=== PATIENT | male | born 1945 | race American Indian/Alaskan Native ===

== ENCOUNTER 2018-07-11 13:57 | Emergency (ER) | payer MEDICARE ==
--- NOTE | 2018-07-11 16:38 | Cat Scan Report ---
PROCEDURE: CT HEAD/BRAIN WO CON TECHNIQUE: Computerized tomography of the head was performed without contrast material. CT DOSE LENGTH PRODUCT: 805.4 mGycm HISTORY: s/p fall; hx of subarachnoid hemorrhage COMPARISONS: There are no old studies available FINDINGS: Visualized sinuses and mastoids well aerated No displaced fracture of the calvarium proper Atrophy Periventricular small vessel disease. Multiple small areas of decreased attenuation in the white matter, most likely representing old vascu lar insults; comparison to prior study or follow-up MRI may be helpful if clinically possible and if clinically warranted. There are symmetric assumed chronic frontal subdural hygromas present with plus minus minimal mass ef fect on the underlying frontal lobes recommend comparison to prior study to document stability No acute epidural bleed. No acute subdural bleed. No acute intracerebral bleed. No acute subarachnoid hemorrhage. No midline shift. No herniation. No intracerebral air. No hydrocephalus. If the patient has continued symptomatology followup MRI may be helpful if clinically possible and i f clinically warranted and/or follow-up exam to document stability of these assumed chronic subdural hygromas discussed above. IMPRESSION: No definite acute posttraumatic intracranial finding/no acute blood present There are small relatively symmetric assumed chronic frontal subdural hygromas as discussed above, roman ggest comparison to prior study document stability or if clinically warranted follow-up imaging as di tracyussed above This document is electronically signed by Esvin Hidalgo MD., Jul 11 2018 04:36:24 PM ET
--- NOTE | 2018-07-11 16:40 | Cat Scan Report ---
PROCEDURE: CT cervical spine without contrast. TECHNIQUE: Computerized tomography of the cervical spine was performed from the skull base to T1 wit hout contrast material. CT DOSE LENGTH PRODUCT: 319 mGycm HISTORY: s/p fall; hx of subarachnoid hemorrhage COMPARISONS: None. FINDINGS: The cervical vertebrae have normal height and alignment. There are no fractures. There is no subluxat ion. There is moderate disc space narrowing from C3-4 through C6-7. There are small vertebral body os teophytes in the mid and lower cervical spine. The spinal canal is widely patent. The facet joints ap pear satisfactory. The neural foramina are widely patent. The prevertebral soft tissues have normal t hickness. There is abnormal opacity in both lung apices. This may represent pleural parenchymal scarr ing. There could be pneumonia at the right lung apex. The exact etiology is uncertain. IMPRESSION: No evidence of acute cervical spine injury. Abnormal lung apices. This document is electronically signed by Jose Carlos Mayo MD., Jul 11 2018 04:38:41 PM ET
--- NOTE | 2018-07-11 16:45 | Emergency Department Report ---
ED General Adult HPI - General Chief complaint: Fall Stated complaint: HEAD INJURY Time Seen by Provider: 07/11/18 16:28 Source: patient, EMS (ems notes not available at time of chart dictation), RN notes reviewed, old records reviewed Mode of arrival: Wheelchair Limitations: Physical Limitation, Other (the patient is a poor historian) - History of Present Illness Initial comments: Primary care DrEvi: Lori Past medical history: Emphysema, glaucoma, cataracts, anemia, constipation, subarachnoid hemorrhage This is a pleasant 72-year-old gentleman. The patient presents from a local [facility] for evaluation of reported ground level fall. The patient reportedly hit the back of his head while walking. The patient denies pain at this time. He reports no preceding symptoms prior to the fall. He has no complaints at this time. He would like to go home. He would like to eat. The patient currently denies headache, neck pain, chest pain, abdominal pain, shortness of breath, urinary symptoms. He denies focal extremity weakness. Reportedly, the fall happened just prior to arrival. There are no friends or family members available at this point time for additional information or collateral information. -: Sudden Severity scale (0 -10): 0 Consistency: now resolved Improves with: none Worsens with: none - Related Data Allergies Allergy/AdvReac Type Severity Reaction Status Date / Time No Known Allergies Allergy Unverified 07/11/18 14:09 ED Review of Systems ROS: Stated complaint: HEAD INJURY Other details as noted in HPI Constitutional: denies: fever Eyes: denies: eye discharge ENT: denies: epistaxis Respiratory: denies: cough Cardiovascular: denies: chest pain Gastrointestinal: denies: abdominal pain Genitourinary: denies: dysuria Musculoskeletal: denies: arthralgia, myalgia Neurological: denies: headache ED Past Medical Hx - Past Medical History Hx COPD: Yes (emphazema) Additional medical history: Pneumonia, Glaucoma, Cataract, Erectile dysfuncion, Anemia, Constipation, Subarachnoid hemorrhage, spinal stenosis - Social History Smoking Status: Never Smoker ED Physical Exam - General Limitations: Other (the patient is a poor historian. The patient will answer some questions.) General appearance: alert, in no apparent distress - Head Head exam: Present: atraumatic, normocephalic - Eye Eye exam: Present: EOMI. Absent: normal appearance (cataract noted in the right eye. In the left eye, visual acuity intact to finger counting, color perception, reading at a close distance.) - ENT ENT exam: Present: normal exam, normal orophraynx, mucous membranes moist, normal external ear exam - Neck Neck exam: Present: normal inspection, full ROM. Absent: tenderness, meningismus - Respiratory Respiratory exam: Present: normal lung sounds bilaterally. Absent: respiratory distress - Cardiovascular Cardiovascular Exam: Present: regular rate, normal rhythm, normal heart sounds. Absent: bradycardia, tachycardia, irregular rhythm, systolic murmur, diastolic murmur, rubs, gallop - GI/Abdominal GI/Abdominal exam: Present: soft. Absent: distended, tenderness, guarding, rebound, rigid, pulsatile mass - Rectal Rectal exam: Present: deferred - Extremities Exam Extremities exam: Present: normal inspection, full ROM, other (2+ pulses noted in the bilateral upper, lower extremities. Compartments soft. No long bony tenderness. The pelvis is stable.). Absent: joint swelling, calf tenderness - Back Exam Back exam: Present: normal inspection, full ROM. Absent: tenderness, CVA tenderness (R), CVA tenderness (L), muscle spasm, paraspinal tenderness, vertebral tenderness - Neurological Exam Neurological exam: Present: alert (the patient is alert to name and location.), other (Extraocular movements intact. Tongue midline. No facial droop. Facial sensation intact to light touch in the V1, V2, V3 distribution bilaterally. 5 and 5 strength in 4 extremities.. Sensation is intact to light touch in 4 extremities.) - Psychiatric Psychiatric exam: Present: normal affect, normal mood - Skin Skin exam: Present: warm, dry, intact, normal color. Absent: rash ED Course Vital Signs 07/11/18 07/11/18 14:19 17:00 Temperature 98 F 98.1 F Pulse Rate 85 74 Respiratory 15 16 Rate Blood Pressure 130/82 120/70 [Left] O2 Sat by Pulse 98 99 Oximetry ED Medical Decision Making - Lab Data Vital Signs 07/11/18 14:19 Temperature 98 F Pulse Rate 85 Respiratory 15 Rate Blood Pressure 130/82 [Left] O2 Sat by Pulse 98 Oximetry - Radiology Data Radiology results: report reviewed, image reviewed Print Report Referring Physician: JOSE CARLOS OLIVIER Patient Name: DARLENE SERVIN Date of : 1945 Sex: Male Report Date: 2018-07-11 Report Status: Finalized Findings [facility] [address] [place] [address] Cat Scan Report Signed Patient: DARLENE SERVIN MR#: [id number] 6 : 1945 Acct:[id number] Age/Sex: 72 / M ADM Date: 07/11/18 Loc: ED Attending Dr: Ordering Physician: JOSE CARLOS OLIVIER MD Date of Service: 07/11/18 Procedure(s): CT head/brain wo con Accession Number(s): [id number] cc: JOSE CARLOS OLIVIER MD PROCEDURE: CT HEAD/BRAIN WO CON TECHNIQUE: Computerized tomography of the head was performed without contrast material. CT DOSE LENGTH PRODUCT: 805.4 mGycm HISTORY: s/p fall; hx of subarachnoid hemorrhage COMPARISONS: There are no old studies available FINDINGS: Visualized sinuses and mastoids well aerated No displaced fracture of the calvarium proper Atrophy Periventricular small vessel disease. Multiple small areas of decreased attenuation in the white matter, most likely representing old vascular insults; comparison to prior study or follow- up MRI may be helpful if clinically possible and if clinically warranted. There are symmetric assumed chronic frontal subdural hygromas present with plus minus minimal mass effect on the underlying frontal lobes recommend comparison to prior study to document stability No acute epidural bleed. No acute subdural bleed. No acute intracerebral bleed. No acute subarachnoid hemorrhage. No midline shift. No herniation. No intracerebral air. No hydrocephalus. If the patient has continued symptomatology followup MRI may be helpful if clinically possible and if clinically warranted and/or follow-up exam to document stability of these assumed chronic subdural hygromas discussed above. IMPRESSION: No definite acute posttraumatic intracranial finding/no acute blood present There are small relatively symmetric assumed chronic frontal subdural hygromas as discussed above, suggest comparison to prior study document stability or if clinically warranted follow-up imaging as discussed above This document is electronically signed by Parminder Horta MD., Jul 11 2018 04:36:24 PM ET Transcribed By: FAF Dictated By: PARMINDER HORTA MD Electronically Authenticated By: PARMINDER HORTA MD Signed Date/Time: 07/11/18 1638 Print Report Referring Physician: JOSE CARLOS OLIVIER Patient Name: DARLENE SERVIN Date of : 1945 Sex: Male Report Date: 2018-07-11 Report Status: Finalized Findings [facility] [address] [place] [address] Cat Scan Report Signed Patient: DARLENE SERVIN MR#: [id number] 6 : 1945 Acct:[id number] Age/Sex: 72 / M ADM Date: 07/11/18 Loc: ED Attending Dr: Ordering Physician: JOSE CARLOS OLIVIER MD Date of Service: 07/11/18 Procedure(s): CT cervical spine wo con Accession Number(s): [id number] cc: JOSE CARLOS OLIVIER MD PROCEDURE: CT cervical spine without contrast. TECHNIQUE: Computerized tomography of the cervical spine was performed from the skull base to T1 without contrast material. CT DOSE LENGTH PRODUCT: 319 mGycm HISTORY: s/p fall; hx of subarachnoid hemorrhage COMPARISONS: None. FINDINGS: The cervical vertebrae have normal height and alignment. There are no fractures. There is no subluxation. There is moderate disc space narrowing from C3-4 through C6-7. There are small vertebral body osteophytes in the mid and lower cervical spine. The spinal canal is widely patent. The facet joints appear satisfactory. The neural foramina are widely patent. The prevertebral soft tissues have normal thickness. There is abnormal opacity in both lung apices. This may represent pleural parenchymal scarring. There could be pneumonia at the right lung apex. The exact etiology is uncertain. IMPRESSION: No evidence of acute cervical spine injury. Abnormal lung apices. This document is electronically signed by Jose Carlos Carbajal MD., Jul 11 2018 04:38:41 PM ET Transcribed By: MRM Dictated By: JOSE CARLOS CARBAJAL MD Electronically Authenticated By: JOSE CARLOS CARBAJAL MD Signed Date/Time: 07/11/18 1640 - Medical Decision Making Differential diagnosis, including but not limited to: Intracranial injury, cervical spine injury, mechanical fall Assessment and plan: 72-year-old gentleman status post mechanical fall. The patient is afebrile with reassuring vital signs. His objective imaging studies do not demonstrate acute traumatic injury. Chronic findings noted on CT scan of the brain and cervical spine. Patient is observed in the emergency room for a few hours without clinical decompensation. He is noted to be eating food without difficulty. Urinalysis not suggestive of urinary tract infection or asymptomatic bacteriuria. The patient does not appear to have an emergent medical condition at this time. CT scan interpretation of the lung apex is reviewed and appreciated, this is likely sequela of chronic known documented COPD. He is not hypoxic and does not have focal pulmonary findings. Clinically did not suspect acute pneumonia at this time. Critical care attestation.: If time is entered above; I have spent that time in minutes in the direct care of this critically ill patient, excluding procedure time. ED Disposition Clinical Impression: History of fall Disposition: DC-01 TO HOME OR SELFCARE Is pt being admited?: No Does the pt Need Aspirin: No Condition: Good Additional Instructions: Follow-up with your primary care doctor within the next 10-14 days. Continue current outpatient medications. Return to the emergency room right away with new, worsening or different symptoms, or symptoms not present on the initial emergency room evaluation. Referrals: DORI ALLEN DO [Primary Care Provider] - 3-5 Days
[2018-07-11 17:10] LABS: Bilirubin,Urine NEG (Negative); Blood,Urine NEG (Negative); Color,Urine Yellow (Yellow); Mucus,Urine 1+ /HPF; RBC,Urine < 1.0 /HPF (0.0-6.0)
[2018-07-11 18:10] VITALS: BP 100/60
== END 2018-07-11 19:04 | disposition home or self-care (01) ==
LOC: ED 13:57
DX: S09.90XA Unspecified injury of head, initial encounter (principal); J44.9 Chronic obstructive pulmonary disease, unspecified; H26.9 Unspecified cataract; Z86.2 Personal history of diseases of the blood and blood-forming organs and certain disorders involving the immune mechanism; W18.30XA Fall on same level, unspecified, initial encounter; Y93.01 Activity, walking, marching and hiking; Y92.89 Other specified places as the place of occurrence of the external cause; Y99.8 Other external cause status
CPT/HCPCS: 70450; 72125; 81001

== ENCOUNTER 2018-07-26 18:25 | Inpatient (IN) | payer MEDICARE ==
[2018-07-26] MEDS ORDERED: NACL 0.9% 1000 ML IV ONE (18:50)
[2018-07-26] MEDS ORDERED: SUBLIMAZE IV PRN (18:54)
[2018-07-26] MEDS ORDERED: KEPPRA 500 MG in D5W 100 ML IV ONE (18:54)
[2018-07-26] MEDS ORDERED: VASELINE LIP THERAPY TP PRN (18:54)
[2018-07-26] MEDS ORDERED: ARTIFICIAL TEARS OPHTH OINT OU PRN (18:54)
[2018-07-26] MEDS ORDERED: PROVENTIL IH ONE (18:54)
[2018-07-26] MEDS ORDERED: VERSED IV PRN (18:54)
--- NOTE | 2018-07-26 18:57 | Emergency Department Report ---
ED General Adult HPI - General Chief complaint: Altered Mental Status Stated complaint: AMS Time Seen by Provider: 07/26/18 18:48 Source: EMS (verbal report received from EMS.ems notes not available at time of chart dictation), RN notes reviewed, old records reviewed Mode of arrival: Stretcher Limitations: Altered Mental Status, Physical Limitation - History of Present Illness Initial comments: This is a 72-year-old gentleman. I have evaluated him in the past. His primary care doctor is Dr. Sandoval His past medical history includes resolving pneumothorax, distant history of nontraumatic subdural hemorrhage, akinesia, dysphasia, reported left-sided weakness, emphysema, anemia, opioid abuse, erectile dysfunction, insomnia, question peripheral artery disease The patient is brought to the hospital by emergency medical services for altered mental status, and possible convulsive activity. The patient is altered in the emergency room and obtunded. The patient is not able to describe exacerbating or relieving factors. He had a normal fingerstick in the field. Upon arrival to the emergency room, the patient is altered, and is not able to protect his airway. Advanced directives are do not closed with his paperwork. Patient intubated for airway protection. He is placed on a nasal cannula, at 15 L/m, receives [id number] ventilation, is induced with 20 mg of etomidate, intubated using direct laryngoscopy, with a Boni 3 curved blade, and a 7.5 endotracheal tube, and tube was placed through the vocal cords via direct visu alization. Patient paralyzed with 100 mg of rocuronium. No additional history is available at this time. Patient altered and obtunded upon arrival, therefore, not able to describe qualitative nature of symptoms, onset, duration, exacerbating or relieving factors. -: unknown Quality: other Consistency: other Improves with: other Worsens with: other Associated Symptoms: other - Related Data Home Medications Medication Instructions Recorded Confirmed Last Taken Bisacodyl Oral Liq 5 mg PO DAILY 07/27/18 07/27/18 Unknown Polyethylene Glycol 3350 3,350 cap PO BID 07/27/18 07/27/18 Unknown Senna 8.6 mg PO DAILY 07/27/18 07/27/18 Unknown Allergies Allergy/AdvReac Type Severity Reaction Status Date / Time No Known Allergies Allergy Verified 07/27/18 07:35 ED Review of Systems ROS: Stated complaint: AMS Other details as noted in HPI Comment: Unobtainable due to pts medical conditions ED Past Medical Hx - Past Medical History Hx COPD: Yes (emphazema) Additional medical history: Pneumonia, Glaucoma, Cataract, Erectile dysfuncion, Anemia, Constipation, Subarachnoid hemorrhage, spinal stenosis - Social History Smoking Status: Unknown if ever smoked - Medications Home Medications: Home Medications Medication Instructions Recorded Confirmed Last Taken Type Bisacodyl Oral Liq 5 mg PO DAILY 07/27/18 07/27/18 Unknown History Polyethylene Glycol 3350 3,350 cap PO BID 07/27/18 07/27/18 Unknown History Senna 8.6 mg PO DAILY 07/27/18 07/27/18 Unknown History ED Physical Exam - General Limitations: Altered Mental Status, Physical Limitation General appearance: obtunded, in distress - Eye Eye exam: Present: normal appearance - ENT ENT exam: Present: mucous membranes dry - Neck Neck exam: Present: normal inspection, full ROM. Absent: tenderness, meningismus - Respiratory Respiratory exam: Present: respiratory distress. Absent: rales, rhonchi, stridor - Cardiovascular Cardiovascular Exam: Present: normal rhythm, tachycardia, normal heart sounds. Absent: bradycardia - GI/Abdominal GI/Abdominal exam: Present: soft. Absent: distended, tenderness, guarding, rebound, rigid, pulsatile mass - Rectal Rectal exam: Present: normal inspection - exam: Present: normal inspection External exam: Present: normal external exam - Extremities Exam Extremities exam: Present: normal inspection, other (2+ pulses noted in the bilateral upper, lower extremities. Compartments soft. No long bony tenderness. The pelvis is stable.). Absent: calf tenderness - Back Exam Back exam: Present: normal inspection. Absent: tenderness, CVA tenderness (R), CVA tenderness (L), paraspinal tenderness, vertebral tenderness - Neurological Exam Neurological exam: Present: altered, other (presents nonverbal. Eyes open spontaneously. Not moving extremities spontaneously. Nonverbal.) - Psychiatric Psychiatric exam: Present: other (patient is nonverbal) - Skin Skin exam: Present: dry ED Course Vital Signs 07/26/18 07/26/18 07/26/18 18:29 18:34 18:40 Temperature Pulse Rate 130 H 129 H Pulse Rate [ Anterior Bilateral Throughout] Respiratory 22 15 25 H Rate Respiratory Rate [Anterior Bilateral Throughout] Blood Pressure 146/88 Blood Pressure 169/100 [Right] O2 Sat by Pulse 100 Oximetry 07/26/18 07/26/18 07/26/18 18:45 18:51 18:52 Temperature 97.2 F L Pulse Rate 130 H 135 H 122 H Pulse Rate [ Anterior Bilateral Throughout] Respiratory 15 20 Rate Respiratory Rate [Anterior Bilateral Throughout] Blood Pressure 131/91 157/103 Blood Pressure 131/91 [Right] O2 Sat by Pulse 100 100 100 Oximetry 07/26/18 07/26/18 07/26/18 19:00 19:15 19:30 Temperature Pulse Rate 124 H 107 H 101 H Pulse Rate [ Anterior Bilateral Throughout] Respiratory 18 16 16 Rate Respiratory Rate [Anterior Bilateral Throughout] Blood Pressure 131/91 158/100 158/100 Blood Pressure [Right] O2 Sat by Pulse 100 100 Oximetry 07/26/18 07/26/18 07/26/18 19:39 19:45 20:00 Temperature Pulse Rate 102 H 94 H 99 H Pulse Rate [ Anterior Bilateral Throughout] Respiratory 14 16 17 Rate Respiratory Rate [Anterior Bilateral Throughout] Blood Pressure 146/88 158/93 160/98 Blood Pressure [Right] O2 Sat by Pulse 100 100 100 Oximetry 07/26/18 07/26/18 07/26/18 20:06 20:15 20:30 Temperature Pulse Rate 88 86 83 Pulse Rate [ 88 Anterior Bilateral Throughout] Respiratory 20 20 Rate Respiratory 16 Rate [Anterior Bilateral Throughout] Blood Pressure 149/92 144/92 158/91 Blood Pressure [Right] O2 Sat by Pulse 100 100 100 Oximetry 07/26/18 07/26/18 07/26/18 20:32 20:45 21:00 Temperature Pulse Rate 78 80 Pulse Rate [ 91 H Anterior Bilateral Throughout] Respiratory 20 20 Rate Respiratory 16 Rate [Anterior Bilateral Throughout] Blood Pressure 154/93 153/93 Blood Pressure [Right] O2 Sat by Pulse 100 100 Oximetry 07/26/18 07/26/18 07/26/18 21:26 21:30 21:45 Temperature Pulse Rate 80 72 71 Pulse Rate [ Anterior Bilateral Throughout] Respiratory 20 20 20 Rate Respiratory Rate [Anterior Bilateral Throughout] Blood Pressure 152/85 153/87 143/94 Blood Pressure [Right] O2 Sat by Pulse 100 100 100 Oximetry 07/26/18 07/26/18 07/26/18 22:00 22:15 22:31 Temperature Pulse Rate 68 76 82 Pulse Rate [ Anterior Bilateral Throughout] Respiratory 20 20 20 Rate Respiratory Rate [Anterior Bilateral Throughout] Blood Pressure 149/92 141/92 149/122 Blood Pressure [Right] O2 Sat by Pulse 100 100 94 Oximetry 07/26/18 07/26/18 07/26/18 22:45 23:01 23:15 Temperature Pulse Rate 82 87 90 Pulse Rate [ Anterior Bilateral Throughout] Respiratory 20 21 19 Rate Respiratory Rate [Anterior Bilateral Throughout] Blood Pressure 147/96 177/143 139/120 Blood Pressure [Right] O2 Sat by Pulse 100 99 100 Oximetry 07/26/18 07/26/18 07/27/18 23:31 23:45 00:00 Temperature Pulse Rate 101 H 101 H 116 H Pulse Rate [ Anterior Bilateral Throughout] Respiratory 20 20 20 Rate Respiratory Rate [Anterior Bilateral Throughout] Blood Pressure 136/76 135/84 120/81 Blood Pressure [Right] O2 Sat by Pulse 100 100 100 Oximetry 07/27/18 07/27/18 07/27/18 00:15 00:30 00:33 Temperature Pulse Rate 120 H 117 H 118 H Pulse Rate [ Anterior Bilateral Throughout] Respiratory 20 20 Rate Respiratory Rate [Anterior Bilateral Throughout] Blood Pressure 126/78 125/77 126/78 Blood Pressure [Right] O2 Sat by Pulse 100 100 100 Oximetry 07/27/18 07/27/18 07/27/18 00:45 01:00 01:15 Temperature Pulse Rate 117 H 107 H 104 H Pulse Rate [ Anterior Bilateral Throughout] Respiratory 20 20 20 Rate Respiratory Rate [Anterior Bilateral Throughout] Blood Pressure 113/84 94/65 99/63 Blood Pressure [Right] O2 Sat by Pulse 99 99 100 Oximetry 07/27/18 07/27/18 07/27/18 01:30 01:45 02:00 Temperature Pulse Rate 99 H 98 H 98 H Pulse Rate [ Anterior Bilateral Throughout] Respiratory 20 19 21 Rate Respiratory Rate [Anterior Bilateral Throughout] Blood Pressure 83/59 95/68 102/72 Blood Pressure [Right] O2 Sat by Pulse 100 100 Oximetry 07/27/18 07/27/18 07/27/18 02:15 02:30 02:45 Temperature Pulse Rate 104 H 95 H 106 H Pulse Rate [ Anterior Bilateral Throughout] Respiratory 20 20 20 Rate Respiratory Rate [Anterior Bilateral Throughout] Blood Pressure 107/75 99/68 106/70 Blood Pressure [Right] O2 Sat by Pulse 100 98 Oximetry 07/27/18 07/27/18 07/27/18 03:00 03:15 03:30 Temperature Pulse Rate 100 H 102 H 102 H Pulse Rate [ Anterior Bilateral Throughout] Respiratory 16 20 19 Rate Respiratory Rate [Anterior Bilateral Throughout] Blood Pressure 98/67 94/64 94/69 Blood Pressure [Right] O2 Sat by Pulse 100 100 100 Oximetry 07/27/18 07/27/18 07/27/18 03:45 04:00 04:15 Temperature Pulse Rate 103 H 102 H 104 H Pulse Rate [ Anterior Bilateral Throughout] Respiratory 22 20 20 Rate Respiratory Rate [Anterior Bilateral Throughout] Blood Pressure 101/69 100/64 101/67 Blood Pressure [Right] O2 Sat by Pulse 100 100 100 Oximetry 07/27/18 07/27/18 07/27/18 04:30 04:45 04:48 Temperature Pulse Rate 105 H 102 H 106 H Pulse Rate [ Anterior Bilateral Throughout] Respiratory 18 20 Rate Respiratory Rate [Anterior Bilateral Throughout] Blood Pressure 99/68 96/66 106/71 Blood Pressure [Right] O2 Sat by Pulse 99 100 100 Oximetry 07/27/18 07/27/18 07/27/18 05:00 05:15 05:30 Temperature Pulse Rate 101 H 99 H 99 H Pulse Rate [ Anterior Bilateral Throughout] Respiratory 20 20 20 Rate Respiratory Rate [Anterior Bilateral Throughout] Blood Pressure 98/68 97/69 97/67 Blood Pressure [Right] O2 Sat by Pulse 99 99 100 Oximetry 07/27/18 07/27/18 07/27/18 05:45 05:55 06:00 Temperature Pulse Rate 102 H 98 H Pulse Rate [ Anterior Bilateral Throughout] Respiratory 17 20 20 Rate Respiratory Rate [Anterior Bilateral Throughout] Blood Pressure 95/65 92/67 Blood Pressure [Right] O2 Sat by Pulse 100 100 Oximetry 07/27/18 07/27/18 07/27/18 06:15 06:30 06:45 Temperature Pulse Rate 101 H 98 H 95 H Pulse Rate [ Anterior Bilateral Throughout] Respiratory 18 19 20 Rate Respiratory Rate [Anterior Bilateral Throughout] Blood Pressure 102/69 99/65 103/64 Blood Pressure [Right] O2 Sat by Pulse 100 99 97 Oximetry 07/27/18 07/27/18 07/27/18 06:50 07:01 07:10 Temperature Pulse Rate 96 H 97 H 99 H Pulse Rate [ Anterior Bilateral Throughout] Respiratory 17 12 20 Rate Respiratory Rate [Anterior Bilateral Throughout] Blood Pressure 97/68 113/57 101/61 Blood Pressure [Right] O2 Sat by Pulse 100 Oximetry 07/27/18 07/27/18 07/27/18 07:20 07:30 07:37 Temperature Pulse Rate 95 H 95 H 96 H Pulse Rate [ Anterior Bilateral Throughout] Respiratory 20 17 Rate Respiratory Rate [Anterior Bilateral Throughout] Blood Pressure 96/65 97/64 93/61 Blood Pressure [Right] O2 Sat by Pulse 100 Oximetry 07/27/18 07/27/18 07/27/18 07:40 07:50 08:00 Temperature Pulse Rate 99 H 95 H 94 H Pulse Rate [ Anterior Bilateral Throughout] Respiratory 19 20 19 Rate Respiratory Rate [Anterior Bilateral Throughout] Blood Pressure 113/70 93/61 100/68 Blood Pressure [Right] O2 Sat by Pulse 100 Oximetry 07/27/18 07/27/18 07/27/18 08:10 08:21 08:30 Temperature Pulse Rate 94 H 96 H 94 H Pulse Rate [ Anterior Bilateral Throughout] Respiratory 20 18 20 Rate Respiratory Rate [Anterior Bilateral Throughout] Blood Pressure 103/65 103/65 90/64 Blood Pressure [Right] O2 Sat by Pulse 96 Oximetry 07/27/18 07/27/18 07/27/18 08:40 08:50 09:00 Temperature Pulse Rate 96 H 94 H 94 H Pulse Rate [ Anterior Bilateral Throughout] Respiratory 20 20 15 Rate Respiratory Rate [Anterior Bilateral Throughout] Blood Pressure 98/70 103/68 107/69 Blood Pressure [Right] O2 Sat by Pulse 99 Oximetry 07/27/18 07/27/18 07/27/18 09:07 09:10 09:20 Temperature Pulse Rate 90 93 H 93 H Pulse Rate [ Anterior Bilateral Throughout] Respiratory 20 20 20 Rate Respiratory Rate [Anterior Bilateral Throughout] Blood Pressure 99/71 97/67 Blood Pressure 100/75 [Right] O2 Sat by Pulse 95 Oximetry 07/27/18 07/27/18 07/27/18 09:30 09:40 10:00 Temperature 97.6 F Pulse Rate 94 H 95 H Pulse Rate [ Anterior Bilateral Throughout] Respiratory 20 16 Rate Respiratory Rate [Anterior Bilateral Throughout] Blood Pressure 100/68 106/68 Blood Pressure [Right] O2 Sat by Pulse 98 Oximetry - Reevaluation(s) Reevaluation #1: 07/26/18 19:21 Differential diagnosis, including not limited to: Intracranial lesion, intracranial injury, pneumonia, pulmonary embolus, urinary tract infection, dehydration, electrolyte derangement, thyroid derangement 07/26/18 19:22 Assessment and plan: 72-year-old gentleman with undifferentiated altered mental status and respiratory failure requiring intubation. He is tachycardic, normotensive, and does not appear to have significant work of breathing on the ventilator, and is not wheezing. We will obtain CT scan of the brain, CT scan of the chest, appropriate screening laboratory studies, provide supportive care, and reassess once initial diagnostics have resulted. Initial x-ray of the chest demonstrated a nasogastric tube is malpositioned in the throat, it was repositioned by nursing staff, and repeat x-ray the chest is pending at this time. We will adjust the patient's care as his diagnostics result. Contacted critical care physician on-call, Dr. Octavio Berger, who agrees with placement into the intensive care unit, assuming diagnostics do not demonstrate any condition that would require transfer to a higher level of care. Patient will be ventilated on a lung protective strategy. For questionable convulsive event, patient will be loaded with Keppra. Prior to intubation, he is awake but altered, not demonstrating any convulsive activity. Reevaluation #2: 07/27/18 01:03 CT scan of the brain demonstrates chronic findings. Do not clinically suspect meningitis at this point in time. CT scan of the chest shows no pulmonary embolus. Question pneumonia is suggested. The case was presented to the patient's private physician, Dr. Daryl Sandoval who accepted the patient to his service to the intensive care unit. At approximately 11:55 PM, patient experienced a run of wide complex tachycardia, 180 bpm, on the monitor, appear to be consistent with a right bundle branch block. Question SVT with aberrancy. He was also noted to have some focal twitching in his left upper extremity. He is given 2 mg of Ativan, and 2 mg of Versed. This terminated the event. Patient now back in a normal sinus rhythm, with motion artifact noted on his EKG. Sedation being titrated by nursing team. No additional convulsive events noted. Reevaluation #3: 07/27/18 01:05 Lactic acid trending down from 12-4. - EJ/Peripheral Line Neck L Time Out Performed: No (emergency situation. Aseptic technique was adhered to.) Indications: multiple IV sites needed Skin Cleansed in Sterile Fashion: Yes Size: 18 Dressing Placed: Tegaderm Patient Tolerated Procedure: well - Intubation Time Out Performed: No (emergency situation) Sedative: Etomidate Mg Given: 20 Paralytic: Rocuronium Mg Given: 10 Laryngoscope: Boni Size: 3 ET Tube Size: 7.5 Tube Secured Depth (cm): 23 Tube Secured Location: teeth Tube Placement Confirmation: visualized tube passing t, equal breath sounds bilat, no breath sounds over epi, confirmation by capnometr Patient Tolerated Procedure: well Intubation Complications: none ED Medical Decision Making - Lab Data Result diagrams: 07/27/18 07:08 07/27/18 07:08 Vital Signs 07/26/18 07/26/18 07/26/18 18:29 18:51 18:52 Temperature 97.2 F L Pulse Rate 130 H 135 H 122 H Respiratory 22 20 Rate Blood Pressure 157/103 Blood Pressure 169/100 131/91 [Right] O2 Sat by Pulse 100 100 Oximetry Lab Results 07/26/18 Range/Units 18:45 POC Glucose 235 H (70-105) - EKG Data -: EKG Interpreted by Me EKG shows normal: sinus rhythm Rate: tachycardia - EKG Data When compared to previous EKG there are: previous EKG unavailable 07/26/18 19:21 This is a sinus tachycardia, 120 bpm, borderline rightward axis, QTC within normal limits, left ventricular hypertrophy, atrial enlargement, this is an abnormal EKG, there is no prior for comparison, this EKG is not consistent with ST elevation myocardial infarction. - Radiology Data Radiology results: report reviewed, image reviewed interpreted by me: X-ray of the chest shows hyperinflated lungs and coiled nasogastric tube. Appropriate placement of endotracheal tube. Print Report Referring Physician: FANTA OLIVIER Patient Name: DARLENE SERVIN Date of : 1945 Sex: Male Report Date: 2018-07-26 Report Status: Finalized Findings [facility] [address] [place] [address] XRay Report Signed Patient: DARLENE SERVIN MR#: [id number] 6 : 1945 Acct:[id number] Age/Sex: 72 / M ADM Date: 07/26/18 Loc: ED Attending Dr: Ordering Physician: FANTA OLIVIER MD Date of Service: 07/26/18 Procedure(s): XR chest 1V ap Accession Number(s): [id number] cc: FANTA OLIVIER MD Fluoro Time In Minutes: PROCEDURE: XR CHEST 1V AP TECHNIQUE: Chest radiograph single view. HISTORY: resp failuire....ETT placement COMPARISONS: None . FINDINGS: Endotracheal tube in place. The tip lies approximately 2.5 cm above the juan c. Lungs appear mildly hyperinflated, there may be underlying COPD. There is apical pleural thickening bilaterally, this is greater on the right than the left. No effusions are seen. Heart size and pu lmonary vasculature appear normal. No acute bone abnormalities identified. IMPRESSION: Lungs appear hyperinflated suggesting underlying COPD. Endotracheal tube in place as described. Asymmetric apical pleural thickening bilaterally right side greater than left. This may represent scarring. Masses are not entirely excluded. This document is electronically signed by Mehran Hernandez MD., July 26 2018 07:40:17 PM ET Transcribed By: DFN Dictated By: MEHRAN HERNANDEZ MD Electronically Authenticated By: MEHRAN HERNANDEZ MD Signed Date/Time: 07/26/181941 Post repositioning x-ray of the chest shows appropriate positioning of nasogastric tube. Critical Care Time: Yes Critical care time in (mins) excluding proc time.: 60 Critical care attestation.: If time is entered above; I have spent that time in minutes in the direct care of this critically ill patient, excluding procedure time. ED Disposition Clinical Impression: Respiratory failure Qualifiers: Chronicity: acute Respiratory failure complication: unspecified whether with hypoxia or hypercapnia Qualified Code(s): J96.00 - Acute respiratory failure, unspecified whether with hypoxia or hypercapnia Disposition: DC-09 OP ADMIT IP TO THIS HOSP Is pt being admited?: Yes Condition: Critical
[2018-07-26] MEDS ORDERED: MIDAZOLAM 100 MG in NACL 0.9% 80 ML IV SCH (19:00)
[2018-07-26] MEDS ORDERED: fentaNYL DRIP Premix 2,000 MCG/100 ML BAG IV SCH (19:00)
[2018-07-26] MEDS ORDERED: ZEMURON IV ONE (19:00)
[2018-07-26] MEDS ORDERED: AMIDATE IV ONE (19:00)
--- NOTE | 2018-07-26 19:42 | XRay Report ---
PROCEDURE: XR CHEST 1V AP TECHNIQUE: Chest radiograph single view. HISTORY: resp failuire....ETT placement COMPARISONS: None . FINDINGS: Endotracheal tube in place. The tip lies approximately 2.5 cm above the juan c. Lungs appear mildly h yperinflated, there may be underlying COPD. There is apical pleural thickening bilaterally, this is g reater on the right than the left. No effusions are seen. Heart size and pulmonary vasculature appear normal. No acute bone abnormalities identified. IMPRESSION: Lungs appear hyperinflated suggesting underlying COPD. Endotracheal tube in place as described. Asymmetric apical pleural thickening bilaterally right side greater than left. This may represent sca rring. Masses are not entirely excluded. This document is electronically signed by Mehran Lacey MD., July 26 2018 07:40:17 PM ET
[2018-07-26 19:46] LABS: Hematocrit 32.7 % (35.5-45.6); Hemoglobin 10.3 gm/dl (11.8-15.2); Mean Corpuscular HGB Conc 32 % (32-34); Mean Corpuscular Volume 100 fl (84-94); Platelet Count 150 K/mm3 (140-440); Red Blood Count 3.27 M/mm3 (3.65-5.03); Red Cell Distribution Width 16.4 % (13.2-15.2)
[2018-07-26 19:54] LABS: INR 1.09 (0.87-1.13); Partial Thromboplastin Time 34.9 Sec. (24.2-36.6)
[2018-07-26] MEDS ORDERED: ROCEPHIN/NS 1 GM/50 ML 1 GM/50 ML BAG IV ONE ×2 (21:44→21:45)
--- NOTE | 2018-07-26 21:49 | XRay Report ---
PROCEDURE: XR CHEST 1V AP TECHNIQUE: Chest radiograph single view. HISTORY: ng tube reposition COMPARISONS: July 26, 2018 . FINDINGS: Heart: Normal. Mediastinum/Vessels: Normal. Lungs/Pleural space: Lungs are expanded. There are fibrotic changes and pleural thickening at the amelie ng apices. There are no acute infiltrates. There is no pleural effusion or pneumothorax.. Bony thorax: No acute osseous abnormality. Life support devices: Endotracheal tube is 4.67 m above the juan c. NG tube is in the stomach.. IMPRESSION: Heart size is normal. Lungs are expanded. There are fibrotic changes and pleural thickening at the lung apices. There are n o acute infiltrates. There is no pleural effusion or pneumothorax. Endotracheal tube is 4.67 m above the juan c. NG tube is in the stomach.. This document is electronically signed by Hever Hargrove MD., July 26 2018 08:14:24 PM ET
[2018-07-26] MEDS ORDERED: NACL 0.9% 1000 ML 1,000 ML ONE (22:24)
[2018-07-26] MEDS ORDERED: ATIVAN ONE (23:43)
[2018-07-27] MEDS ORDERED: LEVOPHED DRIP 4 MG/NS 250 ML 4 MG/250 ML BAG IV ONE (01:32)
[2018-07-27] MEDS ORDERED: LEVOPHED DRIP 4 MG/NS 250 ML 4 MG/250 ML BAG IV SCH (02:00)
[2018-07-27 04:16] LABS: Band Neutrophils # (Manual) 0.1 K/mm3; Basophils % (Manual) 0 % (0.0-1.8); Total Cells Counted 100
[2018-07-27 04:17] LABS: Anisocytosis 1+; Burr Cells Few; Ovalocytes Few; Platelet Estimate Consistent w Auto; Poikilocytosis 1+
[2018-07-27 04:22] LABS: Alanine Aminotransferase 18 units/L (7-56); Albumin 3.6 g/dL (3.9-5); BUN/Creatinine Ratio 21; Blood Urea Nitrogen 19 mg/dL (9-20); Calcium 8.8 mg/dL (8.4-10.2); Hemolysis Index 38
[2018-07-27 04:23] LABS: Bilirubin,Urine NEG (Negative); Blood,Urine SM (Negative); Color,Urine Yellow (Yellow); Mucus,Urine FEW /HPF; Urobilinogen,Urine < 2.0 mg/dL (<2.0)
--- NOTE | 2018-07-27 04:50 | XRay Report ---
PROCEDURE: XR CHEST 1V AP TECHNIQUE: Chest radiograph single view. HISTORY: follow up respiratory failure COMPARISONS: 07/26/[address] . FINDINGS: Satisfactory appearance of patient's endotracheal and enteric tubes. No mediastinal shift. Cardiac si lhouette is not enlarged. No pneumothorax or effusion. Right greater than left apical pleural thicken ing and scarring. Old right upper rib fracture deformities. IMPRESSION: Satisfactory appearance of the patient's support apparatus without significant change compared to 07/16 This document is electronically signed by Jose Carlos Lei MD., July 27 2018 04:48:29 AM ET
[2018-07-27] MEDS: HEPARIN SUB-Q SCH ×3 (06:57→22:36)
[2018-07-27 07:46] LABS: WBC,Urine < 1.0 /HPF (0.0-6.0)
[2018-07-27 08:12] LABS: Alanine Aminotransferase 18 units/L (7-56); Albumin 3.2 g/dL (3.9-5); BUN/Creatinine Ratio 15; Blood Urea Nitrogen 15 mg/dL (9-20); Calcium 8.3 mg/dL (8.4-10.2); Hemolysis Index 28
[2018-07-27 08:17] LABS: Mean Corpuscular HGB Conc 33 % (32-34); Mean Corpuscular Volume 95 fl (84-94); Mean Platelet Volume 9.2 fl (6-12); Red Blood Count 4.13 M/mm3 (3.65-5.03); Red Cell Distribution Width 16.1 % (13.2-15.2)
[2018-07-27 10:16] LABS: Basophils % (Manual) 0 % (0.0-1.8); Eosinophils % (Manual) 0 % (0.0-4.3); Total Cells Counted 100
[2018-07-27 10:20] LABS: Anisocytosis 1+; Burr Cells Few; Ovalocytes Few; Poikilocytosis 1+
[2018-07-27 10:21] LABS: Platelet Estimate Consistent w Auto
[2018-07-27] MEDS: NACL 0.9% 1000 ML 1,000 ML IV SCH ×2 (10:54→22:36)
[2018-07-27 11:18] LABS: Platelet Count 108 K/mm3 (140-440)
[2018-07-27] MEDS: PEPCID IV SCH ×2 (12:58→22:36)
--- NOTE | 2018-07-27 19:54 | History and Physical Report ---
History of Present Illness Date of examination: 07/27/18 Date of admission: 07/26/18 22:03 Chief complaint: Patient arrested in the ED. History of present illness: Patient presented fom the [place] , found lethargic, unresponsive, EMS called, patient transported to the Ed where he arrested, then intubated, and admitted to the ICU.The alf staff observed some shaking prior to his unresponsiveness.EEG will be ordered, pulm, and nutrition consult. CXy consisted with emphysema, and fibrotic changes, in the apex. Past History Past Medical History: COPD Social history: no significant social history, other ([place] residence.) Family history: no significant family history Medications and Allergies Allergies Allergy/AdvReac Type Severity Reaction Status Date / Time No Known Allergies Allergy Verified 07/27/18 07:35 Home Medications Medication Instructions Recorded Confirmed Last Taken Type Bisacodyl Oral Liq 5 mg PO DAILY 07/27/18 07/27/18 Unknown History Polyethylene Glycol 3350 3,350 cap PO BID 07/27/18 07/27/18 Unknown History Senna 8.6 mg PO DAILY 07/27/18 07/27/18 Unknown History Active Meds: Active Medications Famotidine (Pepcid) 20 mg IV BID SOLANGE Last Admin: 07/27/18 12:58 Dose: 20 mg Documented by: Fentanyl (Sublimaze) 50 mcg IV Q10MIN PRN PRN Reason: ANALGESIA Heparin Sodium (Porcine) (Heparin) 5,000 unit SUB-Q Q8HR SOLANGE Last Admin: 07/27/18 13:02 Dose: 5,000 unit Documented by: Hydrophilic Ointment (Vaseline Lip Therapy) 1 applic TP Q2HR PRN PRN Reason: Dry Lips Fentanyl Citrate (Fentanyl Drip Premix) 2,000 mcg in 100 mls @ 3.175 mls/hr IV TITR SOLANGE; Protocol Last Titration: 07/27/18 11:02 Dose: 0 mcg/kg/hr, 0 mls/hr Documented by: Midazolam HCl 100 mg/ Sodium (Chloride) 100 mls @ 2 mls/hr IV TITR SOLANGE; Rudolph col Last Titration: 07/27/18 11:00 Dose: 0 mg/hr, 0 mls/hr Documented by: Norepinephrine (Levophed Drip 4 Mg/Ns 250 Ml) 4 mg in 250 mls @ 7.5 mls/hr IV TITR SOLANGE; Protocol Last Titration: 07/27/18 11:01 Dose: 0 mcg/min, 0 mls/hr Documented by: Sodium Chloride (Nacl 0.9% 1000 Ml) 1,000 mls @ 85 mls/hr IV DIRECT SOLANGE Last Admin: 07/27/18 10:54 Dose: 85 mls/hr Documented by: Midazolam HCl (Versed) 2 mg IV Q10MIN PRN PRN Reason: Sedation Multi-Ingred Cream/Lotion/Oil/Oint (Artificial Tears Ophth Oint) 1 applic OU Q4HR PRN PRN Reason: Dry Eye(s) Review of Systems Constitutional: other (Difficult to determine at this time, due to patients condition.) Exam - Constitutional Vitals: Temp Pulse Resp BP Pulse Ox 100.1 F H 104 H 19 118/71 100 07/27/18 16:00 07/27/18 19:11 07/27/18 19:11 07/27/18 19:11 07/27/18 19:11 General appearance: Present: cachectic - EENT Eyes: Present: PERRL ENT: hearing intact, clear oral mucosa - Neck Neck: Present: supple - Respiratory Respiratory: bilateral: other (patient on full vent support.) - Cardiovascular Heart Sounds: Present: S1 & S2. Absent: rub, click - Extremities Extremities: pulses symmetrical, No edema Peripheral Pulses: within normal limits - Abdominal General gastrointestinal: Present: soft, non-tender, non-distended, normal bowel sounds Male genitourinary: Present: deferred - Rectal Rectal Exam: deferred - Integumentary Integumentary: Present: clear, warm, dry - Musculoskeletal Musculoskeletal: gait normal, strength equal bilaterally - Psychiatric Psychiatric: appropriate mood/affect Results - Labs CBC & Chem 7: 07/27/18 07:08 07/27/18 07:08 Labs: Abnormal lab results 07/26/18 07/26/18 07/26/18 Range/Units 19:04 19:04 19:04 WBC (4.5-11.0) K/mm3 RBC 3.27 L (3.65-5.03) M/mm3 Hgb 10.3 L (11.8-15.2) gm/dl Hct 32.7 L (35.5-45.6) % MCV 100 H (84-94) fl RDW 16.4 H (13.2-15.2) % Plt Count (140-440) K/mm3 Seg Neuts % (Manual) (40.0-70.0) % Monocytes % (Manual) 10.0 H (0.0-7.3) % Nucleated RBC % (0.0-0.9) % Seg Neutrophils # Man (1.8-7.7) K/mm3 Lymphocytes # (Manual) (1.2-5.4) K/mm3 Monocytes # (Manual) 0.9 H (0.0-0.8) K/mm3 POC ABG pH (7.35-7.45) POC ABG pCO2 (35-45) POC ABG pO2 (80-105) Sodium 134 L (137-145) mmol/L Chloride 95.3 L (98-107) mmol/L Carbon Dioxide 12 L (22-30) mmol/L Glucose 222 H (75-100) mg/dL Lactic Acid 12.80 H* (0.7-2.0) mmol/L Calcium (8.4-10.2) mg/dL AST (5-40) units/L Alkaline Phosphatase 139 H (35-129) units/L Albumin 3.6 L (3.9-5) g/dL TSH (0.270-4.200) mlU/mL Salicylates (2.8-20.0) mg/dL Acetaminophen (10.0-30.0) ug/mL 07/26/18 07/26/18 07/26/18 Range/Units 19:04 19:04 19:28 WBC (4.5-11.0) K/mm3 RBC (3.65-5.03) M/mm3 Hgb (11.8-15.2) gm/dl Hct (35.5-45.6) % MCV (84-94) fl RDW (13.2-15.2) % Plt Count (140-440) K/mm3 Seg Neuts % (Manual) (40.0-70.0) % Monocytes % (Manual) (0.0-7.3) % Nucleated RBC % (0.0-0.9) % Seg Neutrophils # Man (1.8-7.7) K/mm3 Lymphocytes # (Manual) (1.2-5.4) K/mm3 Monocytes # (Manual) (0.0-0.8) K/mm3 POC ABG pH (7.35-7.45) POC ABG pCO2 (35-45) POC ABG pO2 (80-105) Sodium (137-145) mmol/L Chloride (98-107) mmol/L Carbon Dioxide (22-30) mmol/L Glucose (75-100) mg/dL Lactic Acid (0.7-2.0) mmol/L Calcium (8.4-10.2) mg/dL AST (5-40) units/L Alkaline Phosphatase (35-129) units/L Albumin (3.9-5) g/dL TSH 9.370 H (0.270-4.200) mlU/mL Salicylates < 0.3 L (2.8-20.0) mg/dL Acetaminophen < 5.0 L (10.0-30.0) ug/mL 07/26/18 07/26/18 07/27/18 Range/Units 20:06 21:52 00:33 WBC (4.5-11.0) K/mm3 RBC (3.65-5.03) M/mm3 Hgb (11.8-15.2) gm/dl Hct (35.5-45.6) % MCV (84-94) fl RDW (13.2-15.2) % Plt Count (140-440) K/mm3 Seg Neuts % (Manual) (40.0-70.0) % Monocytes % (Manual) (0.0-7.3) % Nucleated RBC % (0.0-0.9) % Seg Neutrophils # Man (1.8-7.7) K/mm3 Lymphocytes # (Manual) (1.2-5.4) K/mm3 Monocytes # (Manual) (0.0-0.8) K/mm3 POC ABG pH 7.195 L 7.244 L (7.35-7.45) POC ABG pCO2 49.6 H 54.9 H (35-45) POC ABG pO2 157 H (80-105) Sodium (137-145) mmol/L Chloride (98-107) mmol/L Carbon Dioxide (22-30) mmol/L Glucose (75-100) mg/dL Lactic Acid 4.30 H* (0.7-2.0) mmol/L Calcium (8.4-10.2) mg/dL AST (5-40) units/L Alkaline Phosphatase (35-129) units/L Albumin (3.9-5) g/dL TSH (0.270-4.200) mlU/mL Salicylates (2.8-20.0) mg/dL Acetaminophen (10.0-30.0) ug/mL 07/27/18 07/27/18 07/27/18 Range/Units 01:26 02:48 04:48 WBC (4.5-11.0) K/mm3 RBC (3.65-5.03) M/mm3 Hgb (11.8-15.2) gm/dl Hct (35.5-45.6) % MCV (84-94) fl RDW (13.2-15.2) % Plt Count (140-440) K/mm3 Seg Neuts % (Manual) (40.0-70.0) % Monocytes % (Manual) (0.0-7.3) % Nucleated RBC % (0.0-0.9) % Seg Neutrophils # Man (1.8-7.7) K/mm3 Lymphocytes # (Manual) (1.2-5.4) K/mm3 Monocytes # (Manual) (0.0-0.8) K/mm3 POC ABG pH (7.35-7.45) POC ABG pCO2 34.6 L (35-45) POC ABG pO2 145 H (80-105) Sodium (137-145) mmol/L Chloride (98-107) mmol/L Carbon Dioxide (22-30) mmol/L Glucose (75-100) mg/dL Lactic Acid 2.90 H* 3.40 H* (0.7-2.0) mmol/L Calcium (8.4-10.2) mg/dL AST (5-40) units/L Alkaline Phosphatase (35-129) units/L Albumin (3.9-5) g/dL TSH (0.270-4.200) mlU/mL Salicylates (2.8-20.0) mg/dL Acetaminophen (10.0-30.0) ug/mL 07/27/18 07/27/18 07/27/18 Range/Units 07:08 07:08 11:17 WBC 12.0 H (4.5-11.0) K/mm3 RBC (3.65-5.03) M/mm3 Hgb (11.8-15.2) gm/dl Hct (35.5-45.6) % MCV 95 H (84-94) fl RDW 16.1 H (13.2-15.2) % Plt Count 108 L (140-440) K/mm3 Seg Neuts % (Manual) 72.0 H (40.0-70.0) % Monocytes % (Manual) 10.0 H (0.0-7.3) % Nucleated RBC % 1.0 H (0.0-0.9) % Seg Neutrophils # Man 0.0 L (1.8-7.7) K/mm3 Lymphocytes # (Manual) 0.0 L (1.2-5.4) K/mm3 Monocytes # (Manual) (0.0-0.8) K/mm3 POC ABG pH (7.35-7.45) POC ABG pCO2 (35-45) POC ABG pO2 (80-105) Sodium 136 L (137-145) mmol/L Chloride (98-107) mmol/L Carbon Dioxide 21 L D (22-30) mmol/L Glucose 101 H (75-100) mg/dL Lactic Acid 2.20 H* (0.7-2.0) mmol/L Calcium 8.3 L (8.4-10.2) mg/dL AST 47 H (5-40) units/L Alkaline Phosphatase (35-129) units/L Albumin 3.2 L (3.9-5) g/dL TSH (0.270-4.200) mlU/mL Salicylates (2.8-20.0) mg/dL Acetaminophen (10.0-30.0) ug/mL Assessment and Plan - Patient Problems (1) Respiratory failure Current Visit: Yes Status: Acute Qualifiers: Chronicity: acute Respiratory failure complication: unspecified whether with hypoxia or hypercapnia Qualified Code(s): J96.00 - Acute respiratory failure, unspecified whether with hypoxia or hypercapnia Plan to address problem: pulm consult. (2) Acute respiratory failure Current Visit: Yes Status: Acute Plan to address problem: vent support, pulm consult. (3) Thrombocytopenia Current Visit: Yes Status: Acute Plan to address problem: may be ITP, will monitor labs. (4) Seizure Current Visit: Yes Status: Acute Plan to address problem: EEG.
--- NOTE | 2018-07-28 04:20 | XRay Report ---
PROCEDURE: XR CHEST 1V AP TECHNIQUE: Chest radiograph single view. HISTORY: follow up respiratory failure COMPARISONS: July 27, 2018 . FINDINGS: Heart: Normal. Mediastinum/Vessels: Normal. Lungs/Pleural space: Lungs are expanded. There are chronic fibrotic changes with pleural thickening at the lung apices. There are no acute infiltrates.. Bony thorax: No acute osseous abnormality. Life support devices: The endotracheal tube is in the mid trachea. NG tube is in the stomach.. IMPRESSION: The heart size is normal.. Lungs are expanded. There are chronic fibrotic changes with pleural thickening at the lung apices. Th ere are no acute infiltrates.. The endotracheal tube is in the mid trachea. NG tube is in the stomach.. This document is electronically signed by Hever Hargrove MD., July 28 2018 04:18:53 AM ET
[2018-07-28 05:16] LABS: Hematocrit 26.1 % (35.5-45.6); Mean Corpuscular HGB Conc 34 % (32-34); Mean Corpuscular Volume 94 fl (84-94); Platelet Count 115 K/mm3 (140-440); Red Blood Count 2.77 M/mm3 (3.65-5.03); Red Cell Distribution Width 15.9 % (13.2-15.2)
[2018-07-28 05:37] LABS: BUN/Creatinine Ratio 18; Blood Urea Nitrogen 14 mg/dL (9-20); Calcium 8.8 mg/dL (8.4-10.2); Hemolysis Index 12
[2018-07-28] MEDS: HEPARIN SUB-Q SCH ×3 (06:51→21:10)
--- NOTE | 2018-07-28 06:59 | Consultation ---
History of Present Illness Consult date: 07/27/18 Requesting physician: FANTA OLIVIER Reason for consult: other (Acute encephalopathy, acute hypoxic resp failure) History of present illness: History unable to be obtained. Patient is obtunded, orally intubated on mechanical ventilatory support. This is the medical history per ER MD. I was consulted for critical care management. This is a 72-year-old gentleman. I have evaluated him in the past. His primary care doctor is Dr. Sandoval His past medical history includes resolving pneumothorax, distant history of nontraumatic subdural hemorrhage, akinesia, dysphasia, reported left-sided weakness, emphysema, anemia, opioid abuse, erectile dysfunction, insomnia, question peripheral artery disease The patient is brought to the hospital by emergency medical services for altered mental status, and possible convulsive activity. The patient is altered in the emergency room and obtunded. The patient is not able to describe exacerbating or relieving factors. He had a normal fingerstick in the field. Upon arrival to the emergency room, the patient is altered, and is not able to protect his airway. Advanced directives are do not closed with his paperwork. Patient intubated for airway protection. He is placed on a nasal cannula, at 15 L/m, receives [id number] ventilation, is induced with 20 mg of etomidate, intubated using direct laryngoscopy, with a Arnulfo 3 curved blade, and a 7.5 endotracheal tube, and tube was placed through the vocal cords via direct visualization. Patient paralyzed with 100 mg of rocuronium. No additional history is available at this time. Patient altered and obtunded upon arrival, therefore, not able to describe qualitative nature of symptoms, onset, duration, exacerbating or relieving factors. Patient was seen and examined. Vitals, labs, medications,, chart and imaging were reviewed. Discussed with Dr. Olivier. Discussed in ICU-IDT rounds. I Past History Past Medical History: COPD Social history: no significant social history, other ([place] residence.) Family history: no significant family history Medications and Allergies Allergies Allergy/AdvReac Type Severity Reaction Status Date / Time No Known Allergies Allergy Verified 07/27/18 07:35 Home Medications Medication Instructions Recorded Confirmed Last Taken Type Bisacodyl Oral Liq 5 mg PO DAILY 07/27/18 07/27/18 Unknown History Polyethylene Glycol 3350 3,350 cap PO BID 07/27/18 07/27/18 Unknown History Senna 8.6 mg PO DAILY 07/27/18 07/27/18 Unknown History Active Meds: Active Medications Famotidine (Pepcid) 20 mg IV BID SOLANGE Last Admin: 07/27/18 22:36 Dose: 20 mg Documented by: Fentanyl (Sublimaze) 50 mcg IV Q10MIN PRN PRN Reason: ANALGESIA Heparin Sodium (Porcine) (Heparin) 5,000 unit SUB-Q Q8HR SOLANGE Last Admin: 07/28/18 06:51 Dose: 5,000 unit Documented by: Hydrophilic Ointment (Vaseline Lip Therapy) 1 applic TP Q2HR PRN PRN Reason: Dry Lips Fentanyl Citrate (Fentanyl Drip Premix) 2,000 mcg in 100 mls @ 3.175 mls/hr IV TITR SOLANGE; Protocol Last Titration: 07/27/18 11:02 Dose: 0 mcg/kg/hr, 0 mls/hr Documented by: Midazolam HCl 100 mg/ Sodium (Chloride) 100 mls @ 2 mls/hr IV TITR SOLANGE; Protocol Last Titration: 07/27/18 11:00 Dose: 0 mg/hr, 0 mls/hr Documented by: Norepinephrine (Levophed Drip 4 Mg/Ns 250 Ml) 4 mg in 250 mls @ 7.5 mls/hr IV TITR SOLANGE; Protocol Last Titration: 07/27/18 11:01 Dose: 0 mcg/min, 0 mls/hr Documented by: Sodium Chloride (Nacl 0.9% 1000 Ml) 1,000 mls @ 85 mls/hr IV DIRECT SOLANGE Last Admin: 07/27/18 22:36 Dose: 85 mls/hr Documented by: Midazolam HCl (Versed) 2 mg IV Q10MIN PRN PRN Reason: Sedation Multi-Ingred Cream/Lotion/Oil/Oint (Artificial Tears Ophth Oint) 1 applic OU Q4HR PRN PRN Reason: Dry Eye(s) Review of Systems ROS unobtainable: due to endotracheal tube, due to mental status Physical Examination Vital signs: Vital Signs Pulse Resp BP 130 H 22 169/100 07/26/18 18:29 07/26/18 18:29 07/26/18 18:29 Limitations: Altered Mental Status, Physical Limitation General appearance: obtunded,orally intubated. ETT at 23cm at the lip Chronically ill looking - Eye Eye exam: Present: normal appearance - ENT ENT exam: Present: mucous membranes dry - Neck Neck exam: Present: normal inspection, full ROM. Absent: tenderness, meningismus - Respiratory Respiratory exam: Present: respiratory distress. Absent: rales, rhonchi, stridor - Cardiovascular Cardiovascular Exam: Present: normal rhythm, tachycardia, normal heart sounds. Absent: bradycardia - GI/Abdominal GI/Abdominal exam: Present: soft. Absent: distended, tenderness, guarding, rebound, rigid, pulsatile mass - Rectal Rectal exam: Present: normal inspection - exam: Present: normal inspection External exam: Present: normal external exam - Extremities Exam Extremities exam: Present: normal inspection, other (2+ pulses noted in the bilateral upper, lower extremities. Compartments soft. No long bony tenderness. The pelvis is stable.). Absent: calf tenderness - Back Exam Back exam: Present: normal inspection. Absent: tenderness, CVA tenderness (R), CVA tenderness (L), paraspinal tenderness, vertebral tenderness - Neurological Exam Neurological exam: Present: altered, other (presents nonverbal. Eyes open spontaneously. Not moving extremities spontaneously. Nonverbal.) - Psychiatric Psychiatric exam: Present: other (patient is nonverbal) - Skin Skin exam: Present: dry Results - Laboratory Findings CBC and BMP: 07/28/18 04:44 07/28/18 04:44 ABG POC ABG pH 7.379 (7.35-7.45) 07/28/18 04:11 POC ABG pCO2 35.1 (35-45) 07/28/18 04:11 POC ABG pO2 129 (80-105) H 07/28/18 04:11 POC ABG HCO3 20.7 (22-26 mml/L) 07/28/18 04:11 POC ABG Total CO2 22 (23-27mmol/L) 07/28/18 04:11 POC ABG O2 Sat 99 07/28/18 04:11 PT/INR, D-dimer PT 14.8 Sec. (12.2-14.9) 07/26/18 19:04 INR 1.09 (0.87-1.13) 07/26/18 19:04 Abnormal lab findings: Abnormal Labs 07/26/18 07/26/18 07/26/18 18:45 19:04 19:04 WBC RBC 3.27 L Hgb 10.3 L Hct 32.7 L MCV 100 H MCH RDW 16.4 H Plt Count Seg Neuts % (Manual) Monocytes % (Manual) 10.0 H Nucleated RBC % Seg Neutrophils # Man Lymphocytes # (Manual) Monocytes # (Manual) 0.9 H POC ABG pH POC ABG pCO2 POC ABG pO2 Sodium 134 L Chloride 95.3 L Carbon Dioxide 12 L Glucose 222 H POC Glucose 235 H Lactic Acid Calcium AST Alkaline Phosphatase 139 H Albumin 3.6 L TSH Salicylates Acetaminophen 07/26/18 07/26/18 07/26/18 19:04 19:04 19:04 WBC RBC Hgb Hct MCV MCH RDW Plt Count Seg Neuts % (Manual) Monocytes % (Manual) Nucleated RBC % Seg Neutrophils # Man Lymphocytes # (Manual) Monocytes # (Manual) POC ABG pH POC ABG pCO2 POC ABG pO2 Sodium Chloride Carbon Dioxide Glucose POC Glucose Lactic Acid 12.80 H* Calcium AST Alkaline Phosphatase Albumin TSH Salicylates < 0.3 L Acetaminophen < 5.0 L 07/26/18 07/26/18 07/26/18 19:28 20:06 21:52 WBC RBC Hgb Hct MCV MCH RDW Plt Count Seg Neuts % (Manual) Monocytes % (Manual) Nucleated RBC % Seg Neutrophils # Man Lymphocytes # (Manual) Monocytes # (Manual) POC ABG pH 7.195 L POC ABG pCO2 49.6 H POC ABG pO2 Sodium Chloride Carbon Dioxide Glucose POC Glucose Lactic Acid 4.30 H* Calcium AST Alkaline Phosphatase Albumin TSH 9.370 H Salicylates Acetaminophen 07/27/18 07/27/18 07/27/18 00:33 01:26 02:48 WBC RBC Hgb Hct MCV MCH RDW Plt Count Seg Neuts % (Manual) Monocytes % (Manual) Nucleated RBC % Seg Neutrophils # Man Lymphocytes # (Manual) Monocytes # (Manual) POC ABG pH 7.244 L POC ABG pCO2 54.9 H POC ABG pO2 157 H Sodium Chloride Carbon Dioxide Glucose POC Glucose Lactic Acid 2.90 H* 3.40 H* Calcium AST Alkaline Phosphatase Albumin TSH Salicylates Acetaminophen 07/27/18 07/27/18 07/27/18 04:48 07:08 07:08 WBC 12.0 H RBC Hgb Hct MCV 95 H MCH RDW 16.1 H Plt Count 108 L Seg Neuts % (Manual) 72.0 H Monocytes % (Manual) 10.0 H Nucleated RBC % 1.0 H Seg Neutrophils # Man 0.0 L Lymphocytes # (Manual) 0.0 L Monocytes # (Manual) POC ABG pH POC ABG pCO2 34.6 L POC ABG pO2 145 H Sodium 136 L Chloride Carbon Dioxide 21 L D Glucose 101 H POC Glucose Lactic Acid Calcium 8.3 L AST 47 H Alkaline Phosphatase Albumin 3.2 L TSH Salicylates Acetaminophen 07/27/18 07/28/18 07/28/18 11:17 04:11 04:44 WBC RBC 2.77 L Hgb 9.0 L D Hct 26.1 L D MCV MCH 33 H RDW 15.9 H Plt Count 115 L Seg Neuts % (Manual) Monocytes % (Manual) Nucleated RBC % Seg Neutrophils # Man Lymphocytes # (Manual) Monocytes # (Manual) POC ABG pH POC ABG pCO2 POC ABG pO2 129 H Sodium Chloride Carbon Dioxide Glucose POC Glucose Lactic Acid 2.20 H* Calcium AST Alkaline Phosphatase Albumin TSH Salicylates Acetaminophen 07/28/18 04:44 WBC RBC Hgb Hct MCV MCH RDW Plt Count Seg Neuts % (Manual) Monocytes % (Manual) Nucleated RBC % Seg Neutrophils # Man Lymphocytes # (Manual) Monocytes # (Manual) POC ABG pH POC ABG pCO2 POC ABG pO2 Sodium 135 L Chloride Carbon Dioxide 20 L Glucose POC Glucose Lactic Acid Calcium AST Alkaline Phosphatase Albumin TSH Salicylates Acetaminophen Assessment and Plan Acute hypercapnic respiratory failure, on mechanical ventilator support. Severe lactic acidosis, differentials include seizures, hypoperfusion. Acute encephalopathy , toxic metabolic. Thrombocytopenia Emphysema Moderate protein calorie malnutrition - VAP bundle addressed - Lung protective strategies - Daily evaluation for readiness for weaning, daily SAT's and SBT -Accuchecks with glycemic control. -goal blood glucose of 140-180 mg/dL - continue to wean supplemental oxygen to keep O2 sats > 90% - continue bronchodilators with pulmonary hygiene per RT - Maintenance of sleep -wake cycle - Mobility protocol for pressure ulcer prevention - Stress ulcer prophylaxis -VTE prophylaxis, heparin and monitor/trend platelet count - Influenza and pneumonia vaccination per protocol -Get EEG -Follow blood cultures, sputum and urine cultures, will hold off on antibiotics for now, as he clinically does not appear to have an acute infection -ABG in the morning, follow up CXR -Await radiology read of CTA, no PE on my evaluation -Initiate enteral nutrition -Aspiration precautions, keep HOB >40 -Analgesia and agitation management as indicated -Supportive transfusions as indicated PROGNOSIS: GUARDED CONDITION: CRITICAL CODE STATUS: FULL CODE The high probability of a clinically significant, sudden or life-threatening deterioration of the [respiratory, neurology] system(s) required my full and direct attention, intervention and personal management. The aggregate critical care time was [75] minutes without overlap. Time includes spent on; [x] Data Review and interpretation [x] Patient assessment and monitoring of vital signs [x] Documentation [x] Medication orders and management
--- NOTE | 2018-07-28 09:01 | Progress Note ---
Assessment and Plan Acute hypercapnic respiratory failure, on mechanical ventilator support. Severe lactic acidosis, differentials include seizures, hypoperfusion. Acute encephalopathy , toxic metabolic. Thrombocytopenia Emphysema Moderate protein calorie malnutrition -Daily evaluation for readiness for weaning, daily SAT's and SBT Decrease set rate to 14, start liberation trials today. I suspect his pulmonary mechanics will be acceptable for liberation from MVS, however his mental status may preclude liberation. -Get EEG, will be performed this morning -Initiate enteric nutrition, OGT in place on imaging. -Nutrition consult placed for tube feeding recommendations -Follow blood cultures, sputum and urine cultures, continue to hold off on antibiotics for now, as he clinically does not appear to have an acute infection -Discontinue chung catheter, not indicated at this time - VAP bundle addressed - Lung protective strategies -Accuchecks with glycemic control. -Goal blood glucose of 140-180 mg/dL - Continue to wean supplemental oxygen to keep O2 sats > 90% - Continue bronchodilators with pulmonary hygiene per RT - Maintenance of sleep -wake cycle - Mobility protocol for pressure ulcer prevention -Stress ulcer prophylaxis -VTE prophylaxis, heparin and monitor/trend platelet count - Influenza and pneumonia vaccination per protocol -ABG in the morning, follow up CXR -Aspiration precautions, keep HOB >40 -Analgesia and agitation management as indicated -Supportive transfusions as indicated Discussed in ICU-IDT rounds Will need to address goals of care if we are unable to liberate from MVS and also if mental status does not improve. PROGNOSIS: GUARDED-POOR CONDITION: CRITICAL CODE STATUS: FULL CODE The high probability of a clinically significant, sudden or life-threatening deterioration of the [respiratory, neurology] system(s) required my full and direct attention, intervention and personal management. The aggregate critical care time was [35] minutes without overlap. Time includes spent on; [x] Data Review and interpretation [x] Patient assessment and monitoring of vital signs [x] Documentation [x] Medication orders and management Subjective Date of service: 07/28/18 Interval history: Patient is seen today for: Acute hypercapnic Resp failure; Severe lactic acidosis (? seizures, hypoperfusion); Acute encephalopathy (toxic metabolic); Thrombocytopenia; Emphysema; Moderate protein calorie malnutrition Seen and examined at bedside; 24hour events reviewed; Vitals, labs, medications, chart and imaging reviewed; nursing and respiratory care staff consulted; no adverse overnight events reported to me; No fevers, remains encephaloapthic, EEG pending. Has been off norepinephrine, fentanyl and midazolam since yesterday. Remains on MVS, PRVC-AC 20/450/6/28% ABG 7.38/129/35/21/BE -4 Objective - Exam Narrative Exam: Limitations: Altered Mental Status, Physical Limitation General appearance: obtunded,orally intubated. ETT at 23cm at the lip Chronically ill looking - Eye Eye exam: Present: normal appearance - ENT ENT exam: Present: mucous membranes dry - Neck Neck exam: Present: normal inspection, full ROM. Absent: tenderness, meningismus - Respiratory Respiratory exam: Present: respiratory distress. Absent: rales, rhonchi, stridor - Cardiovascular Cardiovascular Exam: Present: normal rhythm, tachycardia, normal heart sounds. Absent: bradycardia - GI/Abdominal GI/Abdominal exam: Present: soft. Absent: distended, tenderness, guarding, rebound, rigid, pulsatile mass - Rectal Rectal exam: Present: normal inspection - exam: Present: normal inspection External exam: Present: normal external exam Chung catheter in place, draining clear urine - Extremities Exam Extremities exam: Present: normal inspection, other (2+ pulses noted in the b ilateral upper, lower extremities. Compartments soft. No long bony tenderness. The pelvis is stable.). Absent: calf tenderness - Back Exam Back exam: Present: normal inspection. Absent: tenderness, CVA tenderness (R), CVA tenderness (L), paraspinal tenderness, vertebral tenderness - Neurological Exam Neurological exam: Present: altered, other (presents nonverbal. Eyes open spontaneously. Not moving extremities spontaneously. Nonverbal.) - Psychiatric Psychiatric exam: Present: other (patient is nonverbal) - Skin Skin exam: Present: dry Vital Signs - 12hr 07/27/18 07/27/18 07/27/18 21:11 21:21 21:30 Temperature Pulse Rate 110 H 110 H 107 H Pulse Rate [ From Monitor] Respiratory 9 L 16 12 Rate Blood Pressure 114/75 114/75 117/67 O2 Sat by Pulse 100 100 100 Oximetry 07/27/18 07/27/18 07/27/18 21:41 21:51 22:00 Temperature Pulse Rate 108 H 108 H 107 H Pulse Rate [ From Monitor] Respiratory 9 L 13 11 L Rate Blood Pressure 117/67 114/75 119/73 O2 Sat by Pulse 100 100 100 Oximetry 07/27/18 07/27/18 07/27/18 22:11 22:21 22:30 Temperature Pulse Rate 102 H 107 H 110 H Pulse Rate [ From Monitor] Respiratory 20 18 16 Rate Blood Pressure 119/73 119/73 110/69 O2 Sat by Pulse 100 100 100 Oximetry 07/27/18 07/27/18 07/27/18 22:41 22:51 23:00 Temperature Pulse Rate 108 H 105 H 109 H Pulse Rate [ From Monitor] Respiratory 13 11 L 19 Rate Blood Pressure 110/69 110/69 116/69 O2 Sat by Pulse 100 100 100 Oximetry 07/27/18 07/27/18 07/27/18 23:11 23:21 23:23 Temperature Pulse Rate 107 H 111 H 113 H Pulse Rate [ From Monitor] Respiratory 21 14 20 Rate Blood Pressure 116/69 116/69 116/69 O2 Sat by Pulse 98 100 100 Oximetry 07/27/18 07/27/18 07/27/18 23:30 23:31 23:41 Temperature Pulse Rate 113 H 112 H 111 H Pulse Rate [ From Monitor] Respiratory 22 20 13 Rate Blood Pressure 116/69 116/69 116/69 O2 Sat by Pulse 97 99 99 Oximetry 07/27/18 07/28/18 07/28/18 23:51 00:00 00:11 Temperature 98.9 F Pulse Rate 100 H 101 H 112 H Pulse Rate [ 112 H From Monitor] Respiratory 13 16 17 Rate Blood Pressure 116/69 103/64 120/70 O2 Sat by Pulse 98 102 H 99 Oximetry 07/28/18 07/28/18 07/28/18 00:21 00:30 00:40 Temperature Pulse Rate 112 H 111 H 114 H Pulse Rate [ From Monitor] Respiratory 19 20 16 Rate Blood Pressure 120/70 103/64 120/70 O2 Sat by Pulse 99 98 100 Oximetry 07/28/18 07/28/18 07/28/18 00:51 01:00 01:11 Temperature Pulse Rate 109 H 107 H 109 H Pulse Rate [ From Monitor] Respiratory 20 19 19 Rate Blood Pressure 120/70 108/65 108/65 O2 Sat by Pulse 100 100 100 Oximetry 07/28/18 07/28/18 07/28/18 01:20 01:30 01:41 Temperature Pulse Rate 109 H 106 H 109 H Pulse Rate [ From Monitor] Respiratory 20 21 20 Rate Blood Pressure 108/65 104/65 104/65 O2 Sat by Pulse 100 100 100 Oximetry 07/28/18 07/28/18 07/28/18 01:51 02:00 02:11 Temperature Pulse Rate 109 H 110 H 111 H Pulse Rate [ From Monitor] Respiratory 18 14 16 Rate Blood Pressure 104/65 114/69 114/69 O2 Sat by Pulse 100 100 100 Oximetry 07/28/18 07/28/18 07/28/18 02:20 02:31 02:41 Temperature Pulse Rate 114 H 117 H 104 H Pulse Rate [ From Monitor] Respiratory 18 12 12 Rate Blood Pressure 114/69 140/86 140/86 O2 Sat by Pulse 100 100 Oximetry 07/28/18 07/28/18 07/28/18 02:51 03:00 03:11 Temperature Pulse Rate 104 H 113 H 115 H Pulse Rate [ From Monitor] Respiratory 20 21 20 Rate Blood Pressure 140/86 121/79 121/79 O2 Sat by Pulse 100 Oximetry 07/28/18 07/28/18 07/28/18 03:21 03:30 03:41 Temperature Pulse Rate 111 H 112 H 106 H Pulse Rate [ From Monitor] Respiratory 21 19 20 Rate Blood Pressure 121/79 129/78 129/78 O2 Sat by Pulse 100 Oximetry 07/28/18 07/28/18 07/28/18 03:51 03:53 03:58 Temperature 99.8 F H Pulse Rate 99 H 92 H Pulse Rate [ From Monitor] Respiratory 20 Rate Blood Pressure 129/78 129/78 O2 Sat by Pulse 100 99 Oximetry 07/28/18 07/28/18 07/28/18 04:00 04:11 04:20 Temperature Pulse Rate 104 H 112 H 111 H Pulse Rate [ 112 H From Monitor] Respiratory 20 20 16 Rate Blood Pressure 116/85 116/85 116/85 O2 Sat by Pulse 99 100 99 Oximetry 07/28/18 07/28/18 07/28/18 04:31 04:41 04:51 Temperature Pulse Rate 114 H 105 H 92 H Pulse Rate [ From Monitor] Respiratory 19 14 19 Rate Blood Pressure 130/77 130/77 130/77 O2 Sat by Pulse 100 100 Oximetry 07/28/18 07/28/18 07/28/18 05:01 05:11 05:21 Temperature Pulse Rate 109 H 106 H 108 H Pulse Rate [ From Monitor] Respiratory 18 18 22 Rate Blood Pressure 130/77 124/74 124/74 O2 Sat by Pulse 100 100 100 Oximetry 07/28/18 07/28/18 07/28/18 05:30 05:41 05:51 Temperature Pulse Rate 108 H 112 H 111 H Pulse Rate [ From Monitor] Respiratory 22 9 L 17 Rate Blood Pressure 129/79 129/79 129/79 O2 Sat by Pulse 100 100 100 Oximetry 07/28/18 07/28/18 07/28/18 06:00 06:11 06:21 Temperature Pulse Rate 110 H 97 H 109 H Pulse Rate [ From Monitor] Respiratory 18 20 17 Rate Blood Pressure 132/80 132/80 132/80 O2 Sat by Pulse 100 100 100 Oximetry 07/28/18 07/28/18 07/28/18 06:30 06:41 06:51 Temperature Pulse Rate 109 H 100 H 99 H Pulse Rate [ From Monitor] Respiratory 18 17 19 Rate Blood Pressure 124/75 124/75 124/75 O2 Sat by Pulse 100 100 100 Oximetry 07/28/18 07/28/18 07/28/18 07:00 07:30 08:00 Temperature 99.1 F Pulse Rate 107 H 91 H 83 Pulse Rate [ 100 H From Monitor] Respiratory 17 19 7 L Rate Blood Pressure 128/80 122/70 114/73 O2 Sat by Pulse 100 100 100 Oximetry 07/28/18 07/28/18 08:29 08:31 Temperature Pulse Rate 110 H 109 H Pulse Rate [ From Monitor] Respiratory 21 Rate Blood Pressure 123/77 O2 Sat by Pulse 100 Oximetry CBC and BMP: 07/28/18 04:44 07/28/18 04:44 ABG, PT/INR, D-dimer: ABG POC ABG pH 7.379 (7.35-7.45) 07/28/18 04:11 POC ABG pCO2 35.1 (35-45) 07/28/18 04:11 POC ABG pO2 129 (80-105) H 07/28/18 04:11 POC ABG HCO3 20.7 (22-26 mml/L) 07/28/18 04:11 POC ABG Total CO2 22 (23-27mmol/L) 07/28/18 04:11 POC ABG O2 Sat 99 07/28/18 04:11 PT/INR, D-dimer PT 14.8 Sec. (12.2-14.9) 07/26/18 19:04 INR 1.09 (0.87-1.13) 07/26/18 19:04 Abnormal lab findings: Abnormal Labs 07/26/18 07/26/18 07/26/18 18:45 19:04 19:04 WBC RBC 3.27 L Hgb 10.3 L Hct 32.7 L MCV 100 H MCH RDW 16.4 H Plt Count Seg Neuts % (Manual) Monocytes % (Manual) 10.0 H Nucleated RBC % Seg Neutrophils # Man Lymphocytes # (Manual) Monocytes # (Manual) 0.9 H POC ABG pH POC ABG pCO2 POC ABG pO2 Sodium 134 L Chloride 95.3 L Carbon Dioxide 12 L Glucose 222 H POC Glucose 235 H Lactic Acid Calcium AST Alkaline Phosphatase 139 H Albumin 3.6 L TSH Salicylates Acetaminophen 07/26/18 07/26/18 07/26/18 19:04 19:04 19:04 WBC RBC Hgb Hct MCV MCH RDW Plt Count Seg Neuts % (Manual) Monocytes % (Manual) Nucleated RBC % Seg Neutrophils # Man Lymphocytes # (Manual) Monocytes # (Manual) POC ABG pH POC ABG pCO2 POC ABG pO2 Sodium Chloride Carbon Dioxide Glucose POC Glucose Lactic Acid 12.80 H* Calcium AST Alkaline Phosphatase Albumin TSH Salicylates < 0.3 L Acetaminophen < 5.0 L 07/26/18 07/26/18 07/26/18 19:28 20:06 21:52 WBC RBC Hgb Hct MCV MCH RDW Plt Count Seg Neuts % (Manual) Monocytes % (Manual) Nucleated RBC % Seg Neutrophils # Man Lymphocytes # (Manual) Monocytes # (Manual) POC ABG pH 7.195 L POC ABG pCO2 49.6 H POC ABG pO2 Sodium Chloride Carbon Dioxide Glucose POC Glucose Lactic Acid 4.30 H* Calcium AST Alkaline Phosphatase Albumin TSH 9.370 H Salicylates Acetaminophen 07/27/18 07/27/18 07/27/18 00:33 01:26 02:48 WBC RBC Hgb Hct MCV MCH RDW Plt Count Seg Neuts % (Manual) Monocytes % (Manual) Nucleated RBC % Seg Neutrophils # Man Lymphocytes # (Manual) Monocytes # (Manual) POC ABG pH 7.244 L POC ABG pCO2 54.9 H POC ABG pO2 157 H Sodium Chloride Carbon Dioxide Glucose POC Glucose Lactic Acid 2.90 H* 3.40 H* Calcium AST Alkaline Phosphatase Albumin TSH Salicylates Acetaminophen 07/27/18 07/27/18 07/27/18 04:48 07:08 07:08 WBC 12.0 H RBC Hgb Hct MCV 95 H MCH RDW 16.1 H Plt Count 108 L Seg Neuts % (Manual) 72.0 H Monocytes % (Manual) 10.0 H Nucleated RBC % 1.0 H Seg Neutrophils # Man 0.0 L Lymphocytes # (Manual) 0.0 L Monocytes # (Manual) POC ABG pH POC ABG pCO2 34.6 L POC ABG pO2 145 H Sodium 136 L Chloride Carbon Dioxide 21 L D Glucose 101 H POC Glucose Lactic Acid Calcium 8.3 L AST 47 H Alkaline Phosphatase Albumin 3.2 L TSH Salicylates Acetaminophen 07/27/18 07/28/18 07/28/18 11:17 04:11 04:44 WBC RBC 2.77 L Hgb 9.0 L D Hct 26.1 L D MCV MCH 33 H RDW 15.9 H Plt Count 115 L Seg Neuts % (Manual) Monocytes % (Manual) Nucleated RBC % Seg Neutrophils # Man Lymphocytes # (Manual) Monocytes # (Manual) POC ABG pH POC ABG pCO2 POC ABG pO2 129 H Sodium Chloride Carbon Dioxide Glucose POC Glucose Lactic Acid 2.20 H* Calcium AST Alkaline Phosphatase Albumin TSH Salicylates Acetaminophen 07/28/18 04:44 WBC RBC Hgb Hct MCV MCH RDW Plt Count Seg Neuts % (Manual) Monocytes % (Manual) Nucleated RBC % Seg Neutrophils # Man Lymphocytes # (Manual) Monocytes # (Manual) POC ABG pH POC ABG pCO2 POC ABG pO2 Sodium 135 L Chloride Carbon Dioxide 20 L Glucose POC Glucose Lactic Acid Calcium AST Alkaline Phosphatase Albumin TSH Salicylates Acetaminophen Chest x-ray: image reviewed Allied health notes reviewed: RT
[2018-07-28] MEDS: PEPCID IV SCH ×2 (09:08→21:10)
[2018-07-28] MEDS: NACL 0.9% 1000 ML 1,000 ML IV SCH ×2 (09:09→21:10)
[2018-07-28 09:34] LABS: Total Cells Counted 100
[2018-07-28 09:35] LABS: Band Neutrophils # (Manual) 0.1 K/mm3; Basophils % (Manual) 0 % (0.0-1.8); Eosinophils % (Manual) 0 % (0.0-4.3)
[2018-07-28 09:36] LABS: Anisocytosis 1+; Burr Cells Few; Ovalocytes Few; Poikilocytosis 1+; Schistocytes Few
[2018-07-28 09:37] LABS: Platelet Estimate Consistent w Auto
[2018-07-28] MEDS: BROVANA NEBU IH SCH ×2 (09:50→20:08)
[2018-07-28] MEDS: PULMICORT IH SCH ×2 (09:50→20:08)
--- NOTE | 2018-07-28 09:52 | Progress Note ---
Assessment and Plan - Patient Problems (1) Respiratory failure Current Visit: Yes Status: Acute Qualifiers: Chronicity: acute Respiratory failure complication: unspecified whether with hypoxia or hypercapnia Qualified Code(s): J96.00 - Acute respiratory failure, unspecified whether with hypoxia or hypercapnia Plan to address problem: pulm consult. (2) Acute respiratory failure Current Visit: Yes Status: Acute Plan to address problem: vent support, pulm consult. (3) Thrombocytopenia Current Visit: Yes Status: Acute Plan to address problem: may be ITP, will monitor labs. (4) Seizure Current Visit: Yes Status: Acute Plan to address problem: EEG. Subjective Date of service: 07/28/18 Interval history: Patient seen, resting in bed, notes/labs reviewed.Will continue with current management. Dr Hirsch will cover my rounds for wednesday, wed, wednesday. Objective - Constitutional Vitals: Vital Signs - 12hr 07/27/18 07/27/18 07/27/18 21:51 22:00 22:11 Temperature Pulse Rate 108 H 107 H 102 H Pulse Rate [ From Monitor] Respiratory 13 11 L 20 Rate Blood Pressure 114/75 119/73 119/73 O2 Sat by Pulse 100 100 100 Oximetry 07/27/18 07/27/18 07/27/18 22:21 22:30 22:41 Temperature Pulse Rate 107 H 110 H 108 H Pulse Rate [ From Monitor] Respiratory 18 16 13 Rate Blood Pressure 119/73 110/69 110/69 O2 Sat by Pulse 100 100 100 Oximetry 07/27/18 07/27/18 07/27/18 22:51 23:00 23:11 Temperature Pulse Rate 105 H 109 H 107 H Pulse Rate [ From Monitor] Respiratory 11 L 19 21 Rate Blood Pressure 110/69 116/69 116/69 O2 Sat by Pulse 100 100 98 Oximetry 07/27/18 07/27/18 07/27/18 23:21 23:23 23:30 Temperature Pulse Rate 111 H 113 H 113 H Pulse Rate [ From Monitor] Respiratory 14 20 22 Rate Blood Pressure 116/69 116/69 116/69 O2 Sat by Pulse 100 100 97 Oximetry 07/27/18 07/27/18 07/27/18 23:31 23:41 23:51 Temperature Pulse Rate 112 H 111 H 100 H Pulse Rate [ From Monitor] Respiratory 20 13 13 Rate Blood Pressure 116/69 116/69 116/69 O2 Sat by Pulse 99 99 98 Oximetry 07/28/18 07/28/18 07/28/18 00:00 00:11 00:21 Temperature 98.9 F Pulse Rate 101 H 112 H 112 H Pulse Rate [ 112 H From Monitor] Respiratory 16 17 19 Rate Blood Pressure 103/64 120/70 120/70 O2 Sat by Pulse 102 H 99 99 Oximetry 07/28/18 07/28/18 07/28/18 00:30 00:40 00:51 Temperature Pulse Rate 111 H 114 H 109 H Pulse Rate [ From Monitor] Respiratory 20 16 20 Rate Blood Pressure 103/64 120/70 120/70 O2 Sat by Pulse 98 100 100 Oximetry 07/28/18 07/28/18 07/28/18 01:00 01:11 01:20 Temperature Pulse Rate 107 H 109 H 109 H Pulse Rate [ From Monitor] Respiratory 19 19 20 Rate Blood Pressure 108/65 108/65 108/65 O2 Sat by Pulse 100 100 100 Oximetry 07/28/18 07/28/18 07/28/18 01:30 01:41 01:51 Temperature Pulse Rate 106 H 109 H 109 H Pulse Rate [ From Monitor] Respiratory 21 20 18 Rate Blood Pressure 104/65 104/65 104/65 O2 Sat by Pulse 100 100 100 Oximetry 07/28/18 07/28/18 07/28/18 02:00 02:11 02:20 Temperature Pulse Rate 110 H 111 H 114 H Pulse Rate [ From Monitor] Respiratory 14 16 18 Rate Blood Pressure 114/69 114/69 114/69 O2 Sat by Pulse 100 100 100 Oximetry 07/28/18 07/28/18 07/28/18 02:31 02:41 02:51 Temperature Pulse Rate 117 H 104 H 104 H Pulse Rate [ From Monitor] Respiratory 12 12 20 Rate Blood Pressure 140/86 140/86 140/86 O2 Sat by Pulse 100 100 Oximetry 07/28/18 07/28/18 07/28/18 03:00 03:11 03:21 Temperature Pulse Rate 113 H 115 H 111 H Pulse Rate [ From Monitor] Respiratory 21 20 21 Rate Blood Pressure 121/79 121/79 121/79 O2 Sat by Pulse Oximetry 07/28/18 07/28/18 07/28/18 03:30 03:41 03:51 Temperature Pulse Rate 112 H 106 H 99 H Pulse Rate [ From Monitor] Respiratory 19 20 20 Rate Blood Pressure 129/78 129/78 129/78 O2 Sat by Pulse 100 100 Oximetry 07/28/18 07/28/18 07/28/18 03:53 03:58 04:00 Temperature 99.8 F H Pulse Rate 92 H 104 H Pulse Rate [ 112 H From Monitor] Respiratory 20 Rate Blood Pressure 129/78 116/85 O2 Sat by Pulse 99 99 Oximetry 07/28/18 07/28/18 07/28/18 04:11 04:20 04:31 Temperature Pulse Rate 112 H 111 H 114 H Pulse Rate [ From Monitor] Respiratory 20 16 19 Rate Blood Pressure 116/85 116/85 130/77 O2 Sat by Pulse 100 99 Oximetry 07/28/18 07/28/18 07/28/18 04:41 04:51 05:01 Temperature Pulse Rate 105 H 92 H 109 H Pulse Rate [ From Monitor] Respiratory 14 19 18 Rate Blood Pressure 130/77 130/77 130/77 O2 Sat by Pulse 100 100 100 Oximetry 07/28/18 07/28/18 07/28/18 05:11 05:21 05:30 Temperature Pulse Rate 106 H 108 H 108 H Pulse Rate [ From Monitor] Respiratory 18 22 22 Rate Blood Pressure 124/74 124/74 129/79 O2 Sat by Pulse 100 100 100 Oximetry 07/28/18 07/28/18 07/28/18 05:41 05:51 06:00 Temperature Pulse Rate 112 H 111 H 110 H Pulse Rate [ From Monitor] Respiratory 9 L 17 18 Rate Blood Pressure 129/79 129/79 132/80 O2 Sat by Pulse 100 100 100 Oximetry 07/28/18 07/28/18 07/28/18 06:11 06:21 06:30 Temperature Pulse Rate 97 H 109 H 109 H Pulse Rate [ From Monitor] Respiratory 20 17 18 Rate Blood Pressure 132/80 132/80 124/75 O2 Sat by Pulse 100 100 100 Oximetry 07/28/18 07/28/18 07/28/18 06:41 06:51 07:00 Temperature Pulse Rate 100 H 99 H 107 H Pulse Rate [ From Monitor] Respiratory 17 19 17 Rate Blood Pressure 124/75 124/75 128/80 O2 Sat by Pulse 100 100 100 Oximetry 07/28/18 07/28/18 07/28/18 07:30 08:00 08:29 Temperature 99.1 F Pulse Rate 91 H 83 110 H Pulse Rate [ 100 H From Monitor] Respiratory 19 7 L Rate Blood Pressure 122/70 114/73 O2 Sat by Pulse 100 100 Oximetry 07/28/18 08:31 Temperature Pulse Rate 109 H Pulse Rate [ From Monitor] Respiratory 21 Rate Blood Pressure 123/77 O2 Sat by Pulse 100 Oximetry - EENT Eyes: PERRL, EOM intact ENT: hearing intact, clear oral mucosa Ears: bilateral: normal - Neck Neck: supple, normal ROM - Respiratory Respiratory: bilateral: other (on the vent.) - Breasts Breasts: deferred - Cardiovascular Rhythm: regular Heart Sounds: Present: S1 & S2. Absent: gallop, rub Extremities: pulses intact, No edema, normal color, Full ROM - Gastrointestinal General gastrointestinal: Present: soft, non-tender, non-distended, normal bowel sounds Rectal Exam: deferred - Genitourinary Male genitourinary: deferred - Integumentary Integumentary: clear, warm, dry - Musculoskeletal Musculoskeletal: 1, strength equal bilaterally - Neurologic Neurologic: moves all extremities - Psychiatric Psychiatric: appropriate mood/affect - Labs CBC & Chem 7: 07/28/18 04:44 07/28/18 04:44 Labs: Abnormal lab results 07/26/18 07/27/18 07/27/18 Range/Units 21:52 07:08 11:17 WBC 12.0 H (4.5-11.0) K/mm3 RBC (3.65-5.03) M/mm3 Hgb (11.8-15.2) gm/dl Hct (35.5-45.6) % MCH (28-32) pg RDW (13.2-15.2) % Plt Count 108 L (140-440) K/mm3 Seg Neuts % (Manual) 72.0 H (40.0-70.0) % Monocytes % (Manual) 10.0 H (0.0-7.3) % Nucleated RBC % 1.0 H (0.0-0.9) % Seg Neutrophils # Man 0.0 L (1.8-7.7) K/mm3 Lymphocytes # (Manual) 0.0 L (1.2-5.4) K/mm3 POC ABG pO2 (80-105) Sodium (137-145) mmol/L Carbon Dioxide (22-30) mmol/L Lactic Acid 4.30 H* 2.20 H* (0.7-2.0) mmol/L 07/28/18 07/28/18 07/28/18 Range/Units 04:11 04:44 04:44 WBC (4.5-11.0) K/mm3 RBC 2.77 L (3.65-5.03) M/mm3 Hgb 9.0 L D (11.8-15.2) gm/dl Hct 26.1 L D (35.5-45.6) % MCH 33 H (28-32) pg RDW 15.9 H (13.2-15.2) % Plt Count 115 L (140-440) K/mm3 Seg Neuts % (Manual) 77.0 H (40.0-70.0) % Monocytes % (Manual) 8.0 H (0.0-7.3) % Nucleated RBC % (0.0-0.9) % Seg Neutrophils # Man (1.8-7.7) K/mm3 Lymphocytes # (Manual) 1.0 L (1.2-5.4) K/mm3 POC ABG pO2 129 H (80-105) Sodium 135 L (137-145) mmol/L Carbon Dioxide 20 L (22-30) mmol/L Lactic Acid (0.7-2.0) mmol/L Medications & Allergies - Medications Allergies/Adverse Reactions: Allergies No Known Allergies Allergy (Verified 07/27/18 07:35) Home Medications: Home Medications Medication Instructions Recorded Confirmed Last Taken Type Bisacodyl Oral Liq 5 mg PO DAILY 07/27/18 07/27/18 Unknown History Polyethylene Glycol 3350 3,350 cap PO BID 07/27/18 07/27/18 Unknown History Senna 8.6 mg PO DAILY 07/27/18 07/27/18 Unknown History Active Medications: Generic Name Dose Route Start Last Admin Trade Name Freq PRN Reason Stop Dose Admin Arformoterol Tartrate 15 mcg 07/28/18 09:00 Brovana Nebu IH Q12HRT SOLANGE Budesonide 0.5 mg 07/28/18 09:00 Pulmicort IH Q12HRT SOLANGE Famotidine 20 mg 07/27/18 12:00 07/28/18 09:08 Pepcid IV 20 mg BID SOLANGE Administration Fentanyl 50 mcg 07/26/18 18:54 Sublimaze IV Q10MIN PRN ANALGESIA Heparin Sodium (Porcine) 5,000 unit 07/27/18 06:45 07/28/18 06:51 Heparin SUB-Q 5,000 unit Q8HR SOLANGE Administration Hydrophilic Ointment 1 applic 07/26/18 18:54 Vaseline Lip Therapy TP Q2HR PRN Dry Lips Fentanyl Citrate 2,000 mcg in 100 mls @ 3.175 mls/hr 07/26/18 19:00 07/27/18 11:02 Fentanyl Drip Premix IV 0 mcg/kg/hr TITR SOLANGE 0 mls/hr Titration Protocol 1 MCG/KG/HR Midazolam HCl 100 mg/ Sodium 100 mls @ 2 mls/hr 07/26/18 19:00 07/27/18 11:00 Chloride IV 0 mg/hr TITR SOLANGE 0 mls/hr Titration Protocol 2 MG/HR Norepinephrine 4 mg in 250 mls @ 7.5 mls/hr 07/27/18 02:00 07/27/18 11:01 Levophed Drip 4 Mg/Ns 250 Ml IV 0 mcg/min TITR SOLANGE 0 mls/hr Titration Protocol 2 MCG/MIN Sodium Chloride 1,000 mls @ 85 mls/hr 07/26/18 22:03 07/28/18 09:09 Nacl 0.9% 1000 Ml IV 85 mls/hr DIRECT SOLANGE Administration Midazolam HCl 2 mg 07/26/18 18:54 Versed IV Q10MIN PRN Sedation Multi-Ingred Cream/Lotion/Oil/Oint 1 applic 07/26/18 18:54 Artificial Tears Ophth Oint OU Q4HR PRN Dry Eye(s)
[2018-07-28] MEDS ORDERED: PANCREAZE DR 10,500 UNIT FEEDTUBE PRN (16:11)
[2018-07-28] MEDS ORDERED: SIMPLE SYRUP FEEDTUBE PRN ×2 (16:11)
[2018-07-28] MEDS ORDERED: SODIUM BICARBONATE FEEDTUBE PRN (16:11)
--- NOTE | 2018-07-29 04:17 | XRay Report ---
PROCEDURE: XR CHEST 1V AP TECHNIQUE: Chest radiograph single view. HISTORY: follow up respiratory failure COMPARISONS: July 28, 2018 . FINDINGS: Heart: Normal. Mediastinum/Vessels: Normal. Lungs/Pleural space: Lungs are expanded. There are no active infiltrates. There is fibrosis and pleu ral thickening at the lung apices.. Bony thorax: No acute osseous abnormality. Life support devices: Endotracheal tube is in the mid trachea approximately 4.4 cm above the juan c. NG tube is in the stomach.. IMPRESSION: Heart size is normal.. Lungs are expanded. There are no active infiltrates. There is fibrosis and pleural thickening at the lung apices.. Endotracheal tube is in the mid trachea approximately 4.4 cm above the juan c. NG tube is in the stom ach.. This document is electronically signed by Hever Hargrove MD., July 29 2018 04:15:35 AM ET
[2018-07-29] MEDS: HEPARIN SUB-Q SCH ×3 (05:50→22:00)
[2018-07-29] MEDS: BROVANA NEBU IH SCH ×2 (08:11→20:25)
[2018-07-29] MEDS: PULMICORT IH SCH ×2 (08:12→20:26)
[2018-07-29] MEDS: PEPCID IV SCH ×2 (09:08→22:05)
--- NOTE | 2018-07-29 11:25 | Progress Note ---
Assessment and Plan Acute hypercapnic respiratory failure, on mechanical ventilator support. Severe lactic acidosis, differentials include seizures, hypoperfusion. Acute encephalopathy , toxic metabolic. Thrombocytopenia Emphysema Moderate protein calorie malnutrition - ashely SBT and assess extubation readiness - daily SAT's and SBT - VAP bundle addressed - Lung protective strategies - Accuchecks with glycemic control. - goal blood glucose of 140-180 mg/dL - continue to wean supplemental oxygen to keep O2 sats > 90% - continue bronchodilators with pulmonary hygiene per RT - Maintenance of sleep -wake cycle - Mobility protocol for pressure ulcer prevention - Stress ulcer prophylaxis -VTE prophylaxis, heparin and monitor/trend platelet count - Influenza and pneumonia vaccination per protocol - Follow blood cultures, sputum and urine cultures - empiric AB's started - CTA negative for P.E. - Initiate enteral nutrition - Aspiration precautions, keep HOB >40 - Analgesia and agitation management as indicated - Supportive transfusions as indicated .... case discussed at length during team rounds and care plan formulated PROGNOSIS: GUARDED CONDITION: CRITICAL CODE STATUS: FULL CODE The high probability of a clinically significant, sudden or life-threatening deterioration of the [respiratory, neurology] system(s) required my full and direct attention, intervention and personal management. The aggregate critical care time was [32] minutes without overlap. Time includes spent on; [x] Data Review and interpretation [x] Patient assessment and monitoring of vital signs [x] Documentation [x] Medication orders and management Subjective Date of service: 07/29/18 Principal diagnosis: Acute hypercapnic Resp failure; Ac encephalopathy; Throm bocytopenia Interval history: Patient is seen today for: Acute hypercapnic Resp failure; Severe lactic acidosis (? seizures, hypoperfusion); Acute encephalopathy (toxic metabolic); Thrombocytopenia; Emphysema; Moderate protein calorie malnutrition Seen and examined at bedside; 24hour events reviewed; nursing and respiratory care staff consulted; no adverse overnight events reported to me; resting peacefully in bed; remains on MVS; no N/V/F/C; no new issues otherwise Objective Vital Signs - 12hr 07/28/18 07/28/18 07/29/18 23:30 23:34 00:00 Temperature 98.4 F Pulse Rate 98 H 91 H 93 H Pulse Rate [ Anterior Bilateral Throughout] Pulse Rate [ 90 From Monitor] Respiratory 15 20 Rate Respiratory Rate [Anterior Bilateral Throughout] Blood Pressure 117/64 117/74 117/68 O2 Sat by Pulse 100 100 100 Oximetry 07/29/18 07/29/18 07/29/18 00:30 01:00 01:30 Temperature Pulse Rate 98 H 87 96 H Pulse Rate [ Anterior Bilateral Throughout] Pulse Rate [ From Monitor] Respiratory 20 20 16 Rate Respiratory Rate [Anterior Bilateral Throughout] Blood Pressure 120/74 116/64 122/66 O2 Sat by Pulse 100 100 100 Oximetry 07/29/18 07/29/18 07/29/18 02:00 02:30 03:00 Temperature Pulse Rate 73 89 92 H Pulse Rate [ Anterior Bilateral Throughout] Pulse Rate [ From Monitor] Respiratory 17 21 19 Rate Respiratory Rate [Anterior Bilateral Throughout] Blood Pressure 117/62 109/66 112/63 O2 Sat by Pulse 100 100 100 Oximetry 07/29/18 07/29/18 07/29/18 03:30 04:00 04:01 Temperature 98.8 F Pulse Rate 90 85 Pulse Rate [ Anterior Bilateral Throughout] Pulse Rate [ 87 From Monitor] Respiratory 17 16 22 Rate Respiratory Rate [Anterior Bilateral Throughout] Blood Pressure 132/79 126/72 O2 Sat by Pulse 100 100 100 Oximetry 07/29/18 07/29/18 07/29/18 04:30 05:00 05:30 Temperature Pulse Rate 89 92 H 99 H Pulse Rate [ Anterior Bilateral Throughout] Pulse Rate [ From Monitor] Respiratory 22 17 17 Rate Respiratory Rate [Anterior Bilateral Throughout] Blood Pressure 127/73 126/73 126/74 O2 Sat by Pulse 100 100 100 Oximetry 07/29/18 07/29/18 07/29/18 06:00 06:15 06:30 Temperature 98.3 F Pulse Rate 94 H 89 Pulse Rate [ Anterior Bilateral Throughout] Pulse Rate [ From Monitor] Respiratory 22 19 Rate Respiratory Rate [Anterior Bilateral Throughout] Blood Pressure 121/69 126/77 O2 Sat by Pulse 100 100 Oximetry 07/29/18 07/29/18 07/29/18 07:00 07:30 08:00 Temperature 98.8 F Pulse Rate 87 90 82 Pulse Rate [ Anterior Bilateral Throughout] Pulse Rate [ 82 From Monitor] Respiratory 20 20 20 Rate Respiratory Rate [Anterior Bilateral Throughout] Blood Pressure 120/69 119/67 122/67 O2 Sat by Pulse 100 100 100 Oximetry 07/29/18 07/29/18 07/29/18 08:06 08:09 08:12 Temperature Pulse Rate 85 Pulse Rate [ 84 Anterior Bilateral Throughout] Pulse Rate [ From Monitor] Respiratory Rate Respiratory 17 Rate [Anterior Bilateral Throughout] Blood Pressure 122/67 O2 Sat by Pulse 100 100 Oximetry 07/29/18 07/29/18 07/29/18 08:31 08:38 09:43 Temperature Pulse Rate 90 Pulse Rate [ 85 Anterior Bilateral Throughout] Pulse Rate [ From Monitor] Respiratory 14 Rate Respiratory 19 Rate [Anterior Bilateral Throughout] Blood Pressure 107/73 O2 Sat by Pulse 100 100 Oximetry 07/29/18 10:21 Temperature Pulse Rate 84 Pulse Rate [ Anterior Bilateral Throughout] Pulse Rate [ From Monitor] Respiratory 18 Rate Respiratory Rate [Anterior Bilateral Throughout] Blood Pressure 118/63 O2 Sat by Pulse 100 Oximetry Constitutional: appears uncomfortable, other (elderly looking male, normocephalic with no significant ventilator dyssynchrony) Eyes: non-icteric ENT: oropharynx moist, other (ETT 24 cm Brent) Neck: supple, no lymphadenopathy, other (no thyromegaly) Effort: mildly labored Ascultation: Bilateral: rhonchi Percussion: Bilateral: not dull Cardiovascular: regular rate and rhythm Gastrointestinal: normoactive bowel sounds, soft, non-tender, non-distended Integumentary: normal Extremities: no cyanosis, no edema, pulses normal, no ischemia or petechiae Neurologic: normal mental status, pupils equal and round, CN II-XII normal, motor strength normal and Psychiatric: anxious CBC and BMP: 08/01/18 11:14 08/02/18 14:05 ABG, PT/INR, D-dimer: ABG POC ABG pH 7.411 (7.35-7.45) 07/29/18 10:25 POC ABG pCO2 33.2 (35-45) L 07/29/18 10:25 POC ABG pO2 121 (80-105) H 07/29/18 10:25 POC ABG HCO3 21.1 (22-26 mml/L) 07/29/18 10:25 POC ABG Total CO2 22 (23-27mmol/L) 07/29/18 10:25 POC ABG O2 Sat 99 07/29/18 10:25 PT/INR, D-dimer PT 14.8 Sec. (12.2-14.9) 07/26/18 19:04 INR 1.09 (0.87-1.13) 07/26/18 19:04 Abnormal lab findings: Abnormal Labs 07/26/18 07/26/18 07/26/18 18:45 19:04 19:04 WBC RBC 3.27 L Hgb 10.3 L Hct 32.7 L MCV 100 H MCH RDW 16.4 H Plt Count Seg Neuts % (Manual) Monocytes % (Manual) 10.0 H Nucleated RBC % Seg Neutrophils # Man Lymphocytes # (Manual) Monocytes # (Manual) 0.9 H POC ABG pH POC ABG pCO2 POC ABG pO2 Sodium 134 L Chloride 95.3 L Carbon Dioxide 12 L Glucose 222 H POC Glucose 235 H Lactic Acid Calcium AST Alkaline Phosphatase 139 H Albumin 3.6 L TSH Salicylates Acetaminophen 07/26/18 07/26/18 07/26/18 19:04 19:04 19:04 WBC RBC Hgb Hct MCV MCH RDW Plt Count Seg Neuts % (Manual) Monocytes % (Manual) Nucleated RBC % Seg Neutrophils # Man Lymphocytes # (Manual) Monocytes # (Manual) POC ABG pH POC ABG pCO2 POC ABG pO2 Sodium Chloride Carbon Dioxide Glucose POC Glucose Lactic Acid 12.80 H* Calcium AST Alkaline Phosphatase Albumin TSH Salicylates < 0.3 L Acetaminophen < 5.0 L 07/26/18 07/26/18 07/26/18 19:28 20:06 21:52 WBC RBC Hgb Hct MCV MCH RDW Plt Count Seg Neuts % (Manual) Monocytes % (Manual) Nucleated RBC % Seg Neutrophils # Man Lymphocytes # (Manual) Monocytes # (Manual) POC ABG pH 7.195 L POC ABG pCO2 49.6 H POC ABG pO2 Sodium Chloride Carbon Dioxide Glucose POC Glucose Lactic Acid 4.30 H* Calcium AST Alkaline Phosphatase Albumin TSH 9.370 H Salicylates Acetaminophen 07/27/18 07/27/18 07/27/18 00:33 01:26 02:48 WBC RBC Hgb Hct MCV MCH RDW Plt Count Seg Neuts % (Manual) Monocytes % (Manual) Nucleated RBC % Seg Neutrophils # Man Lymphocytes # (Manual) Monocytes # (Manual) POC ABG pH 7.244 L POC ABG pCO2 54.9 H POC ABG pO2 157 H Sodium Chloride Carbon Dioxide Glucose POC Glucose Lactic Acid 2.90 H* 3.40 H* Calcium AST Alkaline Phosphatase Albumin TSH Salicylates Acetaminophen 07/27/18 07/27/1819 04:48 07:08 07:08 WBC 12.0 H RBC Hgb Hct MCV 95 H MCH RDW 16.1 H Plt Count 108 L Seg Neuts % (Manual) 72.0 H Monocytes % (Manual) 10.0 H Nucleated RBC % 1.0 H Seg Neutrophils # Man 0.0 L Lymphocytes # (Manual) 0.0 L Monocytes # (Manual) POC ABG pH POC ABG pCO2 34.6 L POC ABG pO2 145 H Sodium 136 L Chloride Carbon Dioxide 21 L D Glucose 101 H POC Glucose Lactic Acid Calcium 8.3 L AST 47 H Alkaline Phosphatase Albumin 3.2 L TSH Salicylates Acetaminophen 07/27/18 07/28/18 07/28/18 11:17 04:11 04:44 WBC RBC 2.77 L Hgb 9.0 L D Hct 26.1 L D MCV MCH 33 H RDW 15.9 H Plt Count 115 L Seg Neuts % (Manual) 77.0 H Monocytes % (Manual) 8.0 H Nucleated RBC % Seg Neutrophils # Man Lymphocytes # (Manual) 1.0 L Monocytes # (Manual) POC ABG pH POC ABG pCO2 POC ABG pO2 129 H Sodium Chloride Carbon Dioxide Glucose POC Glucose Lactic Acid 2.20 H* Calcium AST Alkaline Phosphatase Albumin TSH Salicylates Acetaminophen 07/28/18 07/29/18 07/29/18 04:44 05:35 10:25 WBC RBC Hgb Hct MCV MCH RDW Plt Count Seg Neuts % (Manual) Monocytes % (Manual) Nucleated RBC % Seg Neutrophils # Man Lymphocytes # (Manual) Monocytes # (Manual) POC ABG pH POC ABG pCO2 31.0 L 33.2 L POC ABG pO2 142 H 121 H Sodium 135 L Chloride Carbon Dioxide 20 L Glucose POC Glucose Lactic Acid Calcium AST Alkaline Phosphatase Albumin TSH Salicylates Acetaminophen Chest x-ray: image reviewed (ETT in good position) Allied health notes reviewed: nursing
[2018-07-29] MEDS: NACL 0.9% 1000 ML 1,000 ML IV SCH ×2 (13:17→23:32)
[2018-07-30] MEDS: HEPARIN SUB-Q SCH ×2 (06:00→22:10)
--- NOTE | 2018-07-30 07:29 | Progress Note ---
Assessment and Plan Acute hypercapnic respiratory failure, s/p mechanical ventilator support. Severe lactic acidosis, differentials include seizures, hypoperfusion. Acute encephalopathy , toxic metabolic. Thrombocytopenia Emphysema Moderate protein calorie malnutrition - Bedside swallow evaluation, if he fails get [employer] TECH to evaluate -PT/OT -Aspiration precautions -Bronchodilators - Wean supplemental oxygen fro O2 sats>90% -Accuchecks with glycemic control. -Goal blood glucose of 140-180 mg/dL - Continue to wean supplemental oxygen to keep O2 sats > 90% - Continue bronchodilators with pulmonary hygiene per RT - Maintenance of sleep -wake cycle - PT/OT -VTE prophylaxis, heparin and monitor/trend platelet count - Influenza and pneumonia vaccination per protocol -Analgesia and agitation management as indicated -Supportive transfusions as indicated OK to transfer out of ICU, can go to [facility] unit Subjective Date of service: 07/30/18 Principal diagnosis: Acute hypercapnic Resp failure; Ac encephalopathy; Thrombocytopenia Interval history: Patient is seen today for: Acute hypercapnic Resp failure; Severe lactic acidosis (? seizures, hypoperfusion); Acute encephalopathy (toxic metabolic); Thrombocytopenia; Emphysema; Moderate protein calorie malnutrition Seen and examined at bedside; 24hour events reviewed; Vitals, labs, medications, chart and imaging reviewed; nursing and respiratory care staff consulted; no adverse overnight events reported to me; No fevers, remains encep haloapthic,extubated and doing well Objective - Exam Narrative Exam: GENERAL:Chronically ill-looking but not in acute distress, HEENT: Normocephalic, moderately. No jaundice no cyanosis Mucous membrane is moist, pharynx is clear, no exudates or hemorrhage. Dentition is normal. NECK: Supple. Neck showed good range of motion. There is no adenopathy noted. No jugular venous distention and no thyromegaly. Neck auscultation showed no carotid bruit. CHEST/LUNGS: Decreased AE bilaterally, Occ rhonchi no wheezes no crackles HEART/CARDIOVASCULAR: Tachycardia S1-S2 only no S3 gallop no S4 ABDOMEN: Abdomen is soft, nontender. Patient has normal bowel sounds. There is no abdominal distention. Liver and spleen not palpably enlarged. SKIN: There is no rash. There is no edema. There is no diaphoresis. NEURO: The patient is awake, alert, and oriented x2 The patient is cooperative. The patient has no focal neurologic deficits. MUSCULOSKELETAL: There is no tenderness or deformity. EXTREMITIES: No edema, no cyanosis, no clubbing Vital Signs - 12hr 07/29/18 07/29/18 07/29/18 19:30 20:00 20:26 Temperature 98.4 F Pulse Rate 72 80 Pulse Rate [ 76 Anterior Bilateral Throughout] Pulse Rate [ 85 From Monitor] Pulse Rate [ 85 Right Dorsalis Pedis] Respiratory 22 16 Rate Respiratory 16 Rate [Anterior Bilateral Throughout] Blood Pressure 114/55 100/61 O2 Sat by Pulse 100 98 Oximetry 07/29/18 07/29/18 07/29/18 20:31 20:39 21:00 Temperature Pulse Rate 70 77 Pulse Rate [ 66 Anterior Bilateral Throughout] Pulse Rate [ From Monitor] Pulse Rate [ Right Dorsalis Pedis] Respiratory 21 22 Rate Respiratory 20 Rate [Anterior Bilateral Throughout] Blood Pressure 104/68 113/66 O2 Sat by Pulse 100 97 Oximetry 07/29/18 07/29/18 07/29/18 21:20 21:22 21:31 Temperature Pulse Rate 79 Pulse Rate [ Anterior Bilateral Throughout] Pulse Rate [ 81 76 From Monitor] Pulse Rate [ 81 81 Right Dorsalis Pedis] Respiratory 13 Rate Respiratory Rate [Anterior Bilateral Throughout] Blood Pressure 114/36 O2 Sat by Pulse 100 Oximetry 07/29/18 07/29/18 07/29/18 22:01 22:30 23:00 Temperature Pulse Rate 87 61 87 Pulse Rate [ Anterior Bilateral Throughout] Pulse Rate [ From Monitor] Pulse Rate [ Right Dorsalis Pedis] Respiratory 24 19 15 Rate Respiratory Rate [Anterior Bilateral Throughout] Blood Pressure 116/47 118/61 117/67 O2 Sat by Pulse 98 96 100 Oximetry 07/29/18 07/29/18 07/29/18 23:30 23:34 23:40 Temperature Pulse Rate 59 L 89 Pulse Rate [ Anterior Bilateral Throughout] Pulse Rate [ 60 From Monitor] Pulse Rate [ 60 Right Dorsalis Pedis] Respiratory 21 19 16 Rate Respiratory Rate [Anterior Bilateral Throughout] Blood Pressure 121/51 113/66 O2 Sat by Pulse 100 100 100 Oximetry 07/30/18 07/30/18 07/30/18 00:00 00:31 01:01 Temperature 99.3 F Pulse Rate 84 72 73 Pulse Rate [ Anterior Bilateral Throughout] Pulse Rate [ From Monitor] Pulse Rate [ Right Dorsalis Pedis] Respiratory 26 H 15 18 Rate Respiratory Rate [Anterior Bilateral Throughout] Blood Pressure 121/56 113/56 113/59 O2 Sat by Pulse 99 98 98 Oximetry 07/30/18 07/30/18 07/30/18 01:30 02:01 02:30 Temperature Pulse Rate 75 58 L 85 Pulse Rate [ Anterior Bilateral Throughout] Pulse Rate [ From Monitor] Pulse Rate [ Right Dorsalis Pedis] Respiratory 22 22 12 Rate Respiratory Rate [Anterior Bilateral Throughout] Blood Pressure 113/58 125/53 116/56 O2 Sat by Pulse 99 96 99 Oximetry 07/30/18 07/30/18 07/30/18 03:00 03:31 04:00 Temperature 98.9 F Pulse Rate 71 77 Pulse Rate [ Anterior Bilateral Throughout] Pulse Rate [ 68 From Monitor] Pulse Rate [ 68 Right Dorsalis Pedis] Respiratory 10 L 21 16 Rate Respiratory Rate [Anterior Bilateral Throughout] Blood Pressure 122/56 114/51 O2 Sat by Pulse 100 99 100 Oximetry 07/30/18 07/30/18 07/30/18 04:01 04:31 05:00 Temperature Pulse Rate 79 88 81 Pulse Rate [ Anterior Bilateral Throughout] Pulse Rate [ From Monitor] Pulse Rate [ Right Dorsalis Pedis] Respiratory 16 20 15 Rate Respiratory Rate [Anterior Bilateral Throughout] Blood Pressure 110/54 134/120 125/60 O2 Sat by Pulse 98 97 100 Oximetry 07/30/18 07/30/18 05:31 06:00 Temperature Pulse Rate 98 H 61 Pulse Rate [ Anterior Bilateral Throughout] Pulse Rate [ From Monitor] Pulse Rate [ Right Dorsalis Pedis] Respiratory 11 L 19 Rate Respiratory Rate [Anterior Bilateral Throughout] Blood Pressure 134/120 125/66 O2 Sat by Pulse 97 100 Oximetry CBC and BMP: 07/28/18 04:44 07/28/18 04:44 ABG, PT/INR, D-dimer: ABG POC ABG pH 7.411 (7.35-7.45) 07/29/18 10:25 POC ABG pCO2 33.2 (35-45) L 07/29/18 10:25 POC ABG pO2 121 (80-105) H 07/29/18 10:25 POC ABG HCO3 21.1 (22-26 mml/L) 07/29/18 10:25 POC ABG Total CO2 22 (23-27mmol/L) 07/29/18 10:25 POC ABG O2 Sat 99 07/29/18 10:25 PT/INR, D-dimer PT 14.8 Sec. (12.2-14.9) 07/26/18 19:04 INR 1.09 (0.87-1.13) 07/26/18 19:04 Abnormal lab findings: Abnormal Labs 07/26/18 07/26/18 07/26/18 18:45 19:04 19:04 WBC RBC 3.27 L Hgb 10.3 L Hct 32.7 L MCV 100 H MCH RDW 16.4 H Plt Count Seg Neuts % (Manual) Monocytes % (Manual) 10.0 H Nucleated RBC % Seg Neutrophils # Man Lymphocytes # (Manual) Monocytes # (Manual) 0.9 H POC ABG pH POC ABG pCO2 POC ABG pO2 Sodium 134 L Chloride 95.3 L Carbon Dioxide 12 L Glucose 222 H POC Glucose 235 H Lactic Acid Calcium AST Alkaline Phosphatase 139 H Albumin 3.6 L TSH Salicylates Acetaminophen 07/26/18 07/26/18 07/26/18 19:04 19:04 19:04 WBC RBC Hgb Hct MCV MCH RDW Plt Count Seg Neuts % (Manual) Monocytes % (Manual) Nucleated RBC % Seg Neutrophils # Man Lymphocytes # (Manual) Monocytes # (Manual) POC ABG pH POC ABG pCO2 POC ABG pO2 Sodium Chloride Carbon Dioxide Glucose POC Glucose Lactic Acid 12.80 H* Calcium AST Alkaline Phosphatase Albumin TSH Salicylates < 0.3 L Acetaminophen < 5.0 L 07/26/18 07/26/18 07/26/18 19:28 20:06 21:52 WBC RBC Hgb Hct MCV MCH RDW Plt Count Seg Neuts % (Manual) Monocytes % (Manual) Nucleated RBC % Seg Neutrophils # Man Lymphocytes # (Manual) Monocytes # (Manual) POC ABG pH 7.195 L POC ABG pCO2 49.6 H POC ABG pO2 Sodium Chloride Carbon Dioxide Glucose POC Glucose Lactic Acid 4.30 H* Calcium AST Alkaline Phosphatase Albumin TSH 9.370 H Salicylates Acetaminophen 07/27/18 07/27/18 07/27/18 00:33 01:26 02:48 WBC RBC Hgb Hct MCV MCH RDW Plt Count Seg Neuts % (Manual) Monocytes % (Manual) Nucleated RBC % Seg Neutrophils # Man Lymphocytes # (Manual) Monocytes # (Manual) POC ABG pH 7.244 L POC ABG pCO2 54.9 H POC ABG pO2 157 H Sodium Chloride Carbon Dioxide Glucose POC Glucose Lactic Acid 2.90 H* 3.40 H* Calcium AST Alkaline Phosphatase Albumin TSH Salicylates Acetaminophen 07/27/18 07/27/18 07/27/18 04:48 07:08 07:08 WBC 12.0 H RBC Hgb Hct MCV 95 H MCH RDW 16.1 H Plt Count 108 L Seg Neuts % (Manual) 72.0 H Monocytes % (Manual) 10.0 H Nucleated RBC % 1.0 H Seg Neutrophils # Man 0.0 L Lymphocytes # (Manual) 0.0 L Monocytes # (Manual) POC ABG pH POC ABG pCO2 34.6 L POC ABG pO2 145 H Sodium 136 L Chloride Carbon Dioxide 21 L D Glucose 101 H POC Glucose Lactic Acid Calcium 8.3 L AST 47 H Alkaline Phosphatase Albumin 3.2 L TSH Salicylates Acetaminophen 07/27/18 07/28/18 07/28/18 11:17 04:11 04:44 WBC RBC 2.77 L Hgb 9.0 L D Hct 26.1 L D MCV MCH 33 H RDW 15.9 H Plt Count 115 L Seg Neuts % (Manual) 77.0 H Monocytes % (Manual) 8.0 H Nucleated RBC % Seg Neutrophils # Man Lymphocytes # (Manual) 1.0 L Monocytes # (Manual) POC ABG pH POC ABG pCO2 POC ABG pO2 129 H Sodium Chloride Carbon Dioxide Glucose POC Glucose Lactic Acid 2.20 H* Calcium AST Alkaline Phosphatase Albumin TSH Salicylates Acetaminophen 07/28/18 07/29/18 07/29/18 04:44 05:35 10:25 WBC RBC Hgb Hct MCV MCH RDW Plt Count Seg Neuts % (Manual) Monocytes % (Manual) Nucleated RBC % Seg Neutrophils # Man Lymphocytes # (Manual) Monocytes # (Manual) POC ABG pH POC ABG pCO2 31.0 L 33.2 L POC ABG pO2 142 H 121 H Sodium 135 L Chloride Carbon Dioxide 20 L Glucose POC Glucose Lactic Acid Calcium AST Alkaline Phosphatase Albumin TSH Salicylates Acetaminophen Allied health notes reviewed: RT
[2018-07-30] MEDS: BROVANA NEBU IH SCH ×2 (08:01→21:18)
[2018-07-30] MEDS: PULMICORT IH SCH ×2 (08:01→21:18)
--- NOTE | 2018-07-30 08:22 | Progress Note ---
Assessment and Plan - Patient Problems (1) Acute respiratory failure Current Visit: Yes Status: Acute Plan to address problem: Patient is status post extubation with stable respiratory status at this time, continue to wean oxygen as tolerated. We will arrange for swallowing evaluation and start on oral as tolerated (2) Seizure Current Visit: Yes Status: Acute Plan to address problem: No seizure activity reported on current medication will continue to monitor and follow (3) Thrombocytopenia Current Visit: Yes Status: Acute Plan to address problem: Continue to monitor platelet level no bleeding reported Subjective Date of service: 07/30/18 Principal diagnosis: Acute hypercapnic Resp failure; Ac encephalopathy; Thrombocytopenia Interval history: Covering Dr Sandoval. Patient seen and examined and chart reviewed patient denied any new complaints now extubated aerosol breathing treatment in progress. Patient denied any chest pain and shortness of breath is improving, no fever reported by nursing staff vital sign stable stable Objective - Exam Narrative Exam: GENERAL:Chronically ill-looking but not in acute distress, moderately pale but not jaundiced, not in respiratory distress HEENT: Normocephalic, moderately. No jaundice no cyanosis Mucous membrane is moist, pharynx is clear, no exudates or hemorrhage. Dentition is normal. NECK: Supple. Neck showed good range of motion. There is no adenopathy noted. No jugular venous distention and no thyromegaly. Neck auscultation showed no carotid bruit. CHEST/LUNGS: Reduced air exchange bibasilarly, no wheezes no crackles HEART/CARDIOVASCULAR: Tachycardia S1-S2 only no S3 gallop no S4 ABDOMEN: Abdomen is soft, nontender. Patient has normal bowel sounds. There is no abdominal distention. Liver and spleen not palpably enlarged. SKIN: There is no rash. There is no edema. There is no diaphoresis. NEURO: The patient is awake, alert, and oriented. The patient is cooperative. The patient has no focal neurologic deficits. Cranial nerves 2-12 grossly normal, power is 5/5 in all the extremities tested. The patient has normal speech and gait. MUSCULOSKELETAL: There is no tenderness or deformity. There is no limitation ra nge of motion. There is no evidence of acute injury. EXTREMITIES: No pedal edema, no varicose veins, good peripheral pulses symmetrical and bilaterally, no pretibial edema, no finger or toe clubbing. - Constitutional Vitals: Vital Signs - 12hr 07/29/18 07/29/18 07/29/18 20:26 20:31 20:39 Temperature Pulse Rate 70 Pulse Rate [ 76 66 Anterior Bilateral Throughout] Pulse Rate [ From Monitor] Pulse Rate [ Right Dorsalis Pedis] Respiratory 21 Rate Respiratory 16 20 Rate [Anterior Bilateral Throughout] Blood Pressure 104/68 O2 Sat by Pulse 100 Oximetry 07/29/18 07/29/18 07/29/18 21:00 21:20 21:22 Temperature Pulse Rate 77 Pulse Rate [ Anterior Bilateral Throughout] Pulse Rate [ 81 76 From Monitor] Pulse Rate [ 81 81 Right Dorsalis Pedis] Respiratory 22 Rate Respiratory Rate [Anterior Bilateral Throughout] Blood Pressure 113/66 O2 Sat by Pulse 97 Oximetry 07/29/18 07/29/18 07/29/18 21:31 22:01 22:30 Temperature Pulse Rate 79 87 61 Pulse Rate [ Anterior Bilateral Throughout] Pulse Rate [ From Monitor] Pulse Rate [ Right Dorsalis Pedis] Respiratory 13 24 19 Rate Respiratory Rate [Anterior Bilateral Throughout] Blood Pressure 114/36 116/47 118/61 O2 Sat by Pulse 100 98 96 Oximetry 07/29/18 07/29/18 07/29/18 23:00 23:30 23:34 Temperature Pulse Rate 87 59 L 89 Pulse Rate [ Anterior Bilateral Throughout] Pulse Rate [ From Monitor] Pulse Rate [ Right Dorsalis Pedis] Respiratory 15 21 19 Rate Respiratory Rate [Anterior Bilateral Throughout] Blood Pressure 117/67 121/51 113/66 O2 Sat by Pulse 100 100 100 Oximetry 07/29/18 07/30/18 07/30/18 23:40 00:00 00:31 Temperature 99.3 F Pulse Rate 84 72 Pulse Rate [ Anterior Bilateral Throughout] Pulse Rate [ 60 From Monitor] Pulse Rate [ 60 Right Dorsalis Pedis] Respiratory 16 26 H 15 Rate Respiratory Rate [Anterior Bilateral Throughout] Blood Pressure 121/56 113/56 O2 Sat by Pulse 100 99 98 Oximetry 07/30/18 07/30/18 07/30/18 01:01 01:30 02:01 Temperature Pulse Rate 73 75 58 L Pulse Rate [ Anterior Bilateral Throughout] Pulse Rate [ From Monitor] Pulse Rate [ Right Dorsalis Pedis] Respiratory 18 22 22 Rate Respiratory Rate [Anterior Bilateral Throughout] Blood Pressure 113/59 113/58 125/53 O2 Sat by Pulse 98 99 96 Oximetry 07/30/18 07/30/18 07/30/18 02:30 03:00 03:31 Temperature Pulse Rate 85 71 77 Pulse Rate [ Anterior Bilateral Throughout] Pulse Rate [ From Monitor] Pulse Rate [ Right Dorsalis Pedis] Respiratory 12 10 L 21 Rate Respiratory Rate [Anterior Bilateral Throughout] Blood Pressure 116/56 122/56 114/51 O2 Sat by Pulse 99 100 99 Oximetry 07/30/18 07/30/18 07/30/18 04:00 04:01 04:31 Temperature 98.9 F Pulse Rate 79 88 Pulse Rate [ Anterior Bilateral Throughout] Pulse Rate [ 68 From Monitor] Pulse Rate [ 68 Right Dorsalis Pedis] Respiratory 16 16 20 Rate Respiratory Rate [Anterior Bilateral Throughout] Blood Pressure 110/54 134/120 O2 Sat by Pulse 100 98 97 Oximetry 07/30/18 07/30/18 07/30/18 05:00 05:31 06:00 Temperature Pulse Rate 81 98 H 61 Pulse Rate [ Anterior Bilateral Throughout] Pulse Rate [ From Monitor] Pulse Rate [ Right Dorsalis Pedis] Respiratory 15 11 L 19 Rate Respiratory Rate [Anterior Bilateral Throughout] Blood Pressure 125/60 134/120 125/66 O2 Sat by Pulse 100 97 100 Oximetry 07/30/18 07/30/18 07:59 08:03 Temperature Pulse Rate Pulse Rate [ 73 Anterior Bilateral Throughout] Pulse Rate [ From Monitor] Pulse Rate [ Right Dorsalis Pedis] Respiratory Rate Respiratory 14 Rate [Anterior Bilateral Throughout] Blood Pressure O2 Sat by Pulse 100 Oximetry - Labs CBC & Chem 7: 07/28/18 04:44 07/28/18 04:44 Labs: Abnormal lab results 07/29/18 Range/Units 10:25 POC ABG pCO2 33.2 L (35-45) POC ABG pO2 121 H (80-105)
[2018-07-30] MEDS: PEPCID IV SCH ×2 (10:32→22:10)
[2018-07-30] MEDS ORDERED: D5/0.45NS 1,000 ML IV SCH (13:00)
--- NOTE | 2018-07-30 15:19 | XRay Report ---
PROCEDURE: XR CHEST 1V AP TECHNIQUE: Chest, portable upright HISTORY: follow up respiratory failure COMPARISON: 07/29/2018 FINDINGS: Interval removal of nasogastric tube and endotracheal tube. There is unchanged biapical pleural and parenchymal scarring/thickening. The heart size is normal. There is no pulmonary vascular congestion seen. Mediastinal contours are unchanged. There is no acute infiltrate seen. There is no pleural effusion seen. There is no pneumothorax seen. IMPRESSION: No acute abnormality identified. This document is electronically signed by Evonne Mann MD., July 30 2018 03:17:23 PM ET
--- NOTE | 2018-07-31 03:41 | Progress Note ---
Assessment and Plan Acute hypercapnic respiratory failure, s/p mechanical ventilator support. Severe lactic acidosis, differentials include seizures, hypoperfusion. Acute encephalopathy , toxic metabolic. Thrombocytopenia Emphysema Moderate protein calorie malnutrition - Bedside swallow evaluation, if he fails get ATMOSPHERIC SCIENTIST to evaluate -PT/OT -Aspiration precautions -Bronchodilators - Wean supplemental oxygen fro O2 sats>90% -Accuchecks with glycemic control. -Goal blood glucose of 140-180 mg/dL - Continue to wean supplemental oxygen to keep O2 sats > 90% - Continue bronchodilators with pulmonary hygiene per RT - Maintenance of sleep -wake cycle - PT/OT -VTE prophylaxis, heparin and monitor/trend platelet count - Influenza and pneumonia vaccination per protocol -Analgesia and agitation management as indicated -Supportive transfusions as indicated OK to transfer out of ICU, can go to [facility] unit Subjective Date of service: 07/31/18 Principal diagnosis: Acute hypercapnic Resp failure; Ac encephalopathy; Thrombocytopenia Interval history: Patient is seen today for: Acute hypercapnic Resp failure; Severe lactic acidosis (? seizures, hypoperfusion); Acute encephalopathy (toxic metabolic); Thrombocytopenia; Emphysema; Moderate protein calorie malnutrition Seen and examined at bedside; 24hour events reviewed; Vitals, labs, medications, chart and imaging reviewed; nursing and respiratory care staff consulted; no adverse overnight events reported to me; No fevers, remains encep haloapthic,extubated and doing well Objective - Exam Narrative Exam: GENERAL:Chronically ill-looking but not in acute distress, HEENT: Normocephalic, moderately. No jaundice no cyanosis Mucous membrane is moist, pharynx is clear, no exudates or hemorrhage. Dentition is normal. NECK: Supple. Neck showed good range of motion. There is no adenopathy noted. No jugular venous distention and no thyromegaly. Neck auscultation showed no carotid bruit. CHEST/LUNGS: Decreased AE bilaterally, Occ rhonchi no wheezes no crackles HEART/CARDIOVASCULAR: Tachycardia S1-S2 only no S3 gallop no S4 ABDOMEN: Abdomen is soft, nontender. Patient has normal bowel sounds. There is no abdominal distention. Liver and spleen not palpably enlarged. SKIN: There is no rash. There is no edema. There is no diaphoresis. NEURO: The patient is awake, alert, and oriented x2 The patient is cooperative. The patient has no focal neurologic deficits. MUSCULOSKELETAL: There is no tenderness or deformity. EXTREMITIES: No edema, no cyanosis, no clubbing Vital Signs - 12hr 07/30/18 07/30/18 07/30/18 16:00 16:30 17:00 Temperature 98.3 F Pulse Rate 63 67 69 Pulse Rate [ Anterior Bilateral Throughout] Pulse Rate [ From Monitor] Pulse Rate [ Right Dorsalis Pedis] Respiratory 16 26 H 18 Rate Respiratory Rate [Anterior Bilateral Throughout] Blood Pressure 128/70 137/71 137/66 O2 Sat by Pulse Oximetry 07/30/18 07/30/18 07/30/18 17:30 18:00 18:30 Temperature Pulse Rate 60 80 92 H Pulse Rate [ Anterior Bilateral Throughout] Pulse Rate [ From Monitor] Pulse Rate [ Right Dorsalis Pedis] Respiratory 18 13 13 Rate Respiratory Rate [Anterior Bilateral Throughout] Blood Pressure 128/62 120/51 128/62 O2 Sat by Pulse Oximetry 07/30/18 07/30/18 07/30/18 19:00 19:30 20:00 Temperature 98.8 F Pulse Rate 75 69 85 Pulse Rate [ Anterior Bilateral Throughout] Pulse Rate [ 68 From Monitor] Pulse Rate [ 68 Right Dorsalis Pedis] Respiratory 14 16 20 Rate Respiratory Rate [Anterior Bilateral Throughout] Blood Pressure 120/51 120/51 120/51 O2 Sat by Pulse 100 Oximetry 07/30/18 07/30/18 07/30/18 20:30 21:00 21:18 Temperature Pulse Rate 72 79 Pulse Rate [ Anterior Bilateral Throughout] Pulse Rate [ From Monitor] Pulse Rate [ Right Dorsalis Pedis] Respiratory 17 15 Rate Respiratory Rate [Anterior Bilateral Throughout] Blood Pressure 117/65 123/67 O2 Sat by Pulse 100 99 Oximetry 07/30/18 07/30/18 07/30/18 21:23 21:30 22:00 Temperature Pulse Rate 62 61 Pulse Rate [ 64 Anterior Bilateral Throughout] Pulse Rate [ From Monitor] Pulse Rate [ Right Dorsalis Pedis] Respiratory 10 L 17 Rate Respiratory 12 Rate [Anterior Bilateral Throughout] Blood Pressure 130/60 124/58 O2 Sat by Pulse 100 100 Oximetry 07/30/18 07/30/18 07/30/18 22:10 22:30 23:00 Temperature Pulse Rate 74 67 56 L Pulse Rate [ Anterior Bilateral Throughout] Pulse Rate [ From Monitor] Pulse Rate [ Right Dorsalis Pedis] Respiratory 13 18 19 Rate Respiratory Rate [Anterior Bilateral Throughout] Blood Pressure 124/58 134/54 137/75 O2 Sat by Pulse 100 100 100 Oximetry 07/30/18 07/31/18 07/31/18 23:30 00:00 00:30 Temperature 98.7 F Pulse Rate 78 73 82 Pulse Rate [ Anterior Bilateral Throughout] Pulse Rate [ From Monitor] Pulse Rate [ Right Dorsalis Pedis] Respiratory 17 11 L 16 Rate Respiratory Rate [Anterior Bilateral Throughout] Blood Pressure 139/74 129/62 136/69 O2 Sat by Pulse 98 99 97 Oximetry CBC and BMP: 08/01/18 11:14 08/02/18 14:05 ABG, PT/INR, D-dimer: ABG POC ABG pH 7.411 (7.35-7.45) 07/29/18 10:25 POC ABG pCO2 33.2 (35-45) L 07/29/18 10:25 POC ABG pO2 121 (80-105) H 07/29/18 10:25 POC ABG HCO3 21.1 (22-26 mml/L) 07/29/18 10:25 POC ABG Total CO2 22 (23-27mmol/L) 07/29/18 10:25 POC ABG O2 Sat 99 07/29/18 10:25 PT/INR, D-dimer PT 14.8 Sec. (12.2-14.9) 07/26/18 19:04 INR 1.09 (0.87-1.13) 07/26/18 19:04 Abnormal lab findings: Abnormal Labs 07/26/18 07/26/18 07/26/18 18:45 19:04 19:04 WBC RBC 3.27 L Hgb 10.3 L Hct 32.7 L MCV 100 H MCH RDW 16.4 H Plt Count Seg Neuts % (Manual) Monocytes % (Manual) 10.0 H Nucleated RBC % Seg Neutrophils # Man Lymphocytes # (Manual) Monocytes # (Manual) 0.9 H POC ABG pH POC ABG pCO2 POC ABG pO2 Sodium 134 L Chloride 95.3 L Carbon Dioxide 12 L Glucose 222 H POC Glucose 235 H Lactic Acid Calcium AST Alkaline Phosphatase 139 H Albumin 3.6 L TSH Salicylates Acetaminophen 07/26/18 07/26/18 07/26/18 19:04 19:04 19:04 WBC RBC Hgb Hct MCV MCH RDW Plt Count Seg Neuts % (Manual) Monocytes % (Manual) Nucleated RBC % Seg Neutrophils # Man Lymphocytes # (Manual) Monocytes # (Manual) POC ABG pH POC ABG pCO2 POC ABG pO2 Sodium Chloride Carbon Dioxide Glucose POC Glucose Lactic Acid 12.80 H* Calcium AST Alkaline Phosphatase Albumin TSH Salicylates < 0.3 L Acetaminophen < 5.0 L 07/26/18 07/26/18 07/26/18 19:28 20:06 21:52 WBC RBC Hgb Hct MCV MCH RDW Plt Count Seg Neuts % (Manual) Monocytes % (Manual) Nucleated RBC % Seg Neutrophils # Man Lymphocytes # (Manual) Monocytes # (Manual) POC ABG pH 7.195 L POC ABG pCO2 49.6 H POC ABG pO2 Sodium Chloride Carbon Dioxide Glucose POC Glucose Lactic Acid 4.30 H* Calcium AST Alkaline Phosphatase Albumin TSH 9.370 H Salicylates Acetaminophen 07/27/18 07/27/18 07/27/18 00:33 01:26 02:48 WBC RBC Hgb Hct MCV MCH RDW Plt Count Seg Neuts % (Manual) Monocytes % (Manual) Nucleated RBC % Seg Neutrophils # Man Lymphocytes # (Manual) Monocytes # (Manual) POC ABG pH 7.244 L POC ABG pCO2 54.9 H POC ABG pO2 157 H Sodium Chloride Carbon Dioxide Glucose POC Glucose Lactic Acid 2.90 H* 3.40 H* Calcium AST Alkaline Phosphatase Albumin TSH Salicylates Acetaminophen 07/27/18 07/27/18 07/27/18 04:48 07:08 07:08 WBC 12.0 H RBC Hgb Hct MCV 95 H MCH RDW 16.1 H Plt Count 108 L Seg Neuts % (Manual) 72.0 H Monocytes % (Manual) 10.0 H Nucleated RBC % 1.0 H Seg Neutrophils # Man 0.0 L Lymphocytes # (Manual) 0.0 L Monocytes # (Manual) POC ABG pH POC ABG pCO2 34.6 L POC ABG pO2 145 H Sodium 136 L Chloride Carbon Dioxide 21 L D Glucose 101 H POC Glucose Lactic Acid Calcium 8.3 L AST 47 H Alkaline Phosphatase Albumin 3.2 L TSH Salicylates Acetaminophen 07/27/18 07/28/18 07/28/18 11:17 04:11 04:44 WBC RBC 2.77 L Hgb 9.0 L D Hct 26.1 L D MCV MCH 33 H RDW 15.9 H Plt Count 115 L Seg Neuts % (Manual) 77.0 H Monocytes % (Manual) 8.0 H Nucleated RBC % Seg Neutrophils # Man Lymphocytes # (Manual) 1.0 L Monocytes # (Manual) POC ABG pH POC ABG pCO2 POC ABG pO2 129 H Sodium Chloride Carbon Dioxide Glucose POC Glucose Lactic Acid 2.20 H* Calcium AST Alkaline Phosphatase Albumin TSH Salicylates Acetaminophen 07/28/18 07/29/18 07/29/18 04:44 05:35 10:25 WBC RBC Hgb Hct MCV MCH RDW Plt Count Seg Neuts % (Manual) Monocytes % (Manual) Nucleated RBC % Seg Neutrophils # Man Lymphocytes # (Manual) Monocytes # (Manual) POC ABG pH POC ABG pCO2 31.0 L 33.2 L POC ABG pO2 142 H 121 H Sodium 135 L Chloride Carbon Dioxide 20 L Glucose POC Glucose Lactic Acid Calcium AST Alkaline Phosphatase Albumin TSH Salicylates Acetaminophen Allied health notes reviewed: RT
[2018-07-31] MEDS: HEPARIN SUB-Q SCH ×3 (06:53→23:03)
[2018-07-31] MEDS: BROVANA NEBU IH SCH ×2 (09:57→20:55)
[2018-07-31] MEDS: PULMICORT IH SCH ×2 (09:57→20:55)
[2018-07-31] MEDS: PEPCID IV SCH ×2 (10:06→23:03)
--- NOTE | 2018-07-31 10:06 | XRay Report ---
PROCEDURE: XR CHEST 1V AP TECHNIQUE: Chest radiograph single view. HISTORY: follow up respiratory failure COMPARISONS: None . FINDINGS: Single frontal view of the chest was acquired. Comparison is made to prior examination of J une 15. There is cardiomegaly. The lungs appear hyperinflated similar to prior exam. There is bilateral apica l pleural parenchymal scarring. IMPRESSION: Stable hyperinflation This document is electronically signed by Frank De Oliveira MD., July 31 2018 10:04:08 AM ET
--- NOTE | 2018-07-31 14:42 | Progress Note ---
Assessment and Plan - Patient Problems (1) Acute respiratory failure Current Visit: Yes Status: Acute Plan to address problem: Clinically improved and stable enough to be transferred to the medical floor (2) Seizure Current Visit: Yes Status: Acute Plan to address problem: No seizure activity reported on current medication will continue to monitor and follow (3) Thrombocytopenia Current Visit: Yes Status: Acute Plan to address problem: Continue to monitor platelet level no bleeding reported (4) Acute encephalopathy Current Visit: Yes Status: Acute Plan to address problem: Neurological status much Improved patient more alert and responding appropriately Subjective Date of service: 07/31/18 Principal diagnosis: Acute hypercapnic Resp failure; Ac encephalopathy; Thrombocytopenia Interval history: Patient seen and examined chart reviewed, patient states HE is doing better overall less short of breath and oxygen saturation good on nasal cannula oxygen Objective - Exam Narrative Exam: GENERAL:Chronically ill-looking but not in acute distress, moderately pale but not jaundiced, not in respiratory distress on nasal cannula oxygen HEENT: Normocephalic, moderately. No jaundice no cyanosis Mucous membrane is moist, pharynx is clear, no exudates or hemorrhage. Dentition is normal. NECK: Supple. Neck showed good range of motion. There is no adenopathy noted. No jugular venous distention and no thyromegaly. Neck auscultation showed no carotid bruit. CHEST/LUNGS: Reduced air exchange bibasilarly, no wheezes no crackles HEART/CARDIOVASCULAR: Tachycardia S1-S2 only no S3 gallop no S4 ABDOMEN: Abdomen is soft, nontender. Patient has normal bowel sounds. There is no abdominal distention. Liver and spleen not palpably enlarged. SKIN: There is no rash. There is no edema. There is no diaphoresis. NEURO: The patient is awake, alert, and oriented. The patient is cooperative. The patient has no focal neurologic deficits. Cranial nerves 2-12 grossly normal, power is 5/5 in all the extremities tested. The patient has normal speech and gait. MUSCULOSKELETAL: There is no tenderness or deformity. There is no limitation range of motion. There is no evidence of acute injury. EXTREMITIES: No pedal edema, no varicose veins, good peripheral pulses symmetrical and bilaterally, no pretibial edema, no finger or toe clubbing. - Constitutional Vitals: Vital Signs - 12hr 07/31/18 07/31/18 07/31/18 03:00 04:00 05:00 Temperature 98.3 F Pulse Rate 73 75 80 Pulse Rate [ Anterior Bilateral Throughout] Respiratory 19 25 H 10 L Rate Respiratory Rate [Anterior Bilateral Throughout] Blood Pressure 123/68 118/68 118/67 O2 Sat by Pulse 98 97 99 Oximetry 07/31/18 07/31/18 07/31/18 06:00 07:00 08:00 Temperature Pulse Rate 72 66 84 Pulse Rate [ Anterior Bilateral Throughout] Respiratory 18 19 19 Rate Respiratory Rate [Anterior Bilateral Throughout] Blood Pressure 133/64 125/69 117/69 O2 Sat by Pulse 100 100 99 Oximetry 07/31/18 07/31/18 09:57 10:07 Temperature Pulse Rate Pulse Rate [ 87 83 Anterior Bilateral Throughout] Respiratory Rate Respiratory 16 18 Rate [Anterior Bilateral Throughout] Blood Pressure O2 Sat by Pulse 98 Oximetry - Labs CBC & Chem 7: 07/28/18 04:44 07/28/18 04:44 Labs: Abnormal lab results 07/31/18 Range/Units 08:29 POC Glucose 128 H (70-105)
[2018-08-01] MEDS: D5/0.45NS 1,000 ML IV SCH ×3 (04:12→21:54)
[2018-08-01] MEDS: PULMICORT IH SCH ×2 (07:42→20:40)
[2018-08-01] MEDS: BROVANA NEBU IH SCH ×2 (07:42→20:40)
--- NOTE | 2018-08-01 10:21 | Progress Note ---
Assessment and Plan - Patient Problems (1) Respiratory failure Current Visit: Yes Status: Acute Qualifiers: Chronicity: acute Respiratory failure complication: unspecified whether with hypoxia or hypercapnia Qualified Code(s): J96.00 - Acute respiratory failure, unspecified whether with hypoxia or hypercapnia Plan to address problem: pulm consult. done, and appreciate their input. (2) Acute respiratory failure Current Visit: Yes Status: Acute Plan to address problem: vent support, pulm consult. off vent. (3) Thrombocytopenia Current Visit: Yes Status: Acute Plan to address problem: may be ITP, will monitor labs. will order new labs. (4) Seizure Current Visit: Yes Status: Acute Plan to address problem: EEG. non since admission see if EEG completed. Subjective Date of service: 08/01/18 Principal diagnosis: Acute hypercapnic Resp failure; Ac encephalopathy; Thrombocytopenia Interval history: Patient seen, resting in bed, notes/labs reviewed.Will continue with current management. Dr Hirsch will cover my rounds for wednesday, wed, wednesday. Patient seen/examined, resting in b ed, latest labs reviewed. New labs will be ordered for tomorrow.Once patient becomes stable, will start d/c plans. Objective - Constitutional Vitals: Vital Signs - 12hr 08/01/18 08/01/18 08/01/18 03:53 04:00 07:25 Temperature 97.8 F 97.8 F 98.2 F Pulse Rate 68 68 70 Pulse Rate [ Anterior Bilateral Throughout] Respiratory 18 18 18 Rate Respiratory Rate [Anterior Bilateral Throughout] Blood Pressure 127/72 Blood Pressure 133/68 [Right] O2 Sat by Pulse 98 98 100 Oximetry 08/01/18 08/01/18 08/01/18 07:35 07:50 08:02 Temperature Pulse Rate Pulse Rate [ 64 67 Anterior Bilateral Throughout] Respiratory Rate Respiratory 16 17 Rate [Anterior Bilateral Throughout] Blood Pressure Blood Pressure [Right] O2 Sat by Pulse 100 Oximetry General appearance: Present: no acute distress, cachectic - EENT Eyes: PERRL, EOM intact ENT: hearing intact, clear oral mucosa Ears: bilateral: normal - Neck Neck: supple, normal ROM - Respiratory Respiratory effort: normal Respiratory: bilateral: diminished - Breasts Breasts: deferred - Cardiovascular Rhythm: regular Heart Sounds: Present: S1 & S2. Absent: gallop, rub Extremities: pulses intact, No edema, normal color, Full ROM - Gastrointestinal General gastrointestinal: Present: soft, non-tender, non-distended, normal bowel sounds Rectal Exam: deferred - Genitourinary Male genitourinary: deferred - Integumentary Integumentary: clear, warm, dry - Musculoskeletal Musculoskeletal: 1, strength equal bilaterally - Neurologic Neurologic: moves all extremities - Psychiatric Psychiatric: memory intact, appropriate mood/affect, intact judgment & insight - Labs CBC & Chem 7: 07/28/18 04:44 07/28/18 04:44 Medications & Allergies - Medications Allergies/Adverse Reactions: Allergies No Known Allergies Allergy (Verified 07/27/18 07:35) Home Medications: Home Medications Medication Instructions Recorded Confirmed Last Taken Type Bisacodyl Oral Liq 5 mg PO DAILY 07/27/18 07/27/18 Unknown History Polyethylene Glycol 3350 3,350 cap PO BID 07/27/18 07/27/18 Unknown History Senna 8.6 mg PO DAILY 07/27/18 07/27/18 Unknown History Active Medications: Generic Name Dose Route Start Last Admin Trade Name Freq PRN Reason Stop Dose Admin Arformoterol Tartrate 15 mcg 07/28/18 09:00 08/01/18 07:42 Brovana Nebu IH 15 mcg Q12HRT SOLANGE Administration Budesonide 0.5 mg 07/28/18 09:00 08/01/18 07:42 Pulmicort IH 0.5 mg Q12HRT SOLANGE Administration Famotidine 20 mg 08/01/18 10:00 Pepcid PO BID SOLANGE Hydrophilic Ointment 1 applic 07/26/18 18:54 Vaseline Lip Therapy TP Q2HR PRN Dry Lips Sodium Chloride 1,000 mls @ 85 mls/hr 07/26/18 22:03 07/29/18 23:32 Nacl 0.9% 1000 Ml IV 85 mls/hr DIRECT SOLANGE Administration Dextrose/Sodium Chloride 1,000 mls @ 100 mls/hr 07/30/18 13:00 08/01/18 04:12 D5/0.45ns IV 100 mls/hr DIRECT SOLANGE Administration Multi-Ingred Cream/Lotion/Oil/Oint 1 applic 07/26/18 18:54 Artificial Tears Ophth Oint OU Q4HR PRN Dry Eye(s)
[2018-08-01] MEDS: PEPCID PO SCH ×2 (10:42→21:54)
[2018-08-01 11:55] LABS: BUN/Creatinine Ratio 14; Blood Urea Nitrogen 11 mg/dL (9-20); Calcium 8.1 mg/dL (8.4-10.2); Hemolysis Index 1
[2018-08-01 11:57] LABS: Hemoglobin 9.3 gm/dl (11.8-15.2); Mean Corpuscular HGB Conc 33 % (32-34); Mean Corpuscular Volume 94 fl (84-94); Platelet Count 125 K/mm3 (140-440); Red Blood Count 2.99 M/mm3 (3.65-5.03); Red Cell Distribution Width 15.9 % (13.2-15.2)
[2018-08-01 12:53] LABS: Basophils % (Manual) 0 % (0.0-1.8); Total Cells Counted 100
[2018-08-01 12:54] LABS: Anisocytosis 1+; Burr Cells 1+; Poikilocytosis 1+
[2018-08-01 12:55] LABS: Ovalocytes Few; Platelet Estimate Consistent w Auto; Schistocytes Few
--- NOTE | 2018-08-01 13:56 | Progress Note ---
Assessment and Plan Patient weak. Resting on 1L O2. O2 Sat 98%. No acute respiratory distress at rest. - Patient Problems (1) Acute respiratory failure Current Visit: Yes Status: Acute Plan to address problem: O2 1L via nasal canula. Brovana and Budexinise aerosol treatment q12h. Continue Famotidine. SCD. (2) Seizure Current Visit: Yes Status: Acute Plan to address problem: Management as per primary care and neurology. (3) Acute encephalopathy Current Visit: Yes Status: Acute Plan to address problem: Management as per primary care. (4) Thrombocytopenia Current Visit: Yes Status: Acute Plan to address problem: Stop the heparine. Subjective Date of service: 08/01/18 Principal diagnosis: Acute hypercapnic Resp failure; Ac encephalopathy; Thrombocytopenia Interval history: Patient weak. Resting on 1L O2. O2 Sat 98%. No acute respiratory distress at rest. Objective Vital Signs - 12hr 08/01/18 08/01/18 08/01/18 03:53 04:00 07:25 Temperature 97.8 F 97.8 F 98.2 F Pulse Rate 68 68 70 Pulse Rate [ Anterior Bilateral Throughout] Respiratory 18 18 18 Rate Respiratory Rate [Anterior Bilateral Throughout] Blood Pressure 127/72 Blood Pressure 133/68 [Right] O2 Sat by Pulse 98 98 100 Oximetry 08/01/18 08/01/18 08/01/18 07:35 07:50 08:02 Temperature Pulse Rate Pulse Rate [ 64 67 Anterior Bilateral Throughout] Respiratory Rate Respiratory 16 17 Rate [Anterior Bilateral Throughout] Blood Pressure Blood Pressure [Right] O2 Sat by Pulse 100 Oximetry Constitutional: no acute distress, alert, other (weak) Eyes: non-icteric ENT: oropharynx moist Neck: supple, no lymphadenopathy Ascultation: Bilateral: other (prolonged expiratory phase.) Cardiovascular: regular rate and rhythm Gastrointestinal: normoactive bowel sounds, soft Integumentary: normal Extremities: no cyanosis, no edema Neurologic: non-focal exam, pupils equal and round Psychiatric: depressed CBC and BMP: 08/01/18 11:14 08/01/18 11:14 ABG, PT/INR, D-dimer: ABG POC ABG pH 7.411 (7.35-7.45) 07/29/18 10:25 POC ABG pCO2 33.2 (35-45) L 07/29/18 10:25 POC ABG pO2 121 (80-105) H 07/29/18 10:25 POC ABG HCO3 21.1 (22-26 mml/L) 07/29/18 10:25 POC ABG Total CO2 22 (23-27mmol/L) 07/29/18 10:25 POC ABG O2 Sat 99 07/29/18 10:25 PT/INR, D-dimer PT 14.8 Sec. (12.2-14.9) 07/26/18 19:04 INR 1.09 (0.87-1.13) 07/26/18 19:04 Abnormal lab findings: Abnormal Labs 07/26/18 07/26/18 07/26/18 18:45 19:04 19:04 WBC RBC 3.27 L Hgb 10.3 L Hct 32.7 L MCV 100 H MCH RDW 16.4 H Plt Count Seg Neuts % (Manual) Monocytes % (Manual) 10.0 H Nucleated RBC % Seg Neutrophils # Man Lymphocytes # (Manual) Monocytes # (Manual) 0.9 H POC ABG pH POC ABG pCO2 POC ABG pO2 Sodium 134 L Potassium Chloride 95.3 L Carbon Dioxide 12 L Glucose 222 H POC Glucose 235 H Lactic Acid Calcium AST Alkaline Phosphatase 139 H Albumin 3.6 L TSH Salicylates Acetaminophen 07/26/18 07/26/18 07/26/18 19:04 19:04 19:04 WBC RBC Hgb Hct MCV MCH RDW Plt Count Seg Neuts % (Manual) Monocytes % (Manual) Nucleated RBC % Seg Neutrophils # Man Lymphocytes # (Manual) Monocytes # (Manual) POC ABG pH POC ABG pCO2 POC ABG pO2 Sodium Potassium Chloride Carbon Dioxide Glucose POC Glucose Lactic Acid 12.80 H* Calcium AST Alkaline Phosphatase Albumin TSH Salicylates < 0.3 L Acetaminophen < 5.0 L 07/26/18 07/26/18 07/26/18 19:28 20:06 21:52 WBC RBC Hgb Hct MCV MCH RDW Plt Count Seg Neuts % (Manual) Monocytes % (Manual) Nucleated RBC % Seg Neutrophils # Man Lymphocytes # (Manual) Monocytes # (Manual) POC ABG pH 7.195 L POC ABG pCO2 49.6 H POC ABG pO2 Sodium Potassium Chloride Carbon Dioxide Glucose POC Glucose Lactic Acid 4.30 H* Calcium AST Alkaline Phosphatase Albumin TSH 9.370 H Salicylates Acetaminophen 07/27/18 07/27/18 07/27/18 00:33 01:26 02:48 WBC RBC Hgb Hct MCV MCH RDW Plt Count Seg Neuts % (Manual) Monocytes % (Manual) Nucleated RBC % Seg Neutrophils # Man Lymphocytes # (Manual) Monocytes # (Manual) POC ABG pH 7.244 L POC ABG pCO2 54.9 H POC ABG pO2 157 H Sodium Potassium Chloride Carbon Dioxide Glucose POC Glucose Lactic Acid 2.90 H* 3.40 H* Calcium AST Alkaline Phosphatase Albumin TSH Salicylates Acetaminophen 07/27/18 07/27/18 07/27/18 04:48 07:08 07:08 WBC 12.0 H RBC Hgb Hct MCV 95 H MCH RDW 16.1 H Plt Count 108 L Seg Neuts % (Manual) 72.0 H Monocytes % (Manual) 10.0 H Nucleated RBC % 1.0 H Seg Neutrophils # Man 0.0 L Lymphocytes # (Manual) 0.0 L Monocytes # (Manual) POC ABG pH POC ABG pCO2 34.6 L POC ABG pO2 145 H Sodium 136 L Potassium Chloride Carbon Dioxide 21 L D Glucose 101 H POC Glucose Lactic Acid Calcium 8.3 L AST 47 H Alkaline Phosphatase Albumin 3.2 L TSH Salicylates Acetaminophen 07/27/18 07/28/18 07/28/18 11:17 04:11 04:44 WBC RBC 2.77 L Hgb 9.0 L D Hct 26.1 L D MCV MCH 33 H RDW 15.9 H Plt Count 115 L Seg Neuts % (Manual) 77.0 H Monocytes % (Manual) 8.0 H Nucleated RBC % Seg Neutrophils # Man Lymphocytes # (Manual) 1.0 L Monocytes # (Manual) POC ABG pH POC ABG pCO2 POC ABG pO2 129 H Sodium Potassium Chloride Carbon Dioxide Glucose POC Glucose Lactic Acid 2.20 H* Calcium AST Alkaline Phosphatase Albumin TSH Salicylates Acetaminophen 07/28/18 07/29/18 07/29/18 04:44 05:35 10:25 WBC RBC Hgb Hct MCV MCH RDW Plt Count Seg Neuts % (Manual) Monocytes % (Manual) Nucleated RBC % Seg Neutrophils # Man Lymphocytes # (Manual) Monocytes # (Manual) POC ABG pH POC ABG pCO2 31.0 L 33.2 L POC ABG pO2 142 H 121 H Sodium 135 L Potassium Chloride Carbon Dioxide 20 L Glucose POC Glucose Lactic Acid Calcium AST Alkaline Phosphatase Albumin TSH Salicylates Acetaminophen 07/31/18 08/01/18 08/01/18 08:29 11:14 11:14 WBC 4.3 L RBC 2.99 L Hgb 9.3 L Hct 28.0 L MCV MCH RDW 15.9 H Plt Count 125 L Seg Neuts % (Manual) Monocytes % (Manual) 16.0 H Nucleated RBC % 1.0 H Seg Neutrophils # Man Lymphocytes # (Manual) 1.1 L Monocytes # (Manual) POC ABG pH POC ABG pCO2 POC ABG pO2 Sodium Potassium 3.3 L D Chloride Carbon Dioxide Glucose POC Glucose 128 H Lactic Acid Calcium 8.1 L AST Alkaline Phosphatase Albumin TSH Salicylates Acetaminophen Chest x-ray: report reviewed, image reviewed Additional Studies: PROCEDURE: XR CHEST 1V AP 07/31/18 TECHNIQUE: Chest radiograph single view. HISTORY: follow up respiratory failure COMPARISONS: None . FINDINGS: Single frontal view of the chest was acquired. Comparison is made to prior examination of July 30. There is cardiomegaly. The lungs appear hyperinflated similar to prior exam. There is bilateral apical pleural parenchymal scarring. IMPRESSION: Stable hyperinflation Allied health notes reviewed: RT
[2018-08-02] MEDS: BROVANA NEBU IH SCH ×2 (07:33→19:15)
[2018-08-02] MEDS: PULMICORT IH SCH ×2 (07:33→19:15)
[2018-08-02] MEDS: PEPCID PO SCH ×2 (09:43→21:33)
[2018-08-02] MEDS: NACL 0.9% 1000 ML 1,000 ML IV SCH (09:47)
--- NOTE | 2018-08-02 09:53 | Progress Note ---
Assessment and Plan Patient weak. Resting on 5L O2. O2 Sat 95%. No complain of chest pain, shortness of breath or cough. - Patient Problems (1) Acute respiratory failure Current Visit: Yes Status: Acute Plan to address problem: O2 5L via nasal canula. Brovana and Budexinise aerosol treatment q12h. Continue Famotidine. SCD. (2) Seizure Current Visit: Yes Status: Acute Plan to address problem: Management as per primary care and neurology. (3) Acute encephalopathy Current Visit: Yes Status: Acute Plan to address problem: Management as per primary care. (4) Thrombocytopenia Current Visit: Yes Status: Acute Plan to address problem: Stop the heparine. Subjective Date of service: 08/02/18 Principal diagnosis: Acute hypercapnic Resp failure; Ac encephalopathy; Thrombocytopenia Interval history: Patient weak. Resting on 5L O2. O2 Sat 95%. No complain of chest pain, shortness of breath or cough. Objective Vital Signs - 12hr 08/01/18 08/02/18 08/02/18 22:00 04:06 07:33 Temperature 98.4 F Pulse Rate 88 76 Pulse Rate [ 73 Anterior Bilateral Throughout] Respiratory 18 Rate Respiratory 18 Rate [Anterior Bilateral Throughout] Blood Pressure 131/74 O2 Sat by Pulse 97 Oximetry 08/02/18 08/02/18 07:34 07:40 Temperature 98.0 F Pulse Rate 81 Pulse Rate [ 75 Anterior Bilateral Throughout] Respiratory 18 Rate Respiratory 19 Rate [Anterior Bilateral Throughout] Blood Pressure 139/85 O2 Sat by Pulse 100 98 Oximetry Constitutional: no acute distress, alert, other (weak) Eyes: non-icteric ENT: oropharynx moist Neck: supple, no lymphadenopathy Ascultation: Bilateral: other (prolonged expiratory phase.) Cardiovascular: regular rate and rhythm Gastrointestinal: normoactive bowel sounds, soft Integumentary: normal Extremities: no cyanosis, no edema Neurologic: non-focal exam, pupils equal and round Psychiatric: depressed CBC and BMP: 08/01/18 11:14 08/02/18 14:05 ABG, PT/INR, D-dimer: ABG POC ABG pH 7.411 (7.35-7.45) 07/29/18 10:25 POC ABG pCO2 33.2 (35-45) L 07/29/18 10:25 POC ABG pO2 121 (80-105) H 07/29/18 10:25 POC ABG HCO3 21.1 (22-26 mml/L) 07/29/18 10:25 POC ABG Total CO2 22 (23-27mmol/L) 07/29/18 10:25 POC ABG O2 Sat 99 07/29/18 10:25 PT/INR, D-dimer PT 14.8 Sec. (12.2-14.9) 07/26/18 19:04 INR 1.09 (0.87-1.13) 07/26/18 19:04 Abnormal lab findings: Abnormal Labs 07/26/18 07/26/18 07/26/18 18:45 19:04 19:04 WBC RBC 3.27 L Hgb 10.3 L Hct 32.7 L MCV 100 H MCH RDW 16.4 H Plt Count Seg Neuts % (Manual) Monocytes % (Manual) 10.0 H Nucleated RBC % Seg Neutrophils # Man Lymphocytes # (Manual) Monocytes # (Manual) 0.9 H POC ABG pH POC ABG pCO2 POC ABG pO2 Sodium 134 L Potassium Chloride 95.3 L Carbon Dioxide 12 L Glucose 222 H POC Glucose 235 H Lactic Acid Calcium AST Alkaline Phosphatase 139 H Albumin 3.6 L TSH Salicylates Acetaminophen 07/26/18 07/26/18 07/26/18 19:04 19:04 19:04 WBC RBC Hgb Hct MCV MCH RDW Plt Count Seg Neuts % (Manual) Monocytes % (Manual) Nucleated RBC % Seg Neutrophils # Man Lymphocytes # (Manual) Monocytes # (Manual) POC ABG pH POC ABG pCO2 POC ABG pO2 Sodium Potassium Chloride Carbon Dioxide Glucose POC Glucose Lactic Acid 12.80 H* Calcium AST Alkaline Phosphatase Albumin TSH Salicylates < 0.3 L Acetaminophen < 5.0 L 07/26/18 07/26/18 07/26/18 19:28 20:06 21:52 WBC RBC Hgb Hct MCV MCH RDW Plt Count Seg Neuts % (Manual) Monocytes % (Manual) Nucleated RBC % Seg Neutrophils # Man Lymphocytes # (Manual) Monocytes # (Manual) POC ABG pH 7.195 L POC ABG pCO2 49.6 H POC ABG pO2 Sodium Potassium Chloride Carbon Dioxide Glucose POC Glucose Lactic Acid 4.30 H* Calcium AST Alkaline Phosphatase Albumin TSH 9.370 H Salicylates Acetaminophen 07/27/18 07/27/18 07/27/18 00:33 01:26 02:48 WBC RBC Hgb Hct MCV MCH RDW Plt Count Seg Neuts % (Manual) Monocytes % (Manual) Nucleated RBC % Seg Neutrophils # Man Lymphocytes # (Manual) Monocytes # (Manual) POC ABG pH 7.244 L POC ABG pCO2 54.9 H POC ABG pO2 157 H Sodium Potassium Chloride Carbon Dioxide Glucose POC Glucose Lactic Acid 2.90 H* 3.40 H* Calcium AST Alkaline Phosphatase Albumin TSH Salicylates Acetaminophen 07/27/18 07/27/18 07/27/18 04:48 07:08 07:08 WBC 12.0 H RBC Hgb Hct MCV 95 H MCH RDW 16.1 H Plt Count 108 L Seg Neuts % (Manual) 72.0 H Monocytes % (Manual) 10.0 H Nucleated RBC % 1.0 H Seg Neutrophils # Man 0.0 L Lymphocytes # (Manual) 0.0 L Monocytes # (Manual) POC ABG pH POC ABG pCO2 34.6 L POC ABG pO2 145 H Sodium 136 L Potassium Chloride Carbon Dioxide 21 L D Glucose 101 H POC Glucose Lactic Acid Calcium 8.3 L AST 47 H Alkaline Phosphatase Albumin 3.2 L TSH Salicylates Acetaminophen 07/27/18 07/28/18 07/28/18 11:17 04:11 04:44 WBC RBC 2.77 L Hgb 9.0 L D Hct 26.1 L D MCV MCH 33 H RDW 15.9 H Plt Count 115 L Seg Neuts % (Manual) 77.0 H Monocytes % (Manual) 8.0 H Nucleated RBC % Seg Neutrophils # Man Lymphocytes # (Manual) 1.0 L Monocytes # (Manual) POC ABG pH POC ABG pCO2 POC ABG pO2 129 H Sodium Potassium Chloride Carbon Dioxide Glucose POC Glucose Lactic Acid 2.20 H* Calcium AST Alkaline Phosphatase Albumin TSH Salicylates Acetaminophen 07/28/18 07/29/18 07/29/18 04:44 05:35 10:25 WBC RBC Hgb Hct MCV MCH RDW Plt Count Seg Neuts % (Manual) Monocytes % (Manual) Nucleated RBC % Seg Neutrophils # Man Lymphocytes # (Manual) Monocytes # (Manual) POC ABG pH POC ABG pCO2 31.0 L 33.2 L POC ABG pO2 142 H 121 H Sodium 135 L Potassium Chloride Carbon Dioxide 20 L Glucose POC Glucose Lactic Acid Calcium AST Alkaline Phosphatase Albumin TSH Salicylates Acetaminophen 07/31/18 08/01/18 08/01/18 08:29 11:14 11:14 WBC 4.3 L RBC 2.99 L Hgb 9.3 L Hct 28.0 L MCV MCH RDW 15.9 H Plt Count 125 L Seg Neuts % (Manual) Monocytes % (Manual) 16.0 H Nucleated RBC % 1.0 H Seg Neutrophils # Man Lymphocytes # (Manual) 1.1 L Monocytes # (Manual) POC ABG pH POC ABG pCO2 POC ABG pO2 Sodium Potassium 3.3 L D Chloride Carbon Dioxide Glucose POC Glucose 128 H Lactic Acid Calcium 8.1 L AST Alkaline Phosphatase Albumin TSH Salicylates Acetaminophen Allied health notes reviewed: RT
[2018-08-02 14:43] LABS: BUN/Creatinine Ratio 17; Blood Urea Nitrogen 12 mg/dL (9-20); Calcium 8.2 mg/dL (8.4-10.2); Hemolysis Index 30
--- NOTE | 2018-08-02 20:05 | Progress Note ---
Assessment and Plan - Patient Problems (1) Respiratory failure Current Visit: Yes Status: Acute Qualifiers: Chronicity: acute Respiratory failure complication: unspecified whether with hypoxia or hypercapnia Qualified Code(s): J96.00 - Acute respiratory failure, unspecified whether with hypoxia or hypercapnia Plan to address problem: pulm consult. done, and appreciate their input. see notes. (2) Acute respiratory failure Current Visit: Yes Status: Acute Plan to address problem: vent support, pulm consult. off vent. continue to follow pulm. (3) Thrombocytopenia Current Visit: Yes Status: Acute Plan to address problem: may be ITP, will monitor labs. will order new labs. stable. (4) Seizure Current Visit: Yes Status: Acute Plan to address problem: EEG. non since admission see if EEG completed. None done , and no activity. Subjective Date of service: 08/02/18 Principal diagnosis: Acute hypercapnic Resp failure; Ac encephalopathy; Thrombocytopenia Interval history: Patient seen, resting in bed, notes/labs reviewed.Will continue with current management. Dr Hirsch will cover my rounds for wednesday, wed, wednesday. Patient seen/examined, resting in b ed, latest labs reviewed. New labs will be ordered for tomorrow.Once patient becomes stable, will start d/c plans. Patient seen/examined, resting in bed, NAD, denies any problems at this time.k replaced with oral supplement.. patient has remained slightly taran since he came. If he remains stable tomorrow , he will be d/c back to the MD. Objective - Constitutional Vitals: Vital Signs - 12hr 08/02/18 08/02/18 08/02/18 10:00 13:55 19:15 Temperature 98.3 F Pulse Rate 84 90 Pulse Rate [ 96 H Anterior Bilateral Throughout] Respiratory 20 Rate Respiratory 18 Rate [Anterior Bilateral Throughout] Blood Pressure 156/82 O2 Sat by Pulse 95 98 Oximetry 08/02/18 08/02/18 19:42 19:58 Temperature Pulse Rate 90 Pulse Rate [ Anterior Bilateral Throughout] Respiratory 18 Rate Respiratory Rate [Anterior Bilateral Throughout] Blood Pressure O2 Sat by Pulse Oximetry General appearance: Present: no acute distress, cachectic - EENT Eyes: PERRL, EOM intact ENT: hearing intact, clear oral mucosa Ears: bilateral: normal - Neck Neck: supple, normal ROM - Respiratory Respiratory effort: normal Respiratory: bilateral: CTA - Breasts Breasts: deferred - Cardiovascular Rhythm: regular Heart Sounds: Present: S1 & S2. Absent: gallop, rub Extremities: pulses intact, No edema, normal color, Full ROM - Gastrointestinal General gastrointestinal: Present: soft, non-tender, non-distended, normal bowel sounds Rectal Exam: deferred - Genitourinary Male genitourinary: deferred - Integumentary Integumentary: clear, warm, dry - Musculoskeletal Musculoskeletal: 1, strength equal bilaterally - Neurologic Neurologic: moves all extremities - Psychiatric Psychiatric: memory intact, appropriate mood/affect, intact judgment & insight - Labs CBC & Chem 7: 08/01/18 11:14 08/02/18 14:05 Labs: Abnormal lab results 08/02/18 Range/Units 14:05 Carbon Dioxide 21 L (22-30) mmol/L Creatinine 0.7 L (0.8-1.5) mg/dL Glucose 103 H (75-100) mg/dL Calcium 8.2 L (8.4-10.2) mg/dL Medications & Allergies - Medications Allergies/Adverse Reactions: Allergies No Known Allergies Allergy (Verified 07/27/18 07:35) Home Medications: Home Medications Medication Instructions Recorded Confirmed Last Taken Type Bisacodyl Oral Liq 5 mg PO DAILY 07/27/18 07/27/18 Unknown History Polyethylene Glycol 3350 3,350 cap PO BID 07/27/18 07/27/18 Unknown History Senna 8.6 mg PO DAILY 07/27/18 07/27/18 Unknown History Active Medications: Generic Name Dose Route Start Last Admin Trade Name Freq PRN Reason Stop Dose Admin Arformoterol Tartrate 15 mcg 07/28/18 09:00 08/02/18 19:15 Brovana Nebu IH 15 mcg Q12HRT SOLANGE Administration Budesonide 0.5 mg 07/28/18 09:00 08/02/18 19:15 Pulmicort IH 0.5 mg Q12HRT SOLANGE Administration Famotidine 20 mg 08/01/18 10:00 08/02/18 09:43 Pepcid PO 20 mg BID SOLANGE Administration Hydrophilic Ointment 1 applic 07/26/18 18:54 Vaseline Lip Therapy TP Q2HR PRN Dry Lips Sodium Chloride 1,000 mls @ 85 mls/hr 07/26/18 22:03 08/02/18 09:47 Nacl 0.9% 1000 Ml IV 85 mls/hr DIRECT SOLANGE Administration Dextrose/Sodium Chloride 1,000 mls @ 100 mls/hr 07/30/18 13:00 08/01/18 21:54 D5/0.45ns IV 100 mls/hr DIRECT SOLANGE Administration Multi-Ingred Cream/Lotion/Oil/Oint 1 applic 07/26/18 18:54 Artificial Tears Ophth Oint OU Q4HR PRN Dry Eye(s)
[2018-08-02] MEDS: D5/0.45NS 1,000 ML IV SCH (21:32)
[2018-08-03] MEDS: D5/0.45NS 1,000 ML IV SCH ×2 (05:18→18:28)
[2018-08-03] MEDS: BROVANA NEBU IH SCH ×2 (07:14→20:14)
[2018-08-03] MEDS: PULMICORT IH SCH ×2 (07:14→20:14)
[2018-08-03] MEDS: PEPCID PO SCH ×2 (09:52→21:52)
--- NOTE | 2018-08-03 18:14 | Progress Note ---
Assessment and Plan Patient weak. Resting on room air. O2 Sat 98%. No complain of chest pain, shortness of breath or cough.No acute respiratory distress. Patient can be discharged from pulmonary point of view. If any pulmonary help needed can come to my office as out patient. - Patient Problems (1) Acute respiratory failure Current Visit: Yes Status: Acute Plan to address problem: Brovana and Budexinise aerosol treatment q12h. Continue Famotidine. SCD. (2) Seizure Current Visit: Yes Status: Acute Plan to address problem: Management as per primary care and neurology. (3) Acute encephalopathy Current Visit: Yes Status: Acute Plan to address problem: Management as per primary care. (4) Thrombocytopenia Current Visit: Yes Status: Acute Plan to address problem: Stop the heparine. Subjective Date of service: 08/03/18 Principal diagnosis: Acute hypercapnic Resp failure; Ac encephalopathy; Thrombocytopenia Interval history: Patient weak. Resting on room air. O2 Sat 98%. No complain of chest pain, shortness of breath or cough.No acute respiratory distress. Patient can be discharged from pulmonary point of view. Objective Vital Signs - 12hr 08/03/18 08/03/18 08/03/18 07:07 07:14 07:15 Temperature 98.5 F Pulse Rate 81 Pulse Rate [ 88 Anterior Bilateral Throughout] Respiratory 18 Rate Respiratory 18 Rate [Anterior Bilateral Throughout] Blood Pressure 136/75 O2 Sat by Pulse 96 95 Oximetry 08/03/18 08/03/18 07:24 14:09 Temperature 99.7 F H Pulse Rate 93 H Pulse Rate [ 89 Anterior Bilateral Throughout] Respiratory 18 Rate Respiratory 18 Rate [Anterior Bilateral Throughout] Blood Pressure 126/71 O2 Sat by Pulse 97 Oximetry Constitutional: no acute distress, alert, other (weak) Eyes: non-icteric ENT: oropharynx moist Neck: supple, no lymphadenopathy Ascultation: Bilateral: other (prolonged expiratory phase.) Cardiovascular: regular rate and rhythm Gastrointestinal: normoactive bowel sounds, soft Integumentary: normal Extremities: no cyanosis, no edema Neurologic: non-focal exam, pupils equal and round Psychiatric: depressed CBC and BMP: 08/01/18 11:14 08/02/18 14:05 ABG, PT/INR, D-dimer: ABG POC ABG pH 7.411 (7.35-7.45) 07/29/18 10:25 POC ABG pCO2 33.2 (35-45) L 07/29/18 10:25 POC ABG pO2 121 (80-105) H 07/29/18 10:25 POC ABG HCO3 21.1 (22-26 mml/L) 07/29/18 10:25 POC ABG Total CO2 22 (23-27mmol/L) 07/29/18 10:25 POC ABG O2 Sat 99 07/29/18 10:25 PT/INR, D-dimer PT 14.8 Sec. (12.2-14.9) 07/26/18 19:04 INR 1.09 (0.87-1.13) 07/26/18 19:04 Abnormal lab findings: Abnormal Labs 07/26/18 07/26/18 07/26/18 18:45 19:04 19:04 WBC RBC 3.27 L Hgb 10.3 L Hct 32.7 L MCV 100 H MCH RDW 16.4 H Plt Count Seg Neuts % (Manual) Monocytes % (Manual) 10.0 H Nucleated RBC % Seg Neutrophils # Man Lymphocytes # (Manual) Monocytes # (Manual) 0.9 H POC ABG pH POC ABG pCO2 POC ABG pO2 Sodium 134 L Potassium Chloride 95.3 L Carbon Dioxide 12 L Creatinine Glucose 222 H POC Glucose 235 H Lactic Acid Calcium AST Alkaline Phosphatase 139 H Albumin 3.6 L TSH Salicylates Acetaminophen 07/26/18 07/26/18 07/26/18 19:04 19:04 19:04 WBC RBC Hgb Hct MCV MCH RDW Plt Count Seg Neuts % (Manual) Monocytes % (Manual) Nucleated RBC % Seg Neutrophils # Man Lymphocytes # (Manual) Monocytes # (Manual) POC ABG pH POC ABG pCO2 POC ABG pO2 Sodium Potassium Chloride Carbon Dioxide Creatinine Glucose POC Glucose Lactic Acid 12.80 H* Calcium AST Alkaline Phosphatase Albumin TSH Salicylates < 0.3 L Acetaminophen < 5.0 L 07/26/18 07/26/18 07/26/18 19:28 20:06 21:52 WBC RBC Hgb Hct MCV MCH RDW Plt Count Seg Neuts % (Manual) Monocytes % (Manual) Nucleated RBC % Seg Neutrophils # Man Lymphocytes # (Manual) Monocytes # (Manual) POC ABG pH 7.195 L POC ABG pCO2 49.6 H POC ABG pO2 Sodium Potassium Chloride Carbon Dioxide Creatinine Glucose POC Glucose Lactic Acid 4.30 H* Calcium AST Alkaline Phosphatase Albumin TSH 9.370 H Salicylates Acetaminophen 07/27/18 07/27/18 07/27/18 00:33 01:26 02:48 WBC RBC Hgb Hct MCV MCH RDW Plt Count Seg Neuts % (Manual) Monocytes % (Manual) Nucleated RBC % Seg Neutrophils # Man Lymphocytes # (Manual) Monocytes # (Manual) POC ABG pH 7.244 L POC ABG pCO2 54.9 H POC ABG pO2 157 H Sodium Potassium Chloride Carbon Dioxide Creatinine Glucose POC Glucose Lactic Acid 2.90 H* 3.40 H* Calcium AST Alkaline Phosphatase Albumin TSH Salicylates Acetaminophen 07/27/18 07/27/18 07/27/18 04:48 07:08 07:08 WBC 12.0 H RBC Hgb Hct MCV 95 H MCH RDW 16.1 H Plt Count 108 L Seg Neuts % (Manual) 72.0 H Monocytes % (Manual) 10.0 H Nucleated RBC % 1.0 H Seg Neutrophils # Man 0.0 L Lymphocytes # (Manual) 0.0 L Monocytes # (Manual) POC ABG pH POC ABG pCO2 34.6 L POC ABG pO2 145 H Sodium 136 L Potassium Chloride Carbon Dioxide 21 L D Creatinine Glucose 101 H POC Glucose Lactic Acid Calcium 8.3 L AST 47 H Alkaline Phosphatase Albumin 3.2 L TSH Salicylates Acetaminophen 07/27/18 07/28/18 07/28/18 11:17 04:11 04:44 WBC RBC 2.77 L Hgb 9.0 L D Hct 26.1 L D MCV MCH 33 H RDW 15.9 H Plt Count 115 L Seg Neuts % (Manual) 77.0 H Monocytes % (Manual) 8.0 H Nucleated RBC % Seg Neutrophils # Man Lymphocytes # (Manual) 1.0 L Monocytes # (Manual) POC ABG pH POC ABG pCO2 POC ABG pO2 129 H Sodium Potassium Chloride Carbon Dioxide Creatinine Glucose POC Glucose Lactic Acid 2.20 H* Calcium AST Alkaline Phosphatase Albumin TSH Salicylates Acetaminophen 07/28/18 07/29/18 07/29/18 04:44 05:35 10:25 WBC RBC Hgb Hct MCV MCH RDW Plt Count Seg Neuts % (Manual) Monocytes % (Manual) Nucleated RBC % Seg Neutrophils # Man Lymphocytes # (Manual) Monocytes # (Manual) POC ABG pH POC ABG pCO2 31.0 L 33.2 L POC ABG pO2 142 H 121 H Sodium 135 L Potassium Chloride Carbon Dioxide 20 L Creatinine Glucose POC Glucose Lactic Acid Calcium AST Alkaline Phosphatase Albumin TSH Salicylates Acetaminophen 07/31/18 08/01/18 08/01/18 08:29 11:14 11:14 WBC 4.3 L RBC 2.99 L Hgb 9.3 L Hct 28.0 L MCV MCH RDW 15.9 H Plt Count 125 L Seg Neuts % (Manual) Monocytes % (Manual) 16.0 H Nucleated RBC % 1.0 H Seg Neutrophils # Man Lymphocytes # (Manual) 1.1 L Monocytes # (Manual) POC ABG pH POC ABG pCO2 POC ABG pO2 Sodium Potassium 3.3 L D Chloride Carbon Dioxide Creatinine Glucose POC Glucose 128 H Lactic Acid Calcium 8.1 L AST Alkaline Phosphatase Albumin TSH Salicylates Acetaminophen 08/02/18 14:05 WBC RBC Hgb Hct MCV MCH RDW Plt Count Seg Neuts % (Manual) Monocytes % (Manual) Nucleated RBC % Seg Neutrophils # Man Lymphocytes # (Manual) Monocytes # (Manual) POC ABG pH POC ABG pCO2 POC ABG pO2 Sodium Potassium Chloride Carbon Dioxide 21 L Creatinine 0.7 L Glucose 103 H POC Glucose Lactic Acid Calcium 8.2 L AST Alkaline Phosphatase Albumin TSH Salicylates Acetaminophen Allied health notes reviewed: RT
--- NOTE | 2018-08-03 18:58 | Discharge Summary ---
Providers - Providers Date of Admission: 07/26/18 22:03 Date of discharge: 08/04/18 Attending physician: DORI ALLEN 07/26/18 18:51 Consult to Physician [CONS] Urgent Comment: Consulting Provider: TERRANCE RAMIRES Physician Instructions: Reason For Exam: resp failure 07/26/18 18:54 Consult to Dietitian/Nutrition [CONS] Routine Physician Instructions: Reason For Exam: Reason for Consult: Evaluate nutritional intake Consult to Physician [CONS] Urgent Comment: Consulting Provider: DORI ALLEN Physician Instructions: Reason For Exam: resp failure your patient 07/28/18 10:08 Consult to Dietitian/Nutrition [CONS] Routine Physician Instructions: Reason For Exam: Tube Feeding Reason for Consult: Write/Manage Tube Feeding 07/30/18 08:41 Speech Therapy Evaluation and Treat [CONS] Routine Reason For Exam: evaluate if patient is able to tolerate diet 08/02/18 10:06 Physical Therapy Evaluation and Treat [CONS] Routine Comment: Reason For Exam: Debility 08/02/18 10:07 Occupational Therapy Evaluate and Treat [CONS] Routine Comment: Reason For Exam: Debility [facility] Reason for admission: acute resp failure/encephalopathy. Condition: Stable Pertinent studies: Labs, CXR, EEG ordered. Hospital course: Patient presented to the ER from the [place], after noticed decline in condition, He had some supposed shake, was in resp distress. He was admitted, and treated with oxygen, labs adjustment, meds. patient was seen in consultation by pulmonary, and their rec was followed. Patient had some chronic taarn, and asymptomatic. He had some electrolyte abnormalities, that were corrected.He is seen today, examined, NAD, records reviewed, and case d/w pulm, who cleared him pulm nestor.I have called the [place], and notified the supervisor firearms on duty with update.Will D/c back in am tomorrow once the caser up completes any necessary arrangements. Disposition: DC/[place]-03 SNF [facility] CERT - Discharge Diagnoses (1) Respiratory failure Status: Resolved Qualifiers: Chronicity: acute Respiratory failure complication: unspecified whether with hypoxia or hypercapnia Qualified Code(s): J96.00 - Acute respiratory failure, unspecified whether with hypoxia or hypercapnia (2) Acute respiratory failure Status: Resolved (3) Thrombocytopenia Status: Chronic (4) Seizure Status: Resolved Core Measure Documentation - Palliative Care Palliative Care/ Comfort Measures: Not Applicable - Core Measures Any of the following diagnoses?: none Exam - Constitutional Vitals: Temp Pulse Resp BP Pulse Ox 99.7 F H 93 H 18 126/71 97 08/03/18 14:09 08/03/18 14:09 08/03/18 14:09 08/03/18 14:09 08/03/18 14:09 General appearance: Present: no acute distress, well-nourished - EENT Eyes: Present: PERRL ENT: hearing intact, clear oral mucosa - Neck Neck: Present: supple, normal ROM - Respiratory Respiratory effort: normal Respiratory: bilateral: CTA - Cardiovascular Heart Sounds: Present: S1 & S2. Absent: rub, click - Extremities Extremities: pulses symmetrical, No edema Peripheral Pulses: within normal limits - Abdominal General gastrointestinal: Present: soft, non-tender, non-distended, normal bowel sounds Male genitourinary: Present: deferred - Rectal Rectal Exam: deferred - Integumentary Integumentary: Present: clear, warm, dry - Musculoskeletal Musculoskeletal: gait normal, strength equal bilaterally - Psychiatric Psychiatric: appropriate mood/affect, intact judgment & insight - Neurologic Neurologic: CNII-XII intact, moves all extremities Plan Activity: up only with assistance, fall precautions Weight Bearing Status: Weight Bear as Tolerated Diet: regular Follow up with: DORI ALLEN DO [Staff Physician] - 7 Days
[2018-08-04 00:16] LABS: Bilirubin,Urine NEG (Negative); Blood,Urine NEG (Negative); Color,Urine Yellow (Yellow); Protein,Urine <15 mg/dL mg/dL (Negative); Urobilinogen,Urine < 2.0 mg/dL (<2.0)
[2018-08-04] MEDS: TYLENOL PO PRN ×2 (00:38→22:37)
[2018-08-04] MEDS: D5/0.45NS 1,000 ML IV SCH ×3 (04:25→22:51)
[2018-08-04] MEDS: PULMICORT IH SCH ×2 (08:01→20:08)
[2018-08-04] MEDS: BROVANA NEBU IH SCH ×2 (08:01→20:08)
--- NOTE | 2018-08-04 09:15 | Progress Note ---
Assessment and Plan - Patient Problems (1) Respiratory failure Current Visit: Yes Status: Resolved Qualifiers: Chronicity: acute Respiratory failure complication: unspecified whether with hypoxia or hypercapnia Qualified Code(s): J96.00 - Acute respiratory failure, unspecified whether with hypoxia or hypercapnia Plan to address problem: pulm consult. done, and appreciate their input. see notes. (2) Acute respiratory failure Current Visit: Yes Status: Resolved Plan to address problem: vent support, pulm consult. off vent. continue to follow pulm. (3) Thrombocytopenia Current Visit: Yes Status: Chronic Plan to address problem: may be ITP, will monitor labs. will order new labs. stable. (4) Seizure Current Visit: Yes Status: Resolved Plan to address problem: EEG. non since admission see if EEG completed. None done , and no activity. Subjective Date of service: 08/04/18 Principal diagnosis: Acute hypercapnic Resp failure; Ac encephalopathy; Thrombocytopenia Interval history: Patient seen, resting in bed, notes/labs reviewed.Will continue with current management. Dr Hirsch will cover my rounds for wednesday, wed, wednesday. Patient seen/examined, resting in b ed, latest labs reviewed. New labs will be ordered for tomorrow.Once patient becomes stable, will start d/c plans. Patient seen/examined, resting in bed, NAD, denies any problems at this time.k replaced with oral supplement.. patient has remained slightly taran since he came. If he remains stable tomorrow , he will be d/c back to the [place]. Patient seen/ examined, resting in bed, labs reviewed, had low grade temp last n ight, but quickly resolved. NAD at this time, d/c to proceed. Objective - Constitutional Vitals: Vital Signs - 12hr 08/03/18 08/04/18 08/04/18 22:00 00:38 01:19 Temperature 100.3 F H Pulse Rate 100 H 89 Pulse Rate [ Anterior Bilateral Throughout] Respiratory 20 18 18 Rate Respiratory Rate [Anterior Bilateral Throughout] Blood Pressure Blood Pressure 141/73 [Right] O2 Sat by Pulse 98 96 Oximetry 08/04/18 08/04/18 08/04/18 01:38 05:12 07:12 Temperature 98.6 F 98.5 F Pulse Rate 83 78 Pulse Rate [ Anterior Bilateral Throughout] Respiratory 18 18 18 Rate Respiratory Rate [Anterior Bilateral Throughout] Blood Pressure 128/71 128/64 Blood Pressure [Right] O2 Sat by Pulse 96 95 Oximetry 08/04/18 08/04/18 08/04/18 07:58 08:06 08:18 Temperature Pulse Rate Pulse Rate [ 80 88 Anterior Bilateral Throughout] Respiratory Rate Respiratory 18 18 Rate [Anterior Bilateral Throughout] Blood Pressure Blood Pressure [Right] O2 Sat by Pulse 96 Oximetry General appearance: Present: no acute distress, well-nourished - EENT Eyes: PERRL, EOM intact ENT: hearing intact, clear oral mucosa Ears: bilateral: normal - Neck Neck: supple, normal ROM - Respiratory Respiratory effort: normal Respiratory: bilateral: CTA - Breasts Breasts: deferred - Cardiovascular Rhythm: regular Heart Sounds: Present: S1 & S2. Absent: gallop, rub Extremities: pulses intact, No edema, normal color, Full ROM - Gastrointestinal General gastrointestinal: Present: soft, non-tender, non-distended, normal bowel sounds Rectal Exam: deferred - Genitourinary Male genitourinary: deferred - Integumentary Integumentary: clear, warm, dry - Musculoskeletal Musculoskeletal: 1, strength equal bilaterally - Neurologic Neurologic: moves all extremities - Psychiatric Psychiatric: memory intact, appropriate mood/affect, intact judgment & insight - Labs CBC & Chem 7: 08/01/18 11:14 08/02/18 14:05 Medications & Allergies - Medications Allergies/Adverse Reactions: Allergies No Known Allergies Allergy (Verified 07/27/18 07:35) Home Medications: Home Medications Medication Instructions Recorded Confirmed Last Taken Type Bisacodyl Oral Liq 5 mg PO DAILY 07/27/18 07/27/18 Unknown History Polyethylene Glycol 3350 3,350 cap PO BID 07/27/18 07/27/18 Unknown History Senna 8.6 mg PO DAILY 07/27/18 07/27/18 Unknown History Arformoterol Nebu [Brovana Nebu] 15 mcg IH Q12HRT ml 08/03/18 Unknown Rx Budesonide [Pulmicort Respules] 0.5 mg IH Q12HRT nebu 08/03/18 Unknown Rx Famotidine [Pepcid] 20 mg PO BID tablet 08/03/18 Unknown Rx Min Oil/Petrolatum [Artificial 1 applic OU Q4HR PRN tube 08/03/18 Unknown Rx Tears Ophth Oint] Petrolatum,White [Vaseline Lip 1 applic TP Q2HR PRN tube 08/03/18 Unknown Rx Therapy] Active Medications: Generic Name Dose Route Start Last Admin Trade Name Freq PRN Reason Stop Dose Admin Acetaminophen 650 mg 08/03/18 23:44 08/04/18 00:38 Tylenol PO 650 mg Q6H PRN Administration Pain, Mild (1-3) Arformoterol Tartrate 15 mcg 07/28/18 09:00 08/04/18 08:01 Brovana Nebu IH 15 mcg Q12HRT SOLANGE Administration Budesonide 0.5 mg 07/28/18 09:00 08/04/18 08:01 Pulmicort IH 0.5 mg Q12HRT SOLANGE Administration Famotidine 20 mg 08/01/18 10:00 08/03/18 21:52 Pepcid PO 20 mg BID SOLANGE Administration Hydrophilic Ointment 1 applic 07/26/18 18:54 Vaseline Lip Therapy TP Q2HR PRN Dry Lips Sodium Chloride 1,000 mls @ 85 mls/hr 07/26/18 22:03 08/02/18 09:47 Nacl 0.9% 1000 Ml IV 85 mls/hr DIRECT SOLANGE Administration Dextrose/Sodium Chloride 1,000 mls @ 100 mls/hr 07/30/18 13:00 08/04/18 04:25 D5/0.45ns IV 100 mls/hr DIRECT SOLANGE Administration Multi-Ingred Cream/Lotion/Oil/Oint 1 applic 07/26/18 18:54 Artificial Tears Ophth Oint OU Q4HR PRN Dry Eye(s)
[2018-08-04] MEDS: PEPCID PO SCH ×2 (09:52→22:29)
[2018-08-05 08:03] VITALS: BP 131/79
[2018-08-05] MEDS: BROVANA NEBU IH SCH (08:10)
[2018-08-05] MEDS: PULMICORT IH SCH (08:10)
[2018-08-05] MEDS: D5/0.45NS 1,000 ML IV SCH (08:39)
[2018-08-05] MEDS: PEPCID PO SCH (09:18)
== END 2018-08-05 11:45 | DRG 208 ==
LOC: ED 18:25 → CC1 22:03 → 2B-ACE 07-31 21:44
PROVIDERS: ADMIT Internal Medicine Hematology & Oncology; ATTEND Internal Medicine Hematology & Oncology
PROC: 5A1945Z Respiratory Ventilation, 24-96 Consecutive Hours (ICD-10-PCS; principal; 2018-07-26)
PROC: 0BH17EZ Insertion of Endotracheal Airway into Trachea, Via Natural or Artificial Opening (ICD-10-PCS; 2018-07-26)
PROC: 4A033R1 Measurement of Arterial Saturation, Peripheral, Percutaneous Approach (ICD-10-PCS; 2018-07-26)
DX: J96.02 Acute respiratory failure with hypercapnia (principal); G92 Toxic encephalopathy; E44.0 Moderate protein-calorie malnutrition; Z68.1 Body mass index [BMI] 19.9 or less, adult; H40.9 Unspecified glaucoma; D69.6 Thrombocytopenia, unspecified; R56.9 Unspecified convulsions; Z79.899 Other long term (current) drug therapy
CPT/HCPCS: 36415; 36600; 70450; 71045; 71275; 80048; 80053; 80320; 81001; 82140; 82550; 82803; 82962; 83735; 84439; 84443; 84484; 85007; 85025; 85610; 85730; 87040; 87070; 87086; 87205; 93005; 93010; 94002; 94003; 94640; 94760; 95819; 96374; 99291; G0378; G0480; J0696; J1644; J1953; J2060; J2250; J3010; J7030; Q9967

== ENCOUNTER 2018-09-06 19:41 | Inpatient (IN) | payer MEDICARE ==
[2018-09-06] MEDS ORDERED: AMIDATE IV ONE (19:50)
[2018-09-06] MEDS ORDERED: XYLOCAINE CARDIAC IV ONE (19:50)
[2018-09-06] MEDS ORDERED: QUELICIN ONE (19:50)
[2018-09-06] MEDS ORDERED: KEPPRA 1,000 MG/NS 0.75% 100ML 1,000 MG/100 ML BAG IV ONE (19:52)
[2018-09-06] MEDS ORDERED: ATIVAN ONE (19:52)
[2018-09-06] MEDS ORDERED: ATIVAN IV ONE (19:52)
--- NOTE | 2018-09-06 20:08 | Emergency Department Report ---
HPI - General Time Seen by Provider: 09/06/18 19:51 - HPI HPI: Room 19 The patient is a 72-year-old male presenting with chief complaint of status epilepticus. Per EMS the patient is a senior living patient and was reportedly seizing for approximately 20 minutes prior to their arrival. EMS states the patient has continued to seize despite intranasal Versed (5 mg). EMS states they were unable to obtain IV access. There is no known history of seizures Location: [See above] Duration: [See above] Quality: [See above] Severity: [See above] Modifying factors: [see above] Context: [see above] Mode of transportation: [not driving] ED Past Medical Hx - Past Medical History Hx CVA: Yes Hx COPD: Yes Additional medical history: Pneumonia, Glaucoma, Cataract, Erectile dysfuncion, Anemia, Constipation, Subarachnoid hemorrhage, spinal stenosis - Family History Family history: no significant - Social History Smoking Status: Unknown if ever smoked - Medications Home Medications: Home Medications Medication Instructions Recorded Confirmed Last Taken Type Bisacodyl Oral Liq 5 mg PO DAILY 07/27/18 07/27/18 Unknown History Polyethylene Glycol 3350 3,350 cap PO BID 07/27/18 07/27/18 Unknown History Senna 8.6 mg PO DAILY 07/27/18 07/27/18 Unknown History Arformoterol Nebu [Brovana Nebu] 15 mcg IH Q12HRT ml 08/03/18 Unknown Rx Budesonide [Pulmicort Respules] 0.5 mg IH Q12HRT nebu 08/03/18 Unknown Rx Famotidine [Pepcid] 20 mg PO BID tablet 08/03/18 Unknown Rx Min Oil/Petrolatum [Artificial 1 applic OU Q4HR PRN tube 08/03/18 Unknown Rx Tears Ophth Oint] Petrolatum,White [Vaseline Lip 1 applic TP Q2HR PRN tube 08/03/18 Unknown Rx Therapy] ED Review of Systems ROS: Stated complaint: SEIZURE Other details as noted in HPI Comment: Unobtainable due to pts medical conditions Physical Exam - Physical Exam Physical Exam: GENERAL: The patient is well-developed well-nourished male lying on stretcher twitching of the left face and left upper extremity and left lower extremity.. [] HEENT: Normocephalic. Atraumatic. Left pupil 3-2 mm. Right pupil 4 mm and nonreactive NECK: Supple. Trachea midline CHEST/LUNGS: Clear to auscultation. There is no respiratory distress noted. HEART/CARDIOVASCULAR: Regular. There is tachycardia. There is no gallop rub or murmur. ABDOMEN: Abdomen is soft, nontender. Patient has normal bowel sounds. There is no abdominal distention. SKIN: There is no rash. There is no edema. There is no diaphoresis. NEURO: The patient is currently seizing with twitching of the left face, left up per extremity and left lower extremity. MUSCULOSKELETAL: There is no evidence of acute injury. - Intubation Time Out Performed: No Sedative: Etomidate Mg Given: 20 Paralytic: Succinylcholine Mg Given: 100 Laryngoscope: Boni Size: 3 ET Tube Size: 8 Other Airway Intervention: patient also administered lidocaine 100 mg IV prior to intubation Tube Secured Depth (cm): 24 Tube Secured Location: lips Tube Placement Confirmation: visualized tube passing t, equal breath sounds bilat, no breath sounds over epi, confirmation by capnometr Patient Tolerated Procedure: no complications Intubation Complications: none ED Medical Decision Making - Lab Data Result diagrams: 09/06/18 19:47 09/06/18 19:47 - Radiology Data Radiology results: report reviewed (CT head), image reviewed (CT head, chest x- ray) interpreted by me: Chest x-ray-ET tube in appropriate position. No focal infiltrates, no pneumoth orax [facility] [address] [place] [address] Cat Scan Report Signed Patient: DARLENE SERVIN MR#: [id number] 6 : 1945 Acct:[id number] Age/Sex: 72 / M ADM Date: 09/06/18 Loc: ED Attending Dr: Ordering Physician: MERY HOFFMANN MD Date of Service: 09/06/18 Procedure(s): CT head/brain wo con Accession Number(s): [id number] cc: MERY HOFFMANN MD CT BRAIN: 09/06/2018 INDICATION / CLINICAL INFORMATION: status epilepticus. COMPARISON: 07/26/2018 FINDINGS: BRAIN/INTRACRANIAL STRUCTURES: Unenhanced CT images of the brain were obtained. Comparison is made to the previous exam from 07/26/2018. Again seen arethe bilateral frontal subdural hypodense collections, slightly larger on the left than on the right. These have decreased in size slightly when compared to the prior exam from 07/26/2018. There is no evidence of acute superimposed abnormality. Underlying diffuse cerebral atrophy white matter hypoattenuation is again noted. IMPRESSION: No acute abnormality. Persistent bilateral subdural collections, slightly smaller than 07/26/2018.. All CT scans at this location are performed using dose reduction to ALARA by means of automated exposure control. Signer Name: Angelito Kendall MD Signed: 09/06/2018 8:36 PM Workstation Name: [id number] Transcribed By: DANNY Dictated By: Angelito Kendall MD Electronically Authenticated By: Angelito Kendall MD Signed Date/Time: 09/06/182035 DD/ 30 TD/TT: - Differential Diagnosis status epilepticus, ICH Critical Care Time: Yes Critical care time in (mins) excluding proc time.: 30 Critical care attestation.: If time is entered above; I have spent that time in minutes in the direct care of this critically ill patient, excluding procedure time. ED Disposition Clinical Impression: Status epilepticus Disposition: DC-09 OP ADMIT IP TO THIS HOSP Is pt being admited?: Yes Does the pt Need Aspirin: No Condition: Serious Referrals: PRIMARY CARE, [Primary Care Provider] - 3-5 Days Time of Disposition: 21:13 (Dr. Sandoval paged)
[2018-09-06 20:12] LABS: Hematocrit 34.6 % (35.5-45.6); Mean Corpuscular HGB Conc 32 % (32-34); Mean Corpuscular Volume 100 fl (84-94); Platelet Count 121 K/mm3 (140-440); Red Blood Count 3.47 M/mm3 (3.65-5.03); Red Cell Distribution Width 16.6 % (13.2-15.2)
[2018-09-06 20:25] LABS: INR 1.05 (0.87-1.13)
[2018-09-06 20:27] LABS: Alanine Aminotransferase 17 units/L (7-56); Albumin 3.9 g/dL (3.9-5); BUN/Creatinine Ratio 20; Blood Urea Nitrogen 20 mg/dL (9-20); Calcium 9.5 mg/dL (8.4-10.2); Hemolysis Index 12
[2018-09-06 20:32] LABS: Free T4 (Free Thyroxine) 0.96 ng/dL (0.76-1.46)
--- NOTE | 2018-09-06 20:40 | Cat Scan Report ---
CT BRAIN: 09/06/2018 INDICATION / CLINICAL INFORMATION: status epilepticus. COMPARISON: 07/26/2018 FINDINGS: BRAIN/INTRACRANIAL STRUCTURES: Unenhanced CT images of the brain were obtained. Comparison is made to the previous exam from 07/26/2018. Again seen arethe bilateral frontal subdural hypodense collections, slightly larger on the left than on the right. These have decreased in size slightly when compared to the prior exam from 07/26/2018. There is no evidence of acute superimposed abnormality. Underlying diffuse cerebral atrophy white matter hypoattenuation is again noted. IMPRESSION: No acute abnormality. Persistent bilateral subdural collections, slightly smaller than 07/26/2018.. All CT scans at this location are performed using dose reduction to ALARA by means of automated expos ure control. Signer Name: Angelito Kendall MD Signed: 09/06/2018 8:36 PM Workstation Name: [id number]
[2018-09-06] MEDS ORDERED: VASELINE LIP THERAPY TP PRN (20:43)
[2018-09-06] MEDS ORDERED: ARTIFICIAL TEARS OPHTH OINT OU PRN (20:43)
[2018-09-06] MEDS ORDERED: VERSED IV PRN (20:43)
[2018-09-06 20:58] LABS: Basophils % (Manual) 0 % (0.0-1.8); Myelocytes # (Manual) 0.1 K/mm3; Total Cells Counted 100
[2018-09-06 20:59] LABS: Anisocytosis 1+; Ovalocytes Rare; Platelet Estimate Consistent w Auto; Poikilocytosis Few
[2018-09-06] MEDS ORDERED: MIDAZOLAM 100 MG in NACL 0.9% 80 ML IV SCH (21:00)
[2018-09-06 21:16] LABS: Amphetamine Screen,Urine PRESUMPTIVE NEGATIVE; Cannabinoid Screen,Urine PRESUMPTIVE NEGATIVE; Cocaine Screen,Urine PRESUMPTIVE NEGATIVE; Methadone Screen,Urine PRESUMPTIVE NEGATIVE; Opiate Screen,Urine PRESUMPTIVE NEGATIVE
[2018-09-06 21:33] LABS: Benzodiazepines Screen,Urine PRESUMPTIVE POSITIVE
--- NOTE | 2018-09-06 21:40 | XRay Report ---
CHEST 1 VIEW 09/06/2018 8:44 PM INDICATION / CLINICAL INFORMATION: status post intubation. Status epilepticus. COMPARISON: Chest x-ray on 07/31/2018. FINDINGS: SUPPORT DEVICES: The tip of ET tube is close to the level of the juan c. HEART / MEDIASTINUM: Normal heart size. Atherosclerosis in the thoracic aorta. LUNGS / PLEURA: No significant pulmonary or pleural abnormality. No pneumothorax. ADDITIONAL FINDINGS: No significant additional findings. IMPRESSION: 1. The ET tube tip is close to the level of the juan c. Retraction by 2 to 3 cm is recommended. Signer Name: Eligio Garza MD Signed: 09/06/2018 9:35 PM Workstation Name: [id number]
--- NOTE | 2018-09-07 02:58 | XRay Report ---
CHEST 1 VIEW 09/07/2018 2:07 AM INDICATION / CLINICAL INFORMATION: follow up respiratory failure. COMPARISON: One view of the chest from 09/06/2018. FINDINGS: SUPPORT DEVICES: Stable positioning of the ET tube with the tip located at the juan c. HEART / MEDIASTINUM: Normal cardiac size with stable aortic atherosclerosis. LUNGS / PLEURA: No acute pulmonary abnormality. There is stable biapical pleural thickening/scarring. No significant pleural effusion. No pneumothorax. ADDITIONAL FINDINGS: No significant additional findings. IMPRESSION: Stable appearance of the chest. No acute findings. Signer Name: Garfield Espinoza MD Signed: 09/07/2018 2:54 AM Workstation Name: [id number]
--- NOTE | 2018-09-07 08:28 | Progress Note ---
Subjective Date of service: 09/07/18 Interval history: noted the consult I reviewed over the images from the CT and there is very small deep white matter ischemic stroke- old ... nothing at all that apeaars acute there are the expected age related atrophic changes nothing seveere await testing reviewed over the notes will follow uo post furtrher tests Thanks for the consult Objective - Vital Sign Vital Signs - 12hr 09/06/18 09/06/18 09/06/18 20:30 20:45 21:00 Temperature Pulse Rate 128 H 124 H 122 H Respiratory 22 22 23 Rate Blood Pressure 111/87 114/77 126/89 O2 Sat by Pulse 100 100 100 Oximetry 09/06/18 09/06/18 09/06/18 21:30 21:45 22:00 Temperature Pulse Rate 121 H 124 H 124 H Respiratory 22 21 21 Rate Blood Pressure 127/80 127/80 132/82 O2 Sat by Pulse 100 100 100 Oximetry 09/06/18 09/06/18 09/06/18 22:30 22:59 23:00 Temperature Pulse Rate 124 H 115 H 116 H Respiratory 21 20 20 Rate Blood Pressure 139/84 O2 Sat by Pulse 100 100 100 Oximetry 09/06/18 09/06/18 09/06/18 23:10 23:20 23:30 Temperature Pulse Rate 110 H 110 H 110 H Respiratory 20 20 20 Rate Blood Pressure 130/85 125/82 132/87 O2 Sat by Pulse 100 100 100 Oximetry 09/06/18 09/06/18 09/07/18 23:40 23:50 00:00 Temperature 97.9 F Pulse Rate 111 H 113 H 116 H Respiratory 20 20 20 Rate Blood Pressure 132/87 128/86 140/87 O2 Sat by Pulse 100 100 99 Oximetry 09/07/18 09/07/18 09/07/18 00:02 00:10 00:14 Temperature Pulse Rate 118 H 119 H 120 H Respiratory 20 19 20 Rate Blood Pressure 140/87 140/87 O2 Sat by Pulse 100 100 100 Oximetry 09/07/18 09/07/18 09/07/18 00:20 00:30 00:40 Temperature Pulse Rate 120 H 108 H 121 H Respiratory 21 22 20 Rate Blood Pressure 147/87 146/88 147/87 O2 Sat by Pulse 100 100 100 Oximetry 09/07/18 09/07/18 09/07/18 00:50 00:53 01:00 Temperature Pulse Rate 121 H 121 H 121 H Respiratory 20 20 Rate Blood Pressure 157/90 157/90 139/90 O2 Sat by Pulse 100 100 100 Oximetry 09/07/18 09/07/18 09/07/18 01:10 01:20 01:30 Temperature Pulse Rate 120 H 118 H 119 H Respiratory 20 20 21 Rate Blood Pressure 146/88 146/89 141/89 O2 Sat by Pulse 100 100 Oximetry 09/07/18 09/07/18 09/07/18 01:40 01:50 02:00 Temperature Pulse Rate 119 H 116 H 119 H Respiratory 20 20 20 Rate Blood Pressure 141/89 144/91 135/92 O2 Sat by Pulse 100 100 Oximetry 09/07/18 09/07/18 09/07/18 02:10 02:30 02:45 Temperature Pulse Rate 118 H 117 H 114 H Respiratory 22 20 20 Rate Blood Pressure 141/89 141/89 128/86 O2 Sat by Pulse 100 Oximetry 09/07/18 09/07/18 09/07/18 03:00 03:15 03:20 Temperature Pulse Rate 113 H 114 H 116 H Respiratory 20 20 Rate Blood Pressure 136/93 149/89 149/89 O2 Sat by Pulse 99 100 Oximetry 09/07/18 09/07/18 09/07/18 03:30 03:45 04:00 Temperature 98.0 F Pulse Rate 118 H 118 H 118 H Respiratory 22 21 20 Rate Blood Pressure 136/89 126/86 126/90 O2 Sat by Pulse 100 98 99 Oximetry 09/07/18 09/07/18 09/07/18 04:15 04:30 04:45 Temperature Pulse Rate 121 H 122 H 123 H Respiratory 21 20 21 Rate Blood Pressure 142/87 141/87 142/90 O2 Sat by Pulse 98 98 98 Oximetry 09/07/18 09/07/18 09/07/18 05:00 05:15 05:30 Temperature Pulse Rate 122 H 122 H 121 H Respiratory 21 21 22 Rate Blood Pressure 134/87 137/90 138/88 O2 Sat by Pulse 99 97 99 Oximetry 09/07/18 09/07/18 09/07/18 05:45 06:00 06:15 Temperature Pulse Rate 122 H 119 H 119 H Respiratory 21 21 21 Rate Blood Pressure 138/87 132/87 128/87 O2 Sat by Pulse 100 98 Oximetry 09/07/18 09/07/18 06:30 08:22 Temperature Pulse Rate 116 H 116 H Respiratory 20 Rate Blood Pressure 135/89 135/89 O2 Sat by Pulse 100 100 Oximetry - Laboratory Findings CBC and BMP: 09/06/18 19:47 09/06/18 19:47 Abnormal Lab Findings: Abnormal Labs 09/06/18 09/06/18 09/06/18 19:47 19:47 19:47 RBC 3.47 L Hgb 11.0 L Hct 34.6 L MCV 100 H RDW 16.6 H Plt Count 121 L Lymphocytes % (Manual) 50.0 H POC ABG pO2 Chloride 97.0 L Carbon Dioxide 21 L Glucose 152 H POC Glucose Alkaline Phosphatase 138 H Total Creatine Kinase 45 L Total Protein 8.9 H TSH 7.610 H 09/06/18 09/06/18 09/07/18 21:05 23:16 03:41 RBC Hgb Hct MCV RDW Plt Count Lymphocytes % (Manual) POC ABG pO2 389 H 214 H Chloride Carbon Dioxide Glucose POC Glucose 147 H Alkaline Phosphatase Total Creatine Kinase Total Protein TSH
[2018-09-07] MEDS: PEPCID IV SCH ×2 (10:08→22:47)
--- NOTE | 2018-09-07 12:22 | Consultation ---
History of Present Illness Consult date: 09/07/18 Requesting physician: DORI ALLEN Reason for consult: other (Acute Respiratory Failure on MVS; Status Epilepticus) History of present illness: PULMONARY/CCM CONSULT NOTE (full dictation # [id number]) Please see dictated notes for full details Medications and Allergies Allergies Allergy/AdvReac Type Severity Reaction Status Date / Time No Known Allergies Allergy Verified 07/27/18 07:35 Home Medications Medication Instructions Recorded Confirmed Last Taken Type Bisacodyl Oral Liq 5 mg PO DAILY 07/27/18 07/27/18 Unknown History Polyethylene Glycol 3350 3,350 cap PO BID 07/27/18 07/27/18 Unknown History Senna 8.6 mg PO DAILY 07/27/18 07/27/18 Unknown History Arformoterol Nebu [Brovana Nebu] 15 mcg IH Q12HRT ml 08/03/18 Unknown Rx Budesonide [Pulmicort Respules] 0.5 mg IH Q12HRT nebu 08/03/18 Unknown Rx Famotidine [Pepcid] 20 mg PO BID tablet 08/03/18 Unknown Rx Min Oil/Petrolatum [Artificial 1 applic OU Q4HR PRN tube 08/03/18 Unknown Rx Tears Ophth Oint] Petrolatum,White [Vaseline Lip 1 applic TP Q2HR PRN tube 08/03/18 Unknown Rx Therapy] Active Meds: Active Medications Famotidine (Pepcid) 20 mg IV BID SOLANGE Last Admin: 09/07/18 10:08 Dose: 20 mg Documented by: Hydrophilic Ointment (Vaseline Lip Therapy) 1 applic TP Q2HR PRN PRN Reason: Dry Lips Midazolam HCl 100 mg/ Sodium (Chloride) 100 mls @ 2 mls/hr IV TITR SOLANGE; Protocol Last Titration: 09/07/18 10:10 Dose: 0 mg/hr, 0 mls/hr Documented by: Midazolam HCl (Versed) 2 mg IV Q10MIN PRN PRN Reason: Sedation Multi-Ingred Cream/Lotion/Oil/Oint (Artificial Tears Ophth Oint) 1 applic OU Q4HR PRN PRN Reason: Dry Eye(s) Physical Examination Vital signs: Vital Signs Resp Pulse Ox 32 H 97 09/06/18 19:48 09/06/18 19:48 Results - Laboratory Findings CBC and BMP: 09/06/18 19:47 09/06/18 19:47 ABG POC ABG pH 7.422 (7.35-7.45) 09/07/18 03:41 POC ABG pCO2 39.6 (35-45) 09/07/18 03:41 POC ABG pO2 214 (80-105) H 09/07/18 03:41 POC ABG HCO3 25.8 (22-26 mml/L) 09/07/18 03:41 POC ABG Total CO2 27 (23-27mmol/L) 09/07/18 03:41 POC ABG O2 Sat 100 09/07/18 03:41 PT/INR, D-dimer PT 13.4 Sec. (12.2-14.9) 09/06/18 19:47 INR 1.05 (0.87-1.13) 09/06/18 19:47 Abnormal lab findings: Abnormal Labs 09/06/18 09/06/18 09/06/18 19:47 19:47 19:47 RBC 3.47 L Hgb 11.0 L Hct 34.6 L MCV 100 H RDW 16.6 H Plt Count 121 L Lymphocytes % (Manual) 50.0 H POC ABG pO2 Chloride 97.0 L Carbon Dioxide 21 L Glucose 152 H POC Glucose Alkaline Phosphatase 138 H Total Creatine Kinase 45 L Total Protein 8.9 H TSH 7.610 H 09/06/18 09/06/18 09/07/18 21:05 23:16 03:41 RBC Hgb Hct MCV RDW Plt Count Lymphocytes % (Manual) POC ABG pO2 389 H 214 H Chloride Carbon Dioxide Glucose POC Glucose 147 H Alkaline Phosphatase Total Creatine Kinase Total Protein TSH
[2018-09-07] MEDS ORDERED: PROVENTIL IH PRN (12:38)
--- NOTE | 2018-09-07 13:49 | Progress Note ---
Subjective Date of service: 09/07/18 Interval history: in the process of getting portable CXr and reviewed the iamges off the machine patient is on vent appears comfortable and await the EEG seizure control is good at this point and no overt seizures will read EEG later neuro exam is unremarkable will need MRI at some point plan follow up Objective - Vital Sign Vital Signs - 12hr 09/07/18 09/07/18 09/07/18 01:50 02:00 02:10 Temperature Pulse Rate 116 H 119 H 118 H Pulse Rate [ From Monitor] Respiratory 20 20 22 Rate Blood Pressure 144/91 135/92 141/89 O2 Sat by Pulse 100 100 Oximetry 09/07/18 09/07/18 09/07/18 02:30 02:45 03:00 Temperature Pulse Rate 117 H 114 H 113 H Pulse Rate [ From Monitor] Respiratory 20 20 20 Rate Blood Pressure 141/89 128/86 136/93 O2 Sat by Pulse Oximetry 09/07/18 09/07/18 09/07/18 03:15 03:20 03:30 Temperature Pulse Rate 114 H 116 H 118 H Pulse Rate [ From Monitor] Respiratory 20 22 Rate Blood Pressure 149/89 149/89 136/89 O2 Sat by Pulse 99 100 100 Oximetry 09/07/18 09/07/18 09/07/18 03:45 04:00 04:15 Temperature 98.0 F Pulse Rate 118 H 118 H 121 H Pulse Rate [ From Monitor] Respiratory 21 20 21 Rate Blood Pressure 126/86 126/90 142/87 O2 Sat by Pulse 98 99 98 Oximetry 09/07/18 09/07/18 09/07/18 04:30 04:45 05:00 Temperature Pulse Rate 122 H 123 H 122 H Pulse Rate [ From Monitor] Respiratory 20 21 21 Rate Blood Pressure 141/87 142/90 134/87 O2 Sat by Pulse 98 98 99 Oximetry 09/07/18 09/07/18 09/07/18 05:15 05:30 05:45 Temperature Pulse Rate 122 H 121 H 122 H Pulse Rate [ From Monitor] Respiratory 21 22 21 Rate Blood Pressure 137/90 138/88 138/87 O2 Sat by Pulse 97 99 100 Oximetry 09/07/18 09/07/18 09/07/18 06:00 06:15 06:30 Temperature Pulse Rate 119 H 119 H 116 H Pulse Rate [ From Monitor] Respiratory 21 21 20 Rate Blood Pressure 132/87 128/87 135/89 O2 Sat by Pulse 98 100 Oximetry 09/07/18 09/07/18 09/07/18 06:45 07:00 07:15 Temperature Pulse Rate 116 H 119 H 123 H Pulse Rate [ From Monitor] Respiratory 21 20 20 Rate Blood Pressure 122/91 124/76 139/89 O2 Sat by Pulse 99 98 98 Oximetry 09/07/18 09/07/18 09/07/18 07:30 07:45 08:00 Temperature Pulse Rate 121 H 121 H 120 H Pulse Rate [ 120 H From Monitor] Respiratory 21 21 21 Rate Blood Pressure 139/89 140/87 136/88 O2 Sat by Pulse 99 99 99 Oximetry 09/07/18 09/07/18 09/07/18 08:15 08:22 08:30 Temperature Pulse Rate 116 H 116 H 121 H Pulse Rate [ From Monitor] Respiratory 20 19 Rate Blood Pressure 144/86 135/89 133/88 O2 Sat by Pulse 99 100 99 Oximetry 09/07/18 09/07/18 09/07/18 08:45 09:00 09:15 Temperature Pulse Rate 120 H 120 H 120 H Pulse Rate [ From Monitor] Respiratory 20 20 21 Rate Blood Pressure 120/87 136/88 142/93 O2 Sat by Pulse 97 98 99 Oximetry 09/07/18 09/07/18 09/07/18 09:30 09:45 10:00 Temperature Pulse Rate 120 H 120 H 120 H Pulse Rate [ From Monitor] Respiratory 21 21 19 Rate Blood Pressure 152/86 134/86 128/82 O2 Sat by Pulse 99 100 99 Oximetry 09/07/18 09/07/18 09/07/18 10:15 10:30 10:45 Temperature Pulse Rate 119 H 120 H 119 H Pulse Rate [ From Monitor] Respiratory 22 23 23 Rate Blood Pressure 135/93 142/89 141/91 O2 Sat by Pulse 99 100 100 Oximetry 09/07/18 09/07/18 09/07/18 10:48 11:00 11:15 Temperature Pulse Rate 120 H 121 H 122 H Pulse Rate [ From Monitor] Respiratory 20 20 Rate Blood Pressure 132/87 133/91 O2 Sat by Pulse 99 99 Oximetry 09/07/18 09/07/18 09/07/18 11:30 11:45 12:00 Temperature Pulse Rate 122 H 122 H 121 H Pulse Rate [ From Monitor] Respiratory 23 20 23 Rate Blood Pressure 134/92 144/89 148/92 O2 Sat by Pulse 100 100 100 Oximetry 09/07/18 09/07/18 09/07/18 12:15 12:30 12:46 Temperature Pulse Rate 123 H 124 H 127 H Pulse Rate [ From Monitor] Respiratory 22 25 H 22 Rate Blood Pressure 154/98 162/92 153/85 O2 Sat by Pulse 100 100 98 Oximetry 09/07/18 09/07/18 09/07/18 13:00 13:15 13:30 Temperature Pulse Rate 130 H 127 H 135 H Pulse Rate [ From Monitor] Respiratory 21 19 44 H Rate Blood Pressure 159/93 151/96 161/92 O2 Sat by Pulse 98 100 100 Oximetry - Laboratory Findings CBC and BMP: 09/06/18 19:47 09/06/18 19:47 Abnormal Lab Findings: Abnormal Labs 09/06/18 09/06/18 09/06/18 19:47 19:47 19:47 RBC 3.47 L Hgb 11.0 L Hct 34.6 L MCV 100 H RDW 16.6 H Plt Count 121 L Lymphocytes % (Manual) 50.0 H POC ABG pO2 Chloride 97.0 L Carbon Dioxide 21 L Glucose 152 H POC Glucose Alkaline Phosphatase 138 H Total Creatine Kinase 45 L Total Protein 8.9 H TSH 7.610 H 09/06/18 09/06/18 09/07/18 21:05 23:16 03:41 RBC Hgb Hct MCV RDW Plt Count Lymphocytes % (Manual) POC ABG pO2 389 H 214 H Chloride Carbon Dioxide Glucose POC Glucose 147 H Alkaline Phosphatase Total Creatine Kinase Total Protein TSH
[2018-09-07] MEDS ORDERED: SUBLIMAZE IV PRN (13:50)
[2018-09-07] MEDS: KEPPRA 500 MG in D5W 100 ML IV SCH ×2 (13:55→22:46)
[2018-09-07] MEDS: LOPRESSOR IV PRN (14:06)
--- NOTE | 2018-09-07 14:07 | XRay Report ---
CHEST 1 VIEW 1327 INDICATION / CLINICAL INFORMATION: Endotracheal tube placement. COMPARISON: 027 FINDINGS: SUPPORT DEVICES: Endotracheal tube now lies approximately 1.2 cm above the juan c. A nasogastric tube has been inserted into the proximal stomach. HEART / MEDIASTINUM: No significant abnormality. LUNGS / PLEURA: Chronic pulmonary changes are again seen. No significant changes noted from recent st udy. No pneumothorax. ADDITIONAL FINDINGS: No significant additional findings. IMPRESSION: Device positioning appears radiographically satisfactory. Abdomen AP supine portable 1331 INDICATION: Nasogastric tube placement Nasogastric tube extends well into the proximal stomach. Moderate amount of stool is seen in nondilated colon suggesting constipation. No evidence of bowel ob struction is seen. Small calcification is noted to the right of L3-4 measuring 3 mm which possibly co uld be in the area of the upper right ureter though this could be a vascular calcification. Signer Name: Spencer Ascencio MD Signed: 09/07/2018 2:03 PM Workstation Name: [id number]
[2018-09-07] MEDS: fentaNYL DRIP Premix 2,000 MCG/100 ML BAG IV SCH (14:20)
--- NOTE | 2018-09-07 14:35 | Event Note ---
Date: 09/07/18 RN reported fever 102 F - zamora culture - CRP & lactate levels - follow clinically off AB's - tylenol prn
[2018-09-07] MEDS: TYLENOL FEEDTUBE PRN (15:59)
[2018-09-07 16:07] LABS: Bilirubin,Urine NEG (Negative); Blood,Urine SM (Negative); Color,Urine Yellow (Yellow); Mucus,Urine FEW /HPF; Urobilinogen,Urine < 2.0 mg/dL (<2.0); WBC,Urine < 1.0 /HPF (0.0-6.0)
[2018-09-07] MEDS ORDERED: VANCOMYCIN/NS 1 GM/250 ML 1 GM/250 ML BAG IV ONE (16:18)
[2018-09-07] MEDS ORDERED: PANCREAZE DR 10,500 UNIT FEEDTUBE PRN (16:46)
[2018-09-07] MEDS ORDERED: SIMPLE SYRUP FEEDTUBE PRN ×2 (16:46)
[2018-09-07] MEDS ORDERED: SODIUM BICARBONATE FEEDTUBE PRN (16:46)
[2018-09-07] MEDS: PULMICORT IH SCH (19:07)
[2018-09-07] MEDS: BROVANA NEBU IH SCH (19:07)
--- NOTE | 2018-09-07 19:11 | History and Physical Report ---
History of Present Illness Date of examination: 09/07/18 Date of admission: 09/06/18 21:17 Chief complaint: Seizure disorder. History of present illness: patient is from [facility], where he was found to have some shaking movements, transported to the ER, and admitted, for reasons of possible seizure Since then, patient have been seen by Neurology, and PulmonaryHe was admitted here about 2m ago for similar. Past History Social history: other (lives in the [place]) Medications and Allergies Allergies Allergy/AdvReac Type Severity Reaction Status Date / Time No Known Allergies Allergy Verified 07/27/18 07:35 Home Medications Medication Instructions Recorded Confirmed Last Taken Type Bisacodyl Oral Liq 5 mg PO DAILY 07/27/18 07/27/18 Unknown History Polyethylene Glycol 3350 3,350 cap PO BID 07/27/18 07/27/18 Unknown History Senna 8.6 mg PO DAILY 07/27/18 07/27/18 Unknown History Arformoterol Nebu [Brovana Nebu] 15 mcg IH Q12HRT ml 08/03/18 Unknown Rx Budesonide [Pulmicort Respules] 0.5 mg IH Q12HRT nebu 08/03/18 Unknown Rx Famotidine [Pepcid] 20 mg PO BID tablet 08/03/18 Unknown Rx Min Oil/Petrolatum [Artificial 1 applic OU Q4HR PRN tube 08/03/18 Unknown Rx Tears Ophth Oint] Petrolatum,White [Vaseline Lip 1 applic TP Q2HR PRN tube 08/03/18 Unknown Rx Therapy] Active Meds: Active Medications Acetaminophen (Tylenol) 650 mg FEEDTUBE Q6H PRN PRN Reason: Pain, Mild (1-3) Last Admin: 09/07/18 15:59 Dose: 650 mg Documented by: Albuterol (Proventil) 2.5 mg IH Q4HRT PRN PRN Reason: Shortness Of Breath Lipase/Protease/Amylase (Roel Dc 10,500 Unit) 1 each FEEDTUBE PRN PRN PRN Reason: For Clogged Feeding Tube Arformoterol Tartrate (Brovana Nebu) 15 mcg IH Q12HRT SOLANGE Budesonide (Pulmicort) 0.5 mg IH Q12HRT SOLANGE Famotidine (Pepcid) 20 mg IV BID SOLANGE Last Admin: 09/07/18 10:08 Dose: 20 mg Documented by: Fentanyl (Sublimaze) 50 mcg IV Q10MIN PRN PRN Reason: ANALGESIA Last Admin: 09/07/18 14:07 Dose: 50 mcg Documented by: Hydrophilic Ointment (Vaseline Lip Therapy) 1 applic TP Q2HR PRN PRN Reason: Dry Lips Midazolam HCl 100 mg/ Sodium (Chloride) 100 mls @ 2 mls/hr IV TITR SOLANGE; Protocol Last Titration: 09/07/18 18:07 Dose: 0 mg/hr, 0 mls/hr Documented by: Levetiracetam 500 mg/ Dextrose 105 mls @ 400 mls/hr IV Q12HR SOLANGE Last Admin: 09/07/18 13:55 Dose: 400 mls/hr Documented by: Fentanyl Citrate (Fentanyl Drip Premix) 2,000 mcg in 100 mls @ 2.55 mls/hr IV TITR SOLANGE; Protocol Last Admin: 09/07/18 14:20 Dose: 1 mcg/kg/hr, 2.55 mls/hr Documented by: Metoprolol Tartrate (Lopressor) 5 mg IV Q6HR PRN PRN Reason: Tachyarrhythmias Last Admin: 09/07/18 14:06 Dose: 5 mg Documented by: Midazolam HCl (Versed) 2 mg IV Q10MIN PRN PRN Reason: Sedation Multi-Ingred Cream/Lotion/Oil/Oint (Artificial Tears Ophth Oint) 1 applic OU Q4HR PRN PRN Reason: Dry Eye(s) Simple Syrup (Simple Syrup) 15 ml FEEDTUBE PRN PRN PRN Reason: Hypoglycemia Simple Syrup (Simple Syrup) 30 ml FEEDTUBE PRN PRN PRN Reason: Hypoglycemia Sodium Bicarbonate (Sodium Bicarbonate) 325 mg FEEDTUBE PRN PRN PRN Reason: For Clogged Feeding Tube Review of Systems Constitutional: fatigue, weakness Neurological: other (Unable to asses due to patients condition on the vent.) Exam - Constitutional Vitals: Temp Pulse Resp BP Pulse Ox 102.9 F H 110 H 20 120/75 98 09/07/18 18:20 09/07/18 18:15 09/07/18 18:15 09/07/18 18:15 09/07/18 18:00 General appearance: Present: no acute distress, cachectic - EENT Eyes: Present: PERRL - Neck Neck: Present: supple, normal ROM - Respiratory Respiratory: bilateral: other (on the vent) - Cardiovascular Heart Sounds: Present: S1 & S2. Absent: rub, click - Extremities Extremities: pulses symmetrical, No edema Peripheral Pulses: within normal limits - Abdominal General gastrointestinal: Present: soft, non-tender, non-distended, normal bowel sounds Male genitourinary: Present: deferred - Rectal Rectal Exam: deferred - Integumentary Integumentary: Present: clear, warm, dry - Musculoskeletal Musculoskeletal: gait normal, strength equal bilaterally - Psychiatric Psychiatric: appropriate mood/affect, intact judgment & insight - Neurologic Neurologic: CNII-XII intact, moves all extremities Results - Labs CBC & Chem 7: 09/06/18 19:47 09/06/18 19:47 Labs: Abnormal lab results 09/06/18 09/06/18 09/06/18 Range/Units 19:47 19:47 19:47 RBC 3.47 L (3.65-5.03) M/mm3 Hgb 11.0 L (11.8-15.2) gm/dl Hct 34.6 L (35.5-45.6) % MCV 100 H (84-94) fl RDW 16.6 H (13.2-15.2) % Plt Count 121 L (140-440) K/mm3 Lymphocytes % (Manual) 50.0 H (13.4-35.0) % POC ABG pO2 (80-105) Chloride 97.0 L (98-107) mmol/L Carbon Dioxide 21 L (22-30) mmol/L Glucose 152 H (75-100) mg/dL POC Glucose (70-105) Lactic Acid (0.7-2.0) mmol/L Alkaline Phosphatase 138 H (35-129) units/L Total Creatine Kinase 45 L (55-170) units/L C-Reactive Protein (0.00-1.30) mg/dL Total Protein 8.9 H (6.3-8.2) g/dL TSH 7.610 H (0.270-4.200) mlU/mL 09/06/18 09/06/18 09/07/18 Range/Units 21:05 23:16 03:41 RBC (3.65-5.03) M/mm3 Hgb (11.8-15.2) gm/dl Hct (35.5-45.6) % MCV (84-94) fl RDW (13.2-15.2) % Plt Count (140-440) K/mm3 Lymphocytes % (Manual) (13.4-35.0) % POC ABG pO2 389 H 214 H (80-105) Chloride (98-107) mmol/L Carbon Dioxide (22-30) mmol/L Glucose (75-100) mg/dL POC Glucose 147 H (70-105) Lactic Acid (0.7-2.0) mmol/L Alkaline Phosphatase (35-129) units/L Total Creatine Kinase (55-170) units/L C-Reactive Protein (0.00-1.30) mg/dL Total Protein (6.3-8.2) g/dL TSH (0.270-4.200) mlU/mL 09/07/18 09/07/18 Range/Units 15:04 15:04 RBC (3.65-5.03) M/mm3 Hgb (11.8-15.2) gm/dl Hct (35.5-45.6) % MCV (84-94) fl RDW (13.2-15.2) % Plt Count (140-440) K/mm3 Lymphocytes % (Manual) (13.4-35.0) % POC ABG pO2 (80-105) Chloride (98-107) mmol/L Carbon Dioxide (22-30) mmol/L Glucose (75-100) mg/dL POC Glucose (70-105) Lactic Acid 2.90 H* (0.7-2.0) mmol/L Alkaline Phosphatase (35-129) units/L Total Creatine Kinase (55-170) units/L C-Reactive Protein 2.70 H (0.00-1.30) mg/dL Total Protein (6.3-8.2) g/dL TSH (0.270-4.200) mlU/mL Assessment and Plan - Patient Problems (1) Status epilepticus Current Visit: Yes Status: Acute (2) Acute encephalopathy Current Visit: No Status: Acute Plan to address problem: Supportive. (3) Thrombocytopenia Current Visit: No Status: Chronic Plan to address problem: will monitor accordingly (4) Acute respiratory failure Current Visit: No Status: Resolved Plan to address problem: Continue with vent
[2018-09-07] MEDS ORDERED: PEPCID PO SCH (22:00)
--- NOTE | 2018-09-08 00:38 | Consultation ---
PULMONARY/CRITICAL CARE CONSULT CONSULTING PHYSICIAN: Daryl Sandoval DO REASON FOR CONSULTATION: 1. Acute respiratory failure, on mechanical ventilatory support. 2. Status epilepticus. CHIEF COMPLAINT AND HISTORY OF PRESENT ILLNESS: As follows: The patient is a 72-year-old male with past medical history significant amongst other things for nontraumatic subdural hemorrhage with residual akinesia, dysphasia, and reported left-sided weakness, who presented to the Emergency Room yesterday after reportedly about 20 minutes of constant seizure activity. He was brought in, I believe from prison. They gave him about 5 mg of Versed intranasally. They were unable to obtain IV access, and he reportedly had no known history of seizures in the Emergency Room, he required intubation for airway protection and for ventilation, and was started on a Versed drip with resolution of the seizure activity, was admitted to the Intensive Care Unit where I stopped by to see him. When I stopped by to see him, he was on the mechanical ventilator, assist control, tidal volume 400 mL, rate of 12 and PEEP of 6. He was riding the set rate on the ventilator. He was nonresponsive. He was in the middle of a sedation vacation trial at that time. I do not have any history of trauma during these recent episodes. I do not have any history of vomiting or overt aspiration. The above is as much of the history of presentation as I have. Now with regards to the patient's tobacco use/abuse history, he is not a current smoker. Remote history is unknown. PAST MEDICAL HISTORY: Includes amongst other things a history of chronic obstructive lung disease, nontraumatic subdural hemorrhage, history of peripheral vascular disease, history of glaucoma, history of anemia and history of subarachnoid hemorrhage as well as spinal stenosis. PAST SURGICAL HISTORY: Unknown. MEDICATIONS: He was on at the time I stopped by to see him were reviewed. Pertinent medications included the following: Pepcid 20 mg IV b.i.d. scheduled, Versed 2 mg IV q. 10 minutes p.r.n. sedation and Versed drip at 2 mg per hour. ALLERGIES: No known drug allergies. DIET: Thin gentleman, acute weight loss or gain history is unknown. FAMILY AND SOCIAL HISTORY: [facility] resident. No current alcohol, tobacco, or illicit drug use or abuse. Remote history is unknown. REVIEW OF SYSTEMS: Unobtainable secondary to the patient's medical and mental condition. Since he has been here, no gross hematochezia or melena, no gross hematuria, no bloody tracheal secretions. Review of systems is otherwise unobtainable. PHYSICAL EXAMINATION: VITAL SIGNS: At presentation in the Emergency Room, review of the vital signs shows that he was afebrile, temperature 97.5 degrees Fahrenheit, pulse 125, respiratory rate 32, blood pressure 99/72, O2 sats were 100%, inspired oxygen concentration was not recorded at the time I saw him, O2 sats were 99% on 25% FiO2 on the above-mentioned ventilator settings. GENERAL: Elderly looking -[place] male. Normocephalic, atraumatic, on mechanical ventilator without significant patient's ventilator dyssynchrony. HEAD, EYES, EARS, NOSE AND THROAT: He is anicteric. No conjunctival erythema. Oropharynx is moist. Endotracheal tube is at the lips, around 24 cm. Grossly, no jugular venous distention, no palpable lymph nodes in the supraclavicular or submandibular lymph node chains. No thyromegaly. He has some mild temporal wasting. LUNGS: Auscultation of both lung weinstein unremarkable. Lungs are clear bilaterally. HEART: Heart sounds 1 and 2 are heard, regular rate and rhythm at the time of my evaluation. No rubs or murmurs. ABDOMEN: Soft and flat. Bowel sounds are positive, nontender, no palpable hepatosplenomegaly. EXTREMITIES: Without overt digital clubbing, no cyanosis, no pedal edema. NEUROLOGIC: The left pupil is about 3 mm and reactive to light. Right pupil is irregular post-surgical. Extraocular muscle movements could not be assessed. He had no spontaneous movements. He did not follow commands. There were no obvious contractions. SKIN: The skin was of normal turgor without overt cellulitis or rash. LABORATORY DATA: From my review are as follows: White cell count 6400, hemoglobin 11.0, hematocrit 34.6 and platelet count 121. No band forms reported. INR 1.05. Arterial blood gas showed a pH of 7.42, pCO2 of 41, pO2 of 389 that was on 70% FiO2 at that time. ABG on the current vent settings showed a pH of 7.42, pCO2 of 40, pO2 of 214 that was on 40% FiO2. Serum sodium 137, potassium 4.3, chloride 97, bicarbonate 21, BUN 20, creatinine 1.0, glucose 152. Liver function test within normal limits. Troponin within normal limits. TSH is elevated at 7.61. Urine drug screen is positive for benzodiazepines, otherwise negative. Tracheal aspirate, no growth to date. I have reviewed the radiographic studies including the CT of the head report, it mentions no acute abnormality; however, persistent bilateral subdural collections a little smaller than on 07/26/2018. A chest x-ray was done also at presentation. Chronic looking increased interstitial markings. Initial chest x-ray shows impending left mainstem intubation. Repeat chest x-ray shows that the tip is at the level of the juan c and probably needs to be retracted somewhat. ASSESSMENT: 1. Acute respiratory failure, on mechanical ventilatory support. 2. Status epilepticus. 3. Acute on chronic encephalopathy. 4. Thrombocytopenia that is chronic. 5. History of chronic obstructive lung disease. 6. Anemia that is microcytic. 7. Oropharyngeal dysphagia. 8. Adult failure to thrive. PLAN: I will be reviewing his home/prison medications. I believe that the neurologist has seen him. The plan will be to start him on Keppra in the short time while we wean him off the Versed. He will remain on mechanical ventilatory support in the short time. Ventilator-associated pneumonia bundle has been introduced. Bronchodilators will be ordered. I will go with long-acting bronchodilators as well as inhaled corticosteroids in light of his COPD history. No acute indication for empiric antibiotic therapies in my opinion. I will follow him clinically. I will get a CRP level and p.r.n. lactic acid levels to aid clinical decision making. Enteral nutrition will be the feeding modality of choice. Fall precautions, neuro checks will be at play. EEG has been ordered and will be followed. He is appropriately on GI prophylaxis. He will be placed on DVT prophylaxis. Flu and pneumonia vaccination will be addressed per protocol. Oxygen will be weaned to keep sats greater than or equal to about 90%. Sedation will be titrated to Wen agitation sedation scale of about 0 to -1. At this time, we spent about 35-40 minutes of critical care time without overlap excluding any procedural time that may be necessary. I will reach out to any family members that are present. He is critically ill at high risk of from cardiopulmonary and neurologic system deterioration. JOB# [id number] MAUREEN/SOLOMON BOWMAN
--- NOTE | 2018-09-08 02:44 | XRay Report ---
CHEST 1 VIEW 09/08/2018 2:05 AM INDICATION / CLINICAL INFORMATION: follow up respiratory failure. COMPARISON: One view of the chest from 09/07/2018. FINDINGS: SUPPORT DEVICES: Stable. HEART / MEDIASTINUM: Normal cardiac size with stable aortic atherosclerosis. LUNGS / PLEURA: Stable bilateral chronic parenchymal and pleural changes. No acute pulmonary abnormal ity. No significant pleural effusion. No pneumothorax. ADDITIONAL FINDINGS: No significant additional findings. IMPRESSION: No acute findings. Signer Name: Garfeild Espinoza MD Signed: 09/08/2018 2:40 AM Workstation Name: [id number]
[2018-09-08] MEDS: BROVANA NEBU IH SCH ×2 (08:35→19:25)
[2018-09-08] MEDS: PULMICORT IH SCH ×2 (08:35→19:25)
[2018-09-08] MEDS: PEPCID IV SCH ×2 (09:26→21:58)
[2018-09-08] MEDS: KEPPRA 500 MG in D5W 100 ML IV SCH ×2 (09:26→21:58)
[2018-09-08] MEDS ORDERED: LEVAQUIN 750MG/150ML 750 MG/150 ML BAG IV SCH (15:00)
--- NOTE | 2018-09-08 15:07 | Progress Note ---
Assessment and Plan Acute respiratory failure, on mechanical ventilatory support. Status epilepticus. Acute on chronic encephalopathy. Thrombocytopenia that is chronic. History of chronic obstructive lung disease. Anemia that is microcytic. Oropharyngeal dysphagia. Adult failure to thrive - resume daily SAT's and SBT assessment to begin as tolerated - if AMS continues to improve and passes SBT will consider trial of extubation - continue to avoid sedatives in short term - continue bronchodilators with pulmonary hygiene per RT - complete empiric AB's (de-escalate based on clinical and microbiologic data)[UC's growing GNR] - continue enteral nutrition as tolerated - continue supplemental oxygen as needed to keep O2 sat's > 90% - continue lung protective strategies - daily CXR and ABG in short term - VAP bundle addressed - continue accuchecks with glycemic control per SSI for target blood glucose <180mg/dL - Agitation management - Titrate sedation to RASS 0 to -1 (when started) - Prevention of delirium, maintenance of sleep-wake cycle - Azotemia per nephrology (tentatively for HD/UF) - Avoid nephrotoxic agents, adjust all antibiotics and medications for CrCL and GFR - VTE and Stress ulcer prophylaxis - continue other care per attending / other consultants ... re-evaluate in am & prn CONDITION: CRITICAL PROGNOSIS: GRAVE to GUARDED CODE STATUS: FULL CODE The high probability of a clinically significant, sudden or life-threatening deterioration of the [respiratory, cardiac and neurologic] system(s) required my full and direct attention, intervention and personal management. The aggregate critical care time was [32] minutes without overlap. Time includes spent on; [x] Data Review and interpretation [x] Patient assessment and monitoring of vital signs [x] Documentation [x] Medication orders and management Subjective Date of service: 09/08/18 Principal diagnosis: Ac resp failure; Status epilepticus; Ac on ch encephalopathy; COPD; Anemia Interval history: Patient is seen today for: Acute respiratory failure; Status epilepticus; Acute on chronic encephalopathy; COPD; Anemia; Oropharyngeal dysphagia; Adult failure to thrive Seen and examined at bedside; 24hour events reviewed; nursing and respiratory care staff consulted; no adverse overnight events reported to me; resting peacefully in bed; a little more active but overall lethargic; No emesis or overt aspiration; on full AC support Objective Vital Signs - 12hr 09/08/18 09/08/18 09/08/18 03:15 03:28 03:30 Temperature Pulse Rate 120 H 120 H 119 H Pulse Rate [ Anterior Bilateral Throughout] Pulse Rate [ From Monitor] Respiratory 20 20 Rate Respiratory Rate [Anterior Bilateral Throughout] Blood Pressure 132/78 132/78 126/75 O2 Sat by Pulse 98 100 Oximetry 09/08/18 09/08/18 09/08/18 03:45 04:00 04:15 Temperature 100.1 F H Pulse Rate 118 H 118 H 117 H Pulse Rate [ Anterior Bilateral Throughout] Pulse Rate [ 121 H From Monitor] Respiratory 20 20 20 Rate Respiratory Rate [Anterior Bilateral Throughout] Blood Pressure 123/77 125/73 121/74 O2 Sat by Pulse 99 98 Oximetry 09/08/18 09/08/18 09/08/18 04:30 04:45 05:00 Temperature Pulse Rate 122 H 120 H 121 H Pulse Rate [ Anterior Bilateral Throughout] Pulse Rate [ From Monitor] Respiratory 20 20 20 Rate Respiratory Rate [Anterior Bilateral Throughout] Blood Pressure 141/93 135/82 122/83 O2 Sat by Pulse 98 97 96 Oximetry 09/08/18 09/08/18 09/08/18 05:15 05:30 05:45 Temperature Pulse Rate 121 H 124 H 121 H Pulse Rate [ Anterior Bilateral Throughout] Pulse Rate [ From Monitor] Respiratory 18 19 20 Rate Respiratory Rate [Anterior Bilateral Throughout] Blood Pressure 120/86 131/92 133/82 O2 Sat by Pulse 98 97 97 Oximetry 09/08/18 09/08/18 09/08/18 06:00 06:15 06:30 Temperature Pulse Rate 120 H 116 H 118 H Pulse Rate [ Anterior Bilateral Throughout] Pulse Rate [ From Monitor] Respiratory 20 20 20 Rate Respiratory Rate [Anterior Bilateral Throughout] Blood Pressure 126/82 110/71 118/74 O2 Sat by Pulse 98 94 Oximetry 09/08/18 09/08/18 09/08/18 06:45 07:00 07:15 Temperature Pulse Rate 115 H 116 H 117 H Pulse Rate [ Anterior Bilateral Throughout] Pulse Rate [ From Monitor] Respiratory 20 20 20 Rate Respiratory Rate [Anterior Bilateral Throughout] Blood Pressure 122/80 121/79 112/74 O2 Sat by Pulse Oximetry 09/08/18 09/08/18 09/08/18 07:30 07:45 08:00 Temperature 98.4 F Pulse Rate 117 H 115 H 113 H Pulse Rate [ Anterior Bilateral Throughout] Pulse Rate [ 113 H From Monitor] Respiratory 20 20 20 Rate Respiratory Rate [Anterior Bilateral Throughout] Blood Pressure 108/78 124/75 112/73 O2 Sat by Pulse 96 97 97 Oximetry 09/08/18 09/08/18 09/08/18 08:15 08:30 08:35 Temperature Pulse Rate 113 H 113 H 114 H Pulse Rate [ 120 H Anterior Bilateral Throughout] Pulse Rate [ From Monitor] Respiratory 20 20 Rate Respiratory 20 Rate [Anterior Bilateral Throughout] Blood Pressure 112/75 117/77 117/77 O2 Sat by Pulse 96 Oximetry 09/08/18 09/08/18 09/08/18 08:45 09:00 09:15 Temperature Pulse Rate 119 H 116 H 119 H Pulse Rate [ Anterior Bilateral Throughout] Pulse Rate [ From Monitor] Respiratory 20 21 19 Rate Respiratory Rate [Anterior Bilateral Throughout] Blood Pressure 137/86 123/81 123/82 O2 Sat by Pulse 95 97 97 Oximetry 09/08/18 09/08/18 09/08/18 09:30 09:45 10:00 Temperature Pulse Rate 121 H 114 H 116 H Pulse Rate [ Anterior Bilateral Throughout] Pulse Rate [ From Monitor] Respiratory 20 20 20 Rate Respiratory Rate [Anterior Bilateral Throughout] Blood Pressure 130/82 117/73 115/73 O2 Sat by Pulse 97 97 Oximetry 09/08/18 09/08/18 09/08/18 10:15 10:30 10:45 Temperature Pulse Rate 115 H 113 H 112 H Pulse Rate [ Anterior Bilateral Throughout] Pulse Rate [ From Monitor] Respiratory 20 20 20 Rate Respiratory Rate [Anterior Bilateral Throughout] Blood Pressure 110/73 111/71 121/76 O2 Sat by Pulse 99 98 Oximetry 09/08/18 09/08/18 09/08/18 11:00 11:15 11:30 Temperature Pulse Rate 112 H 113 H 113 H Pulse Rate [ Anterior Bilateral Throughout] Pulse Rate [ From Monitor] Respiratory 20 20 20 Rate Respiratory Rate [Anterior Bilateral Throughout] Blood Pressure 117/77 124/73 115/76 O2 Sat by Pulse 96 96 Oximetry 09/08/18 09/08/18 09/08/18 11:45 12:00 12:15 Temperature 99.7 F H Pulse Rate 113 H 114 H 116 H Pulse Rate [ Anterior Bilateral Throughout] Pulse Rate [ From Monitor] Respiratory 20 20 20 Rate Respiratory Rate [Anterior Bilateral Throughout] Blood Pressure 113/73 107/75 108/78 O2 Sat by Pulse 97 98 Oximetry Constitutional: no acute distress, other (elderly looking AAM, normocephalic on MVS without dyssynchrony) Eyes: non-icteric ENT: oropharynx moist, other (ETT 2 cm JAYDEN) Neck: supple, no lymphadenopathy, no JVD Effort: mildly labored Ascultation: Bilateral: clear, diminished breath sounds Percussion: Bilateral: not dull Cardiovascular: regular rate and rhythm Gastrointestinal: normoactive bowel sounds, soft, non-tender, non-distended Integumentary: normal Extremities: no cyanosis, no edema, pulses normal, no ischemia or petechiae Neurologic: unable to assess Psychiatric: other (unable to assess re: AMS) CBC and BMP: 09/09/18 03:58 09/09/18 03:58 ABG, PT/INR, D-dimer: ABG POC ABG pH 7.443 (7.35-7.45) 09/08/18 04:50 POC ABG pCO2 36.1 (35-45) 09/08/18 04:50 POC ABG pO2 110 (80-105) H 09/08/18 04:50 POC ABG HCO3 24.6 (22-26 mml/L) 09/08/18 04:50 POC ABG Total CO2 26 (23-27mmol/L) 09/08/18 04:50 POC ABG O2 Sat 99 09/08/18 04:50 PT/INR, D-dimer PT 13.4 Sec. (12.2-14.9) 09/06/18 19:47 INR 1.05 (0.87-1.13) 09/06/18 19:47 Abnormal lab findings: Abnormal Labs 09/06/18 09/06/18 09/06/18 19:47 19:47 19:47 RBC 3.47 L Hgb 11.0 L Hct 34.6 L MCV 100 H RDW 16.6 H Plt Count 121 L Lymphocytes % (Manual) 50.0 H Fibrinogen POC ABG pO2 Chloride 97.0 L Carbon Dioxide 21 L Glucose 152 H POC Glucose Lactic Acid Alkaline Phosphatase 138 H Lactate Dehydrogenase Total Creatine Kinase 45 L C-Reactive Protein Total Protein 8.9 H TSH 7.610 H 09/06/18 09/06/18 09/07/18 21:05 23:16 03:41 RBC Hgb Hct MCV RDW Plt Count Lymphocytes % (Manual) Fibrinogen POC ABG pO2 389 H 214 H Chloride Carbon Dioxide Glucose POC Glucose 147 H Lactic Acid Alkaline Phosphatase Lactate Dehydrogenase Total Creatine Kinase C-Reactive Protein Total Protein TSH 09/07/18 09/07/18 09/07/18 15:04 15:04 21:55 RBC Hgb Hct MCV RDW Plt Count Lymphocytes % (Manual) Fibrinogen POC ABG pO2 Chloride Carbon Dioxide Glucose POC Glucose Lactic Acid 2.90 H* Alkaline Phosphatase Lactate Dehydrogenase 270 H Total Creatine Kinase C-Reactive Protein 2.70 H Total Protein TSH 09/07/18 09/07/18 09/08/18 21:55 23:41 04:50 RBC Hgb Hct MCV RDW Plt Count Lymphocytes % (Manual) Fibrinogen 616 H POC ABG pO2 110 H Chloride Carbon Dioxide Glucose POC Glucose 125 H Lactic Acid Alkaline Phosphatase Lactate Dehydrogenase Total Creatine Kinase C-Reactive Protein Total Protein TSH 09/08/18 09/08/18 06:08 12:19 RBC Hgb Hct MCV RDW Plt Count Lymphocytes % (Manual) Fibrinogen POC ABG pO2 Chloride Carbon Dioxide Glucose POC Glucose 118 H 112 H Lactic Acid Alkaline Phosphatase Lactate Dehydrogenase Total Creatine Kinase C-Reactive Protein Total Protein TSH Chest x-ray: image reviewed (no acute process; ETT in good position) Allied health notes reviewed: nursing
--- NOTE | 2018-09-08 17:05 | Progress Note ---
Subjective Date of service: 09/08/18 Principal diagnosis: Ac resp failure; Status epilepticus; Ac on ch encephalopathy; COPD; Anemia Interval history: lactic acide is high this is clue to what started the seizures as reflects metabolic stress- recommend stay on same epilepsy treatment Objective - Vital Sign Vital Signs - 12hr 09/08/18 09/08/18 09/08/18 05:15 05:30 05:45 Temperature Pulse Rate 121 H 124 H 121 H Pulse Rate [ Anterior Bilateral Throughout] Pulse Rate [ From Monitor] Respiratory 18 19 20 Rate Respiratory Rate [Anterior Bilateral Throughout] Blood Pressure 120/86 131/92 133/82 O2 Sat by Pulse 98 97 97 Oximetry 09/08/18 09/08/18 09/08/18 06:00 06:15 06:30 Temperature Pulse Rate 120 H 116 H 118 H Pulse Rate [ Anterior Bilateral Throughout] Pulse Rate [ From Monitor] Respiratory 20 20 20 Rate Respiratory Rate [Anterior Bilateral Throughout] Blood Pressure 126/82 110/71 118/74 O2 Sat by Pulse 98 94 Oximetry 09/08/18 09/08/18 09/08/18 06:45 07:00 07:15 Temperature Pulse Rate 115 H 116 H 117 H Pulse Rate [ Anterior Bilateral Throughout] Pulse Rate [ From Monitor] Respiratory 20 20 20 Rate Respiratory Rate [Anterior Bilateral Throughout] Blood Pressure 122/80 121/79 112/74 O2 Sat by Pulse Oximetry 09/08/18 09/08/18 09/08/18 07:30 07:45 08:00 Temperature 98.4 F Pulse Rate 117 H 115 H 113 H Pulse Rate [ Anterior Bilateral Throughout] Pulse Rate [ 113 H From Monitor] Respiratory 20 20 20 Rate Respiratory Rate [Anterior Bilateral Throughout] Blood Pressure 108/78 124/75 112/73 O2 Sat by Pulse 96 97 97 Oximetry 09/08/18 09/08/18 09/08/18 08:15 08:30 08:35 Temperature Pulse Rate 113 H 113 H 114 H Pulse Rate [ 120 H Anterior Bilateral Throughout] Pulse Rate [ From Monitor] Respiratory 20 20 Rate Respiratory 20 Rate [Anterior Bilateral Throughout] Blood Pressure 112/75 117/77 117/77 O2 Sat by Pulse 96 Oximetry 09/08/18 09/08/18 09/08/18 08:45 09:00 09:15 Temperature Pulse Rate 119 H 116 H 119 H Pulse Rate [ Anterior Bilateral Throughout] Pulse Rate [ From Monitor] Respiratory 20 21 19 Rate Respiratory Rate [Anterior Bilateral Throughout] Blood Pressure 137/86 123/81 123/82 O2 Sat by Pulse 95 97 97 Oximetry 09/08/18 09/08/18 09/08/18 09:30 09:45 10:00 Temperature Pulse Rate 121 H 114 H 116 H Pulse Rate [ Anterior Bilateral Throughout] Pulse Rate [ From Monitor] Respiratory 20 20 20 Rate Respiratory Rate [Anterior Bilateral Throughout] Blood Pressure 130/82 117/73 115/73 O2 Sat by Pulse 97 97 Oximetry 09/08/18 09/08/18 09/08/18 10:15 10:30 10:45 Temperature Pulse Rate 115 H 113 H 112 H Pulse Rate [ Anterior Bilateral Throughout] Pulse Rate [ From Monitor] Respiratory 20 20 20 Rate Respiratory Rate [Anterior Bilateral Throughout] Blood Pressure 110/73 111/71 121/76 O2 Sat by Pulse 99 98 Oximetry 09/08/18 09/08/18 09/08/18 11:00 11:15 11:30 Temperature Pulse Rate 112 H 113 H 113 H Pulse Rate [ Anterior Bilateral Throughout] Pulse Rate [ From Monitor] Respiratory 20 20 20 Rate Respiratory Rate [Anterior Bilateral Throughout] Blood Pressure 117/77 124/73 115/76 O2 Sat by Pulse 96 96 Oximetry 09/08/18 09/08/18 09/08/18 11:45 12:00 12:15 Temperature 99.7 F H Pulse Rate 113 H 114 H 116 H Pulse Rate [ Anterior Bilateral Throughout] Pulse Rate [ From Monitor] Respiratory 20 20 20 Rate Respiratory Rate [Anterior Bilateral Throughout] Blood Pressure 113/73 107/75 108/78 O2 Sat by Pulse 97 98 Oximetry - Laboratory Findings CBC and BMP: 09/06/18 19:47 09/06/18 19:47 Abnormal Lab Findings: Abnormal Labs 09/06/18 09/06/18 09/06/18 19:47 19:47 19:47 RBC 3.47 L Hgb 11.0 L Hct 34.6 L MCV 100 H RDW 16.6 H Plt Count 121 L Lymphocytes % (Manual) 50.0 H Fibrinogen POC ABG pO2 Chloride 97.0 L Carbon Dioxide 21 L Glucose 152 H POC Glucose Lactic Acid Alkaline Phosphatase 138 H Lactate Dehydrogenase Total Creatine Kinase 45 L C-Reactive Protein Total Protein 8.9 H TSH 7.610 H 09/06/18 09/06/18 09/07/18 21:05 23:16 03:41 RBC Hgb Hct MCV RDW Plt Count Lymphocytes % (Manual) Fibrinogen POC ABG pO2 389 H 214 H Chloride Carbon Dioxide Glucose POC Glucose 147 H Lactic Acid Alkaline Phosphatase Lactate Dehydrogenase Total Creatine Kinase C-Reactive Protein Total Protein TSH 09/07/18 09/07/18 09/07/18 15:04 15:04 21:55 RBC Hgb Hct MCV RDW Plt Count Lymphocytes % (Manual) Fibrinogen POC ABG pO2 Chloride Carbon Dioxide Glucose POC Glucose Lactic Acid 2.90 H* Alkaline Phosphatase Lactate Dehydrogenase 270 H Total Creatine Kinase C-Reactive Protein 2.70 H Total Protein TSH 09/07/18 09/07/18 09/08/18 21:55 23:41 04:50 RBC Hgb Hct MCV RDW Plt Count Lymphocytes % (Manual) Fibrinogen 616 H POC ABG pO2 110 H Chloride Carbon Dioxide Glucose POC Glucose 125 H Lactic Acid Alkaline Phosphatase Lactate Dehydrogenase Total Creatine Kinase C-Reactive Protein Total Protein TSH 09/08/18 09/08/18 06:08 12:19 RBC Hgb Hct MCV RDW Plt Count Lymphocytes % (Manual) Fibrinogen POC ABG pO2 Chloride Carbon Dioxide Glucose POC Glucose 118 H 112 H Lactic Acid Alkaline Phosphatase Lactate Dehydrogenase Total Creatine Kinase C-Reactive Protein Total Protein TSH
[2018-09-08] MEDS: LOPRESSOR IV PRN (18:12)
--- NOTE | 2018-09-08 19:49 | Progress Note ---
Assessment and Plan - Patient Problems (1) Status epilepticus Current Visit: Yes Status: Acute Plan to address problem: follow neurology. (2) Acute encephalopathy Current Visit: No Status: Acute Plan to address problem: Supportive. (3) Thrombocytopenia Current Visit: No Status: Chronic Plan to address problem: will monitor accordingly (4) Acute respiratory failure Current Visit: No Status: Resolved Plan to address problem: Continue with vent Subjective Date of service: 09/08/18 Principal diagnosis: Ac resp failure; Status epilepticus; Ac on ch encephalopathy; COPD; Anemia Interval history: Patient seen/examined, resting in bed, labs reviewed, will check new labs t omorrow. No sign of renal failure in recent labs.Patient not set for any renal replacement therapy. Objective - Constitutional Vitals: Vital Signs - 12hr 09/08/18 09/08/18 09/08/18 08:00 08:15 08:30 Temperature 98.4 F Pulse Rate 113 H 113 H 113 H Pulse Rate [ Anterior Bilateral Throughout] Pulse Rate [ 113 H From Monitor] Respiratory 20 20 20 Rate Respiratory Rate [Anterior Bilateral Throughout] Blood Pressure 112/73 112/75 117/77 O2 Sat by Pulse 97 Oximetry 09/08/18 09/08/18 09/08/18 08:35 08:45 09:00 Temperature Pulse Rate 114 H 119 H 116 H Pulse Rate [ 120 H Anterior Bilateral Throughout] Pulse Rate [ From Monitor] Respiratory 20 21 Rate Respiratory 20 Rate [Anterior Bilateral Throughout] Blood Pressure 117/77 137/86 123/81 O2 Sat by Pulse 96 95 97 Oximetry 09/08/18 09/08/18 09/08/18 09:15 09:30 09:45 Temperature Pulse Rate 119 H 121 H 114 H Pulse Rate [ Anterior Bilateral Throughout] Pulse Rate [ From Monitor] Respiratory 19 20 20 Rate Respiratory Rate [Anterior Bilateral Throughout] Blood Pressure 123/82 130/82 117/73 O2 Sat by Pulse 97 97 97 Oximetry 09/08/18 09/08/18 09/08/18 10:00 10:15 10:30 Temperature Pulse Rate 116 H 115 H 113 H Pulse Rate [ Anterior Bilateral Throughout] Pulse Rate [ From Monitor] Respiratory 20 20 20 Rate Respiratory Rate [Anterior Bilateral Throughout] Blood Pressure 115/73 110/73 111/71 O2 Sat by Pulse 99 Oximetry 09/08/18 09/08/18 09/08/18 10:45 11:00 11:15 Temperature Pulse Rate 112 H 112 H 113 H Pulse Rate [ Anterior Bilateral Throughout] Pulse Rate [ From Monitor] Respiratory 20 20 20 Rate Respiratory Rate [Anterior Bilateral Throughout] Blood Pressure 121/76 117/77 124/73 O2 Sat by Pulse 98 96 Oximetry 09/08/18 09/08/18 09/08/18 11:30 11:45 12:00 Temperature 99.7 F H Pulse Rate 113 H 113 H 110 H Pulse Rate [ Anterior Bilateral Throughout] Pulse Rate [ 114 H From Monitor] Respiratory 20 20 20 Rate Respiratory Rate [Anterior Bilateral Throughout] Blood Pressure 115/76 113/73 107/75 O2 Sat by Pulse 96 97 98 Oximetry 09/08/18 09/08/18 09/08/18 12:15 12:30 12:45 Temperature Pulse Rate 116 H 113 H 115 H Pulse Rate [ Anterior Bilateral Throughout] Pulse Rate [ From Monitor] Respiratory 20 20 20 Rate Respiratory Rate [Anterior Bilateral Throughout] Blood Pressure 108/78 111/72 118/69 O2 Sat by Pulse 98 Oximetry 09/08/18 09/08/18 09/08/18 13:00 13:15 13:30 Temperature Pulse Rate 106 H 113 H 113 H Pulse Rate [ Anterior Bilateral Throughout] Pulse Rate [ From Monitor] Respiratory 20 20 20 Rate Respiratory Rate [Anterior Bilateral Throughout] Blood Pressure 122/79 118/74 117/76 O2 Sat by Pulse 99 99 Oximetry 09/08/18 09/08/18 09/08/18 13:45 14:00 14:01 Temperature Pulse Rate 118 H 123 H 123 H Pulse Rate [ Anterior Bilateral Throughout] Pulse Rate [ From Monitor] Respiratory 17 4 L 13 Rate Respiratory Rate [Anterior Bilateral Throughout] Blood Pressure 112/76 112/76 135/81 O2 Sat by Pulse 100 100 98 Oximetry 09/08/18 09/08/18 09/08/18 14:15 14:30 14:45 Temperature Pulse Rate 115 H 114 H 115 H Pulse Rate [ Anterior Bilateral Throughout] Pulse Rate [ From Monitor] Respiratory 19 20 20 Rate Respiratory Rate [Anterior Bilateral Throughout] Blood Pressure 120/73 120/75 112/69 O2 Sat by Pulse 100 Oximetry 09/08/18 09/08/18 09/08/18 15:00 15:15 15:30 Temperature Pulse Rate 115 H 115 H 116 H Pulse Rate [ Anterior Bilateral Throughout] Pulse Rate [ From Monitor] Respiratory 20 21 14 Rate Respiratory Rate [Anterior Bilateral Throughout] Blood Pressure 112/74 113/75 122/77 O2 Sat by Pulse 100 85 99 Oximetry 09/08/18 09/08/18 09/08/18 15:35 15:45 16:00 Temperature 99.6 F Pulse Rate 120 H 116 H 113 H Pulse Rate [ Anterior Bilateral Throughout] Pulse Rate [ 113 H From Monitor] Respiratory 17 15 15 Rate Respiratory Rate [Anterior Bilateral Throughout] Blood Pressure 113/75 121/77 120/74 O2 Sat by Pulse 98 100 100 Oximetry 09/08/18 09/08/18 09/08/18 16:15 16:30 16:45 Temperature Pulse Rate 114 H 120 H 119 H Pulse Rate [ Anterior Bilateral Throughout] Pulse Rate [ From Monitor] Respiratory 15 14 15 Rate Respiratory Rate [Anterior Bilateral Throughout] Blood Pressure 120/72 128/84 115/70 O2 Sat by Pulse 99 99 99 Oximetry 09/08/18 09/08/18 09/08/18 17:00 17:15 17:30 Temperature Pulse Rate 118 H 116 H 123 H Pulse Rate [ Anterior Bilateral Throughout] Pulse Rate [ From Monitor] Respiratory 20 15 14 Rate Respiratory Rate [Anterior Bilateral Throughout] Blood Pressure 125/71 115/73 111/81 O2 Sat by Pulse 98 99 98 Oximetry 09/08/18 09/08/18 09/08/18 17:45 18:00 18:12 Temperature Pulse Rate 127 H 123 H 138 H Pulse Rate [ Anterior Bilateral Throughout] Pulse Rate [ From Monitor] Respiratory 18 18 Rate Respiratory Rate [Anterior Bilateral Throughout] Blood Pressure 129/87 130/78 130/78 O2 Sat by Pulse 98 96 Oximetry 09/08/18 09/08/18 09/08/18 18:15 18:30 18:45 Temperature Pulse Rate 121 H 104 H 107 H Pulse Rate [ Anterior Bilateral Throughout] Pulse Rate [ From Monitor] Respiratory 16 15 18 Rate Respiratory Rate [Anterior Bilateral Throughout] Blood Pressure 111/81 150/98 140/84 O2 Sat by Pulse 97 95 100 Oximetry General appearance: Present: no acute distress - EENT Eyes: PERRL, EOM intact ENT: hearing intact, clear oral mucosa Ears: bilateral: normal - Neck Neck: supple, normal ROM - Respiratory Respiratory effort: normal Respiratory: bilateral: CTA - Breasts Breasts: deferred - Cardiovascular Rhythm: regular Heart Sounds: Present: S1 & S2. Absent: gallop, rub Extremities: pulses intact, No edema, normal color, Full ROM - Gastrointestinal General gastrointestinal: Present: soft, non-tender, non-distended, normal bowel sounds Rectal Exam: deferred - Genitourinary Male genitourinary: deferred - Integumentary Integumentary: clear, warm, dry - Musculoskeletal Musculoskeletal: 1, strength equal bilaterally - Neurologic Neurologic: moves all extremities - Psychiatric Psychiatric: appropriate mood/affect - Labs CBC & Chem 7: 09/06/18 19:47 09/06/18 19:47 Labs: Abnormal lab results 09/07/18 09/07/18 09/07/18 Range/Units 21:55 21:55 23:41 Fibrinogen 616 H (211-480) mg/dl POC ABG pO2 (80-105) POC Glucose 125 H (70-105) Lactate Dehydrogenase 270 H (91-180) units/L 09/08/18 09/08/18 09/08/18 Range/Units 04:50 06:08 12:19 Fibrinogen (211-480) mg/dl POC ABG pO2 110 H (80-105) POC Glucose 118 H 112 H (70-105) Lactate Dehydrogenase (91-180) units/L
[2018-09-08] MEDS: fentaNYL DRIP Premix 2,000 MCG/100 ML BAG IV SCH (21:58)
[2018-09-08] MEDS: TYLENOL FEEDTUBE PRN (23:13)
--- NOTE | 2018-09-09 03:55 | XRay Report ---
CHEST 1 VIEW 09/09/2018 2:25 AM INDICATION / CLINICAL INFORMATION: follow up respiratory failure. COMPARISON: One view of the chest from 09/08/2018. FINDINGS: SUPPORT DEVICES: Stable. HEART / MEDIASTINUM: No significant abnormality. LUNGS / PLEURA: Chronic appearing pleural-parenchymal changes are noted bilaterally. No acute pulmona ry abnormality. No significant pleural effusion. No pneumothorax. ADDITIONAL FINDINGS: No significant additional findings. IMPRESSION: No acute findings. Signer Name: Garfield Espinoza MD Signed: 09/09/2018 3:50 AM Workstation Name: [id number]
[2018-09-09 05:31] LABS: Hematocrit 32.2 % (35.5-45.6); Hemoglobin 10.8 gm/dl (11.8-15.2); Mean Corpuscular HGB Conc 34 % (32-34); Mean Corpuscular Volume 96 fl (84-94); Platelet Count 104 K/mm3 (140-440); Red Blood Count 3.35 M/mm3 (3.65-5.03); Red Cell Distribution Width 15.8 % (13.2-15.2)
[2018-09-09 05:51] LABS: Hemolysis Index 15
[2018-09-09 06:15] LABS: BUN/Creatinine Ratio 24; Blood Urea Nitrogen 26 mg/dL (9-20)
[2018-09-09] MEDS: PULMICORT IH SCH ×2 (08:19→19:57)
[2018-09-09] MEDS: BROVANA NEBU IH SCH ×2 (08:19→19:57)
[2018-09-09] MEDS: KEPPRA 500 MG in D5W 100 ML IV SCH (09:13)
[2018-09-09] MEDS: PEPCID PO SCH ×2 (09:13→22:41)
[2018-09-09] MEDS: ROCEPHIN/NS 1 GM/50 ML 1 GM/50 ML BAG IV SCH (09:25)
--- NOTE | 2018-09-09 09:40 | Progress Note ---
Assessment and Plan Acute respiratory failure, on mechanical ventilatory support. Status epilepticus. Acute on chronic encephalopathy. Thrombocytopenia that is chronic. History of chronic obstructive lung disease. Anemia that is microcytic. Oropharyngeal dysphagia. Moderate protein calorie malnutrition Hyponatremia - daily SAT's and SBT assessment today, if he meets criteria based on ABGs, mental status and hemodynamics will plan to liberate from MVS - stop fentanyl - continue bronchodilators with pulmonary hygiene per RT - complete empiric AB's (de-escalate based on clinical and microbiologic data)[UC's growing GNR] - continue enteral nutrition as tolerated -increase Keppra to 750mg BID -monitor electrolytes and treat as indicated -Decrease free water flushes in view of hyponatremia - continue supplemental oxygen as needed to keep O2 sat's > 90% - continue lung protective strategies - daily CXR and ABG in short term - VAP bundle addressed - continue accuchecks with glycemic control per SSI for target blood glucose <180mg/dL - Agitation management - Titrate sedation to RASS 0 to -1 (when started) - Prevention of delirium, maintenance of sleep-wake cycle - Azotemia per nephrology (tentatively for HD/UF) - Avoid nephrotoxic agents, adjust all antibiotics and medications for CrCL and GFR - VTE and Stress ulcer prophylaxis - continue other care per attending / other consultants CONDITION: CRITICAL PROGNOSIS: GRAVE to GUARDED CODE STATUS: FULL CODE The high probability of a clinically significant, sudden or life-threatening deterioration of the [respiratory, cardiac and neurologic] system(s) required my full and direct attention, intervention and personal management. The aggregate critical care time was [35] minutes without overlap. Time includes spent on; [x] Data Review and interpretation [x] Patient assessment and monitoring of vital signs [x] Documentation [x] Medication orders and management Subjective Date of service: 09/09/18 Principal diagnosis: Ac resp failure; Status epilepticus; Ac on ch encephalopathy; COPD; Anemia Interval history: Patient is seen today for: Acute respiratory failure on MVS ; Status epilepticus; Acute on chronic encephalopathy; COPD; Anemia; Oropharyngeal dysphagia; Moderate to severe protein calorie malnutrition Seen and examined at bedside; 24hour events reviewed; nursing and respiratory care staff consulted; no adverse overnight events reported to me;vitals, labs, medications, chart and imaging reviewed. Apparently had seizure like activity yesterday per RN. High grade temp last night 102, not sustained fevers, responded well to Tylenol. Currently on Rocephin for GNR bacturia. Currently orally intubated, Vent settings AC-PRVC 20/400/6/31% ABG 7.42/37.5/115/24.5/ Objective Vital Signs - 12hr 09/08/18 09/08/18 09/08/18 21:45 22:00 22:15 Temperature Pulse Rate 121 H 122 H 116 H Pulse Rate [ 122 H From Monitor] Respiratory 15 17 16 Rate Blood Pressure 109/67 112/65 119/68 O2 Sat by Pulse 98 97 Oximetry 09/08/18 09/08/18 09/08/18 22:30 22:39 22:45 Temperature Pulse Rate 121 H 124 H 124 H Pulse Rate [ From Monitor] Respiratory 15 20 15 Rate Blood Pressure 117/70 117/70 121/73 O2 Sat by Pulse 97 98 97 Oximetry 09/08/18 09/08/18 09/08/18 23:00 23:13 23:15 Temperature 102.9 F H Pulse Rate 126 H 125 H Pulse Rate [ From Monitor] Respiratory 20 20 20 Rate Blood Pressure 127/79 116/74 O2 Sat by Pulse 97 96 Oximetry 09/08/18 09/08/18 09/09/18 23:30 23:45 00:00 Temperature Pulse Rate 125 H 127 H 127 H Pulse Rate [ 127 H From Monitor] Respiratory 20 20 20 Rate Blood Pressure 110/70 117/63 116/71 O2 Sat by Pulse 96 96 Oximetry 09/09/18 09/09/18 09/09/18 00:15 00:17 00:30 Temperature 100.3 F H Pulse Rate 127 H 126 H Pulse Rate [ From Monitor] Respiratory 20 20 Rate Blood Pressure 119/73 119/68 O2 Sat by Pulse 96 96 Oximetry 09/09/18 09/09/18 09/09/18 00:45 01:00 01:15 Temperature Pulse Rate 126 H 125 H 115 H Pulse Rate [ From Monitor] Respiratory 19 20 18 Rate Blood Pressure 114/68 118/71 118/70 O2 Sat by Pulse 97 97 98 Oximetry 09/09/18 09/09/18 09/09/18 01:30 01:45 02:00 Temperature Pulse Rate 121 H 121 H 120 H Pulse Rate [ 124 H From Monitor] Respiratory 20 20 20 Rate Blood Pressure 122/67 107/68 116/69 O2 Sat by Pulse 97 97 97 Oximetry 09/09/18 09/09/18 09/09/18 02:15 02:30 02:45 Temperature Pulse Rate 121 H 124 H 120 H Pulse Rate [ From Monitor] Respiratory 20 18 20 Rate Blood Pressure 113/67 118/76 114/74 O2 Sat by Pulse 98 98 Oximetry 09/09/18 09/09/18 09/09/18 03:00 03:15 03:16 Temperature 100.7 F H Pulse Rate 121 H 121 H Pulse Rate [ From Monitor] Respiratory 20 20 Rate Blood Pressure 120/73 115/72 O2 Sat by Pulse Oximetry 09/09/18 09/09/18 09/09/18 03:30 03:37 03:45 Temperature Pulse Rate 127 H 120 H 116 H Pulse Rate [ From Monitor] Respiratory 16 20 Rate Blood Pressure 128/91 128/91 98/60 O2 Sat by Pulse 100 98 97 Oximetry 09/09/18 09/09/18 09/09/18 04:00 04:15 04:30 Temperature Pulse Rate 117 H 116 H 115 H Pulse Rate [ From Monitor] Respiratory 20 20 20 Rate Blood Pressure 121/73 120/71 125/69 O2 Sat by Pulse 98 99 Oximetry 09/09/18 09/09/18 09/09/18 04:45 05:00 05:15 Temperature Pulse Rate 115 H 112 H 110 H Pulse Rate [ From Monitor] Respiratory 21 17 20 Rate Blood Pressure 122/73 129/82 100/64 O2 Sat by Pulse 99 97 Oximetry 09/09/18 09/09/18 09/09/18 05:30 05:45 06:00 Temperature Pulse Rate 110 H 118 H 126 H Pulse Rate [ From Monitor] Respiratory 20 14 17 Rate Blood Pressure 110/74 150/89 135/94 O2 Sat by Pulse 98 97 100 Oximetry 09/09/18 09/09/18 09/09/18 06:15 06:30 06:45 Temperature Pulse Rate 114 H 112 H 110 H Pulse Rate [ From Monitor] Respiratory 19 20 20 Rate Blood Pressure 104/71 105/71 113/66 O2 Sat by Pulse 99 99 99 Oximetry 09/09/18 09/09/18 09/09/18 07:00 07:15 07:30 Temperature Pulse Rate 109 H 108 H 101 H Pulse Rate [ From Monitor] Respiratory 20 20 18 Rate Blood Pressure 102/66 103/66 118/71 O2 Sat by Pulse 99 98 97 Oximetry 09/09/18 09/09/18 09/09/18 07:45 08:00 08:12 Temperature 99.3 F Pulse Rate 111 H 112 H 115 H Pulse Rate [ 112 H From Monitor] Respiratory 20 13 Rate Blood Pressure 108/69 110/77 148/84 O2 Sat by Pulse 97 97 99 Oximetry Constitutional: no acute distress, lethargic, other (atttempts to open eyes with painful stimuli,) Eyes: non-icteric ENT: other (ETT 8.0 at 23cm at the lip. No patient-ventilator dys-synchrony) Neck: supple, no lymphadenopathy Cardiovascular: regular rate and rhythm, other (S1, S2, no murmurs, gallops or rubs) Gastrointestinal: normoactive bowel sounds, soft, non-tender, non-distended, other (NGT ) Integumentary: normal Extremities: no cyanosis, no edema Neurologic: unable to assess Psychiatric: other (unable to assess ) CBC and BMP: 09/09/18 03:58 09/09/18 03:58 ABG, PT/INR, D-dimer: ABG POC ABG pH 7.423 (7.35-7.45) 09/09/18 03:43 POC ABG pCO2 37.5 (35-45) 09/09/18 03:43 POC ABG pO2 115 (80-105) H 09/09/18 03:43 POC ABG HCO3 24.5 (22-26 mml/L) 09/09/18 03:43 POC ABG Total CO2 26 (23-27mmol/L) 09/09/18 03:43 POC ABG O2 Sat 99 09/09/18 03:43 PT/INR, D-dimer PT 13.4 Sec. (12.2-14.9) 09/06/18 19:47 INR 1.05 (0.87-1.13) 09/06/18 19:47 Abnormal lab findings: Abnormal Labs 09/06/18 09/06/18 09/06/18 19:47 19:47 19:47 RBC 3.47 L Hgb 11.0 L Hct 34.6 L MCV 100 H RDW 16.6 H Plt Count 121 L Lymphocytes % (Manual) 50.0 H Fibrinogen POC ABG pO2 Sodium Chloride 97.0 L Carbon Dioxide 21 L BUN Glucose 152 H POC Glucose Lactic Acid Alkaline Phosphatase 138 H Lactate Dehydrogenase Total Creatine Kinase 45 L C-Reactive Protein Total Protein 8.9 H TSH 7.610 H 09/06/18 09/06/18 09/07/18 21:05 23:16 03:41 RBC Hgb Hct MCV RDW Plt Count Lymphocytes % (Manual) Fibrinogen POC ABG pO2 389 H 214 H Sodium Chloride Carbon Dioxide BUN Glucose POC Glucose 147 H Lactic Acid Alkaline Phosphatase Lactate Dehydrogenase Total Creatine Kinase C-Reactive Protein Total Protein TSH 09/07/18 09/07/18 09/07/18 15:04 15:04 21:55 RBC Hgb Hct MCV RDW Plt Count Lymphocytes % (Manual) Fibrinogen POC ABG pO2 Sodium Chloride Carbon Dioxide BUN Glucose POC Glucose Lactic Acid 2.90 H* Alkaline Phosphatase Lactate Dehydrogenase 270 H Total Creatine Kinase C-Reactive Protein 2.70 H Total Protein TSH 09/07/18 09/07/18 09/08/18 21:55 23:41 04:50 RBC Hgb Hct MCV RDW Plt Count Lymphocytes % (Manual) Fibrinogen 616 H POC ABG pO2 110 H Sodium Chloride Carbon Dioxide BUN Glucose POC Glucose 125 H Lactic Acid Alkaline Phosphatase Lactate Dehydrogenase Total Creatine Kinase C-Reactive Protein Total Protein TSH 09/08/18 09/08/18 09/08/18 06:08 12:19 23:38 RBC Hgb Hct MCV RDW Plt Count Lymphocytes % (Manual) Fibrinogen POC ABG pO2 Sodium Chloride Carbon Dioxide BUN Glucose POC Glucose 118 H 112 H 136 H Lactic Acid Alkaline Phosphatase Lactate Dehydrogenase Total Creatine Kinase C-Reactive Protein Total Protein TSH 09/09/18 09/09/18 09/09/18 03:43 03:58 03:58 RBC 3.35 L Hgb 10.8 L Hct 32.2 L MCV 96 H RDW 15.8 H Plt Count 104 L Lymphocytes % (Manual) Fibrinogen POC ABG pO2 115 H Sodium 132 L Chloride 95.6 L Carbon Dioxide BUN 26 H Glucose 126 H POC Glucose Lactic Acid Alkaline Phosphatase Lactate Dehydrogenase Total Creatine Kinase C-Reactive Protein Total Protein TSH Chest x-ray: image reviewed Allied health notes reviewed: RT
[2018-09-09 09:42] LABS: Anisocytosis 1+; Basophils % (Manual) 0 % (0.0-1.8); Eosinophils % (Manual) 0 % (0.0-4.3); Hypochromasia Few; Macrocytosis Few; Platelet Estimate Consistent w Auto; Total Cells Counted 100
[2018-09-09] MEDS: LOPRESSOR IV PRN (15:49)
--- NOTE | 2018-09-09 16:42 | Progress Note ---
Subjective Date of service: 09/09/18 Principal diagnosis: Ac resp failure; Status epilepticus; Ac on ch encephalopathy; COPD; Anemia Interval history: reviewed labs/ all notes / noted that cultures being obtained seozure control is good time for repeat CT of head doubt evidnce of meningitis/ [employer] infection but will assess as rule out since lactate elevated etc will follow up and make further comments Objective - Vital Sign Vital Signs - 12hr 09/09/18 09/09/18 09/09/18 04:45 05:00 05:15 Temperature Pulse Rate 115 H 112 H 110 H Pulse Rate [ Anterior Bilateral Throughout] Pulse Rate [ From Monitor] Respiratory 21 17 20 Rate Respiratory Rate [Anterior Bilateral Throughout] Blood Pressure 122/73 129/82 100/64 O2 Sat by Pulse 99 97 Oximetry 09/09/18 09/09/18 09/09/18 05:30 05:45 06:00 Temperature Pulse Rate 110 H 118 H 126 H Pulse Rate [ Anterior Bilateral Throughout] Pulse Rate [ From Monitor] Respiratory 20 14 17 Rate Respiratory Rate [Anterior Bilateral Throughout] Blood Pressure 110/74 150/89 135/94 O2 Sat by Pulse 98 97 100 Oximetry 09/09/18 09/09/18 09/09/18 06:15 06:30 06:45 Temperature Pulse Rate 114 H 112 H 110 H Pulse Rate [ Anterior Bilateral Throughout] Pulse Rate [ From Monitor] Respiratory 19 20 20 Rate Respiratory Rate [Anterior Bilateral Throughout] Blood Pressure 104/71 105/71 113/66 O2 Sat by Pulse 99 99 99 Oximetry 09/09/18 09/09/18 09/09/18 07:00 07:15 07:30 Temperature Pulse Rate 109 H 108 H 101 H Pulse Rate [ Anterior Bilateral Throughout] Pulse Rate [ From Monitor] Respiratory 20 20 18 Rate Respiratory Rate [Anterior Bilateral Throughout] Blood Pressure 102/66 103/66 118/71 O2 Sat by Pulse 99 98 97 Oximetry 09/09/18 09/09/18 09/09/18 07:45 08:00 08:12 Temperature 99.3 F Pulse Rate 111 H 112 H 115 H Pulse Rate [ Anterior Bilateral Throughout] Pulse Rate [ 112 H From Monitor] Respiratory 20 13 15 Rate Respiratory Rate [Anterior Bilateral Throughout] Blood Pressure 108/69 110/77 148/84 O2 Sat by Pulse 97 97 99 Oximetry 09/09/18 09/09/18 09/09/18 08:15 08:30 08:45 Temperature Pulse Rate 116 H 110 H 113 H Pulse Rate [ Anterior Bilateral Throughout] Pulse Rate [ From Monitor] Respiratory 14 12 11 L Rate Respiratory Rate [Anterior Bilateral Throughout] Blood Pressure 148/84 114/74 116/76 O2 Sat by Pulse 97 97 Oximetry 09/09/18 09/09/18 09/09/18 09:00 09:05 09:15 Temperature Pulse Rate 110 H 114 H Pulse Rate [ 115 H Anterior Bilateral Throughout] Pulse Rate [ From Monitor] Respiratory 13 12 Rate Respiratory 14 Rate [Anterior Bilateral Throughout] Blood Pressure 116/69 108/68 O2 Sat by Pulse 98 Oximetry 09/09/18 09/09/18 09/09/18 09:30 09:45 10:00 Temperature Pulse Rate 113 H 115 H 117 H Pulse Rate [ Anterior Bilateral Throughout] Pulse Rate [ From Monitor] Respiratory 14 14 14 Rate Respiratory Rate [Anterior Bilateral Throughout] Blood Pressure 116/69 116/69 112/73 O2 Sat by Pulse 99 99 Oximetry 09/09/18 09/09/18 09/09/18 10:15 10:30 10:45 Temperature Pulse Rate 118 H 118 H 117 H Pulse Rate [ Anterior Bilateral Throughout] Pulse Rate [ From Monitor] Respiratory 21 15 13 Rate Respiratory Rate [Anterior Bilateral Throughout] Blood Pressure 112/73 115/73 115/73 O2 Sat by Pulse 100 100 Oximetry 09/09/18 09/09/18 09/09/18 11:00 11:07 11:15 Temperature Pulse Rate 117 H 118 H 118 H Pulse Rate [ Anterior Bilateral Throughout] Pulse Rate [ From Monitor] Respiratory 16 14 15 Rate Respiratory Rate [Anterior Bilateral Throughout] Blood Pressure 113/64 113/64 115/73 O2 Sat by Pulse 99 100 100 Oximetry 09/09/18 09/09/18 09/09/18 11:30 11:45 12:00 Temperature 100.4 F H Pulse Rate 116 H 119 H 117 H Pulse Rate [ Anterior Bilateral Throughout] Pulse Rate [ 117 H From Monitor] Respiratory 15 13 18 Rate Respiratory Rate [Anterior Bilateral Throughout] Blood Pressure 102/60 102/60 110/65 O2 Sat by Pulse 98 99 98 Oximetry 09/09/18 09/09/18 09/09/18 12:15 12:30 12:45 Temperature Pulse Rate 116 H 116 H 118 H Pulse Rate [ Anterior Bilateral Throughout] Pulse Rate [ From Monitor] Respiratory 17 18 18 Rate Respiratory Rate [Anterior Bilateral Throughout] Blood Pressure 110/65 109/66 110/65 O2 Sat by Pulse 99 100 Oximetry 09/09/18 09/09/18 09/09/18 13:00 13:15 13:30 Temperature Pulse Rate 118 H 120 H 120 H Pulse Rate [ Anterior Bilateral Throughout] Pulse Rate [ From Monitor] Respiratory 17 18 15 Rate Respiratory Rate [Anterior Bilateral Throughout] Blood Pressure 126/70 126/70 130/75 O2 Sat by Pulse 99 99 Oximetry 09/09/18 09/09/18 09/09/18 13:45 14:00 14:15 Temperature Pulse Rate 117 H 121 H 124 H Pulse Rate [ Anterior Bilateral Throughout] Pulse Rate [ From Monitor] Respiratory 16 20 21 Rate Respiratory Rate [Anterior Bilateral Throughout] Blood Pressure 126/70 123/73 123/73 O2 Sat by Pulse 100 98 100 Oximetry 09/09/18 09/09/18 09/09/18 14:30 14:45 15:00 Temperature Pulse Rate 121 H 119 H 122 H Pulse Rate [ Anterior Bilateral Throughout] Pulse Rate [ From Monitor] Respiratory 20 20 26 H Rate Respiratory Rate [Anterior Bilateral Throughout] Blood Pressure 111/61 123/73 111/61 O2 Sat by Pulse 99 100 99 Oximetry 09/09/18 09/09/18 09/09/18 15:12 15:15 15:17 Temperature Pulse Rate 126 H 124 H Pulse Rate [ Anterior Bilateral Throughout] Pulse Rate [ From Monitor] Respiratory 26 H Rate Respiratory Rate [Anterior Bilateral Throughout] Blood Pressure 141/79 111/61 O2 Sat by Pulse 100 100 100 Oximetry 09/09/18 09/09/18 09/09/18 15:30 15:45 15:49 Temperature Pulse Rate 136 H 146 H 140 H Pulse Rate [ Anterior Bilateral Throughout] Pulse Rate [ From Monitor] Respiratory 25 H 15 26 H Rate Respiratory Rate [Anterior Bilateral Throughout] Blood Pressure 130/74 130/74 130/74 O2 Sat by Pulse 92 97 98 Oximetry 09/09/18 09/09/18 16:00 16:15 Temperature 98.8 F Pulse Rate 114 H 106 H Pulse Rate [ Anterior Bilateral Throughout] Pulse Rate [ 114 H From Monitor] Respiratory 16 11 L Rate Respiratory Rate [Anterior Bilateral Throughout] Blood Pressure 126/76 126/76 O2 Sat by Pulse 96 100 Oximetry - Laboratory Findings CBC and BMP: 09/09/18 03:58 09/09/18 03:58 Abnormal Lab Findings: Abnormal Labs 09/06/18 09/06/18 09/06/18 19:47 19:47 19:47 RBC 3.47 L Hgb 11.0 L Hct 34.6 L MCV 100 H RDW 16.6 H Plt Count 121 L Lymphocytes % (Manual) 50.0 H Monocytes % (Manual) Monocytes # (Manual) Fibrinogen POC ABG pH POC ABG pCO2 POC ABG pO2 Sodium Chloride 97.0 L Carbon Dioxide 21 L BUN Glucose 152 H POC Glucose Lactic Acid Alkaline Phosphatase 138 H Lactate Dehydrogenase Total Creatine Kinase 45 L C-Reactive Protein Total Protein 8.9 H TSH 7.610 H 09/06/18 09/06/18 09/07/18 21:05 23:16 03:41 RBC Hgb Hct MCV RDW Plt Count Lymphocytes % (Manual) Monocytes % (Manual) Monocytes # (Manual) Fibrinogen POC ABG pH POC ABG pCO2 POC ABG pO2 389 H 214 H Sodium Chloride Carbon Dioxide BUN Glucose POC Glucose 147 H Lactic Acid Alkaline Phosphatase Lactate Dehydrogenase Total Creatine Kinase C-Reactive Protein Total Protein TSH 09/07/18 09/07/18 09/07/18 15:04 15:04 21:55 RBC Hgb Hct MCV RDW Plt Count Lymphocytes % (Manual) Monocytes % (Manual) Monocytes # (Manual) Fibrinogen POC ABG pH POC ABG pCO2 POC ABG pO2 Sodium Chloride Carbon Dioxide BUN Glucose POC Glucose Lactic Acid 2.90 H* Alkaline Phosphatase Lactate Dehydrogenase 270 H Total Creatine Kinase C-Reactive Protein 2.70 H Total Protein TSH 09/07/18 09/07/18 09/08/18 21:55 23:41 04:50 RBC Hgb Hct MCV RDW Plt Count Lymphocytes % (Manual) Monocytes % (Manual) Monocytes # (Manual) Fibrinogen 616 H POC ABG pH POC ABG pCO2 POC ABG pO2 110 H Sodium Chloride Carbon Dioxide BUN Glucose POC Glucose 125 H Lactic Acid Alkaline Phosphatase Lactate Dehydrogenase Total Creatine Kinase C-Reactive Protein Total Protein TSH 09/08/18 09/08/18 09/08/18 06:08 12:19 23:38 RBC Hgb Hct MCV RDW Plt Count Lymphocytes % (Manual) Monocytes % (Manual) Monocytes # (Manual) Fibrinogen POC ABG pH POC ABG pCO2 POC ABG pO2 Sodium Chloride Carbon Dioxide BUN Glucose POC Glucose 118 H 112 H 136 H Lactic Acid Alkaline Phosphatase Lactate Dehydrogenase Total Creatine Kinase C-Reactive Protein Total Protein TSH 09/09/18 09/09/18 09/09/18 03:43 03:58 03:58 RBC 3.35 L Hgb 10.8 L Hct 32.2 L MCV 96 H RDW 15.8 H Plt Count 104 L Lymphocytes % (Manual) Monocytes % (Manual) 19.0 H Monocytes # (Manual) 1.1 H Fibrinogen POC ABG pH POC ABG pCO2 POC ABG pO2 115 H Sodium 132 L Chloride 95.6 L Carbon Dioxide BUN 26 H Glucose 126 H POC Glucose Lactic Acid Alkaline Phosphatase Lactate Dehydrogenase Total Creatine Kinase C-Reactive Protein Total Protein TSH 09/09/18 09/09/18 12:14 14:18 RBC Hgb Hct MCV RDW Plt Count Lymphocytes % (Manual) Monocytes % (Manual) Monocytes # (Manual) Fibrinogen POC ABG pH 7.467 H POC ABG pCO2 32.7 L POC ABG pO2 111 H Sodium Chloride Carbon Dioxide BUN Glucose POC Glucose 145 H Lactic Acid Alkaline Phosphatase Lactate Dehydrogenase Total Creatine Kinase C-Reactive Protein Total Protein TSH
[2018-09-09] MEDS: HumuLIN R SUB-Q SCH (18:22)
[2018-09-09] MEDS: KEPPRA 750 MG in D5W 100 ML IV SCH (22:42)
[2018-09-10] MEDS: HumuLIN R SUB-Q SCH ×4 (02:06→18:13)
[2018-09-10] MEDS: PULMICORT IH SCH ×2 (08:15→21:11)
[2018-09-10] MEDS: BROVANA NEBU IH SCH ×2 (08:15→21:11)
--- NOTE | 2018-09-10 09:11 | Cat Scan Report ---
CT HEAD WITHOUT CONTRAST INDICATION / CLINICAL INFORMATION: ams. TECHNIQUE: All CT scans at this location are performed using CT dose reduction for ALARA by means of automated e xposure control. COMPARISON: Exam is compared to 09/06/2018 FINDINGS: HEMORRHAGE: None. EXTRA-AXIAL SPACES: Again seen are the bilateral frontal subdural hypodense collections, slightly lar graciela on the left than on the right VENTRICULAR SYSTEM: Normal in size and morphology for the patient's age. CEREBRAL PARENCHYMA: No significant abnormality. No acute territorial infarct. MIDLINE SHIFT OR HERNIATION: None. CEREBELLUM / BRAINSTEM: No significant abnormality. ORBITS: Normal as visualized. SOFT TISSUES of HEAD: No significant abnormality. CALVARIUM: No significant abnormality. PARANASAL SINUSES / MASTOID AIR CELLS: Normal as visualized. ADDITIONAL FINDINGS: None. IMPRESSION: 1. Persistent bilateral subdural fluid collections unchanged as compared to previous exam Signer Name: Elliott Hogan MD Signed: 09/10/2018 9:07 AM Workstation Name: [id number]
--- NOTE | 2018-09-10 10:00 | Progress Note ---
Assessment and Plan Acute respiratory failure, on mechanical ventilatory support. Status epilepticus. Acute on chronic encephalopathy. Thrombocytopenia that is chronic. History of chronic obstructive lung disease. Anemia that is microcytic. Oropharyngeal dysphagia. Adult failure to thrive - observe in ICU overnight; if does not need BIPA support will downgrade in am - complete empiric AB's (de-escalate based on clinical and microbiologic data) - continue to avoid sedatives in short term - continue bronchodilators with pulmonary hygiene per RT - continue enteral nutrition as tolerated - ST evaluation will be ordered - wean supplemental oxygen as needed to keep O2 sat's > 90% - prn CXR and ABG at this point - continue accuchecks with glycemic control per SSI for target blood glucose <180mg/dL - Agitation management - Prevention of delirium, maintenance of sleep-wake cycle - Avoid nephrotoxic agents, adjust all antibiotics and medications for CrCL and GFR - VTE and Stress ulcer prophylaxis - continue other care per attending / other consultants ... re-evaluate in am & prn CONDITION: IMPROVED PROGNOSIS: GUARDED CODE STATUS: FULL CODE I have spent ( >35 ) minutes with the patient w/ >50% of the time spent counseling and/or coordinating care for this patient. Counseling topics and/or how time was spent coordinating patient's care is outlined in the impression and plan above. Subjective Date of service: 09/10/18 Principal diagnosis: Ac resp failure; Status epilepticus; Ac on ch encephalopathy; COPD; Anemia Interval history: Patient is seen today for: Acute respiratory failure; Status epilepticus; Acute on chronic encephalopathy; COPD; Anemia; Oropharyngeal dysphagia; Adult failure to thrive Seen and examined at bedside; 24hour events reviewed; nursing and respiratory care staff consulted; no adverse overnight events reported to me; resting peac efully in bed; required significant BIPAP support post extubation but tolerating nasal cannula today; more alert but still with significant dementia; No emesis or overt aspiration; afebrile Objective Vital Signs - 12hr 09/09/18 09/09/18 09/09/18 22:00 22:11 22:15 Temperature Pulse Rate 118 H 121 H 120 H Pulse Rate [ Anterior Bilateral Throughout] Pulse Rate [ From Monitor] Respiratory 26 H 24 24 Rate Respiratory Rate [Anterior Bilateral Throughout] Blood Pressure 121/61 121/61 121/61 O2 Sat by Pulse 98 100 100 Oximetry 09/09/18 09/09/18 09/09/18 22:30 22:45 23:00 Temperature Pulse Rate 115 H 108 H 119 H Pulse Rate [ Anterior Bilateral Throughout] Pulse Rate [ From Monitor] Respiratory 27 H 26 H 24 Rate Respiratory Rate [Anterior Bilateral Throughout] Blood Pressure 107/64 107/64 118/73 O2 Sat by Pulse 99 100 98 Oximetry 09/09/18 09/09/18 09/09/18 23:08 23:15 23:30 Temperature 100.1 F H Pulse Rate 110 H 112 H Pulse Rate [ Anterior Bilateral Throughout] Pulse Rate [ From Monitor] Respiratory 25 H 23 Rate Respiratory Rate [Anterior Bilateral Throughout] Blood Pressure 118/73 128/76 O2 Sat by Pulse 100 98 Oximetry 09/09/18 09/09/18 09/10/18 23:45 23:50 00:00 Temperature Pulse Rate 110 H 110 H 109 H Pulse Rate [ Anterior Bilateral Throughout] Pulse Rate [ 111 H From Monitor] Respiratory 26 H 24 22 Rate Respiratory Rate [Anterior Bilateral Throughout] Blood Pressure 128/76 118/73 134/78 O2 Sat by Pulse 100 100 100 Oximetry 09/10/18 09/10/18 09/10/18 00:15 00:30 00:45 Temperature Pulse Rate 112 H 112 H 110 H Pulse Rate [ Anterior Bilateral Throughout] Pulse Rate [ From Monitor] Respiratory 23 18 20 Rate Respiratory Rate [Anterior Bilateral Throughout] Blood Pressure 134/78 129/82 129/82 O2 Sat by Pulse 100 100 Oximetry 09/10/18 09/10/18 09/10/18 01:00 01:15 01:30 Temperature Pulse Rate 109 H 109 H 106 H Pulse Rate [ Anterior Bilateral Throughout] Pulse Rate [ From Monitor] Respiratory 21 21 18 Rate Respiratory Rate [Anterior Bilateral Throughout] Blood Pressure 128/77 128/77 118/70 O2 Sat by Pulse 100 Oximetry 09/10/18 09/10/18 09/10/18 01:45 02:00 02:15 Temperature Pulse Rate 108 H 108 H 108 H Pulse Rate [ Anterior Bilateral Throughout] Pulse Rate [ From Monitor] Respiratory 20 19 18 Rate Respiratory Rate [Anterior Bilateral Throughout] Blood Pressure 118/70 116/73 116/73 O2 Sat by Pulse 100 100 Oximetry 09/10/18 09/10/18 09/10/18 02:30 02:46 03:00 Temperature Pulse Rate 109 H 109 H 109 H Pulse Rate [ Anterior Bilateral Throughout] Pulse Rate [ From Monitor] Respiratory 20 18 18 Rate Respiratory Rate [Anterior Bilateral Throughout] Blood Pressure 121/72 116/73 127/75 O2 Sat by Pulse 100 Oximetry 09/10/18 09/10/18 09/10/18 03:16 03:18 03:30 Temperature 99.8 F H Pulse Rate 108 H 110 H Pulse Rate [ Anterior Bilateral Throughout] Pulse Rate [ From Monitor] Respiratory 18 19 Rate Respiratory Rate [Anterior Bilateral Throughout] Blood Pressure 127/75 119/76 O2 Sat by Pulse 100 Oximetry 09/10/18 09/10/18 09/10/18 03:46 04:00 04:16 Temperature Pulse Rate 110 H 113 H 114 H Pulse Rate [ Anterior Bilateral Throughout] Pulse Rate [ From Monitor] Respiratory 18 20 18 Rate Respiratory Rate [Anterior Bilateral Throughout] Blood Pressure 119/76 118/77 118/77 O2 Sat by Pulse 100 99 100 Oximetry 09/10/18 09/10/18 09/10/18 04:27 04:30 04:31 Temperature Pulse Rate 114 H 114 H Pulse Rate [ Anterior Bilateral Throughout] Pulse Rate [ 114 H From Monitor] Respiratory 20 20 Rate Respiratory Rate [Anterior Bilateral Throughout] Blood Pressure 124/77 O2 Sat by Pulse 100 100 Oximetry 09/10/18 09/10/18 09/10/18 04:46 05:00 05:16 Temperature Pulse Rate 112 H 114 H 116 H Pulse Rate [ Anterior Bilateral Throughout] Pulse Rate [ From Monitor] Respiratory 22 14 21 Rate Respiratory Rate [Anterior Bilateral Throughout] Blood Pressure 124/77 111/67 111/67 O2 Sat by Pulse 100 98 100 Oximetry 09/10/18 09/10/18 09/10/18 05:18 05:30 05:46 Temperature Pulse Rate 118 H 117 H Pulse Rate [ Anterior Bilateral Throughout] Pulse Rate [ From Monitor] Respiratory 26 H 24 Rate Respiratory Rate [Anterior Bilateral Throughout] Blood Pressure 111/67 118/78 118/78 O2 Sat by Pulse 100 100 100 Oximetry 09/10/18 09/10/18 09/10/18 06:00 06:16 06:30 Temperature Pulse Rate 118 H 115 H Pulse Rate [ Anterior Bilateral Throughout] Pulse Rate [ From Monitor] Respiratory 19 22 19 Rate Respiratory Rate [Anterior Bilateral Throughout] Blood Pressure 115/70 115/70 118/67 O2 Sat by Pulse 98 99 Oximetry 09/10/18 09/10/1819 06:46 07:00 07:16 Temperature Pulse Rate 116 H 115 H 114 H Pulse Rate [ Anterior Bilateral Throughout] Pulse Rate [ From Monitor] Respiratory 22 22 20 Rate Respiratory Rate [Anterior Bilateral Throughout] Blood Pressure 118/67 115/64 115/64 O2 Sat by Pulse 99 96 97 Oximetry 09/10/18 09/10/18 09/10/18 07:30 07:46 08:00 Temperature 99.7 F H Pulse Rate 119 H 117 H 117 H Pulse Rate [ Anterior Bilateral Throughout] Pulse Rate [ 118 H From Monitor] Respiratory 18 22 22 Rate Respiratory Rate [Anterior Bilateral Throughout] Blood Pressure 113/68 113/68 108/60 O2 Sat by Pulse 94 98 97 Oximetry 09/10/18 09/10/18 09/10/18 08:16 08:17 08:42 Temperature Pulse Rate 117 H 124 H Pulse Rate [ 120 H Anterior Bilateral Throughout] Pulse Rate [ From Monitor] Respiratory 21 17 Rate Respiratory 21 Rate [Anterior Bilateral Throughout] Blood Pressure 108/60 O2 Sat by Pulse 98 99 Oximetry 09/10/18 09/10/18 08:46 09:00 Temperature Pulse Rate 119 H 128 H Pulse Rate [ Anterior Bilateral Throughout] Pulse Rate [ From Monitor] Respiratory 23 27 H Rate Respiratory Rate [Anterior Bilateral Throughout] Blood Pressure O2 Sat by Pulse 99 96 Oximetry Constitutional: no acute distress, other (elderly looking AAM, normocephalic resting in bed with mildly increasec resp effort at rest) Eyes: non-icteric ENT: oropharynx moist, other (extubated) Neck: supple, no lymphadenopathy, no JVD Effort: mildly labored Ascultation: Bilateral: diminished breath sounds, rhonchi (scant), other (referred upper airway sounds) Percussion: Bilateral: not dull Cardiovascular: regular rate and rhythm Gastrointestinal: normoactive bowel sounds, soft, non-tender, non-distended Integumentary: normal Extremities: no cyanosis, no edema, pulses normal, no ischemia or petechiae Neurologic: unable to assess Psychiatric: other (flat affect) CBC and BMP: 09/11/18 08:25 09/11/18 08:25 ABG, PT/INR, D-dimer: ABG POC ABG pH 7.452 (7.35-7.45) H 09/10/18 05:25 POC ABG pCO2 35.5 (35-45) 09/10/18 05:25 POC ABG pO2 142 (80-105) H 09/10/18 05:25 POC ABG HCO3 24.8 (22-26 mml/L) 09/10/18 05:25 POC ABG Total CO2 26 (23-27mmol/L) 09/10/18 05:25 POC ABG O2 Sat 99 09/10/18 05:25 PT/INR, D-dimer PT 13.4 Sec. (12.2-14.9) 09/06/18 19:47 INR 1.05 (0.87-1.13) 09/06/18 19:47 Abnormal lab findings: Abnormal Labs 09/06/18 09/06/18 09/06/18 19:47 19:47 19:47 RBC 3.47 L Hgb 11.0 L Hct 34.6 L MCV 100 H RDW 16.6 H Plt Count 121 L Lymphocytes % (Manual) 50.0 H Monocytes % (Manual) Monocytes # (Manual) Fibrinogen POC ABG pH POC ABG pCO2 POC ABG pO2 Sodium Chloride 97.0 L Carbon Dioxide 21 L BUN Glucose 152 H POC Glucose Lactic Acid Alkaline Phosphatase 138 H Lactate Dehydrogenase Total Creatine Kinase 45 L C-Reactive Protein Total Protein 8.9 H TSH 7.610 H 09/06/18 09/06/18 09/07/18 21:05 23:16 03:41 RBC Hgb Hct MCV RDW Plt Count Lymphocytes % (Manual) Monocytes % (Manual) Monocytes # (Manual) Fibrinogen POC ABG pH POC ABG pCO2 POC ABG pO2 389 H 214 H Sodium Chloride Carbon Dioxide BUN Glucose POC Glucose 147 H Lactic Acid Alkaline Phosphatase Lactate Dehydrogenase Total Creatine Kinase C-Reactive Protein Total Protein TSH 09/07/18 09/07/18 09/07/18 15:04 15:04 21:55 RBC Hgb Hct MCV RDW Plt Count Lymphocytes % (Manual) Monocytes % (Manual) Monocytes # (Manual) Fibrinogen POC ABG pH POC ABG pCO2 POC ABG pO2 Sodium Chloride Carbon Dioxide BUN Glucose POC Glucose Lactic Acid 2.90 H* Alkaline Phosphatase Lactate Dehydrogenase 270 H Total Creatine Kinase C-Reactive Protein 2.70 H Total Protein TSH 09/07/18 09/07/18 09/08/18 21:55 23:41 04:50 RBC Hgb Hct MCV RDW Plt Count Lymphocytes % (Manual) Monocytes % (Manual) Monocytes # (Manual) Fibrinogen 616 H POC ABG pH POC ABG pCO2 POC ABG pO2 110 H Sodium Chloride Carbon Dioxide BUN Glucose POC Glucose 125 H Lactic Acid Alkaline Phosphatase Lactate Dehydrogenase Total Creatine Kinase C-Reactive Protein Total Protein TSH 09/08/18 09/08/18 09/08/18 06:08 12:19 23:38 RBC Hgb Hct MCV RDW Plt Count Lymphocytes % (Manual) Monocytes % (Manual) Monocytes # (Manual) Fibrinogen POC ABG pH POC ABG pCO2 POC ABG pO2 Sodium Chloride Carbon Dioxide BUN Glucose POC Glucose 118 H 112 H 136 H Lactic Acid Alkaline Phosphatase Lactate Dehydrogenase Total Creatine Kinase C-Reactive Protein Total Protein TSH 09/09/18 09/09/18 09/09/18 03:43 03:58 03:58 RBC 3.35 L Hgb 10.8 L Hct 32.2 L MCV 96 H RDW 15.8 H Plt Count 104 L Lymphocytes % (Manual) Monocytes % (Manual) 19.0 H Monocytes # (Manual) 1.1 H Fibrinogen POC ABG pH POC ABG pCO2 POC ABG pO2 115 H Sodium 132 L Chloride 95.6 L Carbon Dioxide BUN 26 H Glucose 126 H POC Glucose Lactic Acid Alkaline Phosphatase Lactate Dehydrogenase Total Creatine Kinase C-Reactive Protein Total Protein TSH 09/09/18 09/09/18 09/09/18 12:14 14:18 17:58 RBC Hgb Hct MCV RDW Plt Count Lymphocytes % (Manual) Monocytes % (Manual) Monocytes # (Manual) Fibrinogen POC ABG pH 7.467 H POC ABG pCO2 32.7 L POC ABG pO2 111 H Sodium Chloride Carbon Dioxide BUN Glucose POC Glucose 145 H 204 H Lactic Acid Alkaline Phosphatase Lactate Dehydrogenase Total Creatine Kinase C-Reactive Protein Total Protein TSH 09/09/18 09/10/18 09/10/18 23:36 05:16 05:25 RBC Hgb Hct MCV RDW Plt Count Lymphocytes % (Manual) Monocytes % (Manual) Monocytes # (Manual) Fibrinogen POC ABG pH 7.452 H POC ABG pCO2 POC ABG pO2 142 H Sodium Chloride Carbon Dioxide BUN Glucose POC Glucose 153 H 149 H Lactic Acid Alkaline Phosphatase Lactate Dehydrogenase Total Creatine Kinase C-Reactive Protein Total Protein TSH Chest x-ray: image reviewed (no focal infiltrate) Allied health notes reviewed: nursing
[2018-09-10] MEDS: PEPCID PO SCH ×2 (10:03→21:45)
[2018-09-10] MEDS: ROCEPHIN/NS 1 GM/50 ML 1 GM/50 ML BAG IV SCH (10:03)
[2018-09-10] MEDS: KEPPRA 750 MG in D5W 100 ML IV SCH (10:03)
[2018-09-10] MEDS: KEPPRA PO SCH (21:45)
[2018-09-11] MEDS: HumuLIN R SUB-Q SCH ×4 (02:56→18:45)
--- NOTE | 2018-09-11 07:19 | Progress Note ---
Subjective Date of service: 09/10/18 Principal diagnosis: Ac resp failure; Status epilepticus; Ac on ch encephalopathy; COPD; Anemia Interval history: Pt seen and examined. Lying quietly in bed. Extubated. No more seizures Objective - Exam Narrative Exam: (1) Status epilepticus resolved follow neurology. (2) Acute encephalopathy Continue control of seizure Supportive. (3) Thrombocytopenia Current Visit: No Status: Chronic Plan to address problem: will monitor accordingly (4) Acute respiratory failure Extubated continue wth supplemtnal oxygen - Constitutional Vitals: Vital Signs - 12hr 09/10/18 09/10/18 09/10/18 19:16 19:30 19:32 Temperature Pulse Rate 116 H 114 H 114 H Pulse Rate [ Anterior Bilateral Throughout] Pulse Rate [ From Monitor] Respiratory 24 16 21 Rate Respiratory Rate [Anterior Bilateral Throughout] Blood Pressure 123/73 121/66 121/66 O2 Sat by Pulse 97 97 Oximetry 09/10/18 09/10/18 09/10/18 19:46 20:00 20:16 Temperature 98.8 F Pulse Rate 117 H 118 H 116 H Pulse Rate [ Anterior Bilateral Throughout] Pulse Rate [ 118 H From Monitor] Respiratory 14 18 22 Rate Respiratory Rate [Anterior Bilateral Throughout] Blood Pressure 121/66 124/63 121/66 O2 Sat by Pulse 95 92 96 Oximetry 09/10/18 09/10/18 09/10/18 20:30 20:46 20:50 Temperature Pulse Rate 115 H 115 H Pulse Rate [ 117 H Anterior Bilateral Throughout] Pulse Rate [ From Monitor] Respiratory 23 25 H Rate Respiratory 16 Rate [Anterior Bilateral Throughout] Blood Pressure 123/69 123/69 O2 Sat by Pulse 95 97 Oximetry 09/10/18 09/10/18 09/10/18 21:00 21:16 21:30 Temperature Pulse Rate 116 H 116 H 117 H Pulse Rate [ Anterior Bilateral Throughout] Pulse Rate [ From Monitor] Respiratory 25 H 30 H 12 Rate Respiratory Rate [Anterior Bilateral Throughout] Blood Pressure 120/67 120/67 117/64 O2 Sat by Pulse 94 97 95 Oximetry 09/10/18 09/10/18 09/10/18 21:46 22:00 22:16 Temperature Pulse Rate 117 H 121 H 118 H Pulse Rate [ Anterior Bilateral Throughout] Pulse Rate [ From Monitor] Respiratory 20 32 H 25 H Rate Respiratory Rate [Anterior Bilateral Throughout] Blood Pressure 117/64 125/68 117/64 O2 Sat by Pulse 96 91 95 Oximetry 09/10/18 09/10/18 09/10/18 22:30 22:46 23:00 Temperature Pulse Rate 117 H 116 H 117 H Pulse Rate [ Anterior Bilateral Throughout] Pulse Rate [ From Monitor] Respiratory 27 H 26 H 18 Rate Respiratory Rate [Anterior Bilateral Throughout] Blood Pressure 117/66 125/68 119/66 O2 Sat by Pulse 94 97 Oximetry 09/10/18 09/10/18 09/10/18 23:16 23:30 23:46 Temperature Pulse Rate 116 H 115 H 115 H Pulse Rate [ Anterior Bilateral Throughout] Pulse Rate [ From Monitor] Respiratory 26 H 22 16 Rate Respiratory Rate [Anterior Bilateral Throughout] Blood Pressure 117/66 109/73 109/73 O2 Sat by Pulse 98 95 97 Oximetry 09/10/18 09/11/18 09/11/18 23:50 00:00 00:16 Temperature 99.6 F Pulse Rate 113 H 115 H Pulse Rate [ Anterior Bilateral Throughout] Pulse Rate [ 117 H From Monitor] Respiratory 24 20 Rate Respiratory Rate [Anterior Bilateral Throughout] Blood Pressure 111/66 111/66 O2 Sat by Pulse 95 96 Oximetry 09/11/18 09/11/18 09/11/18 00:30 00:46 01:00 Temperature Pulse Rate 114 H 108 H 113 H Pulse Rate [ Anterior Bilateral Throughout] Pulse Rate [ From Monitor] Respiratory 30 H 14 28 H Rate Respiratory Rate [Anterior Bilateral Throughout] Blood Pressure 110/69 110/69 117/72 O2 Sat by Pulse 95 99 94 Oximetry 09/11/18 09/11/18 09/11/18 01:16 01:30 01:46 Temperature Pulse Rate 113 H 112 H 111 H Pulse Rate [ Anterior Bilateral Throughout] Pulse Rate [ From Monitor] Respiratory 31 H 28 H 30 H Rate Respiratory Rate [Anterior Bilateral Throughout] Blood Pressure 117/72 116/71 116/71 O2 Sat by Pulse 95 95 96 Oximetry 09/11/18 09/11/18 09/11/18 02:00 02:16 02:30 Temperature Pulse Rate 113 H 110 H 112 H Pulse Rate [ Anterior Bilateral Throughout] Pulse Rate [ From Monitor] Respiratory 20 20 19 Rate Respiratory Rate [Anterior Bilateral Throughout] Blood Pressure 107/66 107/66 122/70 O2 Sat by Pulse 95 98 94 Oximetry 09/11/18 09/11/18 09/11/18 02:46 03:00 03:16 Temperature Pulse Rate 114 H 112 H 114 H Pulse Rate [ Anterior Bilateral Throughout] Pulse Rate [ From Monitor] Respiratory 22 32 H 29 H Rate Respiratory Rate [Anterior Bilateral Throughout] Blood Pressure 122/70 118/70 118/70 O2 Sat by Pulse 98 97 Oximetry 09/11/18 09/11/18 09/11/18 03:30 03:46 03:54 Temperature 100.5 F H Pulse Rate 114 H 115 H Pulse Rate [ Anterior Bilateral Throughout] Pulse Rate [ From Monitor] Respiratory 29 H 22 Rate Respiratory Rate [Anterior Bilateral Throughout] Blood Pressure 124/67 124/67 O2 Sat by Pulse 95 98 Oximetry 09/11/18 09/11/18 09/11/18 04:00 04:16 04:30 Temperature Pulse Rate 116 H 116 H 120 H Pulse Rate [ Anterior Bilateral Throughout] Pulse Rate [ 116 H From Monitor] Respiratory 27 H 19 27 H Rate Respiratory Rate [Anterior Bilateral Throughout] Blood Pressure 124/73 124/73 113/57 O2 Sat by Pulse 96 98 96 Oximetry 09/11/18 09/11/18 09/11/18 04:46 05:00 05:16 Temperature Pulse Rate 117 H 117 H 118 H Pulse Rate [ Anterior Bilateral Throughout] Pulse Rate [ From Monitor] Respiratory 26 H 26 H 27 H Rate Respiratory Rate [Anterior Bilateral Throughout] Blood Pressure 113/57 109/61 109/61 O2 Sat by Pulse 99 98 Oximetry 09/11/18 09/11/18 09/11/18 05:30 05:46 06:00 Temperature Pulse Rate 115 H 119 H 118 H Pulse Rate [ Anterior Bilateral Throughout] Pulse Rate [ From Monitor] Respiratory 26 H 29 H 26 H Rate Respiratory Rate [Anterior Bilateral Throughout] Blood Pressure 111/60 111/60 111/60 O2 Sat by Pulse 98 99 98 Oximetry 09/11/18 09/11/18 09/11/18 06:16 06:30 06:46 Temperature Pulse Rate 119 H 120 H 117 H Pulse Rate [ Anterior Bilateral Throughout] Pulse Rate [ From Monitor] Respiratory 28 H 27 H 29 H Rate Respiratory Rate [Anterior Bilateral Throughout] Blood Pressure 125/65 114/59 114/59 O2 Sat by Pulse 99 96 98 Oximetry 09/11/18 07:00 Temperature Pulse Rate 118 H Pulse Rate [ Anterior Bilateral Throughout] Pulse Rate [ From Monitor] Respiratory 27 H Rate Respiratory Rate [Anterior Bilateral Throughout] Blood Pressure 124/62 O2 Sat by Pulse 96 Oximetry General appearance: Present: no acute distress, other (extubated. Confused) - EENT Eyes: PERRL, EOM intact Ears: bilateral: normal - Neck Neck: supple, normal ROM - Respiratory Respiratory effort: normal Respiratory: bilateral: diminished - Cardiovascular Rhythm: regular Heart Sounds: Present: S1 & S2. Absent: gallop, rub Extremities: pulses intact, normal color, Full ROM - Gastrointestinal General gastrointestinal: Present: non-tender, non-distended, normal bowel sounds - Integumentary Integumentary: clear, warm, dry - Musculoskeletal Musculoskeletal: generalized weakness - Neurologic Neurologic: moves all extremities - Psychiatric Psychiatric: other (confused) - Labs CBC & Chem 7: 09/09/18 03:58 09/09/18 03:58 Labs: Abnormal lab results 09/10/18 09/10/18 09/10/18 Range/Units 12:01 18:18 23:37 POC Glucose 152 H 152 H 153 H (70-105) 09/11/18 Range/Units 05:14 POC Glucose 137 H (70-105)
--- NOTE | 2018-09-11 07:43 | Progress Note ---
Subjective Date of service: 09/11/18 Principal diagnosis: Ac resp failure; Status epilepticus; Ac on ch encephalopathy; COPD; Anemia Interval history: Pt seen and examined. Lying quietly in bed. Extubated. No more seizures. Afibrile Objective - Exam Narrative Exam: (1) Status epilepticus Resolved Continue with [facility] Neurology following. (2) Metabolic encephalopathy treating underlying condition likely status epilecticus Supportive. (3) Thrombocytopenia monitor (4) Acute respiratory failure Extubated Continue with bronchodilators and supplemental oxygen (5) Anemia Of chronic disease (6) Hyponatremia Continue with NS (7) DVT PPx Lovenox CCT 30 mins - Constitutional Vitals: Vital Signs - 12hr 09/10/18 09/10/18 09/10/18 19:30 19:32 19:46 Temperature Pulse Rate 114 H 114 H 117 H Pulse Rate [ Anterior Bilateral Throughout] Pulse Rate [ From Monitor] Respiratory 16 21 14 Rate Respiratory Rate [Anterior Bilateral Throughout] Blood Pressure 121/66 121/66 121/66 O2 Sat by Pulse 97 95 Oximetry 09/10/18 09/10/18 09/10/18 20:00 20:16 20:30 Temperature 98.8 F Pulse Rate 118 H 116 H 115 H Pulse Rate [ Anterior Bilateral Throughout] Pulse Rate [ 118 H From Monitor] Respiratory 18 22 23 Rate Respiratory Rate [Anterior Bilateral Throughout] Blood Pressure 124/63 121/66 123/69 O2 Sat by Pulse 92 96 Oximetry 09/10/18 09/10/18 09/10/18 20:46 20:50 21:00 Temperature Pulse Rate 115 H 116 H Pulse Rate [ 117 H Anterior Bilateral Throughout] Pulse Rate [ From Monitor] Respiratory 25 H 25 H Rate Respiratory 16 Rate [Anterior Bilateral Throughout] Blood Pressure 123/69 120/67 O2 Sat by Pulse 95 97 94 Oximetry 09/10/18 09/10/18 09/10/18 21:16 21:30 21:46 Temperature Pulse Rate 116 H 117 H 117 H Pulse Rate [ Anterior Bilateral Throughout] Pulse Rate [ From Monitor] Respiratory 30 H 12 20 Rate Respiratory Rate [Anterior Bilateral Throughout] Blood Pressure 120/67 117/64 117/64 O2 Sat by Pulse 97 95 96 Oximetry 09/10/18 09/10/18 09/10/18 22:00 22:16 22:30 Temperature Pulse Rate 121 H 118 H 117 H Pulse Rate [ Anterior Bilateral Throughout] Pulse Rate [ From Monitor] Respiratory 32 H 25 H 27 H Rate Respiratory Rate [Anterior Bilateral Throughout] Blood Pressure 125/68 117/64 117/66 O2 Sat by Pulse 91 95 94 Oximetry 09/10/18 09/10/18 09/10/18 22:46 23:00 23:16 Temperature Pulse Rate 116 H 117 H 116 H Pulse Rate [ Anterior Bilateral Throughout] Pulse Rate [ From Monitor] Respiratory 26 H 18 26 H Rate Respiratory Rate [Anterior Bilateral Throughout] Blood Pressure 125/68 119/66 117/66 O2 Sat by Pulse 97 98 Oximetry 09/10/18 09/10/18 09/10/18 23:30 23:46 23:50 Temperature 99.6 F Pulse Rate 115 H 115 H Pulse Rate [ Anterior Bilateral Throughout] Pulse Rate [ From Monitor] Respiratory 22 16 Rate Respiratory Rate [Anterior Bilateral Throughout] Blood Pressure 109/73 109/73 O2 Sat by Pulse 95 97 Oximetry 09/11/18 09/11/18 09/11/18 00:00 00:16 00:30 Temperature Pulse Rate 113 H 115 H 114 H Pulse Rate [ Anterior Bilateral Throughout] Pulse Rate [ 117 H From Monitor] Respiratory 24 20 30 H Rate Respiratory Rate [Anterior Bilateral Throughout] Blood Pressure 111/66 111/66 110/69 O2 Sat by Pulse 95 96 95 Oximetry 09/11/18 09/11/18 09/11/18 00:46 01:00 01:16 Temperature Pulse Rate 108 H 113 H 113 H Pulse Rate [ Anterior Bilateral Throughout] Pulse Rate [ From Monitor] Respiratory 14 28 H 31 H Rate Respiratory Rate [Anterior Bilateral Throughout] Blood Pressure 110/69 117/72 117/72 O2 Sat by Pulse 99 94 95 Oximetry 09/11/18 09/11/18 09/11/18 01:30 01:46 02:00 Temperature Pulse Rate 112 H 111 H 113 H Pulse Rate [ Anterior Bilateral Throughout] Pulse Rate [ From Monitor] Respiratory 28 H 30 H 20 Rate Respiratory Rate [Anterior Bilateral Throughout] Blood Pressure 116/71 116/71 107/66 O2 Sat by Pulse 95 96 95 Oximetry 09/11/18 09/11/18 09/11/18 02:16 02:30 02:46 Temperature Pulse Rate 110 H 112 H 114 H Pulse Rate [ Anterior Bilateral Throughout] Pulse Rate [ From Monitor] Respiratory 20 19 22 Rate Respiratory Rate [Anterior Bilateral Throughout] Blood Pressure 107/66 122/70 122/70 O2 Sat by Pulse 98 94 98 Oximetry 09/11/18 09/11/18 09/11/18 03:00 03:16 03:30 Temperature Pulse Rate 112 H 114 H 114 H Pulse Rate [ Anterior Bilateral Throughout] Pulse Rate [ From Monitor] Respiratory 32 H 29 H 29 H Rate Respiratory Rate [Anterior Bilateral Throughout] Blood Pressure 118/70 118/70 124/67 O2 Sat by Pulse 97 95 Oximetry 09/11/18 09/11/18 09/11/18 03:46 03:54 04:00 Temperature 100.5 F H Pulse Rate 115 H 116 H Pulse Rate [ Anterior Bilateral Throughout] Pulse Rate [ 116 H From Monitor] Respiratory 22 27 H Rate Respiratory Rate [Anterior Bilateral Throughout] Blood Pressure 124/67 124/73 O2 Sat by Pulse 98 96 Oximetry 09/11/18 09/11/18 09/11/18 04:16 04:30 04:46 Temperature Pulse Rate 116 H 120 H 117 H Pulse Rate [ Anterior Bilateral Throughout] Pulse Rate [ From Monitor] Respiratory 19 27 H 26 H Rate Respiratory Rate [Anterior Bilateral Throughout] Blood Pressure 124/73 113/57 113/57 O2 Sat by Pulse 98 96 99 Oximetry 09/11/18 09/11/18 09/11/18 05:00 05:16 05:30 Temperature Pulse Rate 117 H 118 H 115 H Pulse Rate [ Anterior Bilateral Throughout] Pulse Rate [ From Monitor] Respiratory 26 H 27 H 26 H Rate Respiratory Rate [Anterior Bilateral Throughout] Blood Pressure 109/61 109/61 111/60 O2 Sat by Pulse 98 98 Oximetry 09/11/18 09/11/18 09/11/18 05:46 06:00 06:16 Temperature Pulse Rate 119 H 118 H 119 H Pulse Rate [ Anterior Bilateral Throughout] Pulse Rate [ From Monitor] Respiratory 29 H 26 H 28 H Rate Respiratory Rate [Anterior Bilateral Throughout] Blood Pressure 111/60 111/60 125/65 O2 Sat by Pulse 99 98 99 Oximetry 09/11/18 09/11/18 09/11/18 06:30 06:46 07:00 Temperature Pulse Rate 120 H 117 H 118 H Pulse Rate [ Anterior Bilateral Throughout] Pulse Rate [ From Monitor] Respiratory 27 H 29 H 27 H Rate Respiratory Rate [Anterior Bilateral Throughout] Blood Pressure 114/59 114/59 124/62 O2 Sat by Pulse 96 98 96 Oximetry 09/11/18 07:20 Temperature Pulse Rate Pulse Rate [ Anterior Bilateral Throughout] Pulse Rate [ 128 H From Monitor] Respiratory 23 Rate Respiratory Rate [Anterior Bilateral Throughout] Blood Pressure O2 Sat by Pulse 96 Oximetry - Labs CBC & Chem 7: 09/09/18 03:58 09/09/18 03:58 Labs: Abnormal lab results 09/10/18 09/10/18 09/10/18 Range/Units 12:01 18:18 23:37 POC Glucose 152 H 152 H 153 H (70-105) 09/11/18 Range/Units 05:14 POC Glucose 137 H (70-105)
[2018-09-11 08:47] LABS: Hemoglobin 10.3 gm/dl (11.8-15.2); Mean Corpuscular HGB Conc 33 % (32-34); Mean Corpuscular Volume 96 fl (84-94); Platelet Count 113 K/mm3 (140-440); Red Blood Count 3.25 M/mm3 (3.65-5.03); Red Cell Distribution Width 15.6 % (13.2-15.2)
[2018-09-11 09:06] LABS: BUN/Creatinine Ratio 50; Blood Urea Nitrogen 35 mg/dL (9-20); Calcium 9.4 mg/dL (8.4-10.2); Hemolysis Index 7
[2018-09-11] MEDS: PULMICORT IH SCH (09:07)
[2018-09-11] MEDS: BROVANA NEBU IH SCH (09:07)
[2018-09-11 10:08] LABS: Anisocytosis 1+; Schistocytes Rare; Total Cells Counted 100
[2018-09-11 10:09] LABS: Ovalocytes Few; Platelet Estimate Consistent w Auto; Poikilocytosis 1+; Target Cells Few
[2018-09-11] MEDS: NACL 0.9% 1000 ML 1,000 ML IV SCH (10:31)
[2018-09-11] MEDS: PEPCID PO SCH ×2 (10:31→23:06)
[2018-09-11] MEDS: KEPPRA PO SCH ×2 (10:31→23:11)
[2018-09-11] MEDS: ROCEPHIN/NS 1 GM/50 ML 1 GM/50 ML BAG IV SCH (10:31)
[2018-09-11] MEDS ORDERED: LOPRESSOR IV PRN (12:00)
--- NOTE | 2018-09-11 15:48 | Progress Note ---
Assessment and Plan Acute respiratory failure, on mechanical ventilatory support. Status epilepticus. Acute on chronic encephalopathy. Thrombocytopenia that is chronic. History of chronic obstructive lung disease. Anemia that is microcytic. Oropharyngeal dysphagia. Adult failure to thrive - prn NT suction - complete empiric AB's (de-escalate based on clinical and microbiologic data)[cultures NGTD] - continue to avoid sedatives - continue bronchodilators with pulmonary hygiene per RT - continue enteral nutrition as tolerated - ST evaluation pending - prn supplemental oxygen as needed to keep O2 sat's > 90% - prn CXR and ABG at this point - continue accuchecks with glycemic control per SSI for target blood glucose <180mg/dL - Agitation management - Prevention of delirium, maintenance of sleep-wake cycle - Avoid nephrotoxic agents, adjust all antibiotics and medications for CrCL and GFR - VTE and Stress ulcer prophylaxis - continue other care per attending / other consultants ... re-evaluate in am & prn ..... transfer to [facility] unit on telemetry for 48 hours Subjective Date of service: 09/11/18 Principal diagnosis: Ac resp failure; Status epilepticus; Ac on ch encephalopathy; COPD; Anemia Interval history: Patient is seen today for: Acute respiratory failure; Status epilepticus; Acute on chronic encephalopathy; COPD; Anemia; Oropharyngeal dysphagia; Adult failure to thrive Seen and examined at bedside; 24hour events reviewed; nursing and respiratory care staff consulted; no adverse overnight events reported to me; resting peacefully in bed; now on room air; no emesis or overt aspiration; still with AMS but overall improved and attaempts to respond Objective Vital Signs - 12hr 09/11/18 09/11/18 09/11/18 03:54 04:00 04:16 Temperature 100.5 F H Pulse Rate 116 H 116 H Pulse Rate [ Anterior Bilateral Throughout] Pulse Rate [ 116 H From Monitor] Respiratory 27 H 19 Rate Respiratory Rate [Anterior Bilateral Throughout] Blood Pressure 124/73 124/73 O2 Sat by Pulse 96 98 Oximetry 09/11/18 09/11/18 09/11/18 04:30 04:46 05:00 Temperature Pulse Rate 120 H 117 H 117 H Pulse Rate [ Anterior Bilateral Throughout] Pulse Rate [ From Monitor] Respiratory 27 H 26 H 26 H Rate Respiratory Rate [Anterior Bilateral Throughout] Blood Pressure 113/57 113/57 109/61 O2 Sat by Pulse 96 99 Oximetry 09/11/18 09/11/18 09/11/18 05:16 05:30 05:46 Temperature Pulse Rate 118 H 115 H 119 H Pulse Rate [ Anterior Bilateral Throughout] Pulse Rate [ From Monitor] Respiratory 27 H 26 H 29 H Rate Respiratory Rate [Anterior Bilateral Throughout] Blood Pressure 109/61 111/60 111/60 O2 Sat by Pulse 98 98 99 Oximetry 09/11/18 09/11/18 09/11/18 06:00 06:16 06:30 Temperature Pulse Rate 118 H 119 H 120 H Pulse Rate [ Anterior Bilateral Throughout] Pulse Rate [ From Monitor] Respiratory 26 H 28 H 27 H Rate Respiratory Rate [Anterior Bilateral Throughout] Blood Pressure 111/60 125/65 114/59 O2 Sat by Pulse 98 99 96 Oximetry 09/11/18 09/11/18 09/11/18 06:46 07:00 07:16 Temperature Pulse Rate 117 H 118 H 120 H Pulse Rate [ Anterior Bilateral Throughout] Pulse Rate [ From Monitor] Respiratory 29 H 27 H 22 Rate Respiratory Rate [Anterior Bilateral Throughout] Blood Pressure 114/59 124/62 124/62 O2 Sat by Pulse 98 96 99 Oximetry 09/11/18 09/11/18 09/11/18 07:20 07:30 07:46 Temperature Pulse Rate 113 H 116 H Pulse Rate [ Anterior Bilateral Throughout] Pulse Rate [ 128 H From Monitor] Respiratory 23 24 25 H Rate Respiratory Rate [Anterior Bilateral Throughout] Blood Pressure 121/63 121/63 O2 Sat by Pulse 96 98 99 Oximetry 09/11/18 09/11/18 09/11/18 07:57 08:00 08:16 Temperature 98.6 F Pulse Rate 117 H 118 H Pulse Rate [ Anterior Bilateral Throughout] Pulse Rate [ From Monitor] Respiratory 26 H 22 Rate Respiratory Rate [Anterior Bilateral Throughout] Blood Pressure 113/68 113/68 O2 Sat by Pulse 99 Oximetry 09/11/18 09/11/18 09/11/18 08:30 08:46 09:00 Temperature Pulse Rate 112 H 111 H 108 H Pulse Rate [ Anterior Bilateral Throughout] Pulse Rate [ From Monitor] Respiratory 27 H 25 H 25 H Rate Respiratory Rate [Anterior Bilateral Throughout] Blood Pressure 120/71 120/71 116/70 O2 Sat by Pulse 98 Oximetry 09/11/18 09/11/18 09/11/18 09:07 09:09 09:16 Temperature Pulse Rate 108 H Pulse Rate [ 110 H Anterior Bilateral Throughout] Pulse Rate [ From Monitor] Respiratory 24 Rate Respiratory 21 Rate [Anterior Bilateral Throughout] Blood Pressure 116/70 O2 Sat by Pulse 98 98 Oximetry 09/11/18 09/11/18 09/11/18 09:30 09:46 10:00 Temperature Pulse Rate 110 H 107 H 109 H Pulse Rate [ Anterior Bilateral Throughout] Pulse Rate [ From Monitor] Respiratory 23 19 25 H Rate Respiratory Rate [Anterior Bilateral Throughout] Blood Pressure 111/70 111/70 122/68 O2 Sat by Pulse 98 96 Oximetry 09/11/18 09/11/18 09/11/18 10:16 10:30 10:46 Temperature Pulse Rate 108 H 109 H 110 H Pulse Rate [ Anterior Bilateral Throughout] Pulse Rate [ From Monitor] Respiratory 23 25 H 26 H Rate Respiratory Rate [Anterior Bilateral Throughout] Blood Pressure 122/68 119/67 119/67 O2 Sat by Pulse 98 97 98 Oximetry 09/11/18 09/11/18 09/11/18 11:00 11:16 11:30 Temperature Pulse Rate 107 H 107 H 106 H Pulse Rate [ Anterior Bilateral Throughout] Pulse Rate [ From Monitor] Respiratory 26 H 27 H 26 H Rate Respiratory Rate [Anterior Bilateral Throughout] Blood Pressure 114/71 114/71 117/65 O2 Sat by Pulse 98 95 Oximetry 09/11/18 09/11/18 09/11/18 11:46 12:00 12:16 Temperature 98.6 F Pulse Rate 102 H 106 H Pulse Rate [ Anterior Bilateral Throughout] Pulse Rate [ 120 H From Monitor] Respiratory 24 23 Rate Respiratory Rate [Anterior Bilateral Throughout] Blood Pressure 117/65 127/65 127/65 O2 Sat by Pulse 99 96 97 Oximetry 09/11/18 09/11/18 09/11/18 12:30 12:46 13:00 Temperature Pulse Rate 108 H 108 H 98 H Pulse Rate [ Anterior Bilateral Throughout] Pulse Rate [ From Monitor] Respiratory 17 21 22 Rate Respiratory Rate [Anterior Bilateral Throughout] Blood Pressure 105/60 127/65 105/62 O2 Sat by Pulse 98 100 Oximetry 09/11/18 09/11/18 09/11/18 13:16 13:30 13:46 Temperature Pulse Rate 104 H 107 H 110 H Pulse Rate [ Anterior Bilateral Throughout] Pulse Rate [ From Monitor] Respiratory 18 23 26 H Rate Respiratory Rate [Anterior Bilateral Throughout] Blood Pressure 105/60 116/62 105/62 O2 Sat by Pulse 97 99 Oximetry 09/11/18 09/11/18 09/11/18 14:02 14:15 14:30 Temperature Pulse Rate 111 H 108 H 108 H Pulse Rate [ Anterior Bilateral Throughout] Pulse Rate [ From Monitor] Respiratory 25 H 27 H 24 Rate Respiratory Rate [Anterior Bilateral Throughout] Blood Pressure 115/63 115/62 O2 Sat by Pulse 99 99 98 Oximetry 09/11/18 09/11/18 14:45 15:00 Temperature Pulse Rate 109 H 110 H Pulse Rate [ Anterior Bilateral Throughout] Pulse Rate [ From Monitor] Respiratory 25 H 26 H Rate Respiratory Rate [Anterior Bilateral Throughout] Blood Pressure 115/62 105/64 O2 Sat by Pulse 99 98 Oximetry Constitutional: no acute distress, other (elderly looking AAM, normocephalic resting in bed with mildly increasec resp effort at rest) Eyes: non-icteric ENT: oropharynx moist, other (extubated) Neck: supple, no lymphadenopathy, no JVD Effort: mildly labored Ascultation: Bilateral: diminished breath sounds, rhonchi (scant), other (referred upper airway sounds) Percussion: Bilateral: not dull Cardiovascular: regular rate and rhythm Gastrointestinal: normoactive bowel sounds, soft, non-tender, non-distended Integumentary: normal Extremities: no cyanosis, no edema, pulses normal, no ischemia or petechiae Neurologic: unable to assess Psychiatric: other (flat affect) CBC and BMP: 09/11/18 08:25 09/11/18 08:25 ABG, PT/INR, D-dimer: ABG POC ABG pH 7.452 (7.35-7.45) H 09/10/18 05:25 POC ABG pCO2 35.5 (35-45) 09/10/18 05:25 POC ABG pO2 142 (80-105) H 09/10/18 05:25 POC ABG HCO3 24.8 (22-26 mml/L) 09/10/18 05:25 POC ABG Total CO2 26 (23-27mmol/L) 09/10/18 05:25 POC ABG O2 Sat 99 09/10/18 05:25 PT/INR, D-dimer PT 13.4 Sec. (12.2-14.9) 09/06/18 19:47 INR 1.05 (0.87-1.13) 09/06/18 19:47 Abnormal lab findings: Abnormal Labs 09/06/18 09/06/18 09/06/18 19:47 19:47 19:47 RBC 3.47 L Hgb 11.0 L Hct 34.6 L MCV 100 H RDW 16.6 H Plt Count 121 L Lymphocytes % (Manual) 50.0 H Monocytes % (Manual) Basophils % (Manual) Lymphocytes # (Manual) Monocytes # (Manual) Fibrinogen POC ABG pH POC ABG pCO2 POC ABG pO2 Sodium Chloride 97.0 L Carbon Dioxide 21 L BUN Creatinine Glucose 152 H POC Glucose Lactic Acid Alkaline Phosphatase 138 H Lactate Dehydrogenase Total Creatine Kinase 45 L C-Reactive Protein Total Protein 8.9 H TSH 7.610 H 09/06/18 09/06/18 09/07/18 21:05 23:16 03:41 RBC Hgb Hct MCV RDW Plt Count Lymphocytes % (Manual) Monocytes % (Manual) Basophils % (Manual) Lymphocytes # (Manual) Monocytes # (Manual) Fibrinogen POC ABG pH POC ABG pCO2 POC ABG pO2 389 H 214 H Sodium Chloride Carbon Dioxide BUN Creatinine Glucose POC Glucose 147 H Lactic Acid Alkaline Phosphatase Lactate Dehydrogenase Total Creatine Kinase C-Reactive Protein Total Protein TSH 09/07/18 09/07/18 09/07/18 15:04 15:04 21:55 RBC Hgb Hct MCV RDW Plt Count Lymphocytes % (Manual) Monocytes % (Manual) Basophils % (Manual) Lymphocytes # (Manual) Monocytes # (Manual) Fibrinogen POC ABG pH POC ABG pCO2 POC ABG pO2 Sodium Chloride Carbon Dioxide BUN Creatinine Glucose POC Glucose Lactic Acid 2.90 H* Alkaline Phosphatase Lactate Dehydrogenase 270 H Total Creatine Kinase C-Reactive Protein 2.70 H Total Protein TSH 09/07/18 09/07/18 09/08/18 21:55 23:41 04:50 RBC Hgb Hct MCV RDW Plt Count Lymphocytes % (Manual) Monocytes % (Manual) Basophils % (Manual) Lymphocytes # (Manual) Monocytes # (Manual) Fibrinogen 616 H POC ABG pH POC ABG pCO2 POC ABG pO2 110 H Sodium Chloride Carbon Dioxide BUN Creatinine Glucose POC Glucose 125 H Lactic Acid Alkaline Phosphatase Lactate Dehydrogenase Total Creatine Kinase C-Reactive Protein Total Protein TSH 09/08/18 09/08/18 09/08/18 06:08 12:19 23:38 RBC Hgb Hct MCV RDW Plt Count Lymphocytes % (Manual) Monocytes % (Manual) Basophils % (Manual) Lymphocytes # (Manual) Monocytes # (Manual) Fibrinogen POC ABG pH POC ABG pCO2 POC ABG pO2 Sodium Chloride Carbon Dioxide BUN Creatinine Glucose POC Glucose 118 H 112 H 136 H Lactic Acid Alkaline Phosphatase Lactate Dehydrogenase Total Creatine Kinase C-Reactive Protein Total Protein LOCATED WITHIN [facility] 09/09/18 09/09/18 09/09/18 03:43 03:58 03:58 RBC 3.35 L Hgb 10.8 L Hct 32.2 L MCV 96 H RDW 15.8 H Plt Count 104 L Lymphocytes % (Manual) Monocytes % (Manual) 19.0 H Basophils % (Manual) Lymphocytes # (Manual) Monocytes # (Manual) 1.1 H Fibrinogen POC ABG pH POC ABG pCO2 POC ABG pO2 115 H Sodium 132 L Chloride 95.6 L Carbon Dioxide BUN 26 H Creatinine Glucose 126 H POC Glucose Lactic Acid Alkaline Phosphatase Lactate Dehydrogenase Total Creatine Kinase C-Reactive Protein Total Protein LOCATED WITHIN [facility] 09/09/18 09/09/18 09/09/18 12:14 14:18 17:58 RBC Hgb Hct MCV RDW Plt Count Lymphocytes % (Manual) Monocytes % (Manual) Basophils % (Manual) Lymphocytes # (Manual) Monocytes # (Manual) Fibrinogen POC ABG pH 7.467 H POC ABG pCO2 32.7 L POC ABG pO2 111 H Sodium Chloride Carbon Dioxide BUN Creatinine Glucose POC Glucose 145 H 204 H Lactic Acid Alkaline Phosphatase Lactate Dehydrogenase Total Creatine Kinase C-Reactive Protein Total Protein LOCATED WITHIN [facility] 09/09/18 09/10/18 09/10/18 23:36 05:16 05:25 RBC Hgb Hct MCV RDW Plt Count Lymphocytes % (Manual) Monocytes % (Manual) Basophils % (Manual) Lymphocytes # (Manual) Monocytes # (Manual) Fibrinogen POC ABG pH 7.452 H POC ABG pCO2 POC ABG pO2 142 H Sodium Chloride Carbon Dioxide BUN Creatinine Glucose POC Glucose 153 H 149 H Lactic Acid Alkaline Phosphatase Lactate Dehydrogenase Total Creatine Kinase C-Reactive Protein Total Protein LOCATED [facility] 09/10/18 09/10/18 09/10/18 12:01 18:18 23:37 RBC Hgb Hct MCV RDW Plt Count Lymphocytes % (Manual) Monocytes % (Manual) Basophils % (Manual) Lymphocytes # (Manual) Monocytes # (Manual) Fibrinogen POC ABG pH POC ABG pCO2 POC ABG pO2 Sodium Chloride Carbon Dioxide BUN Creatinine Glucose POC Glucose 152 H 152 H 153 H Lactic Acid Alkaline Phosphatase Lactate Dehydrogenase Total Creatine Kinase C-Reactive Protein Total Protein TSH 09/11/18 09/11/18 09/11/18 05:14 08:25 08:25 RBC 3.25 L Hgb 10.3 L Hct 31.0 L MCV 96 H RDW 15.6 H Plt Count 113 L Lymphocytes % (Manual) Monocytes % (Manual) 13.0 H Basophils % (Manual) 2.0 H Lymphocytes # (Manual) 0.9 L Monocytes # (Manual) Fibrinogen POC ABG pH POC ABG pCO2 POC ABG pO2 Sodium 134 L Chloride 95.8 L Carbon Dioxide BUN 35 H Creatinine 0.7 L Glucose 136 H POC Glucose 137 H Lactic Acid Alkaline Phosphatase Lactate Dehydrogenase Total Creatine Kinase C-Reactive Protein Total Protein TSH 09/11/18 12:03 RBC Hgb Hct MCV RDW Plt Count Lymphocytes % (Manual) Monocytes % (Manual) Basophils % (Manual) Lymphocytes # (Manual) Monocytes # (Manual) Fibrinogen POC ABG pH POC ABG pCO2 POC ABG pO2 Sodium Chloride Carbon Dioxide BUN Creatinine Glucose POC Glucose 127 H Lactic Acid Alkaline Phosphatase Lactate Dehydrogenase Total Creatine Kinase C-Reactive Protein Total Protein TSH Allied health notes reviewed: nursing
[2018-09-12] MEDS: HumuLIN R SUB-Q SCH ×3 (00:34→17:16)
[2018-09-12] MEDS: NACL 0.9% 1000 ML 1,000 ML IV SCH (03:11)
[2018-09-12] MEDS: PULMICORT IH SCH ×3 (04:07→20:52)
[2018-09-12] MEDS: BROVANA NEBU IH SCH ×3 (04:07→20:52)
[2018-09-12 06:26] LABS: Hematocrit 27.6 % (35.5-45.6); Hemoglobin 9.3 gm/dl (11.8-15.2); Mean Corpuscular HGB Conc 34 % (32-34); Mean Corpuscular Volume 95 fl (84-94); Platelet Count 120 K/mm3 (140-440); Red Blood Count 2.92 M/mm3 (3.65-5.03); Red Cell Distribution Width 15.7 % (13.2-15.2)
[2018-09-12 06:52] LABS: Alanine Aminotransferase 29 units/L (7-56); Albumin 2.9 g/dL (3.9-5); BUN/Creatinine Ratio 41; Blood Urea Nitrogen 29 mg/dL (9-20); Calcium 8.9 mg/dL (8.4-10.2); Hemolysis Index 0
[2018-09-12 06:57] LABS: INR 1.08 (0.87-1.13)
[2018-09-12 08:33] LABS: Anisocytosis 1+; Band Neutrophils # (Manual) 0.1 K/mm3; Basophils % (Manual) 0 % (0.0-1.8); Total Cells Counted 100
[2018-09-12 08:34] LABS: Platelet Estimate Consistent w Auto; Schistocytes Rare
--- NOTE | 2018-09-12 08:51 | XRay Report ---
CHEST 1 VIEW INDICATION / CLINICAL INFORMATION: follow up respiratory failure. COMPARISON: 09/09/2018 FINDINGS: SUPPORT DEVICES: The nasogastric tube is positioned in the stomach. HEART / MEDIASTINUM: No significant abnormality. LUNGS / PLEURA: Chronic scarring in both upper hemithoraces. No acute disease. No pneumothorax. ADDITIONAL FINDINGS: No significant additional findings. IMPRESSION: 1. No acute findings. Signer Name: Ang Logan MD Signed: 09/12/2018 8:47 AM Workstation Name: [id number]
[2018-09-12] MEDS: KEPPRA PO SCH ×2 (09:31→21:36)
[2018-09-12] MEDS: ROCEPHIN/NS 1 GM/50 ML 1 GM/50 ML BAG IV SCH (09:36)
[2018-09-12] MEDS: PEPCID PO SCH ×2 (09:41→21:36)
--- NOTE | 2018-09-12 13:27 | Progress Note ---
Assessment and Plan Patient weak, emaciated. Presently on room air. No acute respiratory distress at this time.Patient afebrile. No leukocytosis. - Patient Problems (1) Acute respiratory failure Current Visit: No Status: Resolved Plan to address problem: O2 2 litres via nasal canula as needed. Albuterol/atrovent aerosol treatments q 6 hours prn for shortness of breath. Brovanna/Budesonide aerosol treatments q 12 hours. Continue famotidine. Recommend DVT prophylaxis. SCDs. Patient is on ceftrioxone. (2) Status epilepticus Current Visit: Yes Status: Acute Plan to address problem: Management as per neurology. (3) Acute encephalopathy Current Visit: No Status: Acute Plan to address problem: Management as per primary care and neurology. (4) Thrombocytopenia Current Visit: No Status: Chronic Plan to address problem: Monitor platelets closely. Subjective Date of service: 09/12/18 Principal diagnosis: Ac resp failure; Status epilepticus; Ac on ch encephalopathy; COPD; Anemia Interval history: Patient weak, emaciated. Presently on room air. No acute respiratory distress at this time.Patient afebrile. No leukocytosis. Objective Vital Signs - 12hr 09/12/18 09/12/18 09/12/18 02:25 03:03 03:04 Temperature 98.8 F Pulse Rate 108 H 67 105 H Pulse Rate [ Anterior Bilateral Throughout] Pulse Rate [ From Monitor] Respiratory 18 Rate Respiratory Rate [Anterior Bilateral Throughout] Blood Pressure 122/68 O2 Sat by Pulse 97 Oximetry 09/12/18 09/12/18 09/12/18 07:31 07:40 07:41 Temperature Pulse Rate Pulse Rate [ 111 H Anterior Bilateral Throughout] Pulse Rate [ 114 H From Monitor] Respiratory 22 Rate Respiratory 18 Rate [Anterior Bilateral Throughout] Blood Pressure O2 Sat by Pulse 100 98 Oximetry 09/12/18 08:21 Temperature 98.6 F Pulse Rate 109 H Pulse Rate [ Anterior Bilateral Throughout] Pulse Rate [ From Monitor] Respiratory 20 Rate Respiratory Rate [Anterior Bilateral Throughout] Blood Pressure 119/64 O2 Sat by Pulse 94 Oximetry Constitutional: no acute distress, lethargic, other (elderly looking AAM, normocephalic resting in bed with mildly increasec resp effort at rest) Eyes: non-icteric ENT: oropharynx moist, other (extubated) Neck: supple, no lymphadenopathy, no JVD Effort: mildly labored Ascultation: Bilateral: diminished breath sounds, rhonchi (scant), other (referred upper airway sounds) Percussion: Bilateral: not dull Cardiovascular: regular rate and rhythm Gastrointestinal: normoactive bowel sounds, soft, non-tender, non-distended Integumentary: normal Extremities: no cyanosis, no edema, pulses normal, no ischemia or petechiae Neurologic: unable to assess Psychiatric: other (flat affect) CBC and BMP: 09/12/18 06:13 09/12/18 06:13 ABG, PT/INR, D-dimer: ABG POC ABG pH 7.452 (7.35-7.45) H 09/10/18 05:25 POC ABG pCO2 35.5 (35-45) 09/10/18 05:25 POC ABG pO2 142 (80-105) H 09/10/18 05:25 POC ABG HCO3 24.8 (22-26 mml/L) 09/10/18 05:25 POC ABG Total CO2 26 (23-27mmol/L) 09/10/18 05:25 POC ABG O2 Sat 99 09/10/18 05:25 PT/INR, D-dimer PT 13.7 Sec. (12.2-14.9) 09/12/18 06:13 INR 1.08 (0.87-1.13) 09/12/18 06:13 Abnormal lab findings: Abnormal Labs 09/06/18 09/06/18 09/06/18 19:47 19:47 19:47 RBC 3.47 L Hgb 11.0 L Hct 34.6 L MCV 100 H RDW 16.6 H Plt Count 121 L Lymphocytes % (Manual) 50.0 H Monocytes % (Manual) Basophils % (Manual) Lymphocytes # (Manual) Monocytes # (Manual) Fibrinogen POC ABG pH POC ABG pCO2 POC ABG pO2 Sodium Chloride 97.0 L Carbon Dioxide 21 L BUN Creatinine Glucose 152 H POC Glucose Lactic Acid AST Alkaline Phosphatase 138 H Lactate Dehydrogenase Total Creatine Kinase 45 L C-Reactive Protein Total Protein 8.9 H Albumin TSH 7.610 H 09/06/18 09/06/18 09/07/18 21:05 23:16 03:41 RBC Hgb Hct MCV RDW Plt Count Lymphocytes % (Manual) Monocytes % (Manual) Basophils % (Manual) Lymphocytes # (Manual) Monocytes # (Manual) Fibrinogen POC ABG pH POC ABG pCO2 POC ABG pO2 389 H 214 H Sodium Chloride Carbon Dioxide BUN Creatinine Glucose POC Glucose 147 H Lactic Acid AST Alkaline Phosphatase Lactate Dehydrogenase Total Creatine Kinase C-Reactive Protein Total Protein Albumin [facility] 09/07/18 09/07/18 09/07/18 15:04 15:04 21:55 RBC Hgb Hct MCV RDW Plt Count Lymphocytes % (Manual) Monocytes % (Manual) Basophils % (Manual) Lymphocytes # (Manual) Monocytes # (Manual) Fibrinogen POC ABG pH POC ABG pCO2 POC ABG pO2 Sodium Chloride Carbon Dioxide BUN Creatinine Glucose POC Glucose Lactic Acid 2.90 H* AST Alkaline Phosphatase Lactate Dehydrogenase 270 H Total Creatine Kinase C-Reactive Protein 2.70 H Total Protein Albumin [facility] 09/07/18 09/07/18 09/08/18 21:55 23:41 04:50 RBC Hgb Hct MCV RDW Plt Count Lymphocytes % (Manual) Monocytes % (Manual) Basophils % (Manual) Lymphocytes # (Manual) Monocytes # (Manual) Fibrinogen 616 H POC ABG pH POC ABG pCO2 POC ABG pO2 110 H Sodium Chloride Carbon Dioxide BUN Creatinine Glucose POC Glucose 125 H Lactic Acid AST Alkaline Phosphatase Lactate Dehydrogenase Total Creatine Kinase C-Reactive Protein Total Protein Albumin [facility] 09/08/18 09/08/18 09/08/18 06:08 12:19 23:38 RBC Hgb Hct MCV RDW Plt Count Lymphocytes % (Manual) Monocytes % (Manual) Basophils % (Manual) Lymphocytes # (Manual) Monocytes # (Manual) Fibrinogen POC ABG pH POC ABG pCO2 POC ABG pO2 Sodium Chloride Carbon Dioxide BUN Creatinine Glucose POC Glucose 118 H 112 H 136 H Lactic Acid AST Alkaline Phosphatase Lactate Dehydrogenase Total Creatine Kinase C-Reactive Protein Total Protein Albumin [facility] 09/09/18 09/09/18 09/09/18 03:43 03:58 03:58 RBC 3.35 L Hgb 10.8 L Hct 32.2 L MCV 96 H RDW 15.8 H Plt Count 104 L Lymphocytes % (Manual) Monocytes % (Manual) 19.0 H Basophils % (Manual) Lymphocytes # (Manual) Monocytes # (Manual) 1.1 H Fibrinogen POC ABG pH POC ABG pCO2 POC ABG pO2 115 H Sodium 132 L Chloride 95.6 L Carbon Dioxide BUN 26 H Creatinine Glucose 126 H POC Glucose Lactic Acid AST Alkaline Phosphatase Lactate Dehydrogenase Total Creatine Kinase C-Reactive Protein Total Protein Albumin [facility] 09/09/18 09/09/18 09/09/18 12:14 14:18 17:58 RBC Hgb Hct MCV RDW Plt Count Lymphocytes % (Manual) Monocytes % (Manual) Basophils % (Manual) Lymphocytes # (Manual) Monocytes # (Manual) Fibrinogen POC ABG pH 7.467 H POC ABG pCO2 32.7 L POC ABG pO2 111 H Sodium Chloride Carbon Dioxide BUN Creatinine Glucose POC Glucose 145 H 204 H Lactic Acid AST Alkaline Phosphatase Lactate Dehydrogenase Total Creatine Kinase C-Reactive Protein Total Protein Albumin [facility] 09/09/18 09/10/18 09/10/18 23:36 05:16 05:25 RBC Hgb Hct MCV RDW Plt Count Lymphocytes % (Manual) Monocytes % (Manual) Basophils % (Manual) Lymphocytes # (Manual) Monocytes # (Manual) Fibrinogen POC ABG pH 7.452 H POC ABG pCO2 POC ABG pO2 142 H Sodium Chloride Carbon Dioxide BUN Creatinine Glucose POC Glucose 153 H 149 H Lactic Acid AST Alkaline Phosphatase Lactate Dehydrogenase Total Creatine Kinase C-Reactive Protein Total Protein Albumin [facility] 09/10/18 09/10/18 09/10/18 12:01 18:18 23:37 RBC Hgb Hct MCV RDW Plt Count Lymphocytes % (Manual) Monocytes % (Manual) Basophils % (Manual) Lymphocytes # (Manual) Monocytes # (Manual) Fibrinogen POC ABG pH POC ABG pCO2 POC ABG pO2 Sodium Chloride Carbon Dioxide BUN Creatinine Glucose POC Glucose 152 H 152 H 153 H Lactic Acid AST Alkaline Phosphatase Lactate Dehydrogenase Total Creatine Kinase C-Reactive Protein Total Protein Albumin [facility] 09/11/18 09/11/18 09/11/18 05:14 08:25 08:25 RBC 3.25 L Hgb 10.3 L Hct 31.0 L MCV 96 H RDW 15.6 H Plt Count 113 L Lymphocytes % (Manual) Monocytes % (Manual) 13.0 H Basophils % (Manual) 2.0 H Lymphocytes # (Manual) 0.9 L Monocytes # (Manual) Fibrinogen POC ABG pH POC ABG pCO2 POC ABG pO2 Sodium 134 L Chloride 95.8 L Carbon Dioxide BUN 35 H Creatinine 0.7 L Glucose 136 H POC Glucose 137 H Lactic Acid AST Alkaline Phosphatase Lactate Dehydrogenase Total Creatine Kinase C-Reactive Protein Total Protein Albumin [facility] 09/11/18 09/11/18 09/12/18 12:03 17:58 00:38 RBC Hgb Hct MCV RDW Plt Count Lymphocytes % (Manual) Monocytes % (Manual) Basophils % (Manual) Lymphocytes # (Manual) Monocytes # (Manual) Fibrinogen POC ABG pH POC ABG pCO2 POC ABG pO2 Sodium Chloride Carbon Dioxide BUN Creatinine Glucose POC Glucose 127 H 121 H 137 H Lactic Acid AST Alkaline Phosphatase Lactate Dehydrogenase Total Creatine Kinase C-Reactive Protein Total Protein Albumin TSH 09/12/18 09/12/18 09/12/18 05:34 06:13 06:13 RBC 2.92 L Hgb 9.3 L Hct 27.6 L MCV 95 H RDW 15.7 H Plt Count 120 L Lymphocytes % (Manual) Monocytes % (Manual) 17.0 H Basophils % (Manual) Lymphocytes # (Manual) 1.1 L Monocytes # (Manual) 1.2 H Fibrinogen POC ABG pH POC ABG pCO2 POC ABG pO2 Sodium 135 L Chloride Carbon Dioxide BUN 29 H Creatinine 0.7 L Glucose 132 H POC Glucose 112 H Lactic Acid AST 64 H Alkaline Phosphatase 172 H Lactate Dehydrogenase Total Creatine Kinase C-Reactive Protein Total Protein Albumin 2.9 L [facility] 09/12/18 11:39 RBC Hgb Hct MCV RDW Plt Count Lymphocytes % (Manual) Monocytes % (Manual) Basophils % (Manual) Lymphocytes # (Manual) Monocytes # (Manual) Fibrinogen POC ABG pH POC ABG pCO2 POC ABG pO2 Sodium Chloride Carbon Dioxide BUN Creatinine Glucose POC Glucose 134 H Lactic Acid AST Alkaline Phosphatase Lactate Dehydrogenase Total Creatine Kinase C-Reactive Protein Total Protein Albumin TSH Chest x-ray: report reviewed (Chronic scarring both hemithoraces. No acute process), image reviewed Allied health notes reviewed: nursing
[2018-09-12] MEDS ORDERED: SODIUM BICARBONATE FEEDTUBE PRN (14:13)
[2018-09-12] MEDS ORDERED: PANCREAZE DR 10,500 UNIT FEEDTUBE PRN (14:13)
[2018-09-12] MEDS ORDERED: SIMPLE SYRUP FEEDTUBE PRN ×2 (14:13)
[2018-09-12] MEDS ORDERED: CARDIZEM IV SCH (15:48)
--- NOTE | 2018-09-12 22:02 | Progress Note ---
Assessment and Plan - Patient Problems (1) Status epilepticus Current Visit: Yes Status: Acute Plan to address problem: follow neurology. resolved (2) Acute encephalopathy Current Visit: No Status: Acute Plan to address problem: Supportive. (3) Thrombocytopenia Current Visit: No Status: Chronic Plan to address problem: will monitor accordingly check for hepatitis. (4) Acute respiratory failure Current Visit: No Status: Resolved Plan to address problem: Continue with vent Subjective Date of service: 09/12/18 Principal diagnosis: Ac resp failure; Status epilepticus; Ac on ch encephalopathy; COPD; Anemia Interval history: Patient seen/examined, resting in bed, labs reviewed, will check new labs tomorrow. No sign of renal failure in recent labs.Patient not set for any renal replacement therapy. Patient seen/examined, resting in bed, NAD, answers question. NGT in place , for feeding. I have discussed possible peg tube placement for feeding, as he transitions back to the NH soon.He has agreed to that. I am not sure ,if there is a DPOA. Objective - Constitutional Vitals: Vital Signs - 12hr 09/12/18 09/12/18 09/12/18 11:09 11:11 13:31 Temperature Pulse Rate 76 77 Respiratory 17 14 20 Rate Blood Pressure 110/65 125/76 121/69 O2 Sat by Pulse Oximetry 09/12/18 09/12/18 17:06 20:25 Temperature 99.0 F Pulse Rate 114 H 52 L Respiratory 22 Rate Blood Pressure 122/72 121/66 O2 Sat by Pulse 97 Oximetry General appearance: Present: no acute distress, cachectic - EENT Eyes: PERRL, EOM intact ENT: hearing intact, clear oral mucosa Ears: bilateral: normal - Neck Neck: supple, normal ROM - Respiratory Respiratory effort: normal Respiratory: bilateral: CTA - Breasts Breasts: deferred - Cardiovascular Rhythm: regular Heart Sounds: Present: S1 & S2. Absent: gallop, rub Extremities: pulses intact, No edema, normal color, Full ROM - Gastrointestinal General gastrointestinal: Present: soft, non-tender, non-distended, normal bowel sounds Rectal Exam: deferred - Genitourinary Male genitourinary: deferred - Integumentary Integumentary: clear, warm, dry - Musculoskeletal Musculoskeletal: 1, strength equal bilaterally - Neurologic Neurologic: moves all extremities - Psychiatric Psychiatric: memory intact, appropriate mood/affect, intact judgment & insight - Labs CBC & Chem 7: 09/12/18 06:13 09/12/18 06:13 Labs: Abnormal lab results 09/12/18 09/12/18 09/12/18 Range/Units 00:38 05:34 06:13 RBC 2.92 L (3.65-5.03) M/mm3 Hgb 9.3 L (11.8-15.2) gm/dl Hct 27.6 L (35.5-45.6) % MCV 95 H (84-94) fl RDW 15.7 H (13.2-15.2) % Plt Count 120 L (140-440) K/mm3 Monocytes % (Manual) 17.0 H (0.0-7.3) % Lymphocytes # (Manual) 1.1 L (1.2-5.4) K/mm3 Monocytes # (Manual) 1.2 H (0.0-0.8) K/mm3 Sodium (137-145) mmol/L BUN (9-20) mg/dL Creatinine (0.8-1.5) mg/dL Glucose (75-100) mg/dL POC Glucose 137 H 112 H (70-105) AST (5-40) units/L Alkaline Phosphatase (35-129) units/L Albumin (3.9-5) g/dL 09/12/18 09/12/18 09/12/18 Range/Units 06:13 11:39 17:19 RBC (3.65-5.03) M/mm3 Hgb (11.8-15.2) gm/dl Hct (35.5-45.6) % MCV (84-94) fl RDW (13.2-15.2) % Plt Count (140-440) K/mm3 Monocytes % (Manual) (0.0-7.3) % Lymphocytes # (Manual) (1.2-5.4) K/mm3 Monocytes # (Manual) (0.0-0.8) K/mm3 Sodium 135 L (137-145) mmol/L BUN 29 H (9-20) mg/dL Creatinine 0.7 L (0.8-1.5) mg/dL Glucose 132 H (75-100) mg/dL POC Glucose 134 H 107 H (70-105) AST 64 H (5-40) units/L Alkaline Phosphatase 172 H (35-129) units/L Albumin 2.9 L (3.9-5) g/dL
[2018-09-13] MEDS: HumuLIN R SUB-Q SCH ×4 (00:22→16:20)
[2018-09-13] MEDS: NACL 0.9% 1000 ML 1,000 ML IV SCH ×2 (05:52→17:57)
[2018-09-13 06:00] LABS: Hepatitis C Virus Antibody Reactive (NonReactive)
[2018-09-13 06:45] LABS: Hepatitis B Surface Antigen Non-Reactive (Negative)
[2018-09-13] MEDS: BROVANA NEBU IH SCH ×2 (07:19→19:57)
[2018-09-13] MEDS: PULMICORT IH SCH ×2 (07:19→19:56)
[2018-09-13] MEDS: PEPCID PO SCH ×2 (10:30→21:55)
[2018-09-13] MEDS: ROCEPHIN/NS 1 GM/50 ML 1 GM/50 ML BAG IV SCH (10:31)
[2018-09-13] MEDS: KEPPRA PO SCH ×2 (10:31→21:55)
--- NOTE | 2018-09-13 14:12 | Progress Note ---
Assessment and Plan atient weak, emaciated. Presently on room air. No acute respiratory distress at this time.O2 saturation 98% on room air.Patient afebrile. No leukocytosis.Patient slightly more alert today. - Patient Problems (1) Status epilepticus Current Visit: Yes Status: Acute Plan to address problem: Management as per neurology. (2) Acute encephalopathy Current Visit: No Status: Acute Plan to address problem: Management as per primary care and neurology. (3) Thrombocytopenia Current Visit: No Status: Chronic Plan to address problem: Monitor platelets closely. Subjective Date of service: 09/13/18 Principal diagnosis: Ac resp failure; Status epilepticus; Ac on ch encephalopathy; COPD; Anemia Interval history: Patient weak, emaciated. Presently on room air. No acute respiratory distress at this time.O2 saturation 98% on room air.Patient afebrile. No l eukocytosis.Patient slightly more alert today. Objective Vital Signs - 12hr 09/13/18 09/13/18 09/13/18 04:00 07:20 08:00 Pulse Rate 101 H Pulse Rate [ 103 H Anterior Bilateral Throughout] Pulse Rate [ 96 H From Monitor] Respiratory 22 Rate Respiratory 18 Rate [Anterior Bilateral Throughout] O2 Sat by Pulse 94 98 Oximetry Constitutional: no acute distress, lethargic Eyes: non-icteric ENT: oropharynx moist, other (extubated) Neck: supple, no lymphadenopathy, no JVD Effort: mildly labored Ascultation: Bilateral: diminished breath sounds, rhonchi (scant), other (referred upper airway sounds) Percussion: Bilateral: not dull Cardiovascular: regular rate and rhythm Gastrointestinal: normoactive bowel sounds, soft, non-tender, non-distended Integumentary: normal Extremities: no cyanosis, no edema, pulses normal, no ischemia or petechiae Neurologic: unable to assess Psychiatric: other (flat affect) CBC and BMP: 09/12/18 06:13 09/12/18 06:13 ABG, PT/INR, D-dimer: ABG POC ABG pH 7.452 (7.35-7.45) H 09/10/18 05:25 POC ABG pCO2 35.5 (35-45) 09/10/18 05:25 POC ABG pO2 142 (80-105) H 09/10/18 05:25 POC ABG HCO3 24.8 (22-26 mml/L) 09/10/18 05:25 POC ABG Total CO2 26 (23-27mmol/L) 09/10/18 05:25 POC ABG O2 Sat 99 09/10/18 05:25 PT/INR, D-dimer PT 13.7 Sec. (12.2-14.9) 09/12/18 06:13 INR 1.08 (0.87-1.13) 09/12/18 06:13 Abnormal lab findings: Abnormal Labs 09/06/18 09/06/18 09/06/18 19:47 19:47 19:47 RBC 3.47 L Hgb 11.0 L Hct 34.6 L MCV 100 H RDW 16.6 H Plt Count 121 L Lymphocytes % (Manual) 50.0 H Monocytes % (Manual) Basophils % (Manual) Lymphocytes # (Manual) Monocytes # (Manual) Fibrinogen POC ABG pH POC ABG pCO2 POC ABG pO2 Sodium Chloride 97.0 L Carbon Dioxide 21 L BUN Creatinine Glucose 152 H POC Glucose Lactic Acid AST Alkaline Phosphatase 138 H Lactate Dehydrogenase Total Creatine Kinase 45 L C-Reactive Protein Total Protein 8.9 H Albumin TSH 7.610 H Hepatitis C Antibody 09/06/18 09/06/18 09/07/18 21:05 23:16 03:41 RBC Hgb Hct MCV RDW Plt Count Lymphocytes % (Manual) Monocytes % (Manual) Basophils % (Manual) Lymphocytes # (Manual) Monocytes # (Manual) Fibrinogen POC ABG pH POC ABG pCO2 POC ABG pO2 389 H 214 H Sodium Chloride Carbon Dioxide BUN Creatinine Glucose POC Glucose 147 H Lactic Acid AST Alkaline Phosphatase Lactate Dehydrogenase Total Creatine Kinase C-Reactive Protein Total Protein Albumin TSH Hepatitis C Antibody 09/07/18 09/07/18 09/07/18 15:04 15:04 21:55 RBC Hgb Hct MCV RDW Plt Count Lymphocytes % (Manual) Monocytes % (Manual) Basophils % (Manual) Lymphocytes # (Manual) Monocytes # (Manual) Fibrinogen POC ABG pH POC ABG pCO2 POC ABG pO2 Sodium Chloride Carbon Dioxide BUN Creatinine Glucose POC Glucose Lactic Acid 2.90 H* AST Alkaline Phosphatase Lactate Dehydrogenase 270 H Total Creatine Kinase C-Reactive Protein 2.70 H Total Protein Albumin TSH Hepatitis C Antibody 09/07/18 09/07/18 09/08/18 21:55 23:41 04:50 RBC Hgb Hct MCV RDW Plt Count Lymphocytes % (Manual) Monocytes % (Manual) Basophils % (Manual) Lymphocytes # (Manual) Monocytes # (Manual) Fibrinogen 616 H POC ABG pH POC ABG pCO2 POC ABG pO2 110 H Sodium Chloride Carbon Dioxide BUN Creatinine Glucose POC Glucose 125 H Lactic Acid AST Alkaline Phosphatase Lactate Dehydrogenase Total Creatine Kinase C-Reactive Protein Total Protein Albumin TSH Hepatitis C Antibody 09/08/18 09/08/18 09/08/18 06:08 12:19 23:38 RBC Hgb Hct MCV RDW Plt Count Lymphocytes % (Manual) Monocytes % (Manual) Basophils % (Manual) Lymphocytes # (Manual) Monocytes # (Manual) Fibrinogen POC ABG pH POC ABG pCO2 POC ABG pO2 Sodium Chloride Carbon Dioxide BUN Creatinine Glucose POC Glucose 118 H 112 H 136 H Lactic Acid AST Alkaline Phosphatase Lactate Dehydrogenase Total Creatine Kinase C-Reactive Protein Total Protein Albumin TSH Hepatitis C Antibody 09/09/18 09/09/18 09/09/18 03:43 03:58 03:58 RBC 3.35 L Hgb 10.8 L Hct 32.2 L MCV 96 H RDW 15.8 H Plt Count 104 L Lymphocytes % (Manual) Monocytes % (Manual) 19.0 H Basophils % (Manual) Lymphocytes # (Manual) Monocytes # (Manual) 1.1 H Fibrinogen POC ABG pH POC ABG pCO2 POC ABG pO2 115 H Sodium 132 L Chloride 95.6 L Carbon Dioxide BUN 26 H Creatinine Glucose 126 H POC Glucose Lactic Acid AST Alkaline Phosphatase Lactate Dehydrogenase Total Creatine Kinase C-Reactive Protein Total Protein Albumin TSH Hepatitis C Antibody 09/09/18 09/09/18 09/09/18 12:14 14:18 17:58 RBC Hgb Hct MCV RDW Plt Count Lymphocytes % (Manual) Monocytes % (Manual) Basophils % (Manual) Lymphocytes # (Manual) Monocytes # (Manual) Fibrinogen POC ABG pH 7.467 H POC ABG pCO2 32.7 L POC ABG pO2 111 H Sodium Chloride Carbon Dioxide BUN Creatinine Glucose POC Glucose 145 H 204 H Lactic Acid AST Alkaline Phosphatase Lactate Dehydrogenase Total Creatine Kinase C-Reactive Protein Total Protein Albumin TSH Hepatitis C Antibody 09/09/18 09/10/18 09/10/18 23:36 05:16 05:25 RBC Hgb Hct MCV RDW Plt Count Lymphocytes % (Manual) Monocytes % (Manual) Basophils % (Manual) Lymphocytes # (Manual) Monocytes # (Manual) Fibrinogen POC ABG pH 7.452 H POC ABG pCO2 POC ABG pO2 142 H Sodium Chloride Carbon Dioxide BUN Creatinine Glucose POC Glucose 153 H 149 H Lactic Acid AST Alkaline Phosphatase Lactate Dehydrogenase Total Creatine Kinase C-Reactive Protein Total Protein Albumin TSH Hepatitis C Antibody 09/10/18 09/10/18 09/10/18 12:01 18:18 23:37 RBC Hgb Hct MCV RDW Plt Count Lymphocytes % (Manual) Monocytes % (Manual) Basophils % (Manual) Lymphocytes # (Manual) Monocytes # (Manual) Fibrinogen POC ABG pH POC ABG pCO2 POC ABG pO2 Sodium Chloride Carbon Dioxide BUN Creatinine Glucose POC Glucose 152 H 152 H 153 H Lactic Acid AST Alkaline Phosphatase Lactate Dehydrogenase Total Creatine Kinase C-Reactive Protein Total Protein Albumin TSH Hepatitis C Antibody 09/11/18 09/11/18 09/11/18 05:14 08:25 08:25 RBC 3.25 L Hgb 10.3 L Hct 31.0 L MCV 96 H RDW 15.6 H Plt Count 113 L Lymphocytes % (Manual) Monocytes % (Manual) 13.0 H Basophils % (Manual) 2.0 H Lymphocytes # (Manual) 0.9 L Monocytes # (Manual) Fibrinogen POC ABG pH POC ABG pCO2 POC ABG pO2 Sodium 134 L Chloride 95.8 L Carbon Dioxide BUN 35 H Creatinine 0.7 L Glucose 136 H POC Glucose 137 H Lactic Acid AST Alkaline Phosphatase Lactate Dehydrogenase Total Creatine Kinase C-Reactive Protein Total Protein Albumin TSH Hepatitis C Antibody 09/11/18 09/11/18 09/12/18 12:03 17:58 00:38 RBC Hgb Hct MCV RDW Plt Count Lymphocytes % (Manual) Monocytes % (Manual) Basophils % (Manual) Lymphocytes # (Manual) Monocytes # (Manual) Fibrinogen POC ABG pH POC ABG pCO2 POC ABG pO2 Sodium Chloride Carbon Dioxide BUN Creatinine Glucose POC Glucose 127 H 121 H 137 H Lactic Acid AST Alkaline Phosphatase Lactate Dehydrogenase Total Creatine Kinase C-Reactive Protein Total Protein Albumin TSH Hepatitis C Antibody 09/12/18 09/12/18 09/12/18 05:34 06:13 06:13 RBC 2.92 L Hgb 9.3 L Hct 27.6 L MCV 95 H RDW 15.7 H Plt Count 120 L Lymphocytes % (Manual) Monocytes % (Manual) 17.0 H Basophils % (Manual) Lymphocytes # (Manual) 1.1 L Monocytes # (Manual) 1.2 H Fibrinogen POC ABG pH POC ABG pCO2 POC ABG pO2 Sodium 135 L Chloride Carbon Dioxide BUN 29 H Creatinine 0.7 L Glucose 132 H POC Glucose 112 H Lactic Acid AST 64 H Alkaline Phosphatase 172 H Lactate Dehydrogenase Total Creatine Kinase C-Reactive Protein Total Protein Albumin 2.9 L TSH Hepatitis C Antibody 09/12/18 09/12/18 09/12/18 11:39 17:19 23:52 RBC Hgb Hct MCV RDW Plt Count Lymphocytes % (Manual) Monocytes % (Manual) Basophils % (Manual) Lymphocytes # (Manual) Monocytes # (Manual) Fibrinogen POC ABG pH POC ABG pCO2 POC ABG pO2 Sodium Chloride Carbon Dioxide BUN Creatinine Glucose POC Glucose 134 H 107 H 141 H Lactic Acid AST Alkaline Phosphatase Lactate Dehydrogenase Total Creatine Kinase C-Reactive Protein Total Protein Albumin TSH Hepatitis C Antibody 09/13/18 09/13/18 09/13/18 05:02 05:50 11:49 RBC Hgb Hct MCV RDW Plt Count Lymphocytes % (Manual) Monocytes % (Manual) Basophils % (Manual) Lymphocytes # (Manual) Monocytes # (Manual) Fibrinogen POC ABG pH POC ABG pCO2 POC ABG pO2 Sodium Chloride Carbon Dioxide BUN Creatinine Glucose POC Glucose 125 H 128 H Lactic Acid AST Alkaline Phosphatase Lactate Dehydrogenase Total Creatine Kinase C-Reactive Protein Total Protein Albumin TSH Hepatitis C Antibody Reactive A Allied health notes reviewed: nursing
--- NOTE | 2018-09-13 20:34 | Progress Note ---
Assessment and Plan - Patient Problems (1) Status epilepticus Current Visit: Yes Status: Acute Plan to address problem: follow neurology. resolved (2) Acute encephalopathy Current Visit: No Status: Acute Plan to address problem: Supportive. (3) Thrombocytopenia Current Visit: No Status: Chronic Plan to address problem: will monitor accordingly check for hepatitis. (4) Acute respiratory failure Current Visit: No Status: Resolved Plan to address problem: Continue with vent Subjective Date of service: 09/13/18 Principal diagnosis: Ac resp failure; Status epilepticus; Ac on ch encephalopathy; COPD; Anemia Interval history: Patient seen/examined, resting in bed, labs reviewed, will check new labs tomorrow. No sign of renal failure in recent labs.Patient not set for any renal replacement therapy. Patient seen/examined, resting in bed, NAD, answers question. NGT in place , for feeding. I have discussed possible peg tube placement for feeding, as he transitions back to the NH soon.He has agreed to that. I am not sure ,if there is a DPOA. Patient seen/examined, resting in bed, labs reviewed , and stable. Surgery have not seen him yet for peg tube. Objective - Constitutional Vitals: Vital Signs - 12hr 09/13/18 09/13/18 09/13/18 13:10 19:59 20:08 Temperature 98.1 F 99.7 F H Pulse Rate 96 H 102 H Pulse Rate [ 98 H Anterior Bilateral Throughout] Respiratory 18 16 Rate Respiratory 18 Rate [Anterior Bilateral Throughout] Blood Pressure 126/78 125/69 O2 Sat by Pulse 98 96 Oximetry General appearance: Present: no acute distress, cachectic - EENT Eyes: PERRL, EOM intact ENT: hearing intact, clear oral mucosa Ears: bilateral: normal - Neck Neck: supple, normal ROM - Respiratory Respiratory effort: normal Respiratory: bilateral: CTA - Breasts Breasts: deferred - Cardiovascular Rhythm: regular Heart Sounds: Present: S1 & S2. Absent: gallop, rub Extremities: pulses intact, No edema, normal color, Full ROM - Gastrointestinal General gastrointestinal: Present: soft, non-tender, non-distended, normal bowel sounds Rectal Exam: deferred - Genitourinary Male genitourinary: deferred - Integumentary Integumentary: clear, warm, dry - Musculoskeletal Musculoskeletal: 1, strength equal bilaterally - Neurologic Neurologic: moves all extremities - Psychiatric Psychiatric: appropriate mood/affect, intact judgment & insight - Labs CBC & Chem 7: 09/12/18 06:13 09/12/18 06:13 Labs: Abnormal lab results 09/12/18 09/13/18 09/13/18 Range/Units 23:52 05:02 05:50 POC Glucose 141 H 125 H (70-105) Hepatitis C Antibody Reactive A (NonReactive) 09/13/18 09/13/18 Range/Units 11:49 18:15 POC Glucose 128 H 137 H (70-105) Hepatitis C Antibody (NonReactive)
[2018-09-13] MEDS: TYLENOL FEEDTUBE PRN (22:55)
[2018-09-14] MEDS: HumuLIN R SUB-Q SCH ×3 (00:20→18:28)
[2018-09-14] MEDS: NACL 0.9% 1000 ML 1,000 ML IV SCH ×2 (03:49→14:35)
[2018-09-14] MEDS: PULMICORT IH SCH ×2 (07:53→21:29)
[2018-09-14] MEDS: BROVANA NEBU IH SCH ×2 (07:53→21:29)
[2018-09-14] MEDS: KEPPRA PO SCH (09:36)
[2018-09-14] MEDS: PEPCID PO SCH (09:37)
[2018-09-14] MEDS: ROCEPHIN/NS 1 GM/50 ML 1 GM/50 ML BAG IV SCH (09:37)
--- NOTE | 2018-09-14 09:54 | Progress Note ---
Subjective Date of service: 09/14/18 Principal diagnosis: Ac resp failure; Status epilepticus; Ac on ch encephalopathy; COPD; Anemia Interval history: monitoring for recurrent seizures and see none the drug level for kweppra ordered I do not find in the record as of yet. will keep tracking this result Thanks Objective - Vital Sign Vital Signs - 12hr 09/13/18 09/14/18 09/14/18 22:00 00:00 00:29 Temperature Pulse Rate 94 H 94 H Pulse Rate [ Anterior Bilateral Throughout] Pulse Rate [ 102 H From Monitor] Respiratory 16 Rate Respiratory Rate [Anterior Bilateral Throughout] Blood Pressure O2 Sat by Pulse 96 Oximetry 09/14/18 09/14/18 09/14/18 02:20 07:43 07:53 Temperature 97.9 F 97.4 F L Pulse Rate 101 H 98 H Pulse Rate [ 90 Anterior Bilateral Throughout] Pulse Rate [ From Monitor] Respiratory 20 18 Rate Respiratory 16 Rate [Anterior Bilateral Throughout] Blood Pressure 121/72 124/66 O2 Sat by Pulse 97 96 Oximetry 09/14/18 07:54 Temperature Pulse Rate Pulse Rate [ Anterior Bilateral Throughout] Pulse Rate [ From Monitor] Respiratory Rate Respiratory Rate [Anterior Bilateral Throughout] Blood Pressure O2 Sat by Pulse 97 Oximetry - Laboratory Findings CBC and BMP: 09/12/18 06:13 09/12/18 06:13 Abnormal Lab Findings: Abnormal Labs 09/06/18 09/06/18 09/06/18 19:47 19:47 19:47 RBC 3.47 L Hgb 11.0 L Hct 34.6 L MCV 100 H RDW 16.6 H Plt Count 121 L Lymphocytes % (Manual) 50.0 H Monocytes % (Manual) Basophils % (Manual) Lymphocytes # (Manual) Monocytes # (Manual) Fibrinogen POC ABG pH POC ABG pCO2 POC ABG pO2 Sodium Chloride 97.0 L Carbon Dioxide 21 L BUN Creatinine Glucose 152 H POC Glucose Lactic Acid AST Alkaline Phosphatase 138 H Lactate Dehydrogenase Total Creatine Kinase 45 L C-Reactive Protein Total Protein 8.9 H Albumin TSH 7.610 H Hepatitis C Antibody 09/06/18 09/06/18 09/07/18 21:05 23:16 03:41 RBC Hgb Hct MCV RDW Plt Count Lymphocytes % (Manual) Monocytes % (Manual) Basophils % (Manual) Lymphocytes # (Manual) Monocytes # (Manual) Fibrinogen POC ABG pH POC ABG pCO2 POC ABG pO2 389 H 214 H Sodium Chloride Carbon Dioxide BUN Creatinine Glucose POC Glucose 147 H Lactic Acid AST Alkaline Phosphatase Lactate Dehydrogenase Total Creatine Kinase C-Reactive Protein Total Protein Albumin TSH Hepatitis C Antibody 09/07/18 09/07/18 09/07/18 15:04 15:04 21:55 RBC Hgb Hct MCV RDW Plt Count Lymphocytes % (Manual) Monocytes % (Manual) Basophils % (Manual) Lymphocytes # (Manual) Monocytes # (Manual) Fibrinogen POC ABG pH POC ABG pCO2 POC ABG pO2 Sodium Chloride Carbon Dioxide BUN Creatinine Glucose POC Glucose Lactic Acid 2.90 H* AST Alkaline Phosphatase Lactate Dehydrogenase 270 H Total Creatine Kinase C-Reactive Protein 2.70 H Total Protein Albumin TSH Hepatitis C Antibody 09/07/18 09/07/18 09/08/18 21:55 23:41 04:50 RBC Hgb Hct MCV RDW Plt Count Lymphocytes % (Manual) Monocytes % (Manual) Basophils % (Manual) Lymphocytes # (Manual) Monocytes # (Manual) Fibrinogen 616 H POC ABG pH POC ABG pCO2 POC ABG pO2 110 H Sodium Chloride Carbon Dioxide BUN Creatinine Glucose POC Glucose 125 H Lactic Acid AST Alkaline Phosphatase Lactate Dehydrogenase Total Creatine Kinase C-Reactive Protein Total Protein Albumin TSH Hepatitis C Antibody 09/08/18 09/08/18 09/08/18 06:08 12:19 23:38 RBC Hgb Hct MCV RDW Plt Count Lymphocytes % (Manual) Monocytes % (Manual) Basophils % (Manual) Lymphocytes # (Manual) Monocytes # (Manual) Fibrinogen POC ABG pH POC ABG pCO2 POC ABG pO2 Sodium Chloride Carbon Dioxide BUN Creatinine Glucose POC Glucose 118 H 112 H 136 H Lactic Acid AST Alkaline Phosphatase Lactate Dehydrogenase Total Creatine Kinase C-Reactive Protein Total Protein Albumin TSH Hepatitis C Antibody 09/09/18 09/09/18 09/09/18 03:43 03:58 03:58 RBC 3.35 L Hgb 10.8 L Hct 32.2 L MCV 96 H RDW 15.8 H Plt Count 104 L Lymphocytes % (Manual) Monocytes % (Manual) 19.0 H Basophils % (Manual) Lymphocytes # (Manual) Monocytes # (Manual) 1.1 H Fibrinogen POC ABG pH POC ABG pCO2 POC ABG pO2 115 H Sodium 132 L Chloride 95.6 L Carbon Dioxide BUN 26 H Creatinine Glucose 126 H POC Glucose Lactic Acid AST Alkaline Phosphatase Lactate Dehydrogenase Total Creatine Kinase C-Reactive Protein Total Protein Albumin TSH Hepatitis C Antibody 09/09/18 09/09/18 09/09/18 12:14 14:18 17:58 RBC Hgb Hct MCV RDW Plt Count Lymphocytes % (Manual) Monocytes % (Manual) Basophils % (Manual) Lymphocytes # (Manual) Monocytes # (Manual) Fibrinogen POC ABG pH 7.467 H POC ABG pCO2 32.7 L POC ABG pO2 111 H Sodium Chloride Carbon Dioxide BUN Creatinine Glucose POC Glucose 145 H 204 H Lactic Acid AST Alkaline Phosphatase Lactate Dehydrogenase Total Creatine Kinase C-Reactive Protein Total Protein Albumin TSH Hepatitis C Antibody 09/09/18 09/10/18 09/10/18 23:36 05:16 05:25 RBC Hgb Hct MCV RDW Plt Count Lymphocytes % (Manual) Monocytes % (Manual) Basophils % (Manual) Lymphocytes # (Manual) Monocytes # (Manual) Fibrinogen POC ABG pH 7.452 H POC ABG pCO2 POC ABG pO2 142 H Sodium Chloride Carbon Dioxide BUN Creatinine Glucose POC Glucose 153 H 149 H Lactic Acid AST Alkaline Phosphatase Lactate Dehydrogenase Total Creatine Kinase C-Reactive Protein Total Protein Albumin TSH Hepatitis C Antibody 09/10/18 09/10/18 09/10/18 12:01 18:18 23:37 RBC Hgb Hct MCV RDW Plt Count Lymphocytes % (Manual) Monocytes % (Manual) Basophils % (Manual) Lymphocytes # (Manual) Monocytes # (Manual) Fibrinogen POC ABG pH POC ABG pCO2 POC ABG pO2 Sodium Chloride Carbon Dioxide BUN Creatinine Glucose POC Glucose 152 H 152 H 153 H Lactic Acid AST Alkaline Phosphatase Lactate Dehydrogenase Total Creatine Kinase C-Reactive Protein Total Protein Albumin TSH Hepatitis C Antibody 09/11/18 09/11/18 09/11/18 05:14 08:25 08:25 RBC 3.25 L Hgb 10.3 L Hct 31.0 L MCV 96 H RDW 15.6 H Plt Count 113 L Lymphocytes % (Manual) Monocytes % (Manual) 13.0 H Basophils % (Manual) 2.0 H Lymphocytes # (Manual) 0.9 L Monocytes # (Manual) Fibrinogen POC ABG pH POC ABG pCO2 POC ABG pO2 Sodium 134 L Chloride 95.8 L Carbon Dioxide BUN 35 H Creatinine 0.7 L Glucose 136 H POC Glucose 137 H Lactic Acid AST Alkaline Phosphatase Lactate Dehydrogenase Total Creatine Kinase C-Reactive Protein Total Protein Albumin TSH Hepatitis C Antibody 09/11/18 09/11/18 09/12/18 12:03 17:58 00:38 RBC Hgb Hct MCV RDW Plt Count Lymphocytes % (Manual) Monocytes % (Manual) Basophils % (Manual) Lymphocytes # (Manual) Monocytes # (Manual) Fibrinogen POC ABG pH POC ABG pCO2 POC ABG pO2 Sodium Chloride Carbon Dioxide BUN Creatinine Glucose POC Glucose 127 H 121 H 137 H Lactic Acid AST Alkaline Phosphatase Lactate Dehydrogenase Total Creatine Kinase C-Reactive Protein Total Protein Albumin TSH Hepatitis C Antibody 09/12/18 09/12/18 09/12/18 05:34 06:13 06:13 RBC 2.92 L Hgb 9.3 L Hct 27.6 L MCV 95 H RDW 15.7 H Plt Count 120 L Lymphocytes % (Manual) Monocytes % (Manual) 17.0 H Basophils % (Manual) Lymphocytes # (Manual) 1.1 L Monocytes # (Manual) 1.2 H Fibrinogen POC ABG pH POC ABG pCO2 POC ABG pO2 Sodium 135 L Chloride Carbon Dioxide BUN 29 H Creatinine 0.7 L Glucose 132 H POC Glucose 112 H Lactic Acid AST 64 H Alkaline Phosphatase 172 H Lactate Dehydrogenase Total Creatine Kinase C-Reactive Protein Total Protein Albumin 2.9 L TSH Hepatitis C Antibody 09/12/18 09/12/18 09/12/18 11:39 17:19 23:52 RBC Hgb Hct MCV RDW Plt Count Lymphocytes % (Manual) Monocytes % (Manual) Basophils % (Manual) Lymphocytes # (Manual) Monocytes # (Manual) Fibrinogen POC ABG pH POC ABG pCO2 POC ABG pO2 Sodium Chloride Carbon Dioxide BUN Creatinine Glucose POC Glucose 134 H 107 H 141 H Lactic Acid AST Alkaline Phosphatase Lactate Dehydrogenase Total Creatine Kinase C-Reactive Protein Total Protein Albumin TSH Hepatitis C Antibody 09/13/18 09/13/18 09/13/18 05:02 05:50 11:49 RBC Hgb Hct MCV RDW Plt Count Lymphocytes % (Manual) Monocytes % (Manual) Basophils % (Manual) Lymphocytes # (Manual) Monocytes # (Manual) Fibrinogen POC ABG pH POC ABG pCO2 POC ABG pO2 Sodium Chloride Carbon Dioxide BUN Creatinine Glucose POC Glucose 125 H 128 H Lactic Acid AST Alkaline Phosphatase Lactate Dehydrogenase Total Creatine Kinase C-Reactive Protein Total Protein Albumin TSH Hepatitis C Antibody Reactive A 09/13/18 09/14/18 09/14/18 18:15 00:20 05:43 RBC Hgb Hct MCV RDW Plt Count Lymphocytes % (Manual) Monocytes % (Manual) Basophils % (Manual) Lymphocytes # (Manual) Monocytes # (Manual) Fibrinogen POC ABG pH POC ABG pCO2 POC ABG pO2 Sodium Chloride Carbon Dioxide BUN Creatinine Glucose POC Glucose 137 H 121 H 127 H Lactic Acid AST Alkaline Phosphatase Lactate Dehydrogenase Total Creatine Kinase C-Reactive Protein Total Protein Albumin TSH Hepatitis C Antibody
--- NOTE | 2018-09-14 13:36 | Consultation ---
CHIEF COMPLAINT: Dysphagia. HISTORY OF PRESENT ILLNESS: The patient is a 72-year-old male patient who has been admitted to the hospital with seizures. He was diagnosed with aspiration and dysphagia, which makes him unable to tolerate or manage his own secretions and unable to obtain food via phone. For this reason, a consult was placed to the general surgery service for gastrostomy tube placement. History was unable to be obtained from the patient due to what appears to be dementia. From chart review, it does appear that the patient has a history of seizures and epilepsy with an unknown encephalopathy and newly diagnosed dysphagia. PAST MEDICAL HISTORY: As above, includes encephalopathy, seizures, and dysphagia. PAST SURGICAL HISTORY: Unknown, but there are no major scars in the abdomen. SOCIAL HISTORY: Unavailable. FAMILY HISTORY: Unavailable. REVIEW OF SYSTEMS: The patient reports no pain and no concerns, but he is not oriented to time and space. PHYSICAL EXAMINATION: VITAL SIGNS: Stable at the time of exam. GENERAL: The patient appears to be somewhat malnourished, edentulous and confused. CHEST: Clear to auscultation bilaterally. HEART: Has regular heart rate. ABDOMEN: Shows no major scars. There is no distention. There is no tenderness on my exam. You can hear some bowel sounds. There are no hernias that I palpated. MUSCULOSKELETAL: There is some swelling distally in both hands and feet, but there are good pulses. NEUROLOGIC: The patient is awake and alert, but definitely not oriented. ASSESSMENT AND PLAN: The patient is a 72-year-old male patient who appears to have dysphagia. He is a candidate for PEG tube placement. I have spoken to the daughter Ms. Michelle Ramires at the phone number [phone] and I have obtained consent from her. He understood the procedure as well as the possibility of complications of the procedure including but not limited to bleeding, infection of the wound, damage to other internal organs. She accepted these terms and we obtained consent via phone, which was witnessed by one of our nurses. JOB# [id number] KINGA/SOLOMON
--- NOTE | 2018-09-14 18:35 | Progress Note ---
Assessment and Plan yPatient weak, emaciated. Presently on room air. No acute respiratory distress at this time.O2 saturation 94% on room air.Patient afebrile. No leukocytosis.Patient weak and more alert today.. - Patient Problems (1) Status epilepticus Current Visit: Yes Status: Acute Plan to address problem: Management as per neurology. (2) Acute encephalopathy Current Visit: No Status: Acute Plan to address problem: Management as per primary care and neurology. (3) Thrombocytopenia Current Visit: No Status: Chronic Plan to address problem: Monitor platelets closely. Subjective Date of service: 09/14/18 Principal diagnosis: Ac resp failure; Status epilepticus; Ac on ch encephalopathy; COPD; Anemia Interval history: Patient weak, emaciated. Presently on room air. No acute respiratory distress at this time.O2 saturation 94% on room air.Patient afebrile. No leukocytosis.Patient weak and more alert today. Objective Vital Signs - 12hr 09/14/18 09/14/18 09/14/18 07:43 07:53 07:54 Temperature 97.4 F L Pulse Rate 98 H Pulse Rate [ 90 Anterior Bilateral Throughout] Pulse Rate [ From Monitor] Respiratory 18 Rate Respiratory 16 Rate [Anterior Bilateral Throughout] Blood Pressure 124/66 O2 Sat by Pulse 96 97 Oximetry 09/14/18 09/14/18 10:00 13:07 Temperature 97.8 F Pulse Rate 92 H Pulse Rate [ Anterior Bilateral Throughout] Pulse Rate [ 88 From Monitor] Respiratory 18 18 Rate Respiratory Rate [Anterior Bilateral Throughout] Blood Pressure 106/69 O2 Sat by Pulse 97 100 Oximetry Constitutional: no acute distress, lethargic Eyes: non-icteric ENT: oropharynx moist, other (extubated) Neck: supple, no lymphadenopathy, no JVD Effort: mildly labored Ascultation: Bilateral: diminished breath sounds, rhonchi (scant), other (ref erred upper airway sounds) Percussion: Bilateral: not dull Cardiovascular: regular rate and rhythm Gastrointestinal: normoactive bowel sounds, soft, non-tender, non-distended Integumentary: normal Extremities: no cyanosis, no edema, pulses normal, no ischemia or petechiae Neurologic: unable to assess Psychiatric: other (flat affect) CBC and BMP: 09/12/18 06:13 09/12/18 06:13 ABG, PT/INR, D-dimer: ABG POC ABG pH 7.452 (7.35-7.45) H 09/10/18 05:25 POC ABG pCO2 35.5 (35-45) 09/10/18 05:25 POC ABG pO2 142 (80-105) H 09/10/18 05:25 POC ABG HCO3 24.8 (22-26 mml/L) 09/10/18 05:25 POC ABG Total CO2 26 (23-27mmol/L) 09/10/18 05:25 POC ABG O2 Sat 99 09/10/18 05:25 PT/INR, D-dimer PT 13.7 Sec. (12.2-14.9) 09/12/18 06:13 INR 1.08 (0.87-1.13) 09/12/18 06:13 Abnormal lab findings: Abnormal Labs 09/06/18 09/06/18 09/06/18 19:47 19:47 19:47 RBC 3.47 L Hgb 11.0 L Hct 34.6 L MCV 100 H RDW 16.6 H Plt Count 121 L Lymphocytes % (Manual) 50.0 H Monocytes % (Manual) Basophils % (Manual) Lymphocytes # (Manual) Monocytes # (Manual) Fibrinogen POC ABG pH POC ABG pCO2 POC ABG pO2 Sodium Chloride 97.0 L Carbon Dioxide 21 L BUN Creatinine Glucose 152 H POC Glucose Lactic Acid AST Alkaline Phosphatase 138 H Lactate Dehydrogenase Total Creatine Kinase 45 L C-Reactive Protein Total Protein 8.9 H Albumin TSH 7.610 H Hepatitis C Antibody 09/06/18 09/06/18 09/07/18 21:05 23:16 03:41 RBC Hgb Hct MCV RDW Plt Count Lymphocytes % (Manual) Monocytes % (Manual) Basophils % (Manual) Lymphocytes # (Manual) Monocytes # (Manual) Fibrinogen POC ABG pH POC ABG pCO2 POC ABG pO2 389 H 214 H Sodium Chloride Carbon Dioxide BUN Creatinine Glucose POC Glucose 147 H Lactic Acid AST Alkaline Phosphatase Lactate Dehydrogenase Total Creatine Kinase C-Reactive Protein Total Protein Albumin TSH Hepatitis C Antibody 09/07/18 09/07/18 09/07/18 15:04 15:04 21:55 RBC Hgb Hct MCV RDW Plt Count Lymphocytes % (Manual) Monocytes % (Manual) Basophils % (Manual) Lymphocytes # (Manual) Monocytes # (Manual) Fibrinogen POC ABG pH POC ABG pCO2 POC ABG pO2 Sodium Chloride Carbon Dioxide BUN Creatinine Glucose POC Glucose Lactic Acid 2.90 H* AST Alkaline Phosphatase Lactate Dehydrogenase 270 H Total Creatine Kinase C-Reactive Protein 2.70 H Total Protein Albumin TSH Hepatitis C Antibody 09/07/18 09/07/18 09/08/18 21:55 23:41 04:50 RBC Hgb Hct MCV RDW Plt Count Lymphocytes % (Manual) Monocytes % (Manual) Basophils % (Manual) Lymphocytes # (Manual) Monocytes # (Manual) Fibrinogen 616 H POC ABG pH POC ABG pCO2 POC ABG pO2 110 H Sodium Chloride Carbon Dioxide BUN Creatinine Glucose POC Glucose 125 H Lactic Acid AST Alkaline Phosphatase Lactate Dehydrogenase Total Creatine Kinase C-Reactive Protein Total Protein Albumin TSH Hepatitis C Antibody 09/08/18 09/08/18 09/08/18 06:08 12:19 23:38 RBC Hgb Hct MCV RDW Plt Count Lymphocytes % (Manual) Monocytes % (Manual) Basophils % (Manual) Lymphocytes # (Manual) Monocytes # (Manual) Fibrinogen POC ABG pH POC ABG pCO2 POC ABG pO2 Sodium Chloride Carbon Dioxide BUN Creatinine Glucose POC Glucose 118 H 112 H 136 H Lactic Acid AST Alkaline Phosphatase Lactate Dehydrogenase Total Creatine Kinase C-Reactive Protein Total Protein Albumin TSH Hepatitis C Antibody 09/09/18 09/09/18 09/09/18 03:43 03:58 03:58 RBC 3.35 L Hgb 10.8 L Hct 32.2 L MCV 96 H RDW 15.8 H Plt Count 104 L Lymphocytes % (Manual) Monocytes % (Manual) 19.0 H Basophils % (Manual) Lymphocytes # (Manual) Monocytes # (Manual) 1.1 H Fibrinogen POC ABG pH POC ABG pCO2 POC ABG pO2 115 H Sodium 132 L Chloride 95.6 L Carbon Dioxide BUN 26 H Creatinine Glucose 126 H POC Glucose Lactic Acid AST Alkaline Phosphatase Lactate Dehydrogenase Total Creatine Kinase C-Reactive Protein Total Protein Albumin TSH Hepatitis C Antibody 09/09/18 09/09/18 09/09/18 12:14 14:18 17:58 RBC Hgb Hct MCV RDW Plt Count Lymphocytes % (Manual) Monocytes % (Manual) Basophils % (Manual) Lymphocytes # (Manual) Monocytes # (Manual) Fibrinogen POC ABG pH 7.467 H POC ABG pCO2 32.7 L POC ABG pO2 111 H Sodium Chloride Carbon Dioxide BUN Creatinine Glucose POC Glucose 145 H 204 H Lactic Acid AST Alkaline Phosphatase Lactate Dehydrogenase Total Creatine Kinase C-Reactive Protein Total Protein Albumin TSH Hepatitis C Antibody 09/09/18 09/10/18 09/10/18 23:36 05:16 05:25 RBC Hgb Hct MCV RDW Plt Count Lymphocytes % (Manual) Monocytes % (Manual) Basophils % (Manual) Lymphocytes # (Manual) Monocytes # (Manual) Fibrinogen POC ABG pH 7.452 H POC ABG pCO2 POC ABG pO2 142 H Sodium Chloride Carbon Dioxide BUN Creatinine Glucose POC Glucose 153 H 149 H Lactic Acid AST Alkaline Phosphatase Lactate Dehydrogenase Total Creatine Kinase C-Reactive Protein Total Protein Albumin TSH Hepatitis C Antibody 09/10/18 09/10/18 09/10/18 12:01 18:18 23:37 RBC Hgb Hct MCV RDW Plt Count Lymphocytes % (Manual) Monocytes % (Manual) Basophils % (Manual) Lymphocytes # (Manual) Monocytes # (Manual) Fibrinogen POC ABG pH POC ABG pCO2 POC ABG pO2 Sodium Chloride Carbon Dioxide BUN Creatinine Glucose POC Glucose 152 H 152 H 153 H Lactic Acid AST Alkaline Phosphatase Lactate Dehydrogenase Total Creatine Kinase C-Reactive Protein Total Protein Albumin TSH Hepatitis C Antibody 09/11/18 09/11/18 09/11/18 05:14 08:25 08:25 RBC 3.25 L Hgb 10.3 L Hct 31.0 L MCV 96 H RDW 15.6 H Plt Count 113 L Lymphocytes % (Manual) Monocytes % (Manual) 13.0 H Basophils % (Manual) 2.0 H Lymphocytes # (Manual) 0.9 L Monocytes # (Manual) Fibrinogen POC ABG pH POC ABG pCO2 POC ABG pO2 Sodium 134 L Chloride 95.8 L Carbon Dioxide BUN 35 H Creatinine 0.7 L Glucose 136 H POC Glucose 137 H Lactic Acid AST Alkaline Phosphatase Lactate Dehydrogenase Total Creatine Kinase C-Reactive Protein Total Protein Albumin TSH Hepatitis C Antibody 09/11/18 09/11/18 09/12/18 12:03 17:58 00:38 RBC Hgb Hct MCV RDW Plt Count Lymphocytes % (Manual) Monocytes % (Manual) Basophils % (Manual) Lymphocytes # (Manual) Monocytes # (Manual) Fibrinogen POC ABG pH POC ABG pCO2 POC ABG pO2 Sodium Chloride Carbon Dioxide BUN Creatinine Glucose POC Glucose 127 H 121 H 137 H Lactic Acid AST Alkaline Phosphatase Lactate Dehydrogenase Total Creatine Kinase C-Reactive Protein Total Protein Albumin TSH Hepatitis C Antibody 09/12/18 09/12/18 09/12/18 05:34 06:13 06:13 RBC 2.92 L Hgb 9.3 L Hct 27.6 L MCV 95 H RDW 15.7 H Plt Count 120 L Lymphocytes % (Manual) Monocytes % (Manual) 17.0 H Basophils % (Manual) Lymphocytes # (Manual) 1.1 L Monocytes # (Manual) 1.2 H Fibrinogen POC ABG pH POC ABG pCO2 POC ABG pO2 Sodium 135 L Chloride Carbon Dioxide BUN 29 H Creatinine 0.7 L Glucose 132 H POC Glucose 112 H Lactic Acid AST 64 H Alkaline Phosphatase 172 H Lactate Dehydrogenase Total Creatine Kinase C-Reactive Protein Total Protein Albumin 2.9 L TSH Hepatitis C Antibody 09/12/18 09/12/18 09/12/18 11:39 17:19 23:52 RBC Hgb Hct MCV RDW Plt Count Lymphocytes % (Manual) Monocytes % (Manual) Basophils % (Manual) Lymphocytes # (Manual) Monocytes # (Manual) Fibrinogen POC ABG pH POC ABG pCO2 POC ABG pO2 Sodium Chloride Carbon Dioxide BUN Creatinine Glucose POC Glucose 134 H 107 H 141 H Lactic Acid AST Alkaline Phosphatase Lactate Dehydrogenase Total Creatine Kinase C-Reactive Protein Total Protein Albumin TSH Hepatitis C Antibody 09/13/18 09/13/18 09/13/18 05:02 05:50 11:49 RBC Hgb Hct MCV RDW Plt Count Lymphocytes % (Manual) Monocytes % (Manual) Basophils % (Manual) Lymphocytes # (Manual) Monocytes # (Manual) Fibrinogen POC ABG pH POC ABG pCO2 POC ABG pO2 Sodium Chloride Carbon Dioxide BUN Creatinine Glucose POC Glucose 125 H 128 H Lactic Acid AST Alkaline Phosphatase Lactate Dehydrogenase Total Creatine Kinase C-Reactive Protein Total Protein Albumin TSH Hepatitis C Antibody Reactive A 09/13/18 09/14/18 09/14/18 18:15 00:20 05:43 RBC Hgb Hct MCV RDW Plt Count Lymphocytes % (Manual) Monocytes % (Manual) Basophils % (Manual) Lymphocytes # (Manual) Monocytes # (Manual) Fibrinogen POC ABG pH POC ABG pCO2 POC ABG pO2 Sodium Chloride Carbon Dioxide BUN Creatinine Glucose POC Glucose 137 H 121 H 127 H Lactic Acid AST Alkaline Phosphatase Lactate Dehydrogenase Total Creatine Kinase C-Reactive Protein Total Protein Albumin TSH Hepatitis C Antibody 09/14/18 17:31 RBC Hgb Hct MCV RDW Plt Count Lymphocytes % (Manual) Monocytes % (Manual) Basophils % (Manual) Lymphocytes # (Manual) Monocytes # (Manual) Fibrinogen POC ABG pH POC ABG pCO2 POC ABG pO2 Sodium Chloride Carbon Dioxide BUN Creatinine Glucose POC Glucose 114 H Lactic Acid AST Alkaline Phosphatase Lactate Dehydrogenase Total Creatine Kinase C-Reactive Protein Total Protein Albumin TSH Hepatitis C Antibody Allied health notes reviewed: nursing
--- NOTE | 2018-09-14 19:05 | Progress Note ---
Assessment and Plan - Patient Problems (1) Status epilepticus Current Visit: Yes Status: Acute Plan to address problem: follow neurology. resolved (2) Acute encephalopathy Current Visit: No Status: Acute Plan to address problem: Supportive. (3) Thrombocytopenia Current Visit: No Status: Chronic Plan to address problem: will monitor accordingly check for hepatitis. (4) Acute respiratory failure Current Visit: No Status: Resolved Plan to address problem: Continue with vent Subjective Date of service: 09/14/18 Principal diagnosis: Ac resp failure; Status epilepticus; Ac on ch encephalopathy; COPD; Anemia Interval history: Patient seen/examined, resting in bed, labs reviewed, will check new labs tomorrow. No sign of renal failure in recent labs.Patient not set for any renal replacement therapy. Patient seen/examined, resting in bed, NAD, answers question. NGT in place , for feeding. I have discussed possible peg tube placement for feeding, as he transitions back to the [facility] soon.He has agreed to that. I am not sure ,if there is a DPOA. Patient seen/examined, resting in bed, labs reviewed , and stable. Surgery have not seen him yet for peg tube. patient seen/examined, resting in bed, labs reviewed.[facility] consulted, , they came by , and saw patient, surgery/procedure to be down. Objective - Constitutional Vitals: Vital Signs - 12hr 09/14/18 09/14/18 09/14/18 07:43 07:53 07:54 Temperature 97.4 F L Pulse Rate 98 H Pulse Rate [ 90 Anterior Bilateral Throughout] Pulse Rate [ From Monitor] Respiratory 18 Rate Respiratory 16 Rate [Anterior Bilateral Throughout] Blood Pressure 124/66 O2 Sat by Pulse 96 97 Oximetry 09/14/18 09/14/18 10:00 13:07 Temperature 97.8 F Pulse Rate 92 H Pulse Rate [ Anterior Bilateral Throughout] Pulse Rate [ 88 From Monitor] Respiratory 18 18 Rate Respiratory Rate [Anterior Bilateral Throughout] Blood Pressure 106/69 O2 Sat by Pulse 97 100 Oximetry General appearance: Present: no acute distress, cachectic - EENT Eyes: PERRL, EOM intact ENT: hearing intact, clear oral mucosa Ears: bilateral: normal - Neck Neck: supple, normal ROM - Respiratory Respiratory effort: normal Respiratory: bilateral: CTA - Breasts Breasts: deferred - Cardiovascular Rhythm: regular Heart Sounds: Present: S1 & S2. Absent: gallop, rub Extremities: pulses intact, No edema, normal color, Full ROM - Gastrointestinal General gastrointestinal: Present: soft, non-tender, non-distended, normal bowel sounds Rectal Exam: deferred - Genitourinary Male genitourinary: deferred - Integumentary Integumentary: clear, warm, dry - Musculoskeletal Musculoskeletal: 1, strength equal bilaterally - Neurologic Neurologic: moves all extremities - Psychiatric Psychiatric: memory intact, appropriate mood/affect, intact judgment & insight - Labs CBC & Chem 7: 09/12/18 06:13 09/12/18 06:13 Labs: Abnormal lab results 09/14/18 09/14/18 09/14/18 Range/Units 00:20 05:43 17:31 POC Glucose 121 H 127 H 114 H (70-105)
[2018-09-15 05:37] LABS: Hematocrit 29.6 % (35.5-45.6); Hemoglobin 9.8 gm/dl (11.8-15.2); Mean Corpuscular HGB Conc 33 % (32-34); Mean Corpuscular Volume 95 fl (84-94); Platelet Count 112 K/mm3 (140-440); Red Blood Count 3.11 M/mm3 (3.65-5.03)
[2018-09-15 05:55] LABS: BUN/Creatinine Ratio 28; Blood Urea Nitrogen 14 mg/dL (9-20); Hemolysis Index 47
[2018-09-15 06:34] LABS: Basophils % (Manual) 0 % (0.0-1.8); Eosinophils % (Manual) 0 % (0.0-4.3); Myelocytes # (Manual) 0.1 K/mm3; Total Cells Counted 100
[2018-09-15 06:35] LABS: Anisocytosis Few; Poikilocytosis 1+
[2018-09-15 06:36] LABS: Platelet Estimate Consistent w Auto
[2018-09-15] MEDS: HumuLIN R SUB-Q SCH ×3 (07:09→17:18)
[2018-09-15] MEDS: PEPCID PO SCH ×3 (07:10→22:04)
[2018-09-15] MEDS: KEPPRA PO SCH ×3 (07:10→22:03)
--- NOTE | 2018-09-15 10:16 | Progress Note ---
Assessment and Plan Acute respiratory failure,s/p mechanical ventilatory support. Status epilepticus. Acute on chronic encephalopathy. Thrombocytopenia that is chronic. History of chronic obstructive lung disease. Anemia that is microcytic. Oropharyngeal dysphagia. Moderate protein calorie malnutrition Hyponatremia - continue bronchodilators with pulmonary hygiene per RT - antibitoics per ID - continue enteric nutrition as tolerated -monitor electrolytes and treat as indicated - wean supplemental oxygen for O2 sat's > 90% -CXR and ABG prn - continue accuchecks with glycemic control per SSI for target blood glucose <180mg/dL - Prevention of delirium, maintenance of sleep-wake cycle - Avoid nephrotoxic agents, adjust all antibiotics and medications for CrCL and GFR - VTE prophylaxis -If he continues to fail dysphagia screening/testing will need PEG placement for nutritional support and to facilitate discharge planning - continue other care per attending / other consultants t Subjective Date of service: 09/15/18 Principal diagnosis: Ac resp failure; Status epilepticus; Ac on ch encephalopathy; COPD; Anemia Interval history: Patient is seen today for: Acute respiratory failure on MVS ; Status epilepticus; Acute on chronic encephalopathy; COPD; Anemia; Oropharyngeal dysphagia; Moderate to severe protein calorie malnutrition Seen and examined at bedside; 24hour events reviewed; nursing and respiratory care staff consulted; no adverse overnight events reported to me; resting peacefully in bed; No emesis or overt aspiration; afebrile, awake and alert, answers questions, no fevers, no vomiting, no diarrhea. On supplemental oxygen via NC, small bowel feeding tube in nares Vitals , labs, medications, chart reviewed Objective Vital Signs - 12hr 09/15/18 09/15/18 09/15/18 02:22 02:25 07:18 Temperature 98.4 F 98.2 F Pulse Rate 76 94 H Respiratory 18 20 Rate Blood Pressure 125/65 126/70 O2 Sat by Pulse 100 97 Oximetry Constitutional: no acute distress, alert Eyes: non-icteric ENT: oropharynx moist, other (small bowel feeding tube in nares) Neck: supple, no lymphadenopathy, no JVD Effort: normal Ascultation: Bilateral: clear, diminished breath sounds Percussion: Bilateral: not dull Cardiovascular: regular rate and rhythm, other (S1,S2) Gastrointestinal: normoactive bowel sounds, soft, non-tender, non-distended Integumentary: normal Extremities: no cyanosis, no edema, pulses normal, no ischemia or petechiae Neurologic: non-focal exam, pupils equal and round Psychiatric: mood appropriate, affect normal CBC and BMP: 09/15/18 04:47 09/15/18 04:47 ABG, PT/INR, D-dimer: ABG POC ABG pH 7.452 (7.35-7.45) H 09/10/18 05:25 POC ABG pCO2 35.5 (35-45) 09/10/18 05:25 POC ABG pO2 142 (80-105) H 09/10/18 05:25 POC ABG HCO3 24.8 (22-26 mml/L) 09/10/18 05:25 POC ABG Total CO2 26 (23-27mmol/L) 09/10/18 05:25 POC ABG O2 Sat 99 09/10/18 05:25 PT/INR, D-dimer PT 13.7 Sec. (12.2-14.9) 09/12/18 06:13 INR 1.08 (0.87-1.13) 09/12/18 06:13 Abnormal lab findings: Abnormal Labs 09/06/18 09/06/18 09/06/18 19:47 19:47 19:47 RBC 3.47 L Hgb 11.0 L Hct 34.6 L MCV 100 H RDW 16.6 H Plt Count 121 L Lymphocytes % (Manual) 50.0 H Monocytes % (Manual) Basophils % (Manual) Lymphocytes # (Manual) Monocytes # (Manual) Fibrinogen POC ABG pH POC ABG pCO2 POC ABG pO2 Sodium Chloride 97.0 L Carbon Dioxide 21 L BUN Creatinine Glucose 152 H POC Glucose Lactic Acid AST Alkaline Phosphatase 138 H Lactate Dehydrogenase Total Creatine Kinase 45 L C-Reactive Protein Total Protein 8.9 H Albumin TSH 7.610 H Hepatitis C Antibody 09/06/18 09/06/18 09/07/18 21:05 23:16 03:41 RBC Hgb Hct MCV RDW Plt Count Lymphocytes % (Manual) Monocytes % (Manual) Basophils % (Manual) Lymphocytes # (Manual) Monocytes # (Manual) Fibrinogen POC ABG pH POC ABG pCO2 POC ABG pO2 389 H 214 H Sodium Chloride Carbon Dioxide BUN Creatinine Glucose POC Glucose 147 H Lactic Acid AST Alkaline Phosphatase Lactate Dehydrogenase Total Creatine Kinase C-Reactive Protein Total Protein Albumin TSH Hepatitis C Antibody 0709/07/18 09/07/18 15:04 15:04 21:55 RBC Hgb Hct MCV RDW Plt Count Lymphocytes % (Manual) Monocytes % (Manual) Basophils % (Manual) Lymphocytes # (Manual) Monocytes # (Manual) Fibrinogen POC ABG pH POC ABG pCO2 POC ABG pO2 Sodium Chloride Carbon Dioxide BUN Creatinine Glucose POC Glucose Lactic Acid 2.90 H* AST Alkaline Phosphatase Lactate Dehydrogenase 270 H Total Creatine Kinase C-Reactive Protein 2.70 H Total Protein Albumin TSH Hepatitis C Antibody 09/07/18 09/07/18 09/08/18 21:55 23:41 04:50 RBC Hgb Hct MCV RDW Plt Count Lymphocytes % (Manual) Monocytes % (Manual) Basophils % (Manual) Lymphocytes # (Manual) Monocytes # (Manual) Fibrinogen 616 H POC ABG pH POC ABG pCO2 POC ABG pO2 110 H Sodium Chloride Carbon Dioxide BUN Creatinine Glucose POC Glucose 125 H Lactic Acid AST Alkaline Phosphatase Lactate Dehydrogenase Total Creatine Kinase C-Reactive Protein Total Protein Albumin TSH Hepatitis C Antibody 09/08/18 09/08/18 09/08/18 06:08 12:19 23:38 RBC Hgb Hct MCV RDW Plt Count Lymphocytes % (Manual) Monocytes % (Manual) Basophils % (Manual) Lymphocytes # (Manual) Monocytes # (Manual) Fibrinogen POC ABG pH POC ABG pCO2 POC ABG pO2 Sodium Chloride Carbon Dioxide BUN Creatinine Glucose POC Glucose 118 H 112 H 136 H Lactic Acid AST Alkaline Phosphatase Lactate Dehydrogenase Total Creatine Kinase C-Reactive Protein Total Protein Albumin TSH Hepatitis C Antibody 09/09/18 09/09/18 09/09/18 03:43 03:58 03:58 RBC 3.35 L Hgb 10.8 L Hct 32.2 L MCV 96 H RDW 15.8 H Plt Count 104 L Lymphocytes % (Manual) Monocytes % (Manual) 19.0 H Basophils % (Manual) Lymphocytes # (Manual) Monocytes # (Manual) 1.1 H Fibrinogen POC ABG pH POC ABG pCO2 POC ABG pO2 115 H Sodium 132 L Chloride 95.6 L Carbon Dioxide BUN 26 H Creatinine Glucose 126 H POC Glucose Lactic Acid AST Alkaline Phosphatase Lactate Dehydrogenase Total Creatine Kinase C-Reactive Protein Total Protein Albumin TSH Hepatitis C Antibody 09/09/18 09/09/18 09/09/18 12:14 14:18 17:58 RBC Hgb Hct MCV RDW Plt Count Lymphocytes % (Manual) Monocytes % (Manual) Basophils % (Manual) Lymphocytes # (Manual) Monocytes # (Manual) Fibrinogen POC ABG pH 7.467 H POC ABG pCO2 32.7 L POC ABG pO2 111 H Sodium Chloride Carbon Dioxide BUN Creatinine Glucose POC Glucose 145 H 204 H Lactic Acid AST Alkaline Phosphatase Lactate Dehydrogenase Total Creatine Kinase C-Reactive Protein Total Protein Albumin TSH Hepatitis C Antibody 09/09/18 09/10/18 09/10/18 23:36 05:16 05:25 RBC Hgb Hct MCV RDW Plt Count Lymphocytes % (Manual) Monocytes % (Manual) Basophils % (Manual) Lymphocytes # (Manual) Monocytes # (Manual) Fibrinogen POC ABG pH 7.452 H POC ABG pCO2 POC ABG pO2 142 H Sodium Chloride Carbon Dioxide BUN Creatinine Glucose POC Glucose 153 H 149 H Lactic Acid AST Alkaline Phosphatase Lactate Dehydrogenase Total Creatine Kinase C-Reactive Protein Total Protein Albumin TSH Hepatitis C Antibody 09/10/18 09/10/18 09/10/18 12:01 18:18 23:37 RBC Hgb Hct MCV RDW Plt Count Lymphocytes % (Manual) Monocytes % (Manual) Basophils % (Manual) Lymphocytes # (Manual) Monocytes # (Manual) Fibrinogen POC ABG pH POC ABG pCO2 POC ABG pO2 Sodium Chloride Carbon Dioxide BUN Creatinine Glucose POC Glucose 152 H 152 H 153 H Lactic Acid AST Alkaline Phosphatase Lactate Dehydrogenase Total Creatine Kinase C-Reactive Protein Total Protein Albumin TSH Hepatitis C Antibody 09/11/18 09/11/18 09/11/18 05:14 08:25 08:25 RBC 3.25 L Hgb 10.3 L Hct 31.0 L MCV 96 H RDW 15.6 H Plt Count 113 L Lymphocytes % (Manual) Monocytes % (Manual) 13.0 H Basophils % (Manual) 2.0 H Lymphocytes # (Manual) 0.9 L Monocytes # (Manual) Fibrinogen POC ABG pH POC ABG pCO2 POC ABG pO2 Sodium 134 L Chloride 95.8 L Carbon Dioxide BUN 35 H Creatinine 0.7 L Glucose 136 H POC Glucose 137 H Lactic Acid AST Alkaline Phosphatase Lactate Dehydrogenase Total Creatine Kinase C-Reactive Protein Total Protein Albumin TSH Hepatitis C Antibody 09/11/18 09/11/18 09/12/18 12:03 17:58 00:38 RBC Hgb Hct MCV RDW Plt Count Lymphocytes % (Manual) Monocytes % (Manual) Basophils % (Manual) Lymphocytes # (Manual) Monocytes # (Manual) Fibrinogen POC ABG pH POC ABG pCO2 POC ABG pO2 Sodium Chloride Carbon Dioxide BUN Creatinine Glucose POC Glucose 127 H 121 H 137 H Lactic Acid AST Alkaline Phosphatase Lactate Dehydrogenase Total Creatine Kinase C-Reactive Protein Total Protein Albumin TSH Hepatitis C Antibody 09/12/18 09/12/18 09/12/18 05:34 06:13 06:13 RBC 2.92 L Hgb 9.3 L Hct 27.6 L MCV 95 H RDW 15.7 H Plt Count 120 L Lymphocytes % (Manual) Monocytes % (Manual) 17.0 H Basophils % (Manual) Lymphocytes # (Manual) 1.1 L Monocytes # (Manual) 1.2 H Fibrinogen POC ABG pH POC ABG pCO2 POC ABG pO2 Sodium 135 L Chloride Carbon Dioxide BUN 29 H Creatinine 0.7 L Glucose 132 H POC Glucose 112 H Lactic Acid AST 64 H Alkaline Phosphatase 172 H Lactate Dehydrogenase Total Creatine Kinase C-Reactive Protein Total Protein Albumin 2.9 L TSH Hepatitis C Antibody 09/12/18 09/12/18 09/12/18 11:39 17:19 23:52 RBC Hgb Hct MCV RDW Plt Count Lymphocytes % (Manual) Monocytes % (Manual) Basophils % (Manual) Lymphocytes # (Manual) Monocytes # (Manual) Fibrinogen POC ABG pH POC ABG pCO2 POC ABG pO2 Sodium Chloride Carbon Dioxide BUN Creatinine Glucose POC Glucose 134 H 107 H 141 H Lactic Acid AST Alkaline Phosphatase Lactate Dehydrogenase Total Creatine Kinase C-Reactive Protein Total Protein Albumin TSH Hepatitis C Antibody 09/13/18 09/13/18 09/13/18 05:02 05:50 11:49 RBC Hgb Hct MCV RDW Plt Count Lymphocytes % (Manual) Monocytes % (Manual) Basophils % (Manual) Lymphocytes # (Manual) Monocytes # (Manual) Fibrinogen POC ABG pH POC ABG pCO2 POC ABG pO2 Sodium Chloride Carbon Dioxide BUN Creatinine Glucose POC Glucose 125 H 128 H Lactic Acid AST Alkaline Phosphatase Lactate Dehydrogenase Total Creatine Kinase C-Reactive Protein Total Protein Albumin TSH Hepatitis C Antibody Reactive A 09/13/18 09/14/18 09/14/18 18:15 00:20 05:43 RBC Hgb Hct MCV RDW Plt Count Lymphocytes % (Manual) Monocytes % (Manual) Basophils % (Manual) Lymphocytes # (Manual) Monocytes # (Manual) Fibrinogen POC ABG pH POC ABG pCO2 POC ABG pO2 Sodium Chloride Carbon Dioxide BUN Creatinine Glucose POC Glucose 137 H 121 H 127 H Lactic Acid AST Alkaline Phosphatase Lactate Dehydrogenase Total Creatine Kinase C-Reactive Protein Total Protein Albumin TSH Hepatitis C Antibody 09/14/18 09/15/18 09/15/18 17:31 04:47 04:47 RBC 3.11 L Hgb 9.8 L Hct 29.6 L MCV 95 H RDW 16.0 H Plt Count 112 L Lymphocytes % (Manual) Monocytes % (Manual) 11.0 H Basophils % (Manual) Lymphocytes # (Manual) Monocytes # (Manual) Fibrinogen POC ABG pH POC ABG pCO2 POC ABG pO2 Sodium 132 L Chloride Carbon Dioxide 20 L BUN Creatinine 0.5 L Glucose POC Glucose 114 H Lactic Acid AST Alkaline Phosphatase Lactate Dehydrogenase Total Creatine Kinase C-Reactive Protein Total Protein Albumin TSH Hepatitis C Antibody Allied health notes reviewed: nursing
[2018-09-15] MEDS: PULMICORT IH SCH ×2 (10:36→20:47)
[2018-09-15] MEDS: BROVANA NEBU IH SCH ×2 (10:36→20:47)
[2018-09-15] MEDS: NACL 0.9% 1000 ML 1,000 ML IV SCH ×2 (13:25→22:53)
--- NOTE | 2018-09-15 19:27 | Progress Note ---
Assessment and Plan - Patient Problems (1) Status epilepticus Current Visit: Yes Status: Acute Plan to address problem: follow neurology. resolved (2) Acute encephalopathy Current Visit: No Status: Acute Plan to address problem: Supportive. (3) Thrombocytopenia Current Visit: No Status: Chronic Plan to address problem: will monitor accordingly check for hepatitis. done, and he is hepC positive, (4) Acute respiratory failure Current Visit: No Status: Resolved Plan to address problem: Continue with vent (5) Poor nutrition Current Visit: Yes Status: Acute Plan to address problem: Awaiting peg tube placement. Subjective Date of service: 09/15/18 Principal diagnosis: Ac resp failure; Status epilepticus; Ac on ch encephalopathy; COPD; Anemia Interval history: Patient seen/examined, resting in bed, labs reviewed, will check new labs tomorrow. No sign of renal failure in recent labs.Patient not set for any renal replacement therapy. Patient seen/examined, resting in bed, NAD, answers question. NGT in place , for feeding. I have discussed possible peg tube placement for feeding, as he transitions back to the NH soon.He has agreed to that. I am not sure ,if there is a DPOA. Patient seen/examined, resting in bed, labs reviewed , and stable. Surgery have not seen him yet for peg tube. patient seen/examined, resting in bed, labs reviewed.[facility] consulted, , they came by , and saw patient, surgery/procedure to be down. patient seen/examined, resting in bed. I have spoken to the correctional case records supervisor, and to the hospital admin, patients peg needs to be done by tomorrow., and [facility] will not be able till next week .Another surgery group, will need t o get OR room , and that may not be possible in 24hrs , travis told by DR Hollis, so will try the GI group.Onnce peg placed, will d/c back to the [place]. Objective - Constitutional Vitals: Vital Signs - 12hr 09/15/18 09/15/18 09/15/18 10:00 10:30 10:39 Temperature Pulse Rate 87 Pulse Rate [ 90 92 H Anterior Bilateral Throughout] Pulse Rate [ 87 From Monitor] Respiratory Rate Respiratory 15 19 Rate [Anterior Bilateral Throughout] Blood Pressure O2 Sat by Pulse 97 Oximetry 09/15/18 13:16 Temperature 98.3 F Pulse Rate Pulse Rate [ Anterior Bilateral Throughout] Pulse Rate [ From Monitor] Respiratory 20 Rate Respiratory Rate [Anterior Bilateral Throughout] Blood Pressure 129/70 O2 Sat by Pulse Oximetry General appearance: Present: no acute distress, cachectic - EENT Eyes: PERRL, EOM intact ENT: hearing intact, clear oral mucosa Ears: bilateral: normal - Neck Neck: supple, normal ROM - Respiratory Respiratory effort: normal Respiratory: bilateral: CTA - Breasts Breasts: deferred - Cardiovascular Rhythm: regular Heart Sounds: Present: S1 & S2. Absent: gallop, rub Extremities: pulses intact, No edema, normal color, Full ROM - Gastrointestinal General gastrointestinal: Present: soft, non-tender, non-distended, normal bowel sounds Rectal Exam: deferred - Genitourinary Male genitourinary: deferred, normal - Integumentary Integumentary: clear, warm, dry - Musculoskeletal Musculoskeletal: 1, strength equal bilaterally - Neurologic Neurologic: moves all extremities - Psychiatric Psychiatric: memory intact, appropriate mood/affect, intact judgment & insight - Labs CBC & Chem 7: 09/15/18 04:47 09/15/18 04:47 Labs: Abnormal lab results 09/15/18 09/15/18 Range/Units 04:47 04:47 RBC 3.11 L (3.65-5.03) M/mm3 Hgb 9.8 L (11.8-15.2) gm/dl Hct 29.6 L (35.5-45.6) % MCV 95 H (84-94) fl RDW 16.0 H (13.2-15.2) % Plt Count 112 L (140-440) K/mm3 Monocytes % (Manual) 11.0 H (0.0-7.3) % Sodium 132 L (137-145) mmol/L Carbon Dioxide 20 L (22-30) mmol/L Creatinine 0.5 L (0.8-1.5) mg/dL
[2018-09-16] MEDS: HumuLIN R SUB-Q SCH ×4 (00:03→17:24)
[2018-09-16] MEDS: NACL 0.9% 1000 ML 1,000 ML IV SCH ×2 (08:21→17:12)
[2018-09-16] MEDS: PULMICORT IH SCH ×2 (09:17→21:20)
[2018-09-16] MEDS: BROVANA NEBU IH SCH ×2 (09:17→21:20)
[2018-09-16] MEDS: KEPPRA PO SCH ×2 (09:33→22:58)
[2018-09-16] MEDS: PEPCID PO SCH ×2 (09:33→22:57)
--- NOTE | 2018-09-16 13:35 | Event Note ---
Date: 09/16/18 Consult received for PEG placement. Based on Nursing notes, pt does NOT want PEG, and may not need it. Once this is clear, if he needs it, and IS willing, please call us.
--- NOTE | 2018-09-16 16:07 | Progress Note ---
Assessment and Plan Acute respiratory failure,s/p mechanical ventilatory support. Status epilepticus. Acute on chronic encephalopathy. Thrombocytopenia that is chronic. History of chronic obstructive lung disease. Anemia that is microcytic. Oropharyngeal dysphagia. Moderate protein calorie malnutrition Hyponatremia -If he continues to fail dysphagia screening/testing will need PEG placement for nutritional support and to facilitate discharge planning- per documentation patient is refusing PEG placement. It is unclear if he truly understands what and why he needs a PEG tube. Continue speech therapy for dysphagia. Re-evalaute objectively his swallow function early next week. -Aspiration precautions - continue bronchodilators with pulmonary hygiene per RT - continue enteric nutrition as tolerated, decrease free water flushes in view of hyponatremia -Get CBC and BMP -monitor electrolytes and treat as indicated - wean supplemental oxygen for O2 sat's > 90% -CXR and ABG prn - continue accuchecks with glycemic control per SSI for target blood glucose <180mg/dL - Prevention of delirium, maintenance of sleep-wake cycle - Avoid nephrotoxic agents, adjust all antibiotics and medications for CrCL and GFR - VTE prophylaxis - continue other care per attending / other consultants Subjective Date of service: 09/16/18 Principal diagnosis: Ac resp failure; Status epilepticus; Ac on ch encephalopathy; COPD; Anemia Interval history: Patient is seen today for: Acute respiratory failure on MVS ; Status epilepticus; Acute on chronic encephalopathy; COPD; Anemia; Oropharyngeal dysphagia; Moderate to severe protein calorie malnutrition Seen and examined at bedside; 24hour events reviewed; nursing and respiratory care staff consulted; no adverse overnight events reported to me; resting peacefully in bed; No emesis or overt aspiration; afebrile More communicative Vitals, labs, medications,, chart reviewed. Objective Vital Signs - 12hr 09/16/18 09/16/18 09:17 10:00 Pulse Rate [ 91 H Anterior Bilateral Throughout] Pulse Rate [ 91 H From Monitor] Respiratory 18 Rate Respiratory 18 Rate [Anterior Bilateral Throughout] O2 Sat by Pulse 98 Oximetry Constitutional: no acute distress, alert Eyes: non-icteric ENT: oropharynx moist, other Neck: supple, no lymphadenopathy, no JVD Effort: normal Ascultation: Bilateral: clear, diminished breath sounds Cardiovascular: regular rate and rhythm, other (S1,S2, ) Gastrointestinal: normoactive bowel sounds, soft, non-tender, non-distended Integumentary: normal Extremities: no cyanosis, no edema, pulses normal, no ischemia or petechiae Neurologic: normal mental status, non-focal exam, pupils equal and round Psychiatric: mood appropriate, affect normal CBC and BMP: 09/15/18 04:47 09/15/18 04:47 ABG, PT/INR, D-dimer: ABG POC ABG pH 7.452 (7.35-7.45) H 09/10/18 05:25 POC ABG pCO2 35.5 (35-45) 09/10/18 05:25 POC ABG pO2 142 (80-105) H 09/10/18 05:25 POC ABG HCO3 24.8 (22-26 mml/L) 09/10/18 05:25 POC ABG Total CO2 26 (23-27mmol/L) 09/10/18 05:25 POC ABG O2 Sat 99 09/10/18 05:25 PT/INR, D-dimer PT 13.7 Sec. (12.2-14.9) 09/12/18 06:13 INR 1.08 (0.87-1.13) 09/12/18 06:13 Abnormal lab findings: Abnormal Labs 09/06/18 09/06/18 09/06/18 19:47 19:47 19:47 RBC 3.47 L Hgb 11.0 L Hct 34.6 L MCV 100 H RDW 16.6 H Plt Count 121 L Lymphocytes % (Manual) 50.0 H Monocytes % (Manual) Basophils % (Manual) Lymphocytes # (Manual) Monocytes # (Manual) Fibrinogen POC ABG pH POC ABG pCO2 POC ABG pO2 Sodium Chloride 97.0 L Carbon Dioxide 21 L BUN Creatinine Glucose 152 H POC Glucose Lactic Acid AST Alkaline Phosphatase 138 H Lactate Dehydrogenase Total Creatine Kinase 45 L C-Reactive Protein Total Protein 8.9 H Albumin TSH 7.610 H Hepatitis C Antibody 09/06/18 09/06/18 09/07/18 21:05 23:16 03:41 RBC Hgb Hct MCV RDW Plt Count Lymphocytes % (Manual) Monocytes % (Manual) Basophils % (Manual) Lymphocytes # (Manual) Monocytes # (Manual) Fibrinogen POC ABG pH POC ABG pCO2 POC ABG pO2 389 H 214 H Sodium Chloride Carbon Dioxide BUN Creatinine Glucose POC Glucose 147 H Lactic Acid AST Alkaline Phosphatase Lactate Dehydrogenase Total Creatine Kinase C-Reactive Protein Total Protein Albumin TSH Hepatitis C Antibody 09/07/18 09/07/18 09/07/18 15:04 15:04 21:55 RBC Hgb Hct MCV RDW Plt Count Lymphocytes % (Manual) Monocytes % (Manual) Basophils % (Manual) Lymphocytes # (Manual) Monocytes # (Manual) Fibrinogen POC ABG pH POC ABG pCO2 POC ABG pO2 Sodium Chloride Carbon Dioxide BUN Creatinine Glucose POC Glucose Lactic Acid 2.90 H* AST Alkaline Phosphatase Lactate Dehydrogenase 270 H Total Creatine Kinase C-Reactive Protein 2.70 H Total Protein Albumin TSH Hepatitis C Antibody 09/07/18 09/07/18 09/08/18 21:55 23:41 04:50 RBC Hgb Hct MCV RDW Plt Count Lymphocytes % (Manual) Monocytes % (Manual) Basophils % (Manual) Lymphocytes # (Manual) Monocytes # (Manual) Fibrinogen 616 H POC ABG pH POC ABG pCO2 POC ABG pO2 110 H Sodium Chloride Carbon Dioxide BUN Creatinine Glucose POC Glucose 125 H Lactic Acid AST Alkaline Phosphatase Lactate Dehydrogenase Total Creatine Kinase C-Reactive Protein Total Protein Albumin TSH Hepatitis C Antibody 09/08/18 09/08/18 09/08/18 06:08 12:19 23:38 RBC Hgb Hct MCV RDW Plt Count Lymphocytes % (Manual) Monocytes % (Manual) Basophils % (Manual) Lymphocytes # (Manual) Monocytes # (Manual) Fibrinogen POC ABG pH POC ABG pCO2 POC ABG pO2 Sodium Chloride Carbon Dioxide BUN Creatinine Glucose POC Glucose 118 H 112 H 136 H Lactic Acid AST Alkaline Phosphatase Lactate Dehydrogenase Total Creatine Kinase C-Reactive Protein Total Protein Albumin TSH Hepatitis C Antibody 09/09/18 09/09/18 09/09/18 03:43 03:58 03:58 RBC 3.35 L Hgb 10.8 L Hct 32.2 L MCV 96 H RDW 15.8 H Plt Count 104 L Lymphocytes % (Manual) Monocytes % (Manual) 19.0 H Basophils % (Manual) Lymphocytes # (Manual) Monocytes # (Manual) 1.1 H Fibrinogen POC ABG pH POC ABG pCO2 POC ABG pO2 115 H Sodium 132 L Chloride 95.6 L Carbon Dioxide BUN 26 H Creatinine Glucose 126 H POC Glucose Lactic Acid AST Alkaline Phosphatase Lactate Dehydrogenase Total Creatine Kinase C-Reactive Protein Total Protein Albumin TSH Hepatitis C Antibody 09/09/18 09/09/18 09/09/18 12:14 14:18 17:58 RBC Hgb Hct MCV RDW Plt Count Lymphocytes % (Manual) Monocytes % (Manual) Basophils % (Manual) Lymphocytes # (Manual) Monocytes # (Manual) Fibrinogen POC ABG pH 7.467 H POC ABG pCO2 32.7 L POC ABG pO2 111 H Sodium Chloride Carbon Dioxide BUN Creatinine Glucose POC Glucose 145 H 204 H Lactic Acid AST Alkaline Phosphatase Lactate Dehydrogenase Total Creatine Kinase C-Reactive Protein Total Protein Albumin TSH Hepatitis C Antibody 09/09/18 09/10/18 09/10/18 23:36 05:16 05:25 RBC Hgb Hct MCV RDW Plt Count Lymphocytes % (Manual) Monocytes % (Manual) Basophils % (Manual) Lymphocytes # (Manual) Monocytes # (Manual) Fibrinogen POC ABG pH 7.452 H POC ABG pCO2 POC ABG pO2 142 H Sodium Chloride Carbon Dioxide BUN Creatinine Glucose POC Glucose 153 H 149 H Lactic Acid AST Alkaline Phosphatase Lactate Dehydrogenase Total Creatine Kinase C-Reactive Protein Total Protein Albumin TSH Hepatitis C Antibody 09/10/18 09/10/18 09/10/18 12:01 18:18 23:37 RBC Hgb Hct MCV RDW Plt Count Lymphocytes % (Manual) Monocytes % (Manual) Basophils % (Manual) Lymphocytes # (Manual) Monocytes # (Manual) Fibrinogen POC ABG pH POC ABG pCO2 POC ABG pO2 Sodium Chloride Carbon Dioxide BUN Creatinine Glucose POC Glucose 152 H 152 H 153 H Lactic Acid AST Alkaline Phosphatase Lactate Dehydrogenase Total Creatine Kinase C-Reactive Protein Total Protein Albumin TSH Hepatitis C Antibody 09/11/18 09/11/18 09/11/18 05:14 08:25 08:25 RBC 3.25 L Hgb 10.3 L Hct 31.0 L MCV 96 H RDW 15.6 H Plt Count 113 L Lymphocytes % (Manual) Monocytes % (Manual) 13.0 H Basophils % (Manual) 2.0 H Lymphocytes # (Manual) 0.9 L Monocytes # (Manual) Fibrinogen POC ABG pH POC ABG pCO2 POC ABG pO2 Sodium 134 L Chloride 95.8 L Carbon Dioxide BUN 35 H Creatinine 0.7 L Glucose 136 H POC Glucose 137 H Lactic Acid AST Alkaline Phosphatase Lactate Dehydrogenase Total Creatine Kinase C-Reactive Protein Total Protein Albumin TSH Hepatitis C Antibody 09/11/18 09/11/18 09/12/18 12:03 17:58 00:38 RBC Hgb Hct MCV RDW Plt Count Lymphocytes % (Manual) Monocytes % (Manual) Basophils % (Manual) Lymphocytes # (Manual) Monocytes # (Manual) Fibrinogen POC ABG pH POC ABG pCO2 POC ABG pO2 Sodium Chloride Carbon Dioxide BUN Creatinine Glucose POC Glucose 127 H 121 H 137 H Lactic Acid AST Alkaline Phosphatase Lactate Dehydrogenase Total Creatine Kinase C-Reactive Protein Total Protein Albumin TSH Hepatitis C Antibody 09/12/18 09/12/18 09/12/18 05:34 06:13 06:13 RBC 2.92 L Hgb 9.3 L Hct 27.6 L MCV 95 H RDW 15.7 H Plt Count 120 L Lymphocytes % (Manual) Monocytes % (Manual) 17.0 H Basophils % (Manual) Lymphocytes # (Manual) 1.1 L Monocytes # (Manual) 1.2 H Fibrinogen POC ABG pH POC ABG pCO2 POC ABG pO2 Sodium 135 L Chloride Carbon Dioxide BUN 29 H Creatinine 0.7 L Glucose 132 H POC Glucose 112 H Lactic Acid AST 64 H Alkaline Phosphatase 172 H Lactate Dehydrogenase Total Creatine Kinase C-Reactive Protein Total Protein Albumin 2.9 L TSH Hepatitis C Antibody 09/12/18 09/12/18 09/12/18 11:39 17:19 23:52 RBC Hgb Hct MCV RDW Plt Count Lymphocytes % (Manual) Monocytes % (Manual) Basophils % (Manual) Lymphocytes # (Manual) Monocytes # (Manual) Fibrinogen POC ABG pH POC ABG pCO2 POC ABG pO2 Sodium Chloride Carbon Dioxide BUN Creatinine Glucose POC Glucose 134 H 107 H 141 H Lactic Acid AST Alkaline Phosphatase Lactate Dehydrogenase Total Creatine Kinase C-Reactive Protein Total Protein Albumin TSH Hepatitis C Antibody 09/13/18 09/13/18 09/13/18 05:02 05:50 11:49 RBC Hgb Hct MCV RDW Plt Count Lymphocytes % (Manual) Monocytes % (Manual) Basophils % (Manual) Lymphocytes # (Manual) Monocytes # (Manual) Fibrinogen POC ABG pH POC ABG pCO2 POC ABG pO2 Sodium Chloride Carbon Dioxide BUN Creatinine Glucose POC Glucose 125 H 128 H Lactic Acid AST Alkaline Phosphatase Lactate Dehydrogenase Total Creatine Kinase C-Reactive Protein Total Protein Albumin TSH Hepatitis C Antibody Reactive A 09/13/18 09/14/18 09/14/18 18:15 00:20 05:43 RBC Hgb Hct MCV RDW Plt Count Lymphocytes % (Manual) Monocytes % (Manual) Basophils % (Manual) Lymphocytes # (Manual) Monocytes # (Manual) Fibrinogen POC ABG pH POC ABG pCO2 POC ABG pO2 Sodium Chloride Carbon Dioxide BUN Creatinine Glucose POC Glucose 137 H 121 H 127 H Lactic Acid AST Alkaline Phosphatase Lactate Dehydrogenase Total Creatine Kinase C-Reactive Protein Total Protein Albumin TSH Hepatitis C Antibody 09/14/18 09/15/18 09/15/18 17:31 04:47 04:47 RBC 3.11 L Hgb 9.8 L Hct 29.6 L MCV 95 H RDW 16.0 H Plt Count 112 L Lymphocytes % (Manual) Monocytes % (Manual) 11.0 H Basophils % (Manual) Lymphocytes # (Manual) Monocytes # (Manual) Fibrinogen POC ABG pH POC ABG pCO2 POC ABG pO2 Sodium 132 L Chloride Carbon Dioxide 20 L BUN Creatinine 0.5 L Glucose POC Glucose 114 H Lactic Acid AST Alkaline Phosphatase Lactate Dehydrogenase Total Creatine Kinase C-Reactive Protein Total Protein Albumin TSH Hepatitis C Antibody Allied health notes reviewed: nursing
--- NOTE | 2018-09-16 19:29 | Progress Note ---
Assessment and Plan - Patient Problems (1) Status epilepticus Current Visit: Yes Status: Acute Plan to address problem: follow neurology. resolved (2) Acute encephalopathy Current Visit: No Status: Acute Plan to address problem: Supportive. improved./resolved. (3) Thrombocytopenia Current Visit: No Status: Chronic Plan to address problem: will monitor accordingly check for hepatitis. done, and he is hepC positive,Will follow up as out patient., will check viral load/genotype. (4) Acute respiratory failure Current Visit: No Status: Resolved Plan to address problem: Continue with vent resolved. (5) Poor nutrition Current Visit: Yes Status: Acute Plan to address problem: Awaiting peg tube placement. See notes above. Subjective Date of service: 09/16/18 Principal diagnosis: Ac resp failure; Status epilepticus; Ac on ch encephalopathy; COPD; Anemia Interval history: Patient seen/examined, resting in bed, labs reviewed, will check new labs tomorrow. No sign of renal failure in recent labs.Patient not set for any renal replacement therapy. Patient seen/examined, resting in bed, NAD, answers question. NGT in place , for feeding. I have discussed possible peg tube placement for feeding, as he transitions back to the NH soon.He has agreed to that. I am not sure ,if there is a DPOA. Patient seen/examined, resting in bed, labs reviewed , and stable. Surgery have not seen him yet for peg tube. patient seen/examined, resting in bed, labs reviewed.Pb pierre consulted, , they came by , and saw patient, surgery/procedure to be down. patient seen/examined, resting in bed. I have spoken to the major case detective, and to the hospital admin, patients peg needs to be done by tomorrow., and surgery gabby will not be able till next week te.Another surgery group, will need to get OR room , and that may not be possible in 24hrs , travis told by DR Hollis, so will try the GI group.Onnce peg placed, will d/c back to the [place]. Patient seen/examined, resting in bed, peg tube placement on hold now, due to some change in patients mind , and daughter contrary to his previous desire, and clinical need. patient is still not swallowing well, and may still very well need feeding tube. I have d/w all involved, and all agreed to doing modified barrium swallow test, and if indicated , peg tube will be placed, other baez, will d/c back to the NH w/o NGT. Objective - Constitutional Vitals: Vital Signs - 12hr 09/16/18 09/16/18 09/16/18 07:40 09:17 10:00 Temperature 98.3 F Pulse Rate [ 91 H Anterior Bilateral Throughout] Pulse Rate [ 91 H From Monitor] Respiratory 20 18 Rate Respiratory 18 Rate [Anterior Bilateral Throughout] Blood Pressure 128/70 O2 Sat by Pulse 98 Oximetry 09/16/18 13:46 Temperature 98.3 F Pulse Rate [ Anterior Bilateral Throughout] Pulse Rate [ From Monitor] Respiratory 20 Rate Respiratory Rate [Anterior Bilateral Throughout] Blood Pressure 127/76 O2 Sat by Pulse Oximetry General appearance: Present: no acute distress, cachectic - EENT Eyes: PERRL, EOM intact ENT: hearing intact, clear oral mucosa Ears: bilateral: normal - Neck Neck: supple, normal ROM - Respiratory Respiratory effort: normal Respiratory: bilateral: CTA - Breasts Breasts: deferred - Cardiovascular Rhythm: regular Heart Sounds: Present: S1 & S2. Absent: gallop, rub Extremities: pulses intact, No edema, normal color, Full ROM - Gastrointestinal General gastrointestinal: Present: soft, non-tender, non-distended, normal bowel sounds Rectal Exam: deferred - Genitourinary Male genitourinary: deferred - Integumentary Integumentary: clear, warm, dry - Musculoskeletal Musculoskeletal: 1, strength equal bilaterally - Neurologic Neurologic: moves all extremities - Psychiatric Psychiatric: memory intact, appropriate mood/affect, intact judgment & insight - Labs CBC & Chem 7: 09/15/18 04:47 09/15/18 04:47
[2018-09-17] MEDS: NACL 0.9% 1000 ML 1,000 ML IV SCH (04:53)
[2018-09-17] MEDS: PULMICORT IH SCH ×2 (07:07→20:08)
[2018-09-17] MEDS: BROVANA NEBU IH SCH ×2 (07:07→20:08)
[2018-09-17] MEDS: HumuLIN R SUB-Q SCH ×2 (11:04→12:00)
[2018-09-17] MEDS: KEPPRA PO SCH (11:05)
[2018-09-17] MEDS: PEPCID PO SCH (11:05)
--- NOTE | 2018-09-17 14:51 | Progress Note ---
Assessment and Plan Patient weak, emaciated. Presently on room air. No acute respiratory distress at this time.O2 saturation 96% on room air.Patient afebrile. No leukocytosis.Patient more alert today. - Patient Problems (1) Status epilepticus Current Visit: Yes Status: Acute Plan to address problem: Management as per neurology. (2) Acute encephalopathy Current Visit: No Status: Acute Plan to address problem: Management as per primary care and neurology. (3) Thrombocytopenia Current Visit: No Status: Chronic Plan to address problem: Monitor platelets closely. Subjective Date of service: 09/17/18 Principal diagnosis: Ac resp failure; Status epilepticus; Ac on ch encephalopathy; COPD; Anemia Interval history: Patient weak, emaciated. Presently on room air. No acute respiratory distress at this time.O2 saturation 96% on room air.Patient afebrile. No leukocyto sis.Patient more alert today. Objective Vital Signs - 12hr 09/17/18 09/17/18 09/17/18 03:00 07:07 07:44 Temperature 99.7 F H 98.5 F Pulse Rate 95 H 93 H Pulse Rate [ 96 H Anterior Bilateral Throughout] Respiratory 18 20 Rate Respiratory 18 Rate [Anterior Bilateral Throughout] Blood Pressure 128/74 Blood Pressure 126/66 [Left] O2 Sat by Pulse 96 98 96 Oximetry 09/17/18 13:54 Temperature 98.3 F Pulse Rate Pulse Rate [ Anterior Bilateral Throughout] Respiratory 20 Rate Respiratory Rate [Anterior Bilateral Throughout] Blood Pressure 137/71 Blood Pressure [Left] O2 Sat by Pulse Oximetry Constitutional: no acute distress, lethargic Eyes: non-icteric ENT: oropharynx moist, other (extubated) Neck: supple, no lymphadenopathy, no JVD Effort: mildly labored Ascultation: Bilateral: diminished breath sounds, rhonchi (scant), other (referred upper airway sounds) Percussion: Bilateral: not dull Cardiovascular: regular rate and rhythm Gastrointestinal: normoactive bowel sounds, soft, non-tender, non-distended Integumentary: normal Extremities: no cyanosis, no edema, pulses normal, no ischemia or petechiae Neurologic: unable to assess Psychiatric: other (flat affect) CBC and BMP: 09/15/18 04:47 09/15/18 04:47 ABG, PT/INR, D-dimer: ABG POC ABG pH 7.452 (7.35-7.45) H 09/10/18 05:25 POC ABG pCO2 35.5 (35-45) 09/10/18 05:25 POC ABG pO2 142 (80-105) H 09/10/18 05:25 POC ABG HCO3 24.8 (22-26 mml/L) 09/10/18 05:25 POC ABG Total CO2 26 (23-27mmol/L) 09/10/18 05:25 POC ABG O2 Sat 99 09/10/18 05:25 PT/INR, D-dimer PT 13.7 Sec. (12.2-14.9) 09/12/18 06:13 INR 1.08 (0.87-1.13) 09/12/18 06:13 Abnormal lab findings: Abnormal Labs 09/06/18 09/06/18 09/06/18 19:47 19:47 19:47 RBC 3.47 L Hgb 11.0 L Hct 34.6 L MCV 100 H RDW 16.6 H Plt Count 121 L Lymphocytes % (Manual) 50.0 H Monocytes % (Manual) Basophils % (Manual) Lymphocytes # (Manual) Monocytes # (Manual) Fibrinogen POC ABG pH POC ABG pCO2 POC ABG pO2 Sodium Chloride 97.0 L Carbon Dioxide 21 L BUN Creatinine Glucose 152 H POC Glucose Lactic Acid AST Alkaline Phosphatase 138 H Lactate Dehydrogenase Total Creatine Kinase 45 L C-Reactive Protein Total Protein 8.9 H Albumin TSH 7.610 H Hepatitis C Antibody 09/06/18 09/06/18 09/07/18 21:05 23:16 03:41 RBC Hgb Hct MCV RDW Plt Count Lymphocytes % (Manual) Monocytes % (Manual) Basophils % (Manual) Lymphocytes # (Manual) Monocytes # (Manual) Fibrinogen POC ABG pH POC ABG pCO2 POC ABG pO2 389 H 214 H Sodium Chloride Carbon Dioxide BUN Creatinine Glucose POC Glucose 147 H Lactic Acid AST Alkaline Phosphatase Lactate Dehydrogenase Total Creatine Kinase C-Reactive Protein Total Protein Albumin TSH Hepatitis C Antibody 09/07/18 09/07/18 09/07/18 15:04 15:04 21:55 RBC Hgb Hct MCV RDW Plt Count Lymphocytes % (Manual) Monocytes % (Manual) Basophils % (Manual) Lymphocytes # (Manual) Monocytes # (Manual) Fibrinogen POC ABG pH POC ABG pCO2 POC ABG pO2 Sodium Chloride Carbon Dioxide BUN Creatinine Glucose POC Glucose Lactic Acid 2.90 H* AST Alkaline Phosphatase Lactate Dehydrogenase 270 H Total Creatine Kinase C-Reactive Protein 2.70 H Total Protein Albumin TSH Hepatitis C Antibody 09/07/18 09/07/18 09/08/18 21:55 23:41 04:50 RBC Hgb Hct MCV RDW Plt Count Lymphocytes % (Manual) Monocytes % (Manual) Basophils % (Manual) Lymphocytes # (Manual) Monocytes # (Manual) Fibrinogen 616 H POC ABG pH POC ABG pCO2 POC ABG pO2 110 H Sodium Chloride Carbon Dioxide BUN Creatinine Glucose POC Glucose 125 H Lactic Acid AST Alkaline Phosphatase Lactate Dehydrogenase Total Creatine Kinase C-Reactive Protein Total Protein Albumin TSH Hepatitis C Antibody 09/08/18 09/08/18 09/08/18 06:08 12:19 23:38 RBC Hgb Hct MCV RDW Plt Count Lymphocytes % (Manual) Monocytes % (Manual) Basophils % (Manual) Lymphocytes # (Manual) Monocytes # (Manual) Fibrinogen POC ABG pH POC ABG pCO2 POC ABG pO2 Sodium Chloride Carbon Dioxide BUN Creatinine Glucose POC Glucose 118 H 112 H 136 H Lactic Acid AST Alkaline Phosphatase Lactate Dehydrogenase Total Creatine Kinase C-Reactive Protein Total Protein Albumin TSH Hepatitis C Antibody 09/09/18 09/09/18 09/09/18 03:43 03:58 03:58 RBC 3.35 L Hgb 10.8 L Hct 32.2 L MCV 96 H RDW 15.8 H Plt Count 104 L Lymphocytes % (Manual) Monocytes % (Manual) 19.0 H Basophils % (Manual) Lymphocytes # (Manual) Monocytes # (Manual) 1.1 H Fibrinogen POC ABG pH POC ABG pCO2 POC ABG pO2 115 H Sodium 132 L Chloride 95.6 L Carbon Dioxide BUN 26 H Creatinine Glucose 126 H POC Glucose Lactic Acid AST Alkaline Phosphatase Lactate Dehydrogenase Total Creatine Kinase C-Reactive Protein Total Protein Albumin TSH Hepatitis C Antibody 09/09/18 09/09/18 09/09/18 12:14 14:18 17:58 RBC Hgb Hct MCV RDW Plt Count Lymphocytes % (Manual) Monocytes % (Manual) Basophils % (Manual) Lymphocytes # (Manual) Monocytes # (Manual) Fibrinogen POC ABG pH 7.467 H POC ABG pCO2 32.7 L POC ABG pO2 111 H Sodium Chloride Carbon Dioxide BUN Creatinine Glucose POC Glucose 145 H 204 H Lactic Acid AST Alkaline Phosphatase Lactate Dehydrogenase Total Creatine Kinase C-Reactive Protein Total Protein Albumin TSH Hepatitis C Antibody 09/09/18 09/10/18 09/10/18 23:36 05:16 05:25 RBC Hgb Hct MCV RDW Plt Count Lymphocytes % (Manual) Monocytes % (Manual) Basophils % (Manual) Lymphocytes # (Manual) Monocytes # (Manual) Fibrinogen POC ABG pH 7.452 H POC ABG pCO2 POC ABG pO2 142 H Sodium Chloride Carbon Dioxide BUN Creatinine Glucose POC Glucose 153 H 149 H Lactic Acid AST Alkaline Phosphatase Lactate Dehydrogenase Total Creatine Kinase C-Reactive Protein Total Protein Albumin TSH Hepatitis C Antibody 09/10/18 09/10/18 09/10/18 12:01 18:18 23:37 RBC Hgb Hct MCV RDW Plt Count Lymphocytes % (Manual) Monocytes % (Manual) Basophils % (Manual) Lymphocytes # (Manual) Monocytes # (Manual) Fibrinogen POC ABG pH POC ABG pCO2 POC ABG pO2 Sodium Chloride Carbon Dioxide BUN Creatinine Glucose POC Glucose 152 H 152 H 153 H Lactic Acid AST Alkaline Phosphatase Lactate Dehydrogenase Total Creatine Kinase C-Reactive Protein Total Protein Albumin TSH Hepatitis C Antibody 09/11/18 09/11/18 09/11/18 05:14 08:25 08:25 RBC 3.25 L Hgb 10.3 L Hct 31.0 L MCV 96 H RDW 15.6 H Plt Count 113 L Lymphocytes % (Manual) Monocytes % (Manual) 13.0 H Basophils % (Manual) 2.0 H Lymphocytes # (Manual) 0.9 L Monocytes # (Manual) Fibrinogen POC ABG pH POC ABG pCO2 POC ABG pO2 Sodium 134 L Chloride 95.8 L Carbon Dioxide BUN 35 H Creatinine 0.7 L Glucose 136 H POC Glucose 137 H Lactic Acid AST Alkaline Phosphatase Lactate Dehydrogenase Total Creatine Kinase C-Reactive Protein Total Protein Albumin TSH Hepatitis C Antibody 09/11/18 09/11/18 09/12/18 12:03 17:58 00:38 RBC Hgb Hct MCV RDW Plt Count Lymphocytes % (Manual) Monocytes % (Manual) Basophils % (Manual) Lymphocytes # (Manual) Monocytes # (Manual) Fibrinogen POC ABG pH POC ABG pCO2 POC ABG pO2 Sodium Chloride Carbon Dioxide BUN Creatinine Glucose POC Glucose 127 H 121 H 137 H Lactic Acid AST Alkaline Phosphatase Lactate Dehydrogenase Total Creatine Kinase C-Reactive Protein Total Protein Albumin TSH Hepatitis C Antibody 09/12/18 09/12/18 09/12/18 05:34 06:13 06:13 RBC 2.92 L Hgb 9.3 L Hct 27.6 L MCV 95 H RDW 15.7 H Plt Count 120 L Lymphocytes % (Manual) Monocytes % (Manual) 17.0 H Basophils % (Manual) Lymphocytes # (Manual) 1.1 L Monocytes # (Manual) 1.2 H Fibrinogen POC ABG pH POC ABG pCO2 POC ABG pO2 Sodium 135 L Chloride Carbon Dioxide BUN 29 H Creatinine 0.7 L Glucose 132 H POC Glucose 112 H Lactic Acid AST 64 H Alkaline Phosphatase 172 H Lactate Dehydrogenase Total Creatine Kinase C-Reactive Protein Total Protein Albumin 2.9 L TSH Hepatitis C Antibody 09/12/18 09/12/18 09/12/18 11:39 17:19 23:52 RBC Hgb Hct MCV RDW Plt Count Lymphocytes % (Manual) Monocytes % (Manual) Basophils % (Manual) Lymphocytes # (Manual) Monocytes # (Manual) Fibrinogen POC ABG pH POC ABG pCO2 POC ABG pO2 Sodium Chloride Carbon Dioxide BUN Creatinine Glucose POC Glucose 134 H 107 H 141 H Lactic Acid AST Alkaline Phosphatase Lactate Dehydrogenase Total Creatine Kinase C-Reactive Protein Total Protein Albumin TSH Hepatitis C Antibody 09/13/18 09/13/18 09/13/18 05:02 05:50 11:49 RBC Hgb Hct MCV RDW Plt Count Lymphocytes % (Manual) Monocytes % (Manual) Basophils % (Manual) Lymphocytes # (Manual) Monocytes # (Manual) Fibrinogen POC ABG pH POC ABG pCO2 POC ABG pO2 Sodium Chloride Carbon Dioxide BUN Creatinine Glucose POC Glucose 125 H 128 H Lactic Acid AST Alkaline Phosphatase Lactate Dehydrogenase Total Creatine Kinase C-Reactive Protein Total Protein Albumin TSH Hepatitis C Antibody Reactive A 09/13/18 09/14/18 09/14/18 18:15 00:20 05:43 RBC Hgb Hct MCV RDW Plt Count Lymphocytes % (Manual) Monocytes % (Manual) Basophils % (Manual) Lymphocytes # (Manual) Monocytes # (Manual) Fibrinogen POC ABG pH POC ABG pCO2 POC ABG pO2 Sodium Chloride Carbon Dioxide BUN Creatinine Glucose POC Glucose 137 H 121 H 127 H Lactic Acid AST Alkaline Phosphatase Lactate Dehydrogenase Total Creatine Kinase C-Reactive Protein Total Protein Albumin TSH Hepatitis C Antibody 09/14/18 09/15/18 09/15/18 17:31 04:47 04:47 RBC 3.11 L Hgb 9.8 L Hct 29.6 L MCV 95 H RDW 16.0 H Plt Count 112 L Lymphocytes % (Manual) Monocytes % (Manual) 11.0 H Basophils % (Manual) Lymphocytes # (Manual) Monocytes # (Manual) Fibrinogen POC ABG pH POC ABG pCO2 POC ABG pO2 Sodium 132 L Chloride Carbon Dioxide 20 L BUN Creatinine 0.5 L Glucose POC Glucose 114 H Lactic Acid AST Alkaline Phosphatase Lactate Dehydrogenase Total Creatine Kinase C-Reactive Protein Total Protein Albumin TSH Hepatitis C Antibody 09/17/18 09/17/18 09/17/18 00:01 07:00 12:08 RBC Hgb Hct MCV RDW Plt Count Lymphocytes % (Manual) Monocytes % (Manual) Basophils % (Manual) Lymphocytes # (Manual) Monocytes # (Manual) Fibrinogen POC ABG pH POC ABG pCO2 POC ABG pO2 Sodium Chloride Carbon Dioxide BUN Creatinine Glucose POC Glucose 117 H 115 H 121 H Lactic Acid AST Alkaline Phosphatase Lactate Dehydrogenase Total Creatine Kinase C-Reactive Protein Total Protein Albumin TSH Hepatitis C Antibody Chest x-ray: report reviewed (REPORTED NO ACUTE FINDINGS), image reviewed Allied health notes reviewed: nursing
--- NOTE | 2018-09-17 15:42 | Progress Note ---
Assessment and Plan - Patient Problems (1) Status epilepticus Current Visit: Yes Status: Acute Plan to address problem: follow neurology. resolved (2) Acute encephalopathy Current Visit: No Status: Acute Plan to address problem: Supportive. improved./resolved. (3) Thrombocytopenia Current Visit: No Status: Chronic Plan to address problem: will monitor accordingly check for hepatitis. done, and he is hepC positive,Will follow up as out patient., will check viral load/genotype. (4) Acute respiratory failure Current Visit: No Status: Resolved Plan to address problem: Continue with vent resolved. (5) Poor nutrition Current Visit: Yes Status: Acute Plan to address problem: Awaiting peg tube placement. See notes above. Subjective Date of service: 09/17/18 Principal diagnosis: Ac resp failure; Status epilepticus; Ac on ch encephalopathy; COPD; Anemia Interval history: Patient seen/examined, resting in bed, labs reviewed, will check new labs tomorrow. No sign of renal failure in recent labs.Patient not set for any renal replacement therapy. Patient seen/examined, resting in bed, NAD, answers question. NGT in place , for feeding. I have discussed possible peg tube placement for feeding, as he transitions back to the NH soon.He has agreed to that. I am not sure ,if there is a DPOA. Patient seen/examined, resting in bed, labs reviewed , and stable. Surgery have not seen him yet for peg tube. patient seen/examined, resting in bed, labs reviewed.Pb pierre consulted, , they came by , and saw patient, surgery/procedure to be down. patient seen/examined, resting in bed. I have spoken to the shelter case manager, and to the hospital admin, patients peg needs to be done by tomorrow., and surgery gabby will not be able till next week te.Another surgery group, will need to get OR room , and that may not be possible in 24hrs , travis told by DR Hollis, so will try the GI group.Onnce peg placed, will d/c back to the [place]. Patient seen/examined, resting in bed, peg tube placement on hold now, due to some change in patients mind , and daughter contrary to his previous desire, and clinical need. patient is still not swallowing well, and may still very well need feeding tube. I have d/w all involved, and all agreed to doing modified barrium swallow test, and if indicated , peg tube will be placed, other baez, will d/c back to the NH w/o NGT. Patient seen, resting in bed, new labs ordered, No new issues at this time.Awaiting MBS study on wednesday, to determine swallowing ability. Objective - Constitutional Vitals: Vital Signs - 12hr 09/17/18 09/17/18 09/17/18 07:07 07:44 13:54 Temperature 98.5 F 98.3 F Pulse Rate 93 H Pulse Rate [ 96 H Anterior Bilateral Throughout] Respiratory 20 20 Rate Respiratory 18 Rate [Anterior Bilateral Throughout] Blood Pressure 128/74 137/71 O2 Sat by Pulse 98 96 Oximetry General appearance: Present: no acute distress, cachectic - EENT Eyes: PERRL, EOM intact ENT: hearing intact, clear oral mucosa Ears: bilateral: normal - Neck Neck: supple, normal ROM - Respiratory Respiratory effort: normal Respiratory: bilateral: CTA - Breasts Breasts: deferred - Cardiovascular Rhythm: regular Heart Sounds: Present: S1 & S2. Absent: gallop, rub Extremities: pulses intact, No edema, normal color, Full ROM - Gastrointestinal General gastrointestinal: Present: soft, non-tender, non-distended, normal bowel sounds Rectal Exam: deferred - Genitourinary Male genitourinary: deferred - Integumentary Integumentary: clear, warm, dry - Musculoskeletal Musculoskeletal: 1, strength equal bilaterally - Neurologic Neurologic: moves all extremities - Psychiatric Psychiatric: memory intact, appropriate mood/affect, intact judgment & insight - Labs CBC & Chem 7: 09/15/18 04:47 09/15/18 04:47 Labs: Abnormal lab results 09/17/18 09/17/18 09/17/18 Range/Units 00:01 07:00 12:08 POC Glucose 117 H 115 H 121 H (70-105)
[2018-09-18 06:17] LABS: Basophils % (Auto) 0.5 % (0.0-1.8); Eosinophils # (Auto) 0.1 K/mm3 (0.0-0.4); Eosinophils % (Auto) 2.1 % (0.0-4.3); Hematocrit 29.1 % (35.5-45.6); Hemoglobin 9.6 gm/dl (11.8-15.2); Lymphocytes # (Auto) 1.7 K/mm3 (1.2-5.4); Lymphocytes % (Auto) 30.3 % (13.4-35.0); Mean Corpuscular HGB Conc 33 % (32-34); Mean Corpuscular Volume 94 fl (84-94); Monocytes # (Auto) 0.9 K/mm3 (0.0-0.8); Monocytes % (Auto) 15.5 % (0.0-7.3); Platelet Count 119 K/mm3 (140-440); Red Blood Count 3.09 M/mm3 (3.65-5.03); Red Cell Distribution Width 15.8 % (13.2-15.2)
[2018-09-18 06:27] LABS: BUN/Creatinine Ratio 22; Blood Urea Nitrogen 11 mg/dL (9-20); Calcium 8.8 mg/dL (8.4-10.2); Hemolysis Index 8
[2018-09-18] MEDS: PULMICORT IH SCH ×2 (07:46→20:48)
[2018-09-18] MEDS: BROVANA NEBU IH SCH ×2 (07:46→20:48)
[2018-09-18] MEDS: KEPPRA PO SCH ×2 (10:15→21:19)
[2018-09-18] MEDS: PEPCID PO SCH ×2 (10:15→21:19)
[2018-09-18] MEDS: NACL 0.9% 1000 ML 1,000 ML IV SCH ×2 (10:21→20:41)
[2018-09-18] MEDS: HumuLIN R SUB-Q SCH ×2 (12:51→18:09)
--- NOTE | 2018-09-18 12:54 | Progress Note ---
Assessment and Plan Patient weak, emaciated. Presently on room air. No acute respiratory distress at this time.O2 saturation 98% on room air.Patient afebrile. No leukocytosis.Patient more alert today. - Patient Problems (1) Status epilepticus Current Visit: Yes Status: Acute Plan to address problem: Management as per neurology. (2) Acute encephalopathy Current Visit: No Status: Acute Plan to address problem: Management as per primary care and neurology. (3) Thrombocytopenia Current Visit: No Status: Chronic Plan to address problem: Monitor platelets closely. 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; COPD; Anemia Interval history: Patient weak, emaciated. Presently on room air. No acute respiratory distress at this time.O2 saturation 98% on room air.Patient afebrile. No leukocyto sis.Patient more alert today. Objective Vital Signs - 12hr 09/18/18 09/18/18 09/18/18 01:51 07:18 07:46 Temperature 99.0 F 99.0 F Pulse Rate [ 85 Anterior Bilateral Throughout] Respiratory 18 18 Rate Respiratory 18 Rate [Anterior Bilateral Throughout] Blood Pressure 131/81 119/72 O2 Sat by Pulse 99 Oximetry Constitutional: no acute distress, lethargic Eyes: non-icteric ENT: oropharynx moist, other (extubated) Neck: supple, no lymphadenopathy, no JVD Effort: mildly labored Ascultation: Bilateral: diminished breath sounds, rhonchi (scant), other (referred upper airway sounds) Percussion: Bilateral: not dull Cardiovascular: regular rate and rhythm Gastrointestinal: normoactive bowel sounds, soft, non-tender, non-distended Integumentary: normal Extremities: no cyanosis, no edema, pulses normal, no ischemia or petechiae Neurologic: unable to assess Psychiatric: other (flat affect) CBC and BMP: 09/18/18 05:45 09/18/18 05:45 ABG, PT/INR, D-dimer: ABG POC ABG pH 7.452 (7.35-7.45) H 09/10/18 05:25 POC ABG pCO2 35.5 (35-45) 09/10/18 05:25 POC ABG pO2 142 (80-105) H 09/10/18 05:25 POC ABG HCO3 24.8 (22-26 mml/L) 09/10/18 05:25 POC ABG Total CO2 26 (23-27mmol/L) 09/10/18 05:25 POC ABG O2 Sat 99 09/10/18 05:25 PT/INR, D-dimer PT 13.7 Sec. (12.2-14.9) 09/12/18 06:13 INR 1.08 (0.87-1.13) 09/12/18 06:13 Abnormal lab findings: Abnormal Labs 09/06/18 09/06/18 09/06/18 19:47 19:47 19:47 RBC 3.47 L Hgb 11.0 L Hct 34.6 L MCV 100 H RDW 16.6 H Plt Count 121 L [place] % (Auto) [place] # Lymphocytes % (Manual) 50.0 H Monocytes % (Manual) Basophils % (Manual) Lymphocytes # (Manual) Monocytes # (Manual) Fibrinogen POC ABG pH POC ABG pCO2 POC ABG pO2 Sodium Chloride 97.0 L Carbon Dioxide 21 L BUN Creatinine Glucose 152 H POC Glucose Lactic Acid AST Alkaline Phosphatase 138 H Lactate Dehydrogenase Total Creatine Kinase 45 L C-Reactive Protein Total Protein 8.9 H Albumin TSH 7.610 H Hepatitis C Antibody 09/06/18 09/06/18 09/07/18 21:05 23:16 03:41 RBC Hgb Hct MCV RDW Plt Count [place] % (Auto) [place] # Lymphocytes % (Manual) Monocytes % (Manual) Basophils % (Manual) Lymphocytes # (Manual) Monocytes # (Manual) Fibrinogen POC ABG pH POC ABG pCO2 POC ABG pO2 389 H 214 H Sodium Chloride Carbon Dioxide BUN Creatinine Glucose POC Glucose 147 H Lactic Acid AST Alkaline Phosphatase Lactate Dehydrogenase Total Creatine Kinase C-Reactive Protein Total Protein Albumin TSH Hepatitis C Antibody 09/07/18 09/07/18 09/07/18 15:04 15:04 21:55 RBC Hgb Hct MCV RDW Plt Count [place] % (Auto) [place] # Lymphocytes % (Manual) Monocytes % (Manual) Basophils % (Manual) Lymphocytes # (Manual) Monocytes # (Manual) Fibrinogen POC ABG pH POC ABG pCO2 POC ABG pO2 Sodium Chloride Carbon Dioxide BUN Creatinine Glucose POC Glucose Lactic Acid 2.90 H* AST Alkaline Phosphatase Lactate Dehydrogenase 270 H Total Creatine Kinase C-Reactive Protein 2.70 H Total Protein Albumin TSH Hepatitis C Antibody 09/07/18 09/07/18 09/08/18 21:55 23:41 04:50 RBC Hgb Hct MCV RDW Plt Count [place] % (Auto) [place] # Lymphocytes % (Manual) Monocytes % (Manual) Basophils % (Manual) Lymphocytes # (Manual) Monocytes # (Manual) Fibrinogen 616 H POC ABG pH POC ABG pCO2 POC ABG pO2 110 H Sodium Chloride Carbon Dioxide BUN Creatinine Glucose POC Glucose 125 H Lactic Acid AST Alkaline Phosphatase Lactate Dehydrogenase Total Creatine Kinase C-Reactive Protein Total Protein Albumin TSH Hepatitis C Antibody 09/08/18 09/08/18 09/08/18 06:08 12:19 23:38 RBC Hgb Hct MCV RDW Plt Count [place] % (Auto) [place] # Lymphocytes % (Manual) Monocytes % (Manual) Basophils % (Manual) Lymphocytes # (Manual) Monocytes # (Manual) Fibrinogen POC ABG pH POC ABG pCO2 POC ABG pO2 Sodium Chloride Carbon Dioxide BUN Creatinine Glucose POC Glucose 118 H 112 H 136 H Lactic Acid AST Alkaline Phosphatase Lactate Dehydrogenase Total Creatine Kinase C-Reactive Protein Total Protein Albumin TSH Hepatitis C Antibody 09/09/18 09/09/18 09/09/18 03:43 03:58 03:58 RBC 3.35 L Hgb 10.8 L Hct 32.2 L MCV 96 H RDW 15.8 H Plt Count 104 L [place] % (Auto) [place] # Lymphocytes % (Manual) Monocytes % (Manual) 19.0 H Basophils % (Manual) Lymphocytes # (Manual) Monocytes # (Manual) 1.1 H Fibrinogen POC ABG pH POC ABG pCO2 POC ABG pO2 115 H Sodium 132 L Chloride 95.6 L Carbon Dioxide BUN 26 H Creatinine Glucose 126 H POC Glucose Lactic Acid AST Alkaline Phosphatase Lactate Dehydrogenase Total Creatine Kinase C-Reactive Protein Total Protein Albumin TSH Hepatitis C Antibody 09/09/18 09/09/18 09/09/18 12:14 14:18 17:58 RBC Hgb Hct MCV RDW Plt Count [place] % (Auto) [place] # Lymphocytes % (Manual) Monocytes % (Manual) Basophils % (Manual) Lymphocytes # (Manual) Monocytes # (Manual) Fibrinogen POC ABG pH 7.467 H POC ABG pCO2 32.7 L POC ABG pO2 111 H Sodium Chloride Carbon Dioxide BUN Creatinine Glucose POC Glucose 145 H 204 H Lactic Acid AST Alkaline Phosphatase Lactate Dehydrogenase Total Creatine Kinase C-Reactive Protein Total Protein Albumin TSH Hepatitis C Antibody 09/09/18 09/10/18 09/10/18 23:36 05:16 05:25 RBC Hgb Hct MCV RDW Plt Count [place] % (Auto) [place] # Lymphocytes % (Manual) Monocytes % (Manual) Basophils % (Manual) Lymphocytes # (Manual) Monocytes # (Manual) Fibrinogen POC ABG pH 7.452 H POC ABG pCO2 POC ABG pO2 142 H Sodium Chloride Carbon Dioxide BUN Creatinine Glucose POC Glucose 153 H 149 H Lactic Acid AST Alkaline Phosphatase Lactate Dehydrogenase Total Creatine Kinase C-Reactive Protein Total Protein Albumin TSH Hepatitis C Antibody 09/10/18 09/10/18 09/10/18 12:01 18:18 23:37 RBC Hgb Hct MCV RDW Plt Count [place] % (Auto) [place] # Lymphocytes % (Manual) Monocytes % (Manual) Basophils % (Manual) Lymphocytes # (Manual) Monocytes # (Manual) Fibrinogen POC ABG pH POC ABG pCO2 POC ABG pO2 Sodium Chloride Carbon Dioxide BUN Creatinine Glucose POC Glucose 152 H 152 H 153 H Lactic Acid AST Alkaline Phosphatase Lactate Dehydrogenase Total Creatine Kinase C-Reactive Protein Total Protein Albumin TSH Hepatitis C Antibody 09/11/18 09/11/18 09/11/18 05:14 08:25 08:25 RBC 3.25 L Hgb 10.3 L Hct 31.0 L MCV 96 H RDW 15.6 H Plt Count 113 L [place] % (Auto) [place] # Lymphocytes % (Manual) Monocytes % (Manual) 13.0 H Basophils % (Manual) 2.0 H Lymphocytes # (Manual) 0.9 L Monocytes # (Manual) Fibrinogen POC ABG pH POC ABG pCO2 POC ABG pO2 Sodium 134 L Chloride 95.8 L Carbon Dioxide BUN 35 H Creatinine 0.7 L Glucose 136 H POC Glucose 137 H Lactic Acid AST Alkaline Phosphatase Lactate Dehydrogenase Total Creatine Kinase C-Reactive Protein Total Protein Albumin TSH Hepatitis C Antibody 09/11/18 09/11/18 09/12/18 12:03 17:58 00:38 RBC Hgb Hct MCV RDW Plt Count [place] % (Auto) [place] # Lymphocytes % (Manual) Monocytes % (Manual) Basophils % (Manual) Lymphocytes # (Manual) Monocytes # (Manual) Fibrinogen POC ABG pH POC ABG pCO2 POC ABG pO2 Sodium Chloride Carbon Dioxide BUN Creatinine Glucose POC Glucose 127 H 121 H 137 H Lactic Acid AST Alkaline Phosphatase Lactate Dehydrogenase Total Creatine Kinase C-Reactive Protein Total Protein Albumin TSH Hepatitis C Antibody 09/12/18 09/12/18 09/12/18 05:34 06:13 06:13 RBC 2.92 L Hgb 9.3 L Hct 27.6 L MCV 95 H RDW 15.7 H Plt Count 120 L [place] % (Auto) [place] # Lymphocytes % (Manual) Monocytes % (Manual) 17.0 H Basophils % (Manual) Lymphocytes # (Manual) 1.1 L Monocytes # (Manual) 1.2 H Fibrinogen POC ABG pH POC ABG pCO2 POC ABG pO2 Sodium 135 L Chloride Carbon Dioxide BUN 29 H Creatinine 0.7 L Glucose 132 H POC Glucose 112 H Lactic Acid AST 64 H Alkaline Phosphatase 172 H Lactate Dehydrogenase Total Creatine Kinase C-Reactive Protein Total Protein Albumin 2.9 L TSH Hepatitis C Antibody 09/12/18 09/12/18 09/12/18 11:39 17:19 23:52 RBC Hgb Hct MCV RDW Plt Count [place] % (Auto) [place] # Lymphocytes % (Manual) Monocytes % (Manual) Basophils % (Manual) Lymphocytes # (Manual) Monocytes # (Manual) Fibrinogen POC ABG pH POC ABG pCO2 POC ABG pO2 Sodium Chloride Carbon Dioxide BUN Creatinine Glucose POC Glucose 134 H 107 H 141 H Lactic Acid AST Alkaline Phosphatase Lactate Dehydrogenase Total Creatine Kinase C-Reactive Protein Total Protein Albumin TSH Hepatitis C Antibody 09/13/18 09/13/18 09/13/18 05:02 05:50 11:49 RBC Hgb Hct MCV RDW Plt Count [place] % (Auto) [place] # Lymphocytes % (Manual) Monocytes % (Manual) Basophils % (Manual) Lymphocytes # (Manual) Monocytes # (Manual) Fibrinogen POC ABG pH POC ABG pCO2 POC ABG pO2 Sodium Chloride Carbon Dioxide BUN Creatinine Glucose POC Glucose 125 H 128 H Lactic Acid AST Alkaline Phosphatase Lactate Dehydrogenase Total Creatine Kinase C-Reactive Protein Total Protein Albumin TSH Hepatitis C Antibody Reactive A 09/13/18 09/14/18 09/14/18 18:15 00:20 05:43 RBC Hgb Hct MCV RDW Plt Count [place] % (Auto) [place] # Lymphocytes % (Manual) Monocytes % (Manual) Basophils % (Manual) Lymphocytes # (Manual) Monocytes # (Manual) Fibrinogen POC ABG pH POC ABG pCO2 POC ABG pO2 Sodium Chloride Carbon Dioxide BUN Creatinine Glucose POC Glucose 137 H 121 H 127 H Lactic Acid AST Alkaline Phosphatase Lactate Dehydrogenase Total Creatine Kinase C-Reactive Protein Total Protein Albumin TSH Hepatitis C Antibody 09/14/18 09/15/18 09/15/18 17:31 04:47 04:47 RBC 3.11 L Hgb 9.8 L Hct 29.6 L MCV 95 H RDW 16.0 H Plt Count 112 L [place] % (Auto) [place] # Lymphocytes % (Manual) Monocytes % (Manual) 11.0 H Basophils % (Manual) Lymphocytes # (Manual) Monocytes # (Manual) Fibrinogen POC ABG pH POC ABG pCO2 POC ABG pO2 Sodium 132 L Chloride Carbon Dioxide 20 L BUN Creatinine 0.5 L Glucose POC Glucose 114 H Lactic Acid AST Alkaline Phosphatase Lactate Dehydrogenase Total Creatine Kinase C-Reactive Protein Total Protein Albumin TSH Hepatitis C Antibody 09/17/18 09/17/18 09/17/18 00:01 07:00 12:08 RBC Hgb Hct MCV RDW Plt Count [place] % (Auto) [place] # Lymphocytes % (Manual) Monocytes % (Manual) Basophils % (Manual) Lymphocytes # (Manual) Monocytes # (Manual) Fibrinogen POC ABG pH POC ABG pCO2 POC ABG pO2 Sodium Chloride Carbon Dioxide BUN Creatinine Glucose POC Glucose 117 H 115 H 121 H Lactic Acid AST Alkaline Phosphatase Lactate Dehydrogenase Total Creatine Kinase C-Reactive Protein Total Protein Albumin TSH Hepatitis C Antibody 09/17/18 09/18/18 09/18/18 17:37 05:45 05:45 RBC 3.09 L Hgb 9.6 L Hct 29.1 L MCV RDW 15.8 H Plt Count 119 L [place] % (Auto) 15.5 H [place] # 0.9 H Lymphocytes % (Manual) Monocytes % (Manual) Basophils % (Manual) Lymphocytes # (Manual) Monocytes # (Manual) Fibrinogen POC ABG pH POC ABG pCO2 POC ABG pO2 Sodium 135 L Chloride Carbon Dioxide BUN Creatinine 0.5 L Glucose 107 H POC Glucose 128 H Lactic Acid AST Alkaline Phosphatase Lactate Dehydrogenase Total Creatine Kinase C-Reactive Protein Total Protein Albumin TSH Hepatitis C Antibody 09/18/18 09/18/18 06:37 11:28 RBC Hgb Hct MCV RDW Plt Count [place] % (Auto) [place] # Lymphocytes % (Manual) Monocytes % (Manual) Basophils % (Manual) Lymphocytes # (Manual) Monocytes # (Manual) Fibrinogen POC ABG pH POC ABG pCO2 POC ABG pO2 Sodium Chloride Carbon Dioxide BUN Creatinine Glucose POC Glucose 127 H 115 H Lactic Acid AST Alkaline Phosphatase Lactate Dehydrogenase Total Creatine Kinase C-Reactive Protein Total Protein Albumin TSH Hepatitis C Antibody Allied health notes reviewed: nursing
--- NOTE | 2018-09-18 15:32 | Progress Note ---
Assessment and Plan - Patient Problems (1) Status epilepticus Current Visit: Yes Status: Acute Plan to address problem: follow neurology. resolved (2) Acute encephalopathy Current Visit: No Status: Acute Plan to address problem: Supportive. improved./resolved. (3) Thrombocytopenia Current Visit: No Status: Chronic Plan to address problem: will monitor accordingly check for hepatitis. done, and he is hepC positive,Will follow up as out patient., will check viral load/genotype. (4) Acute respiratory failure Current Visit: No Status: Resolved Plan to address problem: Continue with vent resolved. (5) Poor nutrition Current Visit: Yes Status: Acute Plan to address problem: Awaiting peg tube placement. See notes above. 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; COPD; Anemia Interval history: Patient seen/examined, resting in bed, labs reviewed, will check new labs tomorrow. No sign of renal failure in recent labs.Patient not set for any renal replacement therapy. Patient seen/examined, resting in bed, NAD, answers question. NGT in place , for feeding. I have discussed possible peg tube placement for feeding, as he transitions back to the NH soon.He has agreed to that. I am not sure ,if there is a DPOA. Patient seen/examined, resting in bed, labs reviewed , and stable. Surgery have not seen him yet for peg tube. patient seen/examined, resting in bed, labs reviewed.Pb pierre consulted, , they came by , and saw patient, surgery/procedure to be down. patient seen/examined, resting in bed. I have spoken to the high risk case manager, and to the hospital admin, patients peg needs to be done by tomorrow., and surgery gabby will not be able till next week te.Another surgery group, will need to get OR room , and that may not be possible in 24hrs , travis told by DR Hollis, so will try the GI group.Onnce peg placed, will d/c back to the [place]. Patient seen/examined, resting in bed, peg tube placement on hold now, due to some change in patients mind , and daughter contrary to his previous desire, and clinical need. patient is still not swallowing well, and may still very well need feeding tube. I have d/w all involved, and all agreed to doing modified barrium swallow test, and if indicated , peg tube will be placed, other baez, will d/c back to the [facility] w/o NGT. Patient seen, resting in bed, new labs ordered, No new issues at this time.Awaiting MBS study on wednesday, to determine swallowing ability. Patient seen/examined, resting in bed, labs reviewed, patient will have MBS to cari, and strat on d/c plans, based on the results. Objective - Constitutional Vitals: Vital Signs - 12hr 09/18/18 09/18/18 07:18 07:46 Temperature 99.0 F Pulse Rate [ 85 Anterior Bilateral Throughout] Respiratory 18 Rate Respiratory 18 Rate [Anterior Bilateral Throughout] Blood Pressure 119/72 O2 Sat by Pulse 99 Oximetry General appearance: Present: no acute distress, cachectic - EENT Eyes: PERRL, EOM intact ENT: hearing intact, clear oral mucosa Ears: bilateral: normal - Neck Neck: supple, normal ROM - Respiratory Respiratory effort: normal Respiratory: bilateral: CTA - Breasts Breasts: deferred - Cardiovascular Rhythm: regular Heart Sounds: Present: S1 & S2. Absent: gallop, rub Extremities: pulses intact, No edema, normal color, Full ROM - Gastrointestinal General gastrointestinal: Present: soft, non-tender, non-distended, normal bowel sounds Rectal Exam: deferred - Genitourinary Male genitourinary: deferred - Integumentary Integumentary: clear, warm, dry - Musculoskeletal Musculoskeletal: 1, strength equal bilaterally - Neurologic Neurologic: moves all extremities - Psychiatric Psychiatric: memory intact, appropriate mood/affect, intact judgment & insight - Labs CBC & Chem 7: 09/18/18 05:45 09/18/18 05:45 Labs: Abnormal lab results 09/17/18 09/18/18 09/18/18 Range/Units 17:37 05:45 05:45 RBC 3.09 L (3.65-5.03) M/mm3 Hgb 9.6 L (11.8-15.2) gm/dl Hct 29.1 L (35.5-45.6) % RDW 15.8 H (13.2-15.2) % Plt Count 119 L (140-440) K/mm3 [place] % (Auto) 15.5 H (0.0-7.3) % [place] # 0.9 H (0.0-0.8) K/mm3 Sodium 135 L (137-145) mmol/L Creatinine 0.5 L (0.8-1.5) mg/dL Glucose 107 H (75-100) mg/dL POC Glucose 128 H (70-105) 09/18/18 09/18/18 Range/Units 06:37 11:28 RBC (3.65-5.03) M/mm3 Hgb (11.8-15.2) gm/dl Hct (35.5-45.6) % RDW (13.2-15.2) % Plt Count (140-440) K/mm3 [place] % (Auto) (0.0-7.3) % [place] # (0.0-0.8) K/mm3 Sodium (137-145) mmol/L Creatinine (0.8-1.5) mg/dL Glucose (75-100) mg/dL POC Glucose 127 H 115 H (70-105)
--- NOTE | 2018-09-18 15:32 | Progress Note ---
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; COPD; Anemia Interval history: checked the labs want to be sure seizures ahave abated under the clinical situation will egt f/u EEG Objective - Vital Sign Vital Signs - 12hr 09/18/18 09/18/18 09/18/18 07:18 07:46 14:23 Temperature 99.0 F 98.0 F Pulse Rate 89 Pulse Rate [ 85 Anterior Bilateral Throughout] Respiratory 18 18 Rate Respiratory 18 Rate [Anterior Bilateral Throughout] Blood Pressure 119/72 130/79 O2 Sat by Pulse 99 Oximetry 09/18/18 14:24 Temperature Pulse Rate 91 H Pulse Rate [ Anterior Bilateral Throughout] Respiratory Rate Respiratory Rate [Anterior Bilateral Throughout] Blood Pressure O2 Sat by Pulse 98 Oximetry - Laboratory Findings CBC and BMP: 09/18/18 05:45 09/18/18 05:45 Abnormal Lab Findings: Abnormal Labs 09/06/18 09/06/18 09/06/18 19:47 19:47 19:47 RBC 3.47 L Hgb 11.0 L Hct 34.6 L MCV 100 H RDW 16.6 H Plt Count 121 L [place] % (Auto) [place] # Lymphocytes % (Manual) 50.0 H Monocytes % (Manual) Basophils % (Manual) Lymphocytes # (Manual) Monocytes # (Manual) Fibrinogen POC ABG pH POC ABG pCO2 POC ABG pO2 Sodium Chloride 97.0 L Carbon Dioxide 21 L BUN Creatinine Glucose 152 H POC Glucose Lactic Acid AST Alkaline Phosphatase 138 H Lactate Dehydrogenase Total Creatine Kinase 45 L C-Reactive Protein Total Protein 8.9 H Albumin TSH 7.610 H Hepatitis C Antibody 09/06/18 09/06/18 09/07/18 21:05 23:16 03:41 RBC Hgb Hct MCV RDW Plt Count [place] % (Auto) [place] # Lymphocytes % (Manual) Monocytes % (Manual) Basophils % (Manual) Lymphocytes # (Manual) Monocytes # (Manual) Fibrinogen POC ABG pH POC ABG pCO2 POC ABG pO2 389 H 214 H Sodium Chloride Carbon Dioxide BUN Creatinine Glucose POC Glucose 147 H Lactic Acid AST Alkaline Phosphatase Lactate Dehydrogenase Total Creatine Kinase C-Reactive Protein Total Protein Albumin TSH Hepatitis C Antibody 09/07/18 09/07/18 09/07/18 15:04 15:04 21:55 RBC Hgb Hct MCV RDW Plt Count [place] % (Auto) [place] # Lymphocytes % (Manual) Monocytes % (Manual) Basophils % (Manual) Lymphocytes # (Manual) Monocytes # (Manual) Fibrinogen POC ABG pH POC ABG pCO2 POC ABG pO2 Sodium Chloride Carbon Dioxide BUN Creatinine Glucose POC Glucose Lactic Acid 2.90 H* AST Alkaline Phosphatase Lactate Dehydrogenase 270 H Total Creatine Kinase C-Reactive Protein 2.70 H Total Protein Albumin TSH Hepatitis C Antibody 09/07/18 09/07/18 09/08/18 21:55 23:41 04:50 RBC Hgb Hct MCV RDW Plt Count [place] % (Auto) [place] # Lymphocytes % (Manual) Monocytes % (Manual) Basophils % (Manual) Lymphocytes # (Manual) Monocytes # (Manual) Fibrinogen 616 H POC ABG pH POC ABG pCO2 POC ABG pO2 110 H Sodium Chloride Carbon Dioxide BUN Creatinine Glucose POC Glucose 125 H Lactic Acid AST Alkaline Phosphatase Lactate Dehydrogenase Total Creatine Kinase C-Reactive Protein Total Protein Albumin TSH Hepatitis C Antibody 09/08/18 09/08/18 09/08/18 06:08 12:19 23:38 RBC Hgb Hct MCV RDW Plt Count [place] % (Auto) [place] # Lymphocytes % (Manual) Monocytes % (Manual) Basophils % (Manual) Lymphocytes # (Manual) Monocytes # (Manual) Fibrinogen POC ABG pH POC ABG pCO2 POC ABG pO2 Sodium Chloride Carbon Dioxide BUN Creatinine Glucose POC Glucose 118 H 112 H 136 H Lactic Acid AST Alkaline Phosphatase Lactate Dehydrogenase Total Creatine Kinase C-Reactive Protein Total Protein Albumin TSH Hepatitis C Antibody 09/09/18 09/09/18 09/09/18 03:43 03:58 03:58 RBC 3.35 L Hgb 10.8 L Hct 32.2 L MCV 96 H RDW 15.8 H Plt Count 104 L [place] % (Auto) [place] # Lymphocytes % (Manual) Monocytes % (Manual) 19.0 H Basophils % (Manual) Lymphocytes # (Manual) Monocytes # (Manual) 1.1 H Fibrinogen POC ABG pH POC ABG pCO2 POC ABG pO2 115 H Sodium 132 L Chloride 95.6 L Carbon Dioxide BUN 26 H Creatinine Glucose 126 H POC Glucose Lactic Acid AST Alkaline Phosphatase Lactate Dehydrogenase Total Creatine Kinase C-Reactive Protein Total Protein Albumin TSH Hepatitis C Antibody 09/09/18 09/09/18 09/09/18 12:14 14:18 17:58 RBC Hgb Hct MCV RDW Plt Count [place] % (Auto) [place] # Lymphocytes % (Manual) Monocytes % (Manual) Basophils % (Manual) Lymphocytes # (Manual) Monocytes # (Manual) Fibrinogen POC ABG pH 7.467 H POC ABG pCO2 32.7 L POC ABG pO2 111 H Sodium Chloride Carbon Dioxide BUN Creatinine Glucose POC Glucose 145 H 204 H Lactic Acid AST Alkaline Phosphatase Lactate Dehydrogenase Total Creatine Kinase C-Reactive Protein Total Protein Albumin TSH Hepatitis C Antibody 09/09/18 09/10/18 09/10/18 23:36 05:16 05:25 RBC Hgb Hct MCV RDW Plt Count [place] % (Auto) [place] # Lymphocytes % (Manual) Monocytes % (Manual) Basophils % (Manual) Lymphocytes # (Manual) Monocytes # (Manual) Fibrinogen POC ABG pH 7.452 H POC ABG pCO2 POC ABG pO2 142 H Sodium Chloride Carbon Dioxide BUN Creatinine Glucose POC Glucose 153 H 149 H Lactic Acid AST Alkaline Phosphatase Lactate Dehydrogenase Total Creatine Kinase C-Reactive Protein Total Protein Albumin TSH Hepatitis C Antibody 09/10/18 09/10/18 09/10/18 12:01 18:18 23:37 RBC Hgb Hct MCV RDW Plt Count [place] % (Auto) [place] # Lymphocytes % (Manual) Monocytes % (Manual) Basophils % (Manual) Lymphocytes # (Manual) Monocytes # (Manual) Fibrinogen POC ABG pH POC ABG pCO2 POC ABG pO2 Sodium Chloride Carbon Dioxide BUN Creatinine Glucose POC Glucose 152 H 152 H 153 H Lactic Acid AST Alkaline Phosphatase Lactate Dehydrogenase Total Creatine Kinase C-Reactive Protein Total Protein Albumin TSH Hepatitis C Antibody 09/11/18 09/11/18 09/11/18 05:14 08:25 08:25 RBC 3.25 L Hgb 10.3 L Hct 31.0 L MCV 96 H RDW 15.6 H Plt Count 113 L [place] % (Auto) [place] # Lymphocytes % (Manual) Monocytes % (Manual) 13.0 H Basophils % (Manual) 2.0 H Lymphocytes # (Manual) 0.9 L Monocytes # (Manual) Fibrinogen POC ABG pH POC ABG pCO2 POC ABG pO2 Sodium 134 L Chloride 95.8 L Carbon Dioxide BUN 35 H Creatinine 0.7 L Glucose 136 H POC Glucose 137 H Lactic Acid AST Alkaline Phosphatase Lactate Dehydrogenase Total Creatine Kinase C-Reactive Protein Total Protein Albumin TSH Hepatitis C Antibody 09/11/18 09/11/18 09/12/18 12:03 17:58 00:38 RBC Hgb Hct MCV RDW Plt Count [place] % (Auto) [place] # Lymphocytes % (Manual) Monocytes % (Manual) Basophils % (Manual) Lymphocytes # (Manual) Monocytes # (Manual) Fibrinogen POC ABG pH POC ABG pCO2 POC ABG pO2 Sodium Chloride Carbon Dioxide BUN Creatinine Glucose POC Glucose 127 H 121 H 137 H Lactic Acid AST Alkaline Phosphatase Lactate Dehydrogenase Total Creatine Kinase C-Reactive Protein Total Protein Albumin TSH Hepatitis C Antibody 09/12/18 09/12/18 09/12/18 05:34 06:13 06:13 RBC 2.92 L Hgb 9.3 L Hct 27.6 L MCV 95 H RDW 15.7 H Plt Count 120 L [place] % (Auto) [place] # Lymphocytes % (Manual) Monocytes % (Manual) 17.0 H Basophils % (Manual) Lymphocytes # (Manual) 1.1 L Monocytes # (Manual) 1.2 H Fibrinogen POC ABG pH POC ABG pCO2 POC ABG pO2 Sodium 135 L Chloride Carbon Dioxide BUN 29 H Creatinine 0.7 L Glucose 132 H POC Glucose 112 H Lactic Acid AST 64 H Alkaline Phosphatase 172 H Lactate Dehydrogenase Total Creatine Kinase C-Reactive Protein Total Protein Albumin 2.9 L TSH Hepatitis C Antibody 09/12/18 09/12/18 09/12/18 11:39 17:19 23:52 RBC Hgb Hct MCV RDW Plt Count [place] % (Auto) [place] # Lymphocytes % (Manual) Monocytes % (Manual) Basophils % (Manual) Lymphocytes # (Manual) Monocytes # (Manual) Fibrinogen POC ABG pH POC ABG pCO2 POC ABG pO2 Sodium Chloride Carbon Dioxide BUN Creatinine Glucose POC Glucose 134 H 107 H 141 H Lactic Acid AST Alkaline Phosphatase Lactate Dehydrogenase Total Creatine Kinase C-Reactive Protein Total Protein Albumin TSH Hepatitis C Antibody 09/13/18 09/13/18 09/13/18 05:02 05:50 11:49 RBC Hgb Hct MCV RDW Plt Count [place] % (Auto) [place] # Lymphocytes % (Manual) Monocytes % (Manual) Basophils % (Manual) Lymphocytes # (Manual) Monocytes # (Manual) Fibrinogen POC ABG pH POC ABG pCO2 POC ABG pO2 Sodium Chloride Carbon Dioxide BUN Creatinine Glucose POC Glucose 125 H 128 H Lactic Acid AST Alkaline Phosphatase Lactate Dehydrogenase Total Creatine Kinase C-Reactive Protein Total Protein Albumin TSH Hepatitis C Antibody Reactive A 09/13/18 09/14/18 09/14/18 18:15 00:20 05:43 RBC Hgb Hct MCV RDW Plt Count [place] % (Auto) [place] # Lymphocytes % (Manual) Monocytes % (Manual) Basophils % (Manual) Lymphocytes # (Manual) Monocytes # (Manual) Fibrinogen POC ABG pH POC ABG pCO2 POC ABG pO2 Sodium Chloride Carbon Dioxide BUN Creatinine Glucose POC Glucose 137 H 121 H 127 H Lactic Acid AST Alkaline Phosphatase Lactate Dehydrogenase Total Creatine Kinase C-Reactive Protein Total Protein Albumin TSH Hepatitis C Antibody 09/14/18 09/15/18 09/15/18 17:31 04:47 04:47 RBC 3.11 L Hgb 9.8 L Hct 29.6 L MCV 95 H RDW 16.0 H Plt Count 112 L [place] % (Auto) [place] # Lymphocytes % (Manual) Monocytes % (Manual) 11.0 H Basophils % (Manual) Lymphocytes # (Manual) Monocytes # (Manual) Fibrinogen POC ABG pH POC ABG pCO2 POC ABG pO2 Sodium 132 L Chloride Carbon Dioxide 20 L BUN Creatinine 0.5 L Glucose POC Glucose 114 H Lactic Acid AST Alkaline Phosphatase Lactate Dehydrogenase Total Creatine Kinase C-Reactive Protein Total Protein Albumin TSH Hepatitis C Antibody 09/17/18 09/17/18 09/17/18 00:01 07:00 12:08 RBC Hgb Hct MCV RDW Plt Count [place] % (Auto) [place] # Lymphocytes % (Manual) Monocytes % (Manual) Basophils % (Manual) Lymphocytes # (Manual) Monocytes # (Manual) Fibrinogen POC ABG pH POC ABG pCO2 POC ABG pO2 Sodium Chloride Carbon Dioxide BUN Creatinine Glucose POC Glucose 117 H 115 H 121 H Lactic Acid AST Alkaline Phosphatase Lactate Dehydrogenase Total Creatine Kinase C-Reactive Protein Total Protein Albumin TSH Hepatitis C Antibody 09/17/18 09/18/18 09/18/18 17:37 05:45 05:45 RBC 3.09 L Hgb 9.6 L Hct 29.1 L MCV RDW 15.8 H Plt Count 119 L [place] % (Auto) 15.5 H [place] # 0.9 H Lymphocytes % (Manual) Monocytes % (Manual) Basophils % (Manual) Lymphocytes # (Manual) Monocytes # (Manual) Fibrinogen POC ABG pH POC ABG pCO2 POC ABG pO2 Sodium 135 L Chloride Carbon Dioxide BUN Creatinine 0.5 L Glucose 107 H POC Glucose 128 H Lactic Acid AST Alkaline Phosphatase Lactate Dehydrogenase Total Creatine Kinase C-Reactive Protein Total Protein Albumin TSH Hepatitis C Antibody 09/18/18 09/18/18 06:37 11:28 RBC Hgb Hct MCV RDW Plt Count [place] % (Auto) [place] # Lymphocytes % (Manual) Monocytes % (Manual) Basophils % (Manual) Lymphocytes # (Manual) Monocytes # (Manual) Fibrinogen POC ABG pH POC ABG pCO2 POC ABG pO2 Sodium Chloride Carbon Dioxide BUN Creatinine Glucose POC Glucose 127 H 115 H Lactic Acid AST Alkaline Phosphatase Lactate Dehydrogenase Total Creatine Kinase C-Reactive Protein Total Protein Albumin TSH Hepatitis C Antibody
[2018-09-19] MEDS: HumuLIN R SUB-Q SCH ×5 (00:14→21:27)
[2018-09-19] MEDS: NACL 0.9% 1000 ML 1,000 ML IV SCH ×2 (05:59→20:14)
[2018-09-19] MEDS: PULMICORT IH SCH ×2 (08:24→19:06)
[2018-09-19] MEDS: BROVANA NEBU IH SCH ×2 (08:24→19:05)
[2018-09-19] MEDS: KEPPRA PO SCH ×2 (08:59→22:13)
[2018-09-19] MEDS: PEPCID PO SCH ×2 (09:00→22:13)
--- NOTE | 2018-09-19 12:00 | Fluoroscopy Report ---
MODIFIED BARIUM SWALLOW INDICATION: Dysphagia...recommended by Speech Therapy TECHNIQUE: Swallowing was evaluated in the lateral position under direct fluoroscopy. FINDINGS: The patient was evaluated with thin liquids, puree and nectar.. Silent aspiration was witnessed with thin liquids. Vallecular stasis and delayed oral transit was wit nessed with all 3 consistencies. IMPRESSION: Silent aspiration was witnessed with thin liquids. Please correlate with the formal repo rt by speech therapy. Fluoroscopic time: 1.6 minutes Number of fluoroscopic images: 1 Signer Name: Morgan Preston Jr, MD Signed: 09/19/2018 11:56 AM Workstation Name: [id number]
--- NOTE | 2018-09-19 13:10 | Progress Note ---
Assessment and Plan Patient weak, emaciated. Presently on room air. No acute respiratory distress at this time.O2 saturation 96% on room air. Patient afebrile. No leukocytosis. Patient more alert today. - Patient Problems (1) Status epilepticus Current Visit: Yes Status: Acute Plan to address problem: Management as per neurology. (2) Acute encephalopathy Current Visit: No Status: Acute Plan to address problem: Management as per primary care and neurology. (3) Thrombocytopenia Current Visit: No Status: Chronic Plan to address problem: Monitor platelets closely. Subjective Date of service: 09/19/18 Principal diagnosis: Ac resp failure; Status epilepticus; Ac on ch encephalopathy; COPD; Anemia Interval history: Patient weak, emaciated. Presently on room air. No acute respiratory distress at this time.O2 saturation 96% on room air. Patient afebrile. No leukocytosis. Patient more alert today. Objective Vital Signs - 12hr 09/19/18 09/19/18 09/19/18 01:59 07:16 08:24 Temperature 98.7 F 98.6 F Pulse Rate 87 84 Pulse Rate [ 85 Anterior Bilateral Throughout] Pulse Rate [ From Monitor] Respiratory 24 18 Rate Respiratory 18 Rate [Anterior Bilateral Throughout] Blood Pressure 140/86 132/77 O2 Sat by Pulse 99 96 100 Oximetry 09/19/18 10:00 Temperature Pulse Rate Pulse Rate [ Anterior Bilateral Throughout] Pulse Rate [ 85 From Monitor] Respiratory Rate Respiratory Rate [Anterior Bilateral Throughout] Blood Pressure O2 Sat by Pulse 96 Oximetry Constitutional: no acute distress, lethargic Eyes: non-icteric ENT: oropharynx moist, other (extubated) Neck: supple, no lymphadenopathy, no JVD Effort: mildly labored Ascultation: Bilateral: diminished breath sounds, rhonchi (scant), other (referred upper airway sounds) Percussion: Bilateral: not dull Cardiovascular: regular rate and rhythm Gastrointestinal: normoactive bowel sounds, soft, non-tender, non-distended Integumentary: normal Extremities: no cyanosis, no edema, pulses normal, no ischemia or petechiae Neurologic: unable to assess Psychiatric: other (flat affect) CBC and BMP: 09/18/18 05:45 09/18/18 05:45 ABG, PT/INR, D-dimer: ABG POC ABG pH 7.452 (7.35-7.45) H 09/10/18 05:25 POC ABG pCO2 35.5 (35-45) 09/10/18 05:25 POC ABG pO2 142 (80-105) H 09/10/18 05:25 POC ABG HCO3 24.8 (22-26 mml/L) 09/10/18 05:25 POC ABG Total CO2 26 (23-27mmol/L) 09/10/18 05:25 POC ABG O2 Sat 99 09/10/18 05:25 PT/INR, D-dimer PT 13.7 Sec. (12.2-14.9) 09/12/18 06:13 INR 1.08 (0.87-1.13) 09/12/18 06:13 Abnormal lab findings: Abnormal Labs 09/06/18 09/06/18 09/06/18 19:47 19:47 19:47 RBC 3.47 L Hgb 11.0 L Hct 34.6 L MCV 100 H RDW 16.6 H Plt Count 121 L Jackson % (Auto) Jackson # Lymphocytes % (Manual) 50.0 H Monocytes % (Manual) Basophils % (Manual) Lymphocytes # (Manual) Monocytes # (Manual) Fibrinogen POC ABG pH POC ABG pCO2 POC ABG pO2 Sodium Chloride 97.0 L Carbon Dioxide 21 L BUN Creatinine Glucose 152 H POC Glucose Lactic Acid AST Alkaline Phosphatase 138 H Lactate Dehydrogenase Total Creatine Kinase 45 L C-Reactive Protein Total Protein 8.9 H Albumin TSH 7.610 H Hepatitis C Antibody 09/06/18 09/06/18 09/07/18 21:05 23:16 03:41 RBC Hgb Hct MCV RDW Plt Count Jackson % (Auto) Jackson # Lymphocytes % (Manual) Monocytes % (Manual) Basophils % (Manual) Lymphocytes # (Manual) Monocytes # (Manual) Fibrinogen POC ABG pH POC ABG pCO2 POC ABG pO2 389 H 214 H Sodium Chloride Carbon Dioxide BUN Creatinine Glucose POC Glucose 147 H Lactic Acid AST Alkaline Phosphatase Lactate Dehydrogenase Total Creatine Kinase C-Reactive Protein Total Protein Albumin TSH Hepatitis C Antibody 09/07/18 09/07/18 09/07/18 15:04 15:04 21:55 RBC Hgb Hct MCV RDW Plt Count Jackson % (Auto) Jackson # Lymphocytes % (Manual) Monocytes % (Manual) Basophils % (Manual) Lymphocytes # (Manual) Monocytes # (Manual) Fibrinogen POC ABG pH POC ABG pCO2 POC ABG pO2 Sodium Chloride Carbon Dioxide BUN Creatinine Glucose POC Glucose Lactic Acid 2.90 H* AST Alkaline Phosphatase Lactate Dehydrogenase 270 H Total Creatine Kinase C-Reactive Protein 2.70 H Total Protein Albumin TSH Hepatitis C Antibody 09/07/18 09/07/18 09/08/18 21:55 23:41 04:50 RBC Hgb Hct MCV RDW Plt Count Jackson % (Auto) Jackson # Lymphocytes % (Manual) Monocytes % (Manual) Basophils % (Manual) Lymphocytes # (Manual) Monocytes # (Manual) Fibrinogen 616 H POC ABG pH POC ABG pCO2 POC ABG pO2 110 H Sodium Chloride Carbon Dioxide BUN Creatinine Glucose POC Glucose 125 H Lactic Acid AST Alkaline Phosphatase Lactate Dehydrogenase Total Creatine Kinase C-Reactive Protein Total Protein Albumin TSH Hepatitis C Antibody 09/08/18 09/08/18 09/08/18 06:08 12:19 23:38 RBC Hgb Hct MCV RDW Plt Count Jackson % (Auto) Jackson # Lymphocytes % (Manual) Monocytes % (Manual) Basophils % (Manual) Lymphocytes # (Manual) Monocytes # (Manual) Fibrinogen POC ABG pH POC ABG pCO2 POC ABG pO2 Sodium Chloride Carbon Dioxide BUN Creatinine Glucose POC Glucose 118 H 112 H 136 H Lactic Acid AST Alkaline Phosphatase Lactate Dehydrogenase Total Creatine Kinase C-Reactive Protein Total Protein Albumin TSH Hepatitis C Antibody 09/09/18 09/09/18 09/09/18 03:43 03:58 03:58 RBC 3.35 L Hgb 10.8 L Hct 32.2 L MCV 96 H RDW 15.8 H Plt Count 104 L Jackson % (Auto) Jackson # Lymphocytes % (Manual) Monocytes % (Manual) 19.0 H Basophils % (Manual) Lymphocytes # (Manual) Monocytes # (Manual) 1.1 H Fibrinogen POC ABG pH POC ABG pCO2 POC ABG pO2 115 H Sodium 132 L Chloride 95.6 L Carbon Dioxide BUN 26 H Creatinine Glucose 126 H POC Glucose Lactic Acid AST Alkaline Phosphatase Lactate Dehydrogenase Total Creatine Kinase C-Reactive Protein Total Protein Albumin TSH Hepatitis C Antibody 09/09/18 09/09/18 09/09/18 12:14 14:18 17:58 RBC Hgb Hct MCV RDW Plt Count Jackson % (Auto) Jackson # Lymphocytes % (Manual) Monocytes % (Manual) Basophils % (Manual) Lymphocytes # (Manual) Monocytes # (Manual) Fibrinogen POC ABG pH 7.467 H POC ABG pCO2 32.7 L POC ABG pO2 111 H Sodium Chloride Carbon Dioxide BUN Creatinine Glucose POC Glucose 145 H 204 H Lactic Acid AST Alkaline Phosphatase Lactate Dehydrogenase Total Creatine Kinase C-Reactive Protein Total Protein Albumin TSH Hepatitis C Antibody 09/09/18 09/10/18 09/10/18 23:36 05:16 05:25 RBC Hgb Hct MCV RDW Plt Count Jackson % (Auto) Jackson # Lymphocytes % (Manual) Monocytes % (Manual) Basophils % (Manual) Lymphocytes # (Manual) Monocytes # (Manual) Fibrinogen POC ABG pH 7.452 H POC ABG pCO2 POC ABG pO2 142 H Sodium Chloride Carbon Dioxide BUN Creatinine Glucose POC Glucose 153 H 149 H Lactic Acid AST Alkaline Phosphatase Lactate Dehydrogenase Total Creatine Kinase C-Reactive Protein Total Protein Albumin TSH Hepatitis C Antibody 09/10/18 09/10/18 09/10/18 12:01 18:18 23:37 RBC Hgb Hct MCV RDW Plt Count Jackson % (Auto) Jackson # Lymphocytes % (Manual) Monocytes % (Manual) Basophils % (Manual) Lymphocytes # (Manual) Monocytes # (Manual) Fibrinogen POC ABG pH POC ABG pCO2 POC ABG pO2 Sodium Chloride Carbon Dioxide BUN Creatinine Glucose POC Glucose 152 H 152 H 153 H Lactic Acid AST Alkaline Phosphatase Lactate Dehydrogenase Total Creatine Kinase C-Reactive Protein Total Protein Albumin TSH Hepatitis C Antibody 09/11/18 09/11/18 09/11/18 05:14 08:25 08:25 RBC 3.25 L Hgb 10.3 L Hct 31.0 L MCV 96 H RDW 15.6 H Plt Count 113 L Jackson % (Auto) Jackson # Lymphocytes % (Manual) Monocytes % (Manual) 13.0 H Basophils % (Manual) 2.0 H Lymphocytes # (Manual) 0.9 L Monocytes # (Manual) Fibrinogen POC ABG pH POC ABG pCO2 POC ABG pO2 Sodium 134 L Chloride 95.8 L Carbon Dioxide BUN 35 H Creatinine 0.7 L Glucose 136 H POC Glucose 137 H Lactic Acid AST Alkaline Phosphatase Lactate Dehydrogenase Total Creatine Kinase C-Reactive Protein Total Protein Albumin TSH Hepatitis C Antibody 09/11/18 09/11/18 09/12/18 12:03 17:58 00:38 RBC Hgb Hct MCV RDW Plt Count Jackson % (Auto) Jackson # Lymphocytes % (Manual) Monocytes % (Manual) Basophils % (Manual) Lymphocytes # (Manual) Monocytes # (Manual) Fibrinogen POC ABG pH POC ABG pCO2 POC ABG pO2 Sodium Chloride Carbon Dioxide BUN Creatinine Glucose POC Glucose 127 H 121 H 137 H Lactic Acid AST Alkaline Phosphatase Lactate Dehydrogenase Total Creatine Kinase C-Reactive Protein Total Protein Albumin TSH Hepatitis C Antibody 09/12/18 09/12/18 09/12/18 05:34 06:13 06:13 RBC 2.92 L Hgb 9.3 L Hct 27.6 L MCV 95 H RDW 15.7 H Plt Count 120 L Jackson % (Auto) Jackson # Lymphocytes % (Manual) Monocytes % (Manual) 17.0 H Basophils % (Manual) Lymphocytes # (Manual) 1.1 L Monocytes # (Manual) 1.2 H Fibrinogen POC ABG pH POC ABG pCO2 POC ABG pO2 Sodium 135 L Chloride Carbon Dioxide BUN 29 H Creatinine 0.7 L Glucose 132 H POC Glucose 112 H Lactic Acid AST 64 H Alkaline Phosphatase 172 H Lactate Dehydrogenase Total Creatine Kinase C-Reactive Protein Total Protein Albumin 2.9 L TSH Hepatitis C Antibody 09/12/18 09/12/18 09/12/18 11:39 17:19 23:52 RBC Hgb Hct MCV RDW Plt Count Jackson % (Auto) Jackson # Lymphocytes % (Manual) Monocytes % (Manual) Basophils % (Manual) Lymphocytes # (Manual) Monocytes # (Manual) Fibrinogen POC ABG pH POC ABG pCO2 POC ABG pO2 Sodium Chloride Carbon Dioxide BUN Creatinine Glucose POC Glucose 134 H 107 H 141 H Lactic Acid AST Alkaline Phosphatase Lactate Dehydrogenase Total Creatine Kinase C-Reactive Protein Total Protein Albumin TSH Hepatitis C Antibody 09/13/18 09/13/18 09/13/18 05:02 05:50 11:49 RBC Hgb Hct MCV RDW Plt Count Jackson % (Auto) Jackson # Lymphocytes % (Manual) Monocytes % (Manual) Basophils % (Manual) Lymphocytes # (Manual) Monocytes # (Manual) Fibrinogen POC ABG pH POC ABG pCO2 POC ABG pO2 Sodium Chloride Carbon Dioxide BUN Creatinine Glucose POC Glucose 125 H 128 H Lactic Acid AST Alkaline Phosphatase Lactate Dehydrogenase Total Creatine Kinase C-Reactive Protein Total Protein Albumin TSH Hepatitis C Antibody Reactive A 09/13/18 09/14/18 09/14/18 18:15 00:20 05:43 RBC Hgb Hct MCV RDW Plt Count Jackson % (Auto) Jackson # Lymphocytes % (Manual) Monocytes % (Manual) Basophils % (Manual) Lymphocytes # (Manual) Monocytes # (Manual) Fibrinogen POC ABG pH POC ABG pCO2 POC ABG pO2 Sodium Chloride Carbon Dioxide BUN Creatinine Glucose POC Glucose 137 H 121 H 127 H Lactic Acid AST Alkaline Phosphatase Lactate Dehydrogenase Total Creatine Kinase C-Reactive Protein Total Protein Albumin TSH Hepatitis C Antibody 09/14/18 09/15/18 09/15/18 17:31 04:47 04:47 RBC 3.11 L Hgb 9.8 L Hct 29.6 L MCV 95 H RDW 16.0 H Plt Count 112 L Jackson % (Auto) Jackson # Lymphocytes % (Manual) Monocytes % (Manual) 11.0 H Basophils % (Manual) Lymphocytes # (Manual) Monocytes # (Manual) Fibrinogen POC ABG pH POC ABG pCO2 POC ABG pO2 Sodium 132 L Chloride Carbon Dioxide 20 L BUN Creatinine 0.5 L Glucose POC Glucose 114 H Lactic Acid AST Alkaline Phosphatase Lactate Dehydrogenase Total Creatine Kinase C-Reactive Protein Total Protein Albumin TSH Hepatitis C Antibody 09/17/18 09/17/18 09/17/18 00:01 07:00 12:08 RBC Hgb Hct MCV RDW Plt Count Jackson % (Auto) Jackson # Lymphocytes % (Manual) Monocytes % (Manual) Basophils % (Manual) Lymphocytes # (Manual) Monocytes # (Manual) Fibrinogen POC ABG pH POC ABG pCO2 POC ABG pO2 Sodium Chloride Carbon Dioxide BUN Creatinine Glucose POC Glucose 117 H 115 H 121 H Lactic Acid AST Alkaline Phosphatase Lactate Dehydrogenase Total Creatine Kinase C-Reactive Protein Total Protein Albumin TSH Hepatitis C Antibody 09/17/18 09/18/18 09/18/18 17:37 05:45 05:45 RBC 3.09 L Hgb 9.6 L Hct 29.1 L MCV RDW 15.8 H Plt Count 119 L Jackson % (Auto) 15.5 H Jackson # 0.9 H Lymphocytes % (Manual) Monocytes % (Manual) Basophils % (Manual) Lymphocytes # (Manual) Monocytes # (Manual) Fibrinogen POC ABG pH POC ABG pCO2 POC ABG pO2 Sodium 135 L Chloride Carbon Dioxide BUN Creatinine 0.5 L Glucose 107 H POC Glucose 128 H Lactic Acid AST Alkaline Phosphatase Lactate Dehydrogenase Total Creatine Kinase C-Reactive Protein Total Protein Albumin TSH Hepatitis C Antibody 09/18/18 09/18/18 09/18/18 06:37 11:28 18:28 RBC Hgb Hct MCV RDW Plt Count Jackson % (Auto) Jackson # Lymphocytes % (Manual) Monocytes % (Manual) Basophils % (Manual) Lymphocytes # (Manual) Monocytes # (Manual) Fibrinogen POC ABG pH POC ABG pCO2 POC ABG pO2 Sodium Chloride Carbon Dioxide BUN Creatinine Glucose POC Glucose 127 H 115 H 108 H Lactic Acid AST Alkaline Phosphatase Lactate Dehydrogenase Total Creatine Kinase C-Reactive Protein Total Protein Albumin TSH Hepatitis C Antibody 09/19/18 00:07 RBC Hgb Hct MCV RDW Plt Count Jackson % (Auto) Jackson # Lymphocytes % (Manual) Monocytes % (Manual) Basophils % (Manual) Lymphocytes # (Manual) Monocytes # (Manual) Fibrinogen POC ABG pH POC ABG pCO2 POC ABG pO2 Sodium Chloride Carbon Dioxide BUN Creatinine Glucose POC Glucose 116 H Lactic Acid AST Alkaline Phosphatase Lactate Dehydrogenase Total Creatine Kinase C-Reactive Protein Total Protein Albumin TSH Hepatitis C Antibody Allied health notes reviewed: nursing
--- NOTE | 2018-09-19 20:49 | Progress Note ---
Assessment and Plan - Patient Problems (1) Status epilepticus Current Visit: Yes Status: Acute Plan to address problem: follow neurology. resolved (2) Acute encephalopathy Current Visit: No Status: Acute Plan to address problem: Supportive. improved./resolved. (3) Thrombocytopenia Current Visit: No Status: Chronic Plan to address problem: will monitor accordingly check for hepatitis. done, and he is hepC positive,Will follow up as out patient., will check viral load/genotype. (4) Acute respiratory failure Current Visit: No Status: Resolved Plan to address problem: Continue with vent resolved. (5) Poor nutrition Current Visit: Yes Status: Acute Plan to address problem: Awaiting peg tube placement. See notes above. patient swallowing better, and will no longer need feeding tube. Subjective Date of service: 09/19/18 Principal diagnosis: Ac resp failure; Status epilepticus; Ac on ch encephalo gregg; COPD; Anemia Interval history: Patient seen/examined, resting in bed, labs reviewed, will check new labs tomorrow. No sign of renal failure in recent labs.Patient not set for any renal replacement therapy. Patient seen/examined, resting in bed, NAD, answers question. NGT in place , for feeding. I have discussed possible peg tube placement for feeding, as he transit ions back to the NH soon.He has agreed to that. I am not sure ,if there is a DPOA. Patient seen/examined, resting in bed, labs reviewed , and stable. Surgery have not seen him yet for peg tube. patient seen/examined, resting in bed, labs reviewed.Surgery [facility] consulted, , they came by , and saw patient, surgery/procedure to be down. patient seen/examined, resting in bed. I have spoken to the piano case and bench assembler, and to the hospital admin, patients peg needs to be done by tomorrow., and surgery gabby will not be able till next week te.Another surgery group, will need to get OR room , and that may not be possible in 24hrs , travis told by DR Hollis, so will try the GI group.Onnce peg placed, will d/c back to the [place]. Patient seen/examined, resting in bed, peg tube placement on hold now, due to some change in patients mind , and daughter contrary to his previous desire, and clinical need. patient is still not swallowing well, and may still very well need feeding tube. I have d/w all involved, and all agreed to doing modified barrium swallow test, and if indicated , peg tube will be placed, other baez, will d/c back to the NH w/o NGT. Patient seen, resting in bed, new labs ordered, No new issues at this time.Awaiting MBS study on wednesday, to determine swallowing ability. Patient seen/examined, resting in bed, labs reviewed, patient will have MBS tomorrow, and strat on d/c plans, based on the results. Patient seen/examined, resting in bed, records reviewed, case d/w patient. I have spoken to the charge nurse, and told that patient passed the swallow test. I will wait for the piano case and bench assembler to tell me when ready for d/c. Objective - Constitutional Vitals: Vital Signs - 12hr 09/19/18 09/19/18 09/19/18 10:00 13:10 19:06 Temperature 98.5 F Pulse Rate 85 Pulse Rate [ 94 H Anterior Bilateral Throughout] Pulse Rate [ 85 From Monitor] Respiratory 18 Rate Respiratory 18 Rate [Anterior Bilateral Throughout] Blood Pressure 122/74 O2 Sat by Pulse 96 100 Oximetry 09/19/18 09/19/18 09/19/18 19:08 19:14 19:25 Temperature 98.5 F Pulse Rate 93 H Pulse Rate [ 106 H Anterior Bilateral Throughout] Pulse Rate [ From Monitor] Respiratory 18 Rate Respiratory 18 Rate [Anterior Bilateral Throughout] Blood Pressure 130/80 O2 Sat by Pulse 99 95 Oximetry General appearance: Present: no acute distress, cachectic - EENT Eyes: PERRL, EOM intact ENT: hearing intact, clear oral mucosa Ears: bilateral: normal - Neck Neck: supple, normal ROM - Respiratory Respiratory effort: normal Respiratory: bilateral: CTA - Breasts Breasts: deferred - Cardiovascular Rhythm: regular Heart Sounds: Present: S1 & S2. Absent: gallop, rub Extremities: pulses intact, No edema, normal color, Full ROM - Gastrointestinal General gastrointestinal: Present: soft, non-tender, non-distended, normal bowel sounds Rectal Exam: deferred - Genitourinary Male genitourinary: deferred - Integumentary Integumentary: clear, warm, dry - Musculoskeletal Musculoskeletal: 1, strength equal bilaterally - Neurologic Neurologic: moves all extremities - Psychiatric Psychiatric: memory intact, appropriate mood/affect, intact judgment & insight - Labs CBC & Chem 7: 09/18/18 05:45 09/18/18 05:45 Labs: Abnormal lab results 09/19/18 Range/Units 00:07 POC Glucose 116 H (70-105)
[2018-09-20] MEDS: NACL 0.9% 1000 ML 1,000 ML IV SCH ×2 (05:55→15:59)
[2018-09-20] MEDS: HumuLIN R SUB-Q SCH ×4 (07:45→22:18)
[2018-09-20] MEDS: PULMICORT IH SCH ×2 (07:49→19:54)
[2018-09-20] MEDS: BROVANA NEBU IH SCH ×2 (07:50→19:54)
--- NOTE | 2018-09-20 08:44 | Progress Note ---
Assessment and Plan Patient weak, emaciated. Awake. Presently resting on room air. No acute respiratory distress at this time.O2 saturation 100% on room air. Patient afebrile. No leukocytosis. Swallow test, reported silent aspiration. - Patient Problems (1) Status epilepticus Current Visit: Yes Status: Acute Plan to address problem: Management as per neurology. (2) Acute encephalopathy Current Visit: No Status: Acute Plan to address problem: Management as per primary care and neurology. Aspiration precautions. (3) Thrombocytopenia Current Visit: No Status: Chronic Plan to address problem: Monitor platelets closely. Subjective Date of service: 09/20/18 Principal diagnosis: Ac resp failure; Status epilepticus; Ac on ch encephalopathy; COPD; Anemia Interval history: Patient weak, emaciated. Awake. Presently resting on room air. No acute respiratory distress at this time.O2 saturation 100% on room air. Patient afebrile. No leukocytosis. Swallow test, reported silent aspiration. Objective Vital Signs - 12hr 09/19/18 09/20/18 09/20/18 22:00 02:16 07:46 Temperature 98.8 F Pulse Rate 89 Pulse Rate [ Anterior Bilateral Throughout] Respiratory 18 Rate Respiratory Rate [Anterior Bilateral Throughout] Blood Pressure 126/78 O2 Sat by Pulse 95 98 100 Oximetry 09/20/18 07:52 Temperature Pulse Rate Pulse Rate [ 85 Anterior Bilateral Throughout] Respiratory Rate Respiratory 18 Rate [Anterior Bilateral Throughout] Blood Pressure O2 Sat by Pulse Oximetry Constitutional: no acute distress, alert Eyes: non-icteric ENT: oropharynx moist, other (extubated) Neck: supple, no lymphadenopathy, no JVD Effort: mildly labored Ascultation: Bilateral: diminished breath sounds, rhonchi (scant), other (referred upper airway sounds) Percussion: Bilateral: not dull Cardiovascular: regular rate and rhythm Gastrointestinal: normoactive bowel sounds, soft, non-tender, non-distended Integumentary: normal Extremities: no cyanosis, no edema, pulses normal, no ischemia or petechiae Neurologic: unable to assess Psychiatric: other (flat affect) CBC and BMP: 09/18/18 05:45 09/18/18 05:45 ABG, PT/INR, D-dimer: ABG POC ABG pH 7.452 (7.35-7.45) H 09/10/18 05:25 POC ABG pCO2 35.5 (35-45) 09/10/18 05:25 POC ABG pO2 142 (80-105) H 09/10/18 05:25 POC ABG HCO3 24.8 (22-26 mml/L) 09/10/18 05:25 POC ABG Total CO2 26 (23-27mmol/L) 09/10/18 05:25 POC ABG O2 Sat 99 09/10/18 05:25 PT/INR, D-dimer PT 13.7 Sec. (12.2-14.9) 09/12/18 06:13 INR 1.08 (0.87-1.13) 09/12/18 06:13 Abnormal lab findings: Abnormal Labs 09/06/18 09/06/18 09/06/18 19:47 19:47 19:47 RBC 3.47 L Hgb 11.0 L Hct 34.6 L MCV 100 H RDW 16.6 H Plt Count 121 L [place] % (Auto) [place] # Lymphocytes % (Manual) 50.0 H Monocytes % (Manual) Basophils % (Manual) Lymphocytes # (Manual) Monocytes # (Manual) Fibrinogen POC ABG pH POC ABG pCO2 POC ABG pO2 Sodium Chloride 97.0 L Carbon Dioxide 21 L BUN Creatinine Glucose 152 H POC Glucose Lactic Acid AST Alkaline Phosphatase 138 H Lactate Dehydrogenase Total Creatine Kinase 45 L C-Reactive Protein Total Protein 8.9 H Albumin TSH 7.610 H Hepatitis C Antibody 09/06/18 09/06/18 09/07/18 21:05 23:16 03:41 RBC Hgb Hct MCV RDW Plt Count [place] % (Auto) [place] # Lymphocytes % (Manual) Monocytes % (Manual) Basophils % (Manual) Lymphocytes # (Manual) Monocytes # (Manual) Fibrinogen POC ABG pH POC ABG pCO2 POC ABG pO2 389 H 214 H Sodium Chloride Carbon Dioxide BUN Creatinine Glucose POC Glucose 147 H Lactic Acid AST Alkaline Phosphatase Lactate Dehydrogenase Total Creatine Kinase C-Reactive Protein Total Protein Albumin TSH Hepatitis C Antibody 09/07/18 09/07/18 09/07/18 15:04 15:04 21:55 RBC Hgb Hct MCV RDW Plt Count [place] % (Auto) [place] # Lymphocytes % (Manual) Monocytes % (Manual) Basophils % (Manual) Lymphocytes # (Manual) Monocytes # (Manual) Fibrinogen POC ABG pH POC ABG pCO2 POC ABG pO2 Sodium Chloride Carbon Dioxide BUN Creatinine Glucose POC Glucose Lactic Acid 2.90 H* AST Alkaline Phosphatase Lactate Dehydrogenase 270 H Total Creatine Kinase C-Reactive Protein 2.70 H Total Protein Albumin TSH Hepatitis C Antibody 09/07/18 09/07/18 09/08/18 21:55 23:41 04:50 RBC Hgb Hct MCV RDW Plt Count [place] % (Auto) [place] # Lymphocytes % (Manual) Monocytes % (Manual) Basophils % (Manual) Lymphocytes # (Manual) Monocytes # (Manual) Fibrinogen 616 H POC ABG pH POC ABG pCO2 POC ABG pO2 110 H Sodium Chloride Carbon Dioxide BUN Creatinine Glucose POC Glucose 125 H Lactic Acid AST Alkaline Phosphatase Lactate Dehydrogenase Total Creatine Kinase C-Reactive Protein Total Protein Albumin TSH Hepatitis C Antibody 09/08/18 09/08/18 09/08/18 06:08 12:19 23:38 RBC Hgb Hct MCV RDW Plt Count [place] % (Auto) [place] # Lymphocytes % (Manual) Monocytes % (Manual) Basophils % (Manual) Lymphocytes # (Manual) Monocytes # (Manual) Fibrinogen POC ABG pH POC ABG pCO2 POC ABG pO2 Sodium Chloride Carbon Dioxide BUN Creatinine Glucose POC Glucose 118 H 112 H 136 H Lactic Acid AST Alkaline Phosphatase Lactate Dehydrogenase Total Creatine Kinase C-Reactive Protein Total Protein Albumin TSH Hepatitis C Antibody 09/09/18 09/09/18 09/09/18 03:43 03:58 03:58 RBC 3.35 L Hgb 10.8 L Hct 32.2 L MCV 96 H RDW 15.8 H Plt Count 104 L [place] % (Auto) [place] # Lymphocytes % (Manual) Monocytes % (Manual) 19.0 H Basophils % (Manual) Lymphocytes # (Manual) Monocytes # (Manual) 1.1 H Fibrinogen POC ABG pH POC ABG pCO2 POC ABG pO2 115 H Sodium 132 L Chloride 95.6 L Carbon Dioxide BUN 26 H Creatinine Glucose 126 H POC Glucose Lactic Acid AST Alkaline Phosphatase Lactate Dehydrogenase Total Creatine Kinase C-Reactive Protein Total Protein Albumin TSH Hepatitis C Antibody 09/09/18 09/09/18 09/09/18 12:14 14:18 17:58 RBC Hgb Hct MCV RDW Plt Count [place] % (Auto) [place] # Lymphocytes % (Manual) Monocytes % (Manual) Basophils % (Manual) Lymphocytes # (Manual) Monocytes # (Manual) Fibrinogen POC ABG pH 7.467 H POC ABG pCO2 32.7 L POC ABG pO2 111 H Sodium Chloride Carbon Dioxide BUN Creatinine Glucose POC Glucose 145 H 204 H Lactic Acid AST Alkaline Phosphatase Lactate Dehydrogenase Total Creatine Kinase C-Reactive Protein Total Protein Albumin TSH Hepatitis C Antibody 09/09/18 09/10/18 09/10/18 23:36 05:16 05:25 RBC Hgb Hct MCV RDW Plt Count [place] % (Auto) [place] # Lymphocytes % (Manual) Monocytes % (Manual) Basophils % (Manual) Lymphocytes # (Manual) Monocytes # (Manual) Fibrinogen POC ABG pH 7.452 H POC ABG pCO2 POC ABG pO2 142 H Sodium Chloride Carbon Dioxide BUN Creatinine Glucose POC Glucose 153 H 149 H Lactic Acid AST Alkaline Phosphatase Lactate Dehydrogenase Total Creatine Kinase C-Reactive Protein Total Protein Albumin TSH Hepatitis C Antibody 09/10/18 09/10/18 09/10/18 12:01 18:18 23:37 RBC Hgb Hct MCV RDW Plt Count [place] % (Auto) [place] # Lymphocytes % (Manual) Monocytes % (Manual) Basophils % (Manual) Lymphocytes # (Manual) Monocytes # (Manual) Fibrinogen POC ABG pH POC ABG pCO2 POC ABG pO2 Sodium Chloride Carbon Dioxide BUN Creatinine Glucose POC Glucose 152 H 152 H 153 H Lactic Acid AST Alkaline Phosphatase Lactate Dehydrogenase Total Creatine Kinase C-Reactive Protein Total Protein Albumin TSH Hepatitis C Antibody 09/11/18 09/11/18 09/11/18 05:14 08:25 08:25 RBC 3.25 L Hgb 10.3 L Hct 31.0 L MCV 96 H RDW 15.6 H Plt Count 113 L [place] % (Auto) [place] # Lymphocytes % (Manual) Monocytes % (Manual) 13.0 H Basophils % (Manual) 2.0 H Lymphocytes # (Manual) 0.9 L Monocytes # (Manual) Fibrinogen POC ABG pH POC ABG pCO2 POC ABG pO2 Sodium 134 L Chloride 95.8 L Carbon Dioxide BUN 35 H Creatinine 0.7 L Glucose 136 H POC Glucose 137 H Lactic Acid AST Alkaline Phosphatase Lactate Dehydrogenase Total Creatine Kinase C-Reactive Protein Total Protein Albumin TSH Hepatitis C Antibody 09/11/18 09/11/18 09/12/18 12:03 17:58 00:38 RBC Hgb Hct MCV RDW Plt Count [place] % (Auto) [place] # Lymphocytes % (Manual) Monocytes % (Manual) Basophils % (Manual) Lymphocytes # (Manual) Monocytes # (Manual) Fibrinogen POC ABG pH POC ABG pCO2 POC ABG pO2 Sodium Chloride Carbon Dioxide BUN Creatinine Glucose POC Glucose 127 H 121 H 137 H Lactic Acid AST Alkaline Phosphatase Lactate Dehydrogenase Total Creatine Kinase C-Reactive Protein Total Protein Albumin TSH Hepatitis C Antibody 09/12/18 09/12/18 09/12/18 05:34 06:13 06:13 RBC 2.92 L Hgb 9.3 L Hct 27.6 L MCV 95 H RDW 15.7 H Plt Count 120 L [place] % (Auto) [place] # Lymphocytes % (Manual) Monocytes % (Manual) 17.0 H Basophils % (Manual) Lymphocytes # (Manual) 1.1 L Monocytes # (Manual) 1.2 H Fibrinogen POC ABG pH POC ABG pCO2 POC ABG pO2 Sodium 135 L Chloride Carbon Dioxide BUN 29 H Creatinine 0.7 L Glucose 132 H POC Glucose 112 H Lactic Acid AST 64 H Alkaline Phosphatase 172 H Lactate Dehydrogenase Total Creatine Kinase C-Reactive Protein Total Protein Albumin 2.9 L TSH Hepatitis C Antibody 09/12/18 09/12/18 09/12/18 11:39 17:19 23:52 RBC Hgb Hct MCV RDW Plt Count [place] % (Auto) [place] # Lymphocytes % (Manual) Monocytes % (Manual) Basophils % (Manual) Lymphocytes # (Manual) Monocytes # (Manual) Fibrinogen POC ABG pH POC ABG pCO2 POC ABG pO2 Sodium Chloride Carbon Dioxide BUN Creatinine Glucose POC Glucose 134 H 107 H 141 H Lactic Acid AST Alkaline Phosphatase Lactate Dehydrogenase Total Creatine Kinase C-Reactive Protein Total Protein Albumin TSH Hepatitis C Antibody 09/13/18 09/13/18 09/13/18 05:02 05:50 11:49 RBC Hgb Hct MCV RDW Plt Count [place] % (Auto) [place] # Lymphocytes % (Manual) Monocytes % (Manual) Basophils % (Manual) Lymphocytes # (Manual) Monocytes # (Manual) Fibrinogen POC ABG pH POC ABG pCO2 POC ABG pO2 Sodium Chloride Carbon Dioxide BUN Creatinine Glucose POC Glucose 125 H 128 H Lactic Acid AST Alkaline Phosphatase Lactate Dehydrogenase Total Creatine Kinase C-Reactive Protein Total Protein Albumin TSH Hepatitis C Antibody Reactive A 09/13/18 09/14/18 09/14/18 18:15 00:20 05:43 RBC Hgb Hct MCV RDW Plt Count [place] % (Auto) [place] # Lymphocytes % (Manual) Monocytes % (Manual) Basophils % (Manual) Lymphocytes # (Manual) Monocytes # (Manual) Fibrinogen POC ABG pH POC ABG pCO2 POC ABG pO2 Sodium Chloride Carbon Dioxide BUN Creatinine Glucose POC Glucose 137 H 121 H 127 H Lactic Acid AST Alkaline Phosphatase Lactate Dehydrogenase Total Creatine Kinase C-Reactive Protein Total Protein Albumin TSH Hepatitis C Antibody 09/14/18 09/15/18 09/15/18 17:31 04:47 04:47 RBC 3.11 L Hgb 9.8 L Hct 29.6 L MCV 95 H RDW 16.0 H Plt Count 112 L [place] % (Auto) [place] # Lymphocytes % (Manual) Monocytes % (Manual) 11.0 H Basophils % (Manual) Lymphocytes # (Manual) Monocytes # (Manual) Fibrinogen POC ABG pH POC ABG pCO2 POC ABG pO2 Sodium 132 L Chloride Carbon Dioxide 20 L BUN Creatinine 0.5 L Glucose POC Glucose 114 H Lactic Acid AST Alkaline Phosphatase Lactate Dehydrogenase Total Creatine Kinase C-Reactive Protein Total Protein Albumin TSH Hepatitis C Antibody 09/17/18 09/17/18 09/17/18 00:01 07:00 12:08 RBC Hgb Hct MCV RDW Plt Count [place] % (Auto) [place] # Lymphocytes % (Manual) Monocytes % (Manual) Basophils % (Manual) Lymphocytes # (Manual) Monocytes # (Manual) Fibrinogen POC ABG pH POC ABG pCO2 POC ABG pO2 Sodium Chloride Carbon Dioxide BUN Creatinine Glucose POC Glucose 117 H 115 H 121 H Lactic Acid AST Alkaline Phosphatase Lactate Dehydrogenase Total Creatine Kinase C-Reactive Protein Total Protein Albumin TSH Hepatitis C Antibody 09/17/18 09/18/18 09/18/18 17:37 05:45 05:45 RBC 3.09 L Hgb 9.6 L Hct 29.1 L MCV RDW 15.8 H Plt Count 119 L [place] % (Auto) 15.5 H [place] # 0.9 H Lymphocytes % (Manual) Monocytes % (Manual) Basophils % (Manual) Lymphocytes # (Manual) Monocytes # (Manual) Fibrinogen POC ABG pH POC ABG pCO2 POC ABG pO2 Sodium 135 L Chloride Carbon Dioxide BUN Creatinine 0.5 L Glucose 107 H POC Glucose 128 H Lactic Acid AST Alkaline Phosphatase Lactate Dehydrogenase Total Creatine Kinase C-Reactive Protein Total Protein Albumin TSH Hepatitis C Antibody 09/18/18 09/18/18 09/18/18 06:37 11:28 18:28 RBC Hgb Hct MCV RDW Plt Count [place] % (Auto) [place] # Lymphocytes % (Manual) Monocytes % (Manual) Basophils % (Manual) Lymphocytes # (Manual) Monocytes # (Manual) Fibrinogen POC ABG pH POC ABG pCO2 POC ABG pO2 Sodium Chloride Carbon Dioxide BUN Creatinine Glucose POC Glucose 127 H 115 H 108 H Lactic Acid AST Alkaline Phosphatase Lactate Dehydrogenase Total Creatine Kinase C-Reactive Protein Total Protein Albumin TSH Hepatitis C Antibody 09/19/18 09/19/18 00:07 21:14 RBC Hgb Hct MCV RDW Plt Count [place] % (Auto) [place] # Lymphocytes % (Manual) Monocytes % (Manual) Basophils % (Manual) Lymphocytes # (Manual) Monocytes # (Manual) Fibrinogen POC ABG pH POC ABG pCO2 POC ABG pO2 Sodium Chloride Carbon Dioxide BUN Creatinine Glucose POC Glucose 116 H 111 H Lactic Acid AST Alkaline Phosphatase Lactate Dehydrogenase Total Creatine Kinase C-Reactive Protein Total Protein Albumin TSH Hepatitis C Antibody Allied health notes reviewed: nursing
[2018-09-20] MEDS: KEPPRA PO SCH ×2 (09:11→22:17)
[2018-09-20] MEDS: PEPCID PO SCH ×2 (09:12→22:17)
--- NOTE | 2018-09-20 19:28 | Progress Note ---
Assessment and Plan - Patient Problems (1) Status epilepticus Current Visit: Yes Status: Acute Plan to address problem: follow neurology. resolved (2) Acute encephalopathy Current Visit: No Status: Acute Plan to address problem: Supportive. improved./resolved. (3) Thrombocytopenia Current Visit: No Status: Chronic Plan to address problem: will monitor accordingly check for hepatitis. done, and he is hepC positive,Will follow up as out patient., will check viral load/genotype. (4) Acute respiratory failure Current Visit: No Status: Resolved Plan to address problem: Continue with vent resolved. (5) Poor nutrition Current Visit: Yes Status: Acute Plan to address problem: Awaiting peg tube placement. See notes above. patient swallowing better, and will no longer need feeding tube. Subjective Date of service: 09/20/18 Principal diagnosis: Ac resp failure; Status epilepticus; Ac on ch encephalo gregg; COPD; Anemia Interval history: Patient seen/examined, resting in bed, labs reviewed, will check new labs tomorrow. No sign of renal failure in recent labs.Patient not set for any renal replacement therapy. Patient seen/examined, resting in bed, NAD, answers question. NGT in place , for feeding. I have discussed possible peg tube placement for feeding, as he transit ions back to the NH soon.He has agreed to that. I am not sure ,if there is a DPOA. Patient seen/examined, resting in bed, labs reviewed , and stable. Surgery have not seen him yet for peg tube. patient seen/examined, resting in bed, labs reviewed.Surgery [facility] consulted, , they came by , and saw patient, surgery/procedure to be down. patient seen/examined, resting in bed. I have spoken to the rn case mgr, and to the hospital admin, patients peg needs to be done by tomorrow., and surgery gabby will not be able till next week te.Another surgery group, will need to get OR room , and that may not be possible in 24hrs , travis told by DR Hollis, so will try the GI group.Onnce peg placed, will d/c back to the ID. Patient seen/examined, resting in bed, peg tube placement on hold now, due to some change in patients mind , and daughter contrary to his previous desire, and clinical need. patient is still not swallowing well, and may still very well need feeding tube. I have d/w all involved, and all agreed to doing modified barrium swallow test, and if indicated , peg tube will be placed, other baez, will d/c back to the ID w/o NGT. Patient seen, resting in bed, new labs ordered, No new issues at this time.Awaiting MBS study on wednesday, to determine swallowing ability. Patient seen/examined, resting in bed, labs reviewed, patient will have MBS tomorrow, and strat on d/c plans, based on the results. Patient seen/examined, resting in bed, records reviewed, case d/w patient. I have spoken to the charge nurse, and told that patient passed the swallow test. I will wait for the rn case mgr to tell me when ready for d/c. Patient seen/examined, resting in bed, records reviewed. still awaiting on bed at the ID, then will d/c. Objective - Constitutional Vitals: Vital Signs - 12hr 09/20/18 09/20/18 09/20/18 07:46 07:52 10:00 Temperature Pulse Rate Pulse Rate [ 85 Anterior Bilateral Throughout] Pulse Rate [ 85 From Monitor] Respiratory Rate Respiratory 18 Rate [Anterior Bilateral Throughout] Blood Pressure O2 Sat by Pulse 100 100 Oximetry 09/20/18 13:56 Temperature 98.7 F Pulse Rate 92 H Pulse Rate [ Anterior Bilateral Throughout] Pulse Rate [ From Monitor] Respiratory 20 Rate Respiratory Rate [Anterior Bilateral Throughout] Blood Pressure 116/75 O2 Sat by Pulse 99 Oximetry General appearance: Present: no acute distress, cachectic - EENT Eyes: PERRL, EOM intact ENT: hearing intact, clear oral mucosa Ears: bilateral: normal - Neck Neck: supple, normal ROM - Respiratory Respiratory effort: normal Respiratory: bilateral: CTA - Breasts Breasts: deferred - Cardiovascular Rhythm: regular Heart Sounds: Present: S1 & S2. Absent: gallop, rub Extremities: pulses intact, No edema, normal color, Full ROM - Gastrointestinal General gastrointestinal: Present: soft, non-tender, non-distended, normal bowel sounds Rectal Exam: deferred - Genitourinary Male genitourinary: deferred - Integumentary Integumentary: clear, warm, dry - Musculoskeletal Musculoskeletal: 1, strength equal bilaterally - Neurologic Neurologic: moves all extremities - Psychiatric Psychiatric: memory intact, appropriate mood/affect, intact judgment & insight - Labs CBC & Chem 7: 09/18/18 05:45 09/18/18 05:45 Labs: Abnormal lab results 09/19/18 09/20/18 Range/Units 21:14 16:49 POC Glucose 111 H 112 H (70-105)
[2018-09-21] MEDS: NACL 0.9% 1000 ML 1,000 ML IV SCH ×2 (01:56→12:25)
[2018-09-21 06:48] LABS: Hemoglobin 9.1 gm/dl (11.8-15.2); Mean Corpuscular HGB Conc 34 % (32-34); Mean Corpuscular Volume 95 fl (84-94); Platelet Count 113 K/mm3 (140-440); Red Blood Count 2.83 M/mm3 (3.65-5.03)
[2018-09-21] MEDS: HumuLIN R SUB-Q SCH ×3 (07:34→17:48)
[2018-09-21 08:44] LABS: Blood Urea Nitrogen 12 mg/dL (9-20)
[2018-09-21 08:45] LABS: BUN/Creatinine Ratio 20; Calcium 8.8 mg/dL (8.4-10.2); Hemolysis Index 81
[2018-09-21] MEDS: PULMICORT IH SCH (08:53)
[2018-09-21] MEDS: BROVANA NEBU IH SCH (08:53)
[2018-09-21] MEDS: PEPCID PO SCH (09:05)
[2018-09-21] MEDS: KEPPRA PO SCH (09:05)
[2018-09-21 12:22] LABS: Band Neutrophils # (Manual) 0.1 K/mm3; Total Cells Counted 100
[2018-09-21 12:23] LABS: Anisocytosis 1+; Macrocytosis 1+; Ovalocytes Few; Platelet Estimate Consistent w Auto; Schistocytes Few
--- NOTE | 2018-09-21 14:24 | Progress Note ---
Assessment and Plan Patient weak, emaciated. Awake. Presently resting on room air. No acute respiratory distress at this time.O2 saturation 98% on room air. Patient afebrile. No leukocytosis. Swallow test, reported silent aspiration. - Patient Problems (1) Status epilepticus Current Visit: Yes Status: Acute Plan to address problem: Management as per neurology. (2) Acute encephalopathy Current Visit: No Status: Acute Plan to address problem: Management as per primary care and neurology. Aspiration precautions. (3) Thrombocytopenia Current Visit: No Status: Chronic Plan to address problem: Monitor platelets closely. Subjective Date of service: 09/21/18 Principal diagnosis: Ac resp failure; Status epilepticus; Ac on ch encephalopathy; COPD; Anemia Interval history: Patient weak, emaciated. Awake. Presently resting on room air. No acute respiratory distress at this time.O2 saturation 98% on room air. Patient afebrile. No leukocytosis. Swallow test, reported silent aspiration. Objective Vital Signs - 12hr 09/21/18 09/21/18 09/21/18 02:28 07:18 08:53 Temperature 98.5 F 98.0 F Pulse Rate 87 88 Pulse Rate [ 71 Anterior Bilateral Throughout] Pulse Rate [ From Monitor] Respiratory 18 20 Rate Respiratory 16 Rate [Anterior Bilateral Throughout] Blood Pressure 123/77 130/81 O2 Sat by Pulse 96 98 Oximetry 09/21/18 10:00 Temperature Pulse Rate Pulse Rate [ Anterior Bilateral Throughout] Pulse Rate [ 71 From Monitor] Respiratory Rate Respiratory Rate [Anterior Bilateral Throughout] Blood Pressure O2 Sat by Pulse 98 Oximetry Constitutional: no acute distress, alert, other (Weak.) Eyes: non-icteric ENT: oropharynx moist, other (extubated) Neck: supple, no lymphadenopathy, no JVD Effort: mildly labored Ascultation: Bilateral: diminished breath sounds, rhonchi (scant), other (referred upper airway sounds) Percussion: Bilateral: not dull Cardiovascular: regular rate and rhythm Gastrointestinal: normoactive bowel sounds, soft, non-tender, non-distended Integumentary: normal Extremities: no cyanosis, no edema, pulses normal, no ischemia or petechiae Neurologic: unable to assess Psychiatric: other (flat affect) CBC and BMP: 09/21/18 05:34 09/21/18 05:34 ABG, PT/INR, D-dimer: ABG POC ABG pH 7.452 (7.35-7.45) H 09/10/18 05:25 POC ABG pCO2 35.5 (35-45) 09/10/18 05:25 POC ABG pO2 142 (80-105) H 09/10/18 05:25 POC ABG HCO3 24.8 (22-26 mml/L) 09/10/18 05:25 POC ABG Total CO2 26 (23-27mmol/L) 09/10/18 05:25 POC ABG O2 Sat 99 09/10/18 05:25 PT/INR, D-dimer PT 13.7 Sec. (12.2-14.9) 09/12/18 06:13 INR 1.08 (0.87-1.13) 09/12/18 06:13 Abnormal lab findings: Abnormal Labs 09/06/18 09/06/18 09/06/18 19:47 19:47 19:47 RBC 3.47 L Hgb 11.0 L Hct 34.6 L MCV 100 H RDW 16.6 H Plt Count 121 L [place] % (Auto) [place] # Lymphocytes % (Manual) 50.0 H Monocytes % (Manual) Basophils % (Manual) Lymphocytes # (Manual) Monocytes # (Manual) Fibrinogen POC ABG pH POC ABG pCO2 POC ABG pO2 Sodium Chloride 97.0 L Carbon Dioxide 21 L BUN Creatinine Glucose 152 H POC Glucose Lactic Acid AST Alkaline Phosphatase 138 H Lactate Dehydrogenase Total Creatine Kinase 45 L C-Reactive Protein Total Protein 8.9 H Albumin TSH 7.610 H Hepatitis C Antibody 09/06/18 09/06/18 09/07/18 21:05 23:16 03:41 RBC Hgb Hct MCV RDW Plt Count [place] % (Auto) [place] # Lymphocytes % (Manual) Monocytes % (Manual) Basophils % (Manual) Lymphocytes # (Manual) Monocytes # (Manual) Fibrinogen POC ABG pH POC ABG pCO2 POC ABG pO2 389 H 214 H Sodium Chloride Carbon Dioxide BUN Creatinine Glucose POC Glucose 147 H Lactic Acid AST Alkaline Phosphatase Lactate Dehydrogenase Total Creatine Kinase C-Reactive Protein Total Protein Albumin TSH Hepatitis C Antibody 09/07/18 09/07/18 09/07/18 15:04 15:04 21:55 RBC Hgb Hct MCV RDW Plt Count [place] % (Auto) [place] # Lymphocytes % (Manual) Monocytes % (Manual) Basophils % (Manual) Lymphocytes # (Manual) Monocytes # (Manual) Fibrinogen POC ABG pH POC ABG pCO2 POC ABG pO2 Sodium Chloride Carbon Dioxide BUN Creatinine Glucose POC Glucose Lactic Acid 2.90 H* AST Alkaline Phosphatase Lactate Dehydrogenase 270 H Total Creatine Kinase C-Reactive Protein 2.70 H Total Protein Albumin TSH Hepatitis C Antibody 09/07/18 09/07/18 09/08/18 21:55 23:41 04:50 RBC Hgb Hct MCV RDW Plt Count [place] % (Auto) [place] # Lymphocytes % (Manual) Monocytes % (Manual) Basophils % (Manual) Lymphocytes # (Manual) Monocytes # (Manual) Fibrinogen 616 H POC ABG pH POC ABG pCO2 POC ABG pO2 110 H Sodium Chloride Carbon Dioxide BUN Creatinine Glucose POC Glucose 125 H Lactic Acid AST Alkaline Phosphatase Lactate Dehydrogenase Total Creatine Kinase C-Reactive Protein Total Protein Albumin TSH Hepatitis C Antibody 09/08/18 09/08/18 09/08/18 06:08 12:19 23:38 RBC Hgb Hct MCV RDW Plt Count [place] % (Auto) [place] # Lymphocytes % (Manual) Monocytes % (Manual) Basophils % (Manual) Lymphocytes # (Manual) Monocytes # (Manual) Fibrinogen POC ABG pH POC ABG pCO2 POC ABG pO2 Sodium Chloride Carbon Dioxide BUN Creatinine Glucose POC Glucose 118 H 112 H 136 H Lactic Acid AST Alkaline Phosphatase Lactate Dehydrogenase Total Creatine Kinase C-Reactive Protein Total Protein Albumin TSH Hepatitis C Antibody 09/09/18 09/09/18 09/09/18 03:43 03:58 03:58 RBC 3.35 L Hgb 10.8 L Hct 32.2 L MCV 96 H RDW 15.8 H Plt Count 104 L [place] % (Auto) [place] # Lymphocytes % (Manual) Monocytes % (Manual) 19.0 H Basophils % (Manual) Lymphocytes # (Manual) Monocytes # (Manual) 1.1 H Fibrinogen POC ABG pH POC ABG pCO2 POC ABG pO2 115 H Sodium 132 L Chloride 95.6 L Carbon Dioxide BUN 26 H Creatinine Glucose 126 H POC Glucose Lactic Acid AST Alkaline Phosphatase Lactate Dehydrogenase Total Creatine Kinase C-Reactive Protein Total Protein Albumin TSH Hepatitis C Antibody 09/09/18 09/09/18 09/09/18 12:14 14:18 17:58 RBC Hgb Hct MCV RDW Plt Count [place] % (Auto) [place] # Lymphocytes % (Manual) Monocytes % (Manual) Basophils % (Manual) Lymphocytes # (Manual) Monocytes # (Manual) Fibrinogen POC ABG pH 7.467 H POC ABG pCO2 32.7 L POC ABG pO2 111 H Sodium Chloride Carbon Dioxide BUN Creatinine Glucose POC Glucose 145 H 204 H Lactic Acid AST Alkaline Phosphatase Lactate Dehydrogenase Total Creatine Kinase C-Reactive Protein Total Protein Albumin TSH Hepatitis C Antibody 09/09/18 09/10/18 09/10/18 23:36 05:16 05:25 RBC Hgb Hct MCV RDW Plt Count [place] % (Auto) [place] # Lymphocytes % (Manual) Monocytes % (Manual) Basophils % (Manual) Lymphocytes # (Manual) Monocytes # (Manual) Fibrinogen POC ABG pH 7.452 H POC ABG pCO2 POC ABG pO2 142 H Sodium Chloride Carbon Dioxide BUN Creatinine Glucose POC Glucose 153 H 149 H Lactic Acid AST Alkaline Phosphatase Lactate Dehydrogenase Total Creatine Kinase C-Reactive Protein Total Protein Albumin TSH Hepatitis C Antibody 09/10/18 09/10/18 09/10/18 12:01 18:18 23:37 RBC Hgb Hct MCV RDW Plt Count [place] % (Auto) [place] # Lymphocytes % (Manual) Monocytes % (Manual) Basophils % (Manual) Lymphocytes # (Manual) Monocytes # (Manual) Fibrinogen POC ABG pH POC ABG pCO2 POC ABG pO2 Sodium Chloride Carbon Dioxide BUN Creatinine Glucose POC Glucose 152 H 152 H 153 H Lactic Acid AST Alkaline Phosphatase Lactate Dehydrogenase Total Creatine Kinase C-Reactive Protein Total Protein Albumin TSH Hepatitis C Antibody 09/11/18 09/11/18 09/11/18 05:14 08:25 08:25 RBC 3.25 L Hgb 10.3 L Hct 31.0 L MCV 96 H RDW 15.6 H Plt Count 113 L [place] % (Auto) [place] # Lymphocytes % (Manual) Monocytes % (Manual) 13.0 H Basophils % (Manual) 2.0 H Lymphocytes # (Manual) 0.9 L Monocytes # (Manual) Fibrinogen POC ABG pH POC ABG pCO2 POC ABG pO2 Sodium 134 L Chloride 95.8 L Carbon Dioxide BUN 35 H Creatinine 0.7 L Glucose 136 H POC Glucose 137 H Lactic Acid AST Alkaline Phosphatase Lactate Dehydrogenase Total Creatine Kinase C-Reactive Protein Total Protein Albumin TSH Hepatitis C Antibody 09/11/18 09/11/18 09/12/18 12:03 17:58 00:38 RBC Hgb Hct MCV RDW Plt Count [place] % (Auto) [place] # Lymphocytes % (Manual) Monocytes % (Manual) Basophils % (Manual) Lymphocytes # (Manual) Monocytes # (Manual) Fibrinogen POC ABG pH POC ABG pCO2 POC ABG pO2 Sodium Chloride Carbon Dioxide BUN Creatinine Glucose POC Glucose 127 H 121 H 137 H Lactic Acid AST Alkaline Phosphatase Lactate Dehydrogenase Total Creatine Kinase C-Reactive Protein Total Protein Albumin TSH Hepatitis C Antibody 09/12/18 09/12/18 09/12/18 05:34 06:13 06:13 RBC 2.92 L Hgb 9.3 L Hct 27.6 L MCV 95 H RDW 15.7 H Plt Count 120 L [place] % (Auto) [place] # Lymphocytes % (Manual) Monocytes % (Manual) 17.0 H Basophils % (Manual) Lymphocytes # (Manual) 1.1 L Monocytes # (Manual) 1.2 H Fibrinogen POC ABG pH POC ABG pCO2 POC ABG pO2 Sodium 135 L Chloride Carbon Dioxide BUN 29 H Creatinine 0.7 L Glucose 132 H POC Glucose 112 H Lactic Acid AST 64 H Alkaline Phosphatase 172 H Lactate Dehydrogenase Total Creatine Kinase C-Reactive Protein Total Protein Albumin 2.9 L TSH Hepatitis C Antibody 09/12/18 09/12/18 09/12/18 11:39 17:19 23:52 RBC Hgb Hct MCV RDW Plt Count [place] % (Auto) [place] # Lymphocytes % (Manual) Monocytes % (Manual) Basophils % (Manual) Lymphocytes # (Manual) Monocytes # (Manual) Fibrinogen POC ABG pH POC ABG pCO2 POC ABG pO2 Sodium Chloride Carbon Dioxide BUN Creatinine Glucose POC Glucose 134 H 107 H 141 H Lactic Acid AST Alkaline Phosphatase Lactate Dehydrogenase Total Creatine Kinase C-Reactive Protein Total Protein Albumin TSH Hepatitis C Antibody 09/13/18 09/13/18 09/13/18 05:02 05:50 11:49 RBC Hgb Hct MCV RDW Plt Count [place] % (Auto) [place] # Lymphocytes % (Manual) Monocytes % (Manual) Basophils % (Manual) Lymphocytes # (Manual) Monocytes # (Manual) Fibrinogen POC ABG pH POC ABG pCO2 POC ABG pO2 Sodium Chloride Carbon Dioxide BUN Creatinine Glucose POC Glucose 125 H 128 H Lactic Acid AST Alkaline Phosphatase Lactate Dehydrogenase Total Creatine Kinase C-Reactive Protein Total Protein Albumin TSH Hepatitis C Antibody Reactive A 09/13/18 09/14/18 09/14/18 18:15 00:20 05:43 RBC Hgb Hct MCV RDW Plt Count [place] % (Auto) [place] # Lymphocytes % (Manual) Monocytes % (Manual) Basophils % (Manual) Lymphocytes # (Manual) Monocytes # (Manual) Fibrinogen POC ABG pH POC ABG pCO2 POC ABG pO2 Sodium Chloride Carbon Dioxide BUN Creatinine Glucose POC Glucose 137 H 121 H 127 H Lactic Acid AST Alkaline Phosphatase Lactate Dehydrogenase Total Creatine Kinase C-Reactive Protein Total Protein Albumin TSH Hepatitis C Antibody 09/14/18 09/15/18 09/15/18 17:31 04:47 04:47 RBC 3.11 L Hgb 9.8 L Hct 29.6 L MCV 95 H RDW 16.0 H Plt Count 112 L [place] % (Auto) [place] # Lymphocytes % (Manual) Monocytes % (Manual) 11.0 H Basophils % (Manual) Lymphocytes # (Manual) Monocytes # (Manual) Fibrinogen POC ABG pH POC ABG pCO2 POC ABG pO2 Sodium 132 L Chloride Carbon Dioxide 20 L BUN Creatinine 0.5 L Glucose POC Glucose 114 H Lactic Acid AST Alkaline Phosphatase Lactate Dehydrogenase Total Creatine Kinase C-Reactive Protein Total Protein Albumin TSH Hepatitis C Antibody 09/17/18 09/17/18 09/17/18 00:01 07:00 12:08 RBC Hgb Hct MCV RDW Plt Count [place] % (Auto) [place] # Lymphocytes % (Manual) Monocytes % (Manual) Basophils % (Manual) Lymphocytes # (Manual) Monocytes # (Manual) Fibrinogen POC ABG pH POC ABG pCO2 POC ABG pO2 Sodium Chloride Carbon Dioxide BUN Creatinine Glucose POC Glucose 117 H 115 H 121 H Lactic Acid AST Alkaline Phosphatase Lactate Dehydrogenase Total Creatine Kinase C-Reactive Protein Total Protein Albumin TSH Hepatitis C Antibody 09/17/18 09/18/18 09/18/18 17:37 05:45 05:45 RBC 3.09 L Hgb 9.6 L Hct 29.1 L MCV RDW 15.8 H Plt Count 119 L [place] % (Auto) 15.5 H [place] # 0.9 H Lymphocytes % (Manual) Monocytes % (Manual) Basophils % (Manual) Lymphocytes # (Manual) Monocytes # (Manual) Fibrinogen POC ABG pH POC ABG pCO2 POC ABG pO2 Sodium 135 L Chloride Carbon Dioxide BUN Creatinine 0.5 L Glucose 107 H POC Glucose 128 H Lactic Acid AST Alkaline Phosphatase Lactate Dehydrogenase Total Creatine Kinase C-Reactive Protein Total Protein Albumin TSH Hepatitis C Antibody 09/18/18 09/18/18 09/18/18 06:37 11:28 18:28 RBC Hgb Hct MCV RDW Plt Count [place] % (Auto) [place] # Lymphocytes % (Manual) Monocytes % (Manual) Basophils % (Manual) Lymphocytes # (Manual) Monocytes # (Manual) Fibrinogen POC ABG pH POC ABG pCO2 POC ABG pO2 Sodium Chloride Carbon Dioxide BUN Creatinine Glucose POC Glucose 127 H 115 H 108 H Lactic Acid AST Alkaline Phosphatase Lactate Dehydrogenase Total Creatine Kinase C-Reactive Protein Total Protein Albumin TSH Hepatitis C Antibody 09/19/18 09/19/18 09/20/18 00:07 21:14 16:49 RBC Hgb Hct MCV RDW Plt Count [place] % (Auto) [place] # Lymphocytes % (Manual) Monocytes % (Manual) Basophils % (Manual) Lymphocytes # (Manual) Monocytes # (Manual) Fibrinogen POC ABG pH POC ABG pCO2 POC ABG pO2 Sodium Chloride Carbon Dioxide BUN Creatinine Glucose POC Glucose 116 H 111 H 112 H Lactic Acid AST Alkaline Phosphatase Lactate Dehydrogenase Total Creatine Kinase C-Reactive Protein Total Protein Albumin TSH Hepatitis C Antibody 09/20/18 09/21/18 09/21/18 21:44 05:34 05:34 RBC 2.83 L Hgb 9.1 L Hct 27.0 L MCV 95 H RDW 16.0 H Plt Count 113 L [place] % (Auto) [place] # Lymphocytes % (Manual) 50.0 H Monocytes % (Manual) Basophils % (Manual) Lymphocytes # (Manual) Monocytes # (Manual) Fibrinogen POC ABG pH POC ABG pCO2 POC ABG pO2 Sodium 134 L Chloride Carbon Dioxide 21 L BUN Creatinine 0.6 L Glucose POC Glucose 120 H Lactic Acid AST Alkaline Phosphatase Lactate Dehydrogenase Total Creatine Kinase C-Reactive Protein Total Protein Albumin TSH Hepatitis C Antibody 09/21/18 09/21/18 07:23 11:42 RBC Hgb Hct MCV RDW Plt Count [place] % (Auto) [place] # Lymphocytes % (Manual) Monocytes % (Manual) Basophils % (Manual) Lymphocytes # (Manual) Monocytes # (Manual) Fibrinogen POC ABG pH POC ABG pCO2 POC ABG pO2 Sodium Chloride Carbon Dioxide BUN Creatinine Glucose POC Glucose 106 H 112 H Lactic Acid AST Alkaline Phosphatase Lactate Dehydrogenase Total Creatine Kinase C-Reactive Protein Total Protein Albumin TSH Hepatitis C Antibody Allied health notes reviewed: nursing
--- NOTE | 2018-09-21 18:40 | Discharge Summary ---
Providers - Providers Date of Admission: 09/06/18 21:17 Date of discharge: 09/21/18 Attending physician: DORI ALLEN 09/06/18 20:43 Consult to Dietitian/Nutrition [CONS] Routine Physician Instructions: Reason For Exam: Reason for Consult: Evaluate nutritional intake 09/06/18 21:16 Consult to Physician [CONS] Urgent Comment: Consulting Provider: JADA HILLIARD Physician Instructions: Reason For Exam: status epilepticus 09/07/18 09:21 Consult to Physician [CONS] Urgent Comment: Consulting Provider: SIDRA HERNANDEZ Physician Instructions: Reason For Exam: critical care management 09/07/18 12:32 Consult to Dietitian/Nutrition [CONS] Routine Physician Instructions: Reason For Exam: Tube Feeding Reason for Consult: Write/Manage Tube Feeding 09/11/18 15:48 Speech Therapy Evaluation and Treat [CONS] Routine Reason For Exam: swallow evaluation 09/12/18 09:21 Occupational Therapy Evaluate and Treat [CONS] Routine Comment: Reason For Exam: Debility Physical Therapy Evaluation and Treat [CONS] Routine Comment: Reason For Exam: Debility 09/15/18 19:31 Consult to Physician [CONS] Routine Comment: dr. pinto called / emmanuel Consulting Provider: RADHA PINTO Physician Instructions: Reason For Exam: peg tube placement. 09/16/18 12:41 Speech Therapy Evaluation and Treat [CONS] Stat Reason For Exam: Evaluate swallow. Patient for PEG placement today Primary care physician: GONZÁLEZ PEREZ Hospitalization Reason for admission: [place], acute resp failure. Condition: Good Hospital course: Patient presented with complaints, and reasons as above.Admitted for w/up, and sxs control.He was seen by all the consultants., was placed in ICU, when needed, and transfered to the floor .once extubated.He had swallow test twice., initially abn, and repeated, fair, therefore peg tube placement aborted. patient has remained, fairly stable clinically. he was diagnosed with Hep c this admission, and that will be followed up out patient.Patient records reviewed, and stable, therefore, will D/C back to the [place].now Disposition: [id number] - Discharge Diagnoses (1) Status epilepticus Status: Chronic (2) Acute encephalopathy Status: Resolved (3) Thrombocytopenia Status: Chronic (4) Acute respiratory failure Status: Resolved (5) Poor nutrition Status: Chronic Core Measure Documentation - Palliative Care Palliative Care/ Comfort Measures: Not Applicable - Core Measures Any of the following diagnoses?: none Exam - Constitutional Vitals: Temp Pulse Resp BP Pulse Ox 98.6 F 85 20 134/75 98 09/21/18 13:47 09/21/18 13:47 09/21/18 13:47 09/21/18 13:47 09/21/18 13:47 General appearance: Present: no acute distress, well-nourished - EENT Eyes: Present: PERRL ENT: hearing intact, clear oral mucosa - Neck Neck: Present: supple, normal ROM - Respiratory Respiratory effort: normal Respiratory: bilateral: CTA - Cardiovascular Heart Sounds: Present: S1 & S2. Absent: rub, click - Extremities Extremities: pulses symmetrical, No edema Peripheral Pulses: within normal limits - Abdominal General gastrointestinal: Present: soft, non-tender, non-distended, normal bowel sounds Male genitourinary: Present: deferred - Rectal Rectal Exam: deferred - Integumentary Integumentary: Present: clear, warm, dry - Musculoskeletal Musculoskeletal: gait normal, strength equal bilaterally - Psychiatric Psychiatric: appropriate mood/affect, intact judgment & insight - Neurologic Neurologic: CNII-XII intact, moves all extremities Plan Activity: up only with assistance, fall precautions Diet: regular Additional Instructions: continue all your meds as prior to this admission. Follow up with: PRIMARY [facility] [Referring] - 3-5 Days
[2018-09-21 20:20] VITALS: BP 126/51
== END 2018-09-21 19:30 | DRG 208 ==
LOC: ED 19:41 → CC1 21:17 → 2B-ACE 09-11 17:37
PROVIDERS: ADMIT Internal Medicine Hematology & Oncology; ATTEND Internal Medicine Hematology & Oncology
PROC: 5A1945Z Respiratory Ventilation, 24-96 Consecutive Hours (ICD-10-PCS; principal; 2018-09-06)
PROC: 0BH17EZ Insertion of Endotracheal Airway into Trachea, Via Natural or Artificial Opening (ICD-10-PCS; 2018-09-06)
PROC: 4A033R1 Measurement of Arterial Saturation, Peripheral, Percutaneous Approach (ICD-10-PCS; 2018-09-06)
PROC: 5A09357 Assistance with Respiratory Ventilation, Less than 24 Consecutive Hours, Continuous Positive Airway Pressure (ICD-10-PCS; 2018-09-09)
PROC: 5A09357 Assistance with Respiratory Ventilation, Less than 24 Consecutive Hours, Continuous Positive Airway Pressure (ICD-10-PCS; 2018-09-10)
DX: J96.00 Acute respiratory failure, unspecified whether with hypoxia or hypercapnia (principal); E87.1 Hypo-osmolality and hyponatremia; Z68.1 Body mass index [BMI] 19.9 or less, adult; E44.0 Moderate protein-calorie malnutrition; G40.901 Epilepsy, unspecified, not intractable, with status epilepticus; B19.20 Unspecified viral hepatitis C without hepatic coma; D69.6 Thrombocytopenia, unspecified; J44.9 Chronic obstructive pulmonary disease, unspecified; H40.9 Unspecified glaucoma; D50.9 Iron deficiency anemia, unspecified; R13.12 Dysphagia, oropharyngeal phase; R62.7 Adult failure to thrive; Z86.73 Personal history of transient ischemic attack (TIA), and cerebral infarction without residual deficits
CPT/HCPCS: 36415; 36600; 70450; 71045; 74018; 74230; 80048; 80053; 80074; 80307; 81001; 82140; 82550; 82553; 82607; 82747; 82803; 82962; 83615; 83735; 84439; 84443; 84484; 85007; 85025; 85384; 85610; 85730; 86140; 87040; 87070; 87086; 87116; 87186; 87205; 87517; 87902; 93005; 93010; 94002; 94003; 94640; 94660; 94760; 95819; 96374; 96375; G0378; J0330; J0696; J1815; J1953; J1956; J2001; J2060; J2250; J3010; J3370; J7030